=== PATIENT | female | born 1945 | race Two or more races ===

== ENCOUNTER 2021-06-29 11:29 | Emergency (ER) | payer MEDICARE, OTHER ==
[~2021-06-29] VITALS: Ht 154.9 cm; Wt 59.9 kg
[2021-06-29 12:28] VITALS: BP 125/83
[2021-06-29] MEDS ORDERED: ACET-1080 PO (13:49)
== END 2021-06-29 13:55 | disposition home or self-care (01) ==
LOC: ER 11:29
DX: M79.662 Pain in left lower leg (principal); R22.42 Localized swelling, mass and lump, left lower limb; I10 Essential (primary) hypertension
CPT/HCPCS: 93005; 93971

== ENCOUNTER 2021-08-26 19:26 | Emergency (ER) | payer MEDICARE, MEDICAID ==
[~2021-08-26] VITALS: Ht 154.9 cm; Wt 54.4 kg
[~2021-08-26 19:26] MED LIST: ACET-1080 PO
[2021-08-26] MEDS ORDERED: ACETAMINOPHEN 325 MG TAB PO ONE (20:45)
[2021-08-26 22:37] LABS: Basophils # (auto) 0 10 ^3/uL (0-0.2); Basophils % (auto) 0.4 % (0.0-2.0); Eosinophils # (auto) 0.1 10 ^3/uL (0-0.8); Eosinophils % (auto) 1.8 % (0.0-7.0); Hematocrit 36.8 % (36.0-46.0); Hemoglobin 12.7 g/dL (12.2-16.2); Lymphocytes # (auto) 0.9 10 ^3/uL (0.4-5.4); Lymphocytes % (auto) 12.8 % (10.0-50.0); Mean Corpuscular Hemoglobin 31.4 pg (28.0-32.0); Mean Corpuscular Hgb Conc. 34.6 g/dL (32.0-36.0); Mean Corpuscular Volume 90.9 fL (80.0-100.0); Monocytes # (auto) 0.9 10 ^3/uL (0-1.3); Monocytes % (auto) 12.3 % (0.0-12.0); Neutrophils # (auto) 5.4 10 ^3/uL (1.6-8.6); Neutrophils % (auto) 72.7 % (37.0-80.0); Red Blood Cells 4.05 10^6/uL (4.0-5.20); Red Cell Distribution Width 14.6 % (11.8-14.3); White Blood Cell 7.4 10^3/uL (4.4-10.8)
[2021-08-26 22:40] LABS: INR 1.1 (0.9-1.15)
[2021-08-26 23:07] LABS: Albumin 3.4 g/dL (3.4-5.0); Calcium 8.8 mg/dL (8.5-10.1); Potassium 4.3 mmol/L (3.5-5.1)
[2021-08-26 23:10] LABS: Bilirubin, Total 0.3 mg/dL (0.2-1.0); Total Protein 6.4 g/dL (6.4-8.2)
[2021-08-27 00:15] VITALS: BP 127/77
== END 2021-08-27 00:15 | disposition home or self-care (01) ==
LOC: ER 19:26
DX: I82.402 Acute embolism and thrombosis of unspecified deep veins of left lower extremity (principal); I10 Essential (primary) hypertension; Z79.899 Other long term (current) drug therapy
CPT/HCPCS: 36415; 80053; 85025; 85610; 85730; 93971

== ENCOUNTER 2022-05-09 14:26 | Inpatient (IN) | payer MEDICARE, MEDICAID ==
[~2022-05-09] VITALS: Ht 154.9 cm; Wt 56.4 kg
[2022-05-09 15:07] LABS: Basophils # (auto) 0 10 ^3/uL (0-0.2); Basophils % (auto) 0.4 % (0.0-2.0); Eosinophils # (auto) 0 10 ^3/uL (0-0.8); Eosinophils % (auto) 0.4 % (0.0-7.0); Hemoglobin 13.1 g/dL (12.2-16.2); Lymphocytes # (auto) 0.5 10 ^3/uL (0.4-5.4); Mean Corpuscular Hemoglobin 30.9 pg (28.0-32.0); Mean Corpuscular Hgb Conc. 33.5 g/dL (32.0-36.0); Mean Corpuscular Volume 92.3 fL (80.0-100.0); Monocytes # (auto) 0.8 10 ^3/uL (0-1.3); Monocytes % (auto) 16.5 % (0.0-12.0); Neutrophils # (auto) 3.4 10 ^3/uL (1.6-8.6); Neutrophils % (auto) 72.7 % (37.0-80.0); Nucleated Red Blood Cells % 0.1 %; Red Blood Cells 4.23 10^6/uL (4.0-5.20); Red Cell Distribution Width 14.7 % (11.8-14.3); White Blood Cell 4.7 10^3/uL (4.4-10.8)
[2022-05-09 15:26] LABS: Albumin 3.6 g/dL (3.4-5.0); Calcium 8.6 mg/dL (8.5-10.1); INR 1.21 (0.9-1.15); Magnesium 2.1 mg/dL (1.6-2.6); Partial Thromboplastin Time 28.8 sec (24.6-33.4); Potassium 4.3 mmol/L (3.5-5.1)
[2022-05-09 15:44] LABS: BUN/Creatinine Ratio 28.4; Bilirubin, Total 0.6 mg/dL (0.2-1.0)
[2022-05-09] MEDS ORDERED: IOHEXOL 350 MG/ML 100ML IJ ONE (16:17)
[2022-05-09] MEDS ORDERED: MECLIZINE HCL 25 MG TAB PO ONE (17:15)
[2022-05-09] MEDS ORDERED: NITROGLYCERIN 0.4 MG SL TAB SL PRN (18:00)
[2022-05-09] MEDS ORDERED: MORPHINE SULFATE INJ 2 MG/ml SYRG IV PRN (18:00)
[2022-05-09] MEDS ORDERED: ACETAMINOPHEN 325 MG TAB PO PRN (18:00)
[2022-05-09] MEDS ORDERED: PANTOPRAZOLE 40 MG/10 ML VIAL INJ IV ONE (18:00)
[2022-05-09] MEDS ORDERED: MECLIZINE HCL 25 MG TAB PO PRN (18:15)
[2022-05-09] MEDS: SODIUM CHLORIDE 0.9% 1,000 ML IV SCH (18:16)
[2022-05-09 18:55] LABS: Urine Bacteria NONE SEEN /hpf (None Seen); Urine Blood Negative /uL (Negative); Urine Hyaline Cast FEW /lpf (0 - 2); Urine Specific Gravity 1.039 (1.001-1.035); Urine WBC 3 /hpf (0 - 5)
[2022-05-09 19:16] LABS: Alcohol, Urine < 3.0 mg/dL (0-10); Amphetamine Screen, Urine NEGATIVE (NEGATIVE); Barbiturate Scree,Urine NEGATIVE (NEGATIVE); Benzodiazephine Screen, Urine NEGATIVE (NEGATIVE); Cannabinoid Screen, Urine NEGATIVE (NEGATIVE); Cocaine Screen, Urine NEGATIVE (NEGATIVE); Opiate Scree,Urine NEGATIVE (NEGATIVE); Phencyclidine Screen, Urine NEGATIVE (NEGATIVE)
[2022-05-09 19:21] LABS: Cholesterol 126 mg/dL (< 200)
[2022-05-09 19:24] LABS: HDL Cholesterol 61 mg/dL (40-59); LDL Cholesterol 59 mg/dL (< 100); Triglycerides 78 mg/dL (< 150)
[2022-05-09 22:00] VITALS: BP 109/62
[2022-05-10] MEDS ORDERED: DONE1TAB88 PO (01:04)
[2022-05-10] MEDS ORDERED: RISP0.5T45 PO (01:04)
[2022-05-10] MEDS ORDERED: MEMA1TAB5 PO (01:04)
[2022-05-10] MEDS ORDERED: APIX5TAB PO (01:04)
[2022-05-10] MEDS ORDERED: LATA0.0019 EACHEYE (01:04)
[2022-05-10 05:00] VITALS: BP_SYST 102; BP_SYST 106; BP_SYST 90; BP_DIAS 53; BP_DIAS 57; BP_DIAS 60
[2022-05-10 05:20] LABS: Basophils # (auto) 0 10 ^3/uL (0-0.2); Basophils % (auto) 0.3 % (0.0-2.0); Eosinophils # (auto) 0.1 10 ^3/uL (0-0.8); Eosinophils % (auto) 1.8 % (0.0-7.0); Hematocrit 35.9 % (36.0-46.0); Hemoglobin 12.1 g/dL (12.2-16.2); Lymphocytes # (auto) 0.9 10 ^3/uL (0.4-5.4); Lymphocytes % (auto) 13.9 % (10.0-50.0); Mean Corpuscular Hemoglobin 30.7 pg (28.0-32.0); Mean Corpuscular Hgb Conc. 33.6 g/dL (32.0-36.0); Mean Corpuscular Volume 91.3 fL (80.0-100.0); Monocytes # (auto) 1.1 10 ^3/uL (0-1.3); Nucleated Red Blood Cells % 0.2 %; Red Blood Cells 3.94 10^6/uL (4.0-5.20); Red Cell Distribution Width 14.9 % (11.8-14.3); White Blood Cell 6.1 10^3/uL (4.4-10.8)
[2022-05-10 05:40] LABS: Albumin 3.1 g/dL (3.4-5.0); BUN/Creatinine Ratio 35.2; Calcium 8.2 mg/dL (8.5-10.1); Potassium 4.3 mmol/L (3.5-5.1)
[2022-05-10 05:42] LABS: Bilirubin, Total 0.3 mg/dL (0.2-1.0); Total Protein 5.6 g/dL (6.4-8.2)
[2022-05-10 09:01] VITALS: BP 112/66
[2022-05-10] MEDS: PANTOPRAZOLE 40 MG/10 ML VIAL INJ IV SCH (10:06)
[2022-05-10] MEDS: ENOXAPARIN SOD 40 MG/0.4 ML SYRINGE SC SCH (10:06)
[2022-05-10 12:46] VITALS: BP 104/59
[2022-05-10 16:56] VITALS: BP 134/76
[2022-05-10 22:00] VITALS: BP_SYST 103; BP_SYST 92; BP_SYST 96; BP_DIAS 49; BP_DIAS 50; BP_DIAS 55
[2022-05-11 05:00] VITALS: BP_SYST 73; BP_SYST 93; BP_SYST 97; BP_DIAS 37; BP_DIAS 41; BP_DIAS 51
[2022-05-11 08:00] VITALS: BP_SYST 86; BP_SYST 98; BP_SYST 99; BP_DIAS 47; BP_DIAS 53; BP_DIAS 63
[2022-05-11 08:01] LABS: Hemoglobin 12.9 g/dL (12.2-16.2); Mean Corpuscular Hgb Conc. 33.9 g/dL (32.0-36.0); Mean Corpuscular Volume 91.2 fL (80.0-100.0); Red Blood Cells 4.17 10^6/uL (4.0-5.20); Red Cell Distribution Width 14.5 % (11.8-14.3); White Blood Cell 6.6 10^3/uL (4.4-10.8)
[2022-05-11 08:21] LABS: Band Neutrophils % (manual) 0; Basophils % (manual) 0 (0.0-2.0); Blast Cells 0; Metamyelocytes % 0; Myelocytes % 0; Promyelocytes % 0; Reactive Lymphocytes 0
[2022-05-11 08:26] LABS: BUN/Creatinine Ratio 35.1; Calcium 8.7 mg/dL (8.5-10.1); Potassium 4.6 mmol/L (3.5-5.1)
[2022-05-11 09:25] LABS: Eosinophils % (manual) 1 (0-7); Lymphocytes % (manual) 11 (10.0-50.0); Monocytes % (manual) 24 (0-12)
[2022-05-11] MEDS: PANTOPRAZOLE 40 MG/10 ML VIAL INJ IV SCH (10:11)
[2022-05-11] MEDS: ENOXAPARIN SOD 40 MG/0.4 ML SYRINGE SC SCH (10:12)
[2022-05-11 12:00] VITALS: BP_SYST 100; BP_SYST 103; BP_SYST 123; BP_DIAS 47; BP_DIAS 58; BP_DIAS 60
[2022-05-11 16:00] VITALS: BP_SYST 80; BP_SYST 83; BP_SYST 92; BP_DIAS 44; BP_DIAS 48; BP_DIAS 51
[2022-05-11 19:57] VITALS: BP 95/52
[2022-05-11 22:00] VITALS: BP_SYST 90; BP_SYST 92; BP_SYST 96; BP_DIAS 47; BP_DIAS 51; BP_DIAS 53
[2022-05-12 05:00] VITALS: BP 100/52
[2022-05-12 06:37] LABS: Basophils # (auto) 0 10 ^3/uL (0-0.2); Basophils % (auto) 0.4 % (0.0-2.0); Eosinophils # (auto) 0.2 10 ^3/uL (0-0.8); Eosinophils % (auto) 3.1 % (0.0-7.0); Hematocrit 36.9 % (36.0-46.0); Hemoglobin 12.5 g/dL (12.2-16.2); Lymphocytes # (auto) 1.4 10 ^3/uL (0.4-5.4); Lymphocytes % (auto) 27.3 % (10.0-50.0); Mean Corpuscular Hgb Conc. 33.9 g/dL (32.0-36.0); Mean Corpuscular Volume 91.3 fL (80.0-100.0); Monocytes % (auto) 20.9 % (0.0-12.0); Neutrophils # (auto) 2.4 10 ^3/uL (1.6-8.6); Neutrophils % (auto) 48.3 % (37.0-80.0); Red Blood Cells 4.04 10^6/uL (4.0-5.20); Red Cell Distribution Width 14.5 % (11.8-14.3)
[2022-05-12 06:54] LABS: Potassium 4.6 mmol/L (3.5-5.1)
[2022-05-12 06:55] LABS: BUN/Creatinine Ratio 33.8; Calcium 8.7 mg/dL (8.5-10.1)
[2022-05-12 08:00] VITALS: BP 104/52
[2022-05-12] MEDS: ENOXAPARIN SOD 40 MG/0.4 ML SYRINGE SC SCH (10:05)
[2022-05-12] MEDS: PANTOPRAZOLE 40 MG/10 ML VIAL INJ IV SCH (10:05)
[2022-05-12] MEDS: SODIUM CHLORIDE 0.9% 1,000 ML IV SCH (10:06)
[2022-05-12 12:00] VITALS: BP 98/48
[2022-05-12 16:00] VITALS: BP_SYST 118; BP_SYST 94; BP_SYST 98; BP_DIAS 46; BP_DIAS 50; BP_DIAS 55
[2022-05-12] MEDS ORDERED: LORazepam 2MG/ML-1ML VIAL IV PRN (20:30)
[2022-05-12 21:29] LABS: Folate (Folic Acid) 8.78 ng/mL (5.38-24)
[2022-05-12] MEDS: DONEPEZIL HYDROCHLORIDE 5 MG TAB PO SCH (21:30)
[2022-05-12] MEDS: MEMANTINE HCL 5 MG TAB PO SCH (21:30)
[2022-05-12 22:03] VITALS: BP 95/47
[2022-05-13 05:10] VITALS: BP_SYST 102; BP_SYST 107; BP_SYST 96; BP_DIAS 51; BP_DIAS 56; BP_DIAS 61
[2022-05-13 05:43] LABS: Basophils # (auto) 0 10 ^3/uL (0-0.2); Basophils % (auto) 0.3 % (0.0-2.0); Eosinophils # (auto) 0.2 10 ^3/uL (0-0.8); Eosinophils % (auto) 4.2 % (0.0-7.0); Hematocrit 37.5 % (36.0-46.0); Hemoglobin 12.7 g/dL (12.2-16.2); Lymphocytes # (auto) 1.6 10 ^3/uL (0.4-5.4); Lymphocytes % (auto) 27.5 % (10.0-50.0); Mean Corpuscular Hgb Conc. 33.8 g/dL (32.0-36.0); Mean Corpuscular Volume 91.5 fL (80.0-100.0); Monocytes % (auto) 17.9 % (0.0-12.0); Neutrophils # (auto) 2.8 10 ^3/uL (1.6-8.6); Neutrophils % (auto) 50.1 % (37.0-80.0); Red Cell Distribution Width 14.7 % (11.8-14.3); White Blood Cell 5.7 10^3/uL (4.4-10.8)
[2022-05-13 06:02] LABS: Calcium 8.9 mg/dL (8.5-10.1); Potassium 4.9 mmol/L (3.5-5.1)
[2022-05-13 06:06] LABS: BUN/Creatinine Ratio 22.5
[2022-05-13] MEDS: SODIUM CHLORIDE 0.9% 1,000 ML IV SCH ×2 (06:57→06:58)
[2022-05-13 08:05] VITALS: BP 114/63
[2022-05-13 09:00] VITALS: BP 105/56
[2022-05-13] MEDS: MEMANTINE HCL 5 MG TAB PO SCH ×2 (09:29→21:20)
[2022-05-13 13:00] VITALS: BP 101/55
[2022-05-13 16:49] VITALS: BP 123/60
[2022-05-13] MEDS ORDERED: CYANOCOBALAMIN (B-12) 1000 MCG/1 ML VIAL IM ONE (20:45)
[2022-05-13] MEDS: DONEPEZIL HYDROCHLORIDE 5 MG TAB PO SCH (21:20)
[2022-05-13] MEDS: ENOXAPARIN SOD 100 MG/1 ML SYRINGE SC SCH (21:21)
[2022-05-14 05:00] VITALS: BP 120/59
[2022-05-14 05:55] LABS: Basophils # (auto) 0 10 ^3/uL (0-0.2); Basophils % (auto) 0.3 % (0.0-2.0); Eosinophils # (auto) 0.3 10 ^3/uL (0-0.8); Hematocrit 37.6 % (36.0-46.0); Hemoglobin 12.7 g/dL (12.2-16.2); Lymphocytes # (auto) 1.8 10 ^3/uL (0.4-5.4); Lymphocytes % (auto) 26.2 % (10.0-50.0); Mean Corpuscular Hemoglobin 31.1 pg (28.0-32.0); Mean Corpuscular Hgb Conc. 33.8 g/dL (32.0-36.0); Mean Corpuscular Volume 92.1 fL (80.0-100.0); Monocytes # (auto) 1.1 10 ^3/uL (0-1.3); Monocytes % (auto) 15.5 % (0.0-12.0); Neutrophils # (auto) 3.8 10 ^3/uL (1.6-8.6); Red Blood Cells 4.09 10^6/uL (4.0-5.20); Red Cell Distribution Width 14.4 % (11.8-14.3)
[2022-05-14 06:03] LABS: Potassium 4.5 mmol/L (3.5-5.1)
[2022-05-14 06:07] LABS: BUN/Creatinine Ratio 32.6
[2022-05-14 08:58] VITALS: BP 103/57
[2022-05-14] MEDS: ENOXAPARIN SOD 100 MG/1 ML SYRINGE SC SCH (09:40)
[2022-05-14] MEDS: MEMANTINE HCL 5 MG TAB PO SCH (09:40)
[2022-05-14] MEDS ORDERED: CYANOCOBALAMIN 500 MCG TAB PO SCH (10:00)
== END 2022-05-14 13:20 | disposition home health service (06) | DRG 307 ==
LOC: ER 14:26 → EDBD 14:26 → TELE 17:54 → TELE-EAST 21:58
PROVIDERS: ADMIT Nurse Practitioner Family; ATTEND Internal Medicine Pulmonary Disease
DX: I35.0 Nonrheumatic aortic (valve) stenosis (principal); G45.9 Transient cerebral ischemic attack, unspecified; I24.9 Acute ischemic heart disease, unspecified; I95.1 Orthostatic hypotension; F02.80 Dementia in other diseases classified elsewhere, unspecified severity, without behavioral disturbance, psychotic disturbance, mood disturbance, and anxiety; Z20.822 Contact with and (suspected) exposure to COVID-19; W18.39XA Other fall on same level, initial encounter; G30.9 Alzheimer's disease, unspecified; I10 Essential (primary) hypertension; Z79.01 Long term (current) use of anticoagulants; Z79.899 Other long term (current) drug therapy; Z86.718 Personal history of other venous thrombosis and embolism; Y93.89 Activity, other specified; Y92.89 Other specified places as the place of occurrence of the external cause; Y99.8 Other external cause status
CPT/HCPCS: 36415; 70450; 70551; 71045; 71275; 80048; 80053; 80061; 80307; 81001; 82607; 82746; 83090; 83735; 84443; 84484; 85007; 85025; 85027; 85610; 85730; 87426; 93005; 93306; 93886; 95819; 96361; 96374; 97163; C9113; G0378

== ENCOUNTER 2022-07-06 09:36 | Emergency (ER) | payer MEDICARE, MEDICAID ==
[~2022-07-06] VITALS: Ht 180.3 cm; Wt 50.0 kg
[~2022-07-06 09:36] MED LIST changes: -ACET-1080 PO; +APIX5TAB PO; +DONE1TAB88 PO; +LATA0.0019 EACHEYE; +MEMA1TAB5 PO; +RISP0.5T45 PO
[2022-07-06 10:03] VITALS: BP 130/84
== END 2022-07-06 13:09 | disposition home or self-care (01) ==
LOC: ER 09:36
DX: S00.83XA Contusion of other part of head, initial encounter (principal); G30.9 Alzheimer's disease, unspecified; F02.80 Dementia in other diseases classified elsewhere, unspecified severity, without behavioral disturbance, psychotic disturbance, mood disturbance, and anxiety; I10 Essential (primary) hypertension; W18.39XA Other fall on same level, initial encounter; Y93.E1 Activity, personal bathing and showering; Y92.89 Other specified places as the place of occurrence of the external cause; Y99.8 Other external cause status
CPT/HCPCS: 70450; 70486

== ENCOUNTER 2023-06-01 08:11 | Inpatient (IN) | payer MEDICARE, MEDICAID ==
[~2023-06-01] VITALS: Ht 154.9 cm; Wt 44.3 kg
[2023-06-01] VITALS (37 sets, daily range): BP systolic 56–154; BP diastolic 32–93; PULSE 66–101; RESP 14–20; TEMP 90.9–98.8; O2SAT 97–100
[~2023-06-01 08:11] MED LIST changes: -LATA0.0019 EACHEYE; +LATA0.008 EACHEYE
[2023-06-01 09:00] LABS: Basophils # (auto) 0 10 ^3/uL (0-0.2); Basophils % (auto) 0.1 % (0.0-2.0); Eosinophils # (auto) 0 10 ^3/uL (0-0.8); Eosinophils % (auto) 0.7 % (0.0-7.0); Hematocrit 34.8 % (36.0-46.0); Hemoglobin 11.7 g/dL (12.2-16.2); Lymphocytes # (auto) 1.1 10 ^3/uL (0.4-5.4); Lymphocytes % (auto) 15.8 % (10.0-50.0); Mean Corpuscular Hemoglobin 32.4 pg (28.0-32.0); Mean Corpuscular Hgb Conc. 33.6 g/dL (32.0-36.0); Mean Corpuscular Volume 96.3 fL (80.0-100.0); Monocytes # (auto) 0.7 10 ^3/uL (0-1.3); Monocytes % (auto) 10.6 % (0.0-12.0); Neutrophils % (auto) 72.8 % (37.0-80.0); Red Blood Cells 3.62 10^6/uL (4.0-5.20); Red Cell Distribution Width 15.1 % (11.8-14.3); White Blood Cell 6.8 10^3/uL (4.4-10.8)
[2023-06-01 09:19] LABS: Alanine Aminotransferase 37 U/L (7-40); Albumin 3.8 g/dL (3.2-4.8); Alkaline Phosphatase 157 U/L (46-116); Anion Gap 5 (5-15); Aspartate Aminotransferase 34 U/L (13-40); BUN/Creatinine Ratio 35.6 (10.0-20.0); Blood Urea Nitrogen 21 mg/dL (9-23); Calcium 7.8 mg/dL (8.7-10.4); Carbon Dioxide 27 mmol/L (20-30); Chloride 94 mmol/L (98-107); Glucose 103 mg/dL (74-106); Magnesium 1.6 mg/dL (1.6-2.6); Potassium 4.1 mmol/L (3.5-5.1); Sodium 126 mmol/L (136-145)
[2023-06-01 09:20] LABS: Bilirubin, Total 0.3 mg/dL (0.2-1.0); Total Protein 5.7 g/dL (5.7-8.2)
[2023-06-01] MEDS ORDERED: VANCOMYCIN 1GM/200ML 250 ML IV ONE (09:45)
[2023-06-01] MEDS ORDERED: HYDROCORTISONE SOD SUCC 100 MG/2ML INJ VIAL IV ONE (09:45)
[2023-06-01] MEDS ORDERED: PIPERACILLIN-TAZOB 3.375GM 100 ML IV ONE (09:45)
[2023-06-01] MEDS ORDERED: CALCIUM GLUC 1,000mg/50ml-NS 150 ML IV ONE (10:06)
[2023-06-01] MEDS ORDERED: ETOMIDATE (2MG/ML) 20ML VIAL IV ONE ×2 (10:11→10:30)
[2023-06-01] MEDS ORDERED: SUCCINYLCHOLINE CHLORIDE 20 MG/ML 10ML VIAL IV ONE ×2 (10:14→10:30)
[2023-06-01] MEDS: NOREPINEPHRINE 8 MG/250ML KIT 250 ML IV SCH ×2 (10:15→20:01)
[2023-06-01] MEDS ORDERED: NOREPINEPHRINE 8 MG/250ML KIT 250 ML IV ONE (10:17)
[2023-06-01] MEDS ORDERED: fentaNYL CITRATE 100 MCG/2 ML VL ONE ×2 (10:20→15:02)
[2023-06-01] MEDS ORDERED: HALOPERIDOL LACTATE 5 MG/ML INJ VIAL ONE (10:22)
[2023-06-01] MEDS ORDERED: PROPOFOL 100 ML IV ONE (10:28)
[2023-06-01] MEDS ORDERED: HALOPERIDOL LACTATE 5 MG/ML INJ VIAL IM ONE (10:30)
[2023-06-01] MEDS ORDERED: ATROPINE SULF 1 MG/10ml SYR IV ONE (10:30)
[2023-06-01] MEDS ORDERED: SODIUM BICARBONATE 8.4 % INJ 50ML VIAL IV ONE (10:30)
[2023-06-01] MEDS ORDERED: DEXTROSE (50%) 50ML SYRG IV ONE (10:30)
[2023-06-01] MEDS ORDERED: fentaNYL CITRATE 100 MCG/2 ML VL IV ONE (10:30)
[2023-06-01] MEDS: PROPOFOL 100 ML IV SCH (10:31)
[2023-06-01] MEDS ORDERED: SODIUM CHLORIDE 0.9% 1,500 ML IV STA (10:44)
[2023-06-01] MEDS ORDERED: SODIUM CHLORIDE 0.9% 1,300 ML IV ONE (11:00)
[2023-06-01 11:45] LABS: Base Excess -2.3 mmol/L (-2.0-2.0)
[2023-06-01 11:51] LABS: INR 1.14 (0.9-1.15); Partial Thromboplastin Time 30.5 SEC (24.5-34.5); Prothrombin Time 11.9 sec (9.3-11.8)
[2023-06-01 11:53] LABS: Urine Bacteria NONE SEEN /hpf (None Seen); Urine Blood Negative /uL (Negative); Urine Clarity Clear (Clear); Urine Protein, UAD TRACE (Negative); Urine Urobilinogen Normal (Negative); Urine WBC 1 /hpf (0 - 5); Urine pH 6.5 (5.0-8.0)
[2023-06-01 11:56] LABS: Urine Color Straw (Yellow)
[2023-06-01] MEDS ORDERED: MIDAZOLAM DRIP 50 mg/50mL 50 ML IV ONE (12:09)
[2023-06-01] MEDS: MIDAZOLAM DRIP 50 mg/50mL 50 ML IV SCH ×3 (12:15→23:47)
[2023-06-01 12:41] LABS: Triglycerides 67 mg/dL (< 150)
[2023-06-01 12:42] LABS: LDL Cholesterol 37 mg/dL (< 100)
[2023-06-01 12:43] LABS: Cholesterol 112 mg/dL (< 200); HDL Cholesterol 58 mg/dL (40-59)
[2023-06-01] MEDS ORDERED: NITROGLYCERIN 0.4 MG SL TAB SL PRN (13:15)
[2023-06-01] MEDS ORDERED: HYDROcodone-ACET 5/325MG TAB PO PRN (13:15)
[2023-06-01] MEDS ORDERED: MORPHINE SULFATE INJ 2 MG/ml SYRG IV PRN ×2 (13:15)
[2023-06-01] MEDS ORDERED: ACETAMINOPHEN 325 MG TAB PO PRN (13:15)
[2023-06-01] MEDS ORDERED: ONDANSETRON HCL 4 MG/2 ML VIAL IV PRN (13:15)
[2023-06-01] MEDS ORDERED: CALCIUM GLUC 1,000mg/50ml-NS 50 ML IV ONE (13:30)
[2023-06-01] MEDS: DOPamine 1600MCG/ML D5W 250 ML IV SCH (13:45)
[2023-06-01] MEDS ORDERED: LIDOCAINE 2%HCL (LOCAL ANESTH.) INJ 20ML MDV ONE (14:02)
[2023-06-01] MEDS ORDERED: EPINEPHrine HCL 1 MG/10 ML SYRG ONE (14:38)
[2023-06-01] MEDS ORDERED: ATROPINE SULF 1 MG/10ml SYR ONE (14:38)
[2023-06-01] MEDS ORDERED: IODIXANOL 320MG/ML 100ML BTL IV ONE (15:12)
[2023-06-01] MEDS: PANTOPRAZOLE 40 MG/10 ML VIAL INJ IV SCH (18:29)
[2023-06-01] MEDS: MAGNESIUM SULFATE 1GM/100ML 100 ML IV SCH ×2 (18:36→20:47)
[2023-06-01] MEDS ORDERED: MAGNESIUM SULFATE 1GM/100ML 100 ML IV ONE (20:45)
[2023-06-01 21:06] LABS: % Iron Saturation 55.8 % (15-50)
[2023-06-02] VITALS (112 sets, daily range): BP systolic 63–161; BP diastolic 35–78; PULSE 60–100; RESP 14–20; TEMP 97.3–98.8; O2SAT 95–100
[2023-06-02] MEDS: MIDAZOLAM DRIP 50 mg/50mL 50 ML IV SCH ×4 (04:01→19:09)
[2023-06-02 04:16] LABS: Basophils # (auto) 0 10 ^3/uL (0-0.2); Basophils % (auto) 0.2 % (0.0-2.0); Eosinophils # (auto) 0 10 ^3/uL (0-0.8); Eosinophils % (auto) 0.2 % (0.0-7.0); Hematocrit 36.8 % (36.0-46.0); Hemoglobin 12.4 g/dL (12.2-16.2); Lymphocytes % (auto) 8.8 % (10.0-50.0); Mean Corpuscular Hemoglobin 32.1 pg (28.0-32.0); Mean Corpuscular Hgb Conc. 33.7 g/dL (32.0-36.0); Mean Corpuscular Volume 95.3 fL (80.0-100.0); Monocytes # (auto) 1.7 10 ^3/uL (0-1.3); Monocytes % (auto) 15.5 % (0.0-12.0); Neutrophils # (auto) 8.2 10 ^3/uL (1.6-8.6); Neutrophils % (auto) 75.3 % (37.0-80.0); Red Blood Cells 3.86 10^6/uL (4.0-5.20); Red Cell Distribution Width 15.1 % (11.8-14.3); White Blood Cell 10.9 10^3/uL (4.4-10.8)
[2023-06-02 04:28] LABS: Anion Gap 4 (5-15); Carbon Dioxide 25 mmol/L (20-30); Chloride 107 mmol/L (98-107); Potassium 3.8 mmol/L (3.5-5.1); Sodium 136 mmol/L (136-145)
[2023-06-02 04:29] LABS: Calcium 8.4 mg/dL (8.5-10.1)
[2023-06-02 04:33] LABS: Glucose 102 mg/dL (74-106)
[2023-06-02 04:34] LABS: BUN/Creatinine Ratio 19.7 (10.0-20.0); Blood Urea Nitrogen 12 mg/dL (9-23)
[2023-06-02] MEDS: PROPOFOL 100 ML IV SCH (06:21)
[2023-06-02] MEDS: NOREPINEPHRINE 8 MG/250ML KIT 250 ML IV SCH ×3 (06:24→17:26)
[2023-06-02 07:29] LABS: Base Excess -0.4 mmol/L (-2.0-2.0)
[2023-06-02] MEDS ORDERED: SODIUM CHLORIDE 0.9% 1,000 ML IV SCH (09:45)
[2023-06-02] MEDS: PANTOPRAZOLE 40 MG/10 ML VIAL INJ IV SCH (11:08)
[2023-06-02] MEDS: ENOXAPARIN SOD 40 MG/0.4 ML SYRINGE SC SCH (11:09)
[2023-06-02] MEDS: DOPamine 1600MCG/ML D5W 250 ML IV SCH (16:32)
[2023-06-02] MEDS: PIPERACILLIN-TAZOB 3.375GM 100 ML IV SCH (17:14)
[2023-06-02] MEDS: SODIUM CHLORIDE 0.9% 1,000 ML IV SCH (20:00)
[2023-06-03] VITALS (102 sets, daily range): BP systolic 84–148; BP diastolic 46–82; PULSE 49–87; RESP 8–17; TEMP 96.4–99.1; O2SAT 98–100
[2023-06-03] MEDS: NOREPINEPHRINE 8 MG/250ML KIT 250 ML IV SCH (00:28)
[2023-06-03] MEDS: MIDAZOLAM DRIP 50 mg/50mL 50 ML IV SCH (00:29)
[2023-06-03] MEDS: PIPERACILLIN-TAZOB 3.375GM 100 ML IV SCH ×3 (02:00→18:05)
[2023-06-03 04:56] LABS: Basophils # (auto) 0 10 ^3/uL (0-0.2); Basophils % (auto) 0.4 % (0.0-2.0); Eosinophils # (auto) 0 10 ^3/uL (0-0.8); Eosinophils % (auto) 0.3 % (0.0-7.0); Hematocrit 31.8 % (36.0-46.0); Hemoglobin 10.9 g/dL (12.2-16.2); Lymphocytes # (auto) 1.1 10 ^3/uL (0.4-5.4); Lymphocytes % (auto) 14.1 % (10.0-50.0); Mean Corpuscular Hemoglobin 32.5 pg (28.0-32.0); Mean Corpuscular Hgb Conc. 34.2 g/dL (32.0-36.0); Mean Corpuscular Volume 94.9 fL (80.0-100.0); Monocytes # (auto) 1.2 10 ^3/uL (0-1.3); Monocytes % (auto) 15.8 % (0.0-12.0); Neutrophils # (auto) 5.2 10 ^3/uL (1.6-8.6); Neutrophils % (auto) 69.4 % (37.0-80.0); Red Blood Cells 3.36 10^6/uL (4.0-5.20); Red Cell Distribution Width 15.1 % (11.8-14.3); White Blood Cell 7.5 10^3/uL (4.4-10.8)
[2023-06-03 05:02] LABS: Chloride 107 mmol/L (98-107); Potassium 3.8 mmol/L (3.5-5.1); Sodium 139 mmol/L (136-145)
[2023-06-03 05:03] LABS: Anion Gap 7 (5-15); Calcium 7.8 mg/dL (8.5-10.1); Carbon Dioxide 25 mmol/L (20-30)
[2023-06-03 05:08] LABS: BUN/Creatinine Ratio 24.1 (10.0-20.0); Blood Urea Nitrogen 14 mg/dL (9-23); Glucose 103 mg/dL (74-106)
[2023-06-03 07:29] LABS: Base Excess -0.3 mmol/L (-2.0-2.0)
[2023-06-03] MEDS ORDERED: CALCIUM GLUC 1,000mg/50ml-NS 50 ML IV ONE (08:00)
[2023-06-03 08:06] LABS: Thyroxine (T4) 6.3 ug/dL (4.5-12.0)
[2023-06-03] MEDS: ENOXAPARIN SOD 40 MG/0.4 ML SYRINGE SC SCH (09:44)
[2023-06-03] MEDS: PANTOPRAZOLE 40 MG/10 ML VIAL INJ IV SCH (09:45)
[2023-06-03] MEDS: PROPOFOL 100 ML IV SCH (09:46)
[2023-06-03] MEDS: DOPamine 1600MCG/ML D5W 250 ML IV SCH (13:45)
[2023-06-03] MEDS: SODIUM CHLORIDE 0.9% 1,000 ML IV SCH (15:51)
[2023-06-03] MEDS: fentaNYL Drip 2500mCg/250mlNS 250 ML IV SCH (18:36)
[2023-06-04] VITALS (100 sets, daily range): BP systolic 84–151; BP diastolic 40–100; PULSE 48–90; RESP 8–20; TEMP 95.9–99.1; O2SAT 98–100
[2023-06-04] MEDS: PIPERACILLIN-TAZOB 3.375GM 100 ML IV SCH ×3 (02:09→17:56)
[2023-06-04 04:18] LABS: Basophils # (auto) 0 10 ^3/uL (0-0.2); Basophils % (auto) 0.3 % (0.0-2.0); Eosinophils # (auto) 0.1 10 ^3/uL (0-0.8); Eosinophils % (auto) 0.9 % (0.0-7.0); Hematocrit 28.5 % (36.0-46.0); Hemoglobin 9.8 g/dL (12.2-16.2); Lymphocytes % (auto) 15.9 % (10.0-50.0); Mean Corpuscular Hemoglobin 32.7 pg (28.0-32.0); Mean Corpuscular Hgb Conc. 34.3 g/dL (32.0-36.0); Mean Corpuscular Volume 95.4 fL (80.0-100.0); Monocytes # (auto) 0.9 10 ^3/uL (0-1.3); Monocytes % (auto) 14.8 % (0.0-12.0); Neutrophils # (auto) 4.2 10 ^3/uL (1.6-8.6); Neutrophils % (auto) 68.1 % (37.0-80.0); Red Blood Cells 2.99 10^6/uL (4.0-5.20); Red Cell Distribution Width 15.3 % (11.8-14.3); White Blood Cell 6.2 10^3/uL (4.4-10.8)
[2023-06-04 04:27] LABS: Anion Gap 4 (5-15); Calcium 7.7 mg/dL (8.7-10.4); Carbon Dioxide 27 mmol/L (20-30); Chloride 109 mmol/L (98-107); Potassium 3.8 mmol/L (3.5-5.1); Sodium 140 mmol/L (136-145)
[2023-06-04 04:33] LABS: Blood Urea Nitrogen 13 mg/dL (9-23); Glucose 78 mg/dL (74-106)
[2023-06-04] MEDS: LEVOTHYROXINE SODIUM 25 MCG TAB PO SCH (06:04)
[2023-06-04] MEDS ORDERED: ERGOCALCIFEROL 50,000 UNIT(1.25MG) CAP PO SCH (08:30)
[2023-06-04] MEDS ORDERED: CALCIUM GLUC 1,000mg/50ml-NS 50 ML IV ONE (08:30)
[2023-06-04] MEDS: ENOXAPARIN SOD 40 MG/0.4 ML SYRINGE SC SCH (09:09)
[2023-06-04] MEDS: NOREPINEPHRINE 8 MG/250ML KIT 250 ML IV SCH (09:10)
[2023-06-04 09:52] LABS: INR 1.11 (0.9-1.15); Partial Thromboplastin Time 29.8 SEC (24.5-34.5); Prothrombin Time 11.6 sec (9.3-11.8)
[2023-06-04] MEDS ORDERED: PANTOPRAZOLE 40 MG TAB PO SCH (10:00)
[2023-06-04] MEDS: PROPOFOL 100 ML IV SCH (10:45)
[2023-06-04] MEDS: SODIUM CHLORIDE 0.9% 1,000 ML IV SCH (12:09)
[2023-06-04] MEDS: MIDAZOLAM DRIP 50 mg/50mL 50 ML IV SCH (12:15)
[2023-06-04] MEDS: DOPamine 1600MCG/ML D5W 250 ML IV SCH (13:45)
[2023-06-04] MEDS: fentaNYL Drip 2500mCg/250mlNS 250 ML IV SCH (16:59)
[2023-06-05] VITALS (89 sets, daily range): BP systolic 96–163; BP diastolic 41–85; PULSE 56–94; RESP 8–26; TEMP 96.6–100.2; O2SAT 89–100
[2023-06-05 03:57] LABS: Basophils # (auto) 0 10 ^3/uL (0-0.2); Basophils % (auto) 0.2 % (0.0-2.0); Eosinophils # (auto) 0 10 ^3/uL (0-0.8); Eosinophils % (auto) 0.6 % (0.0-7.0); Hematocrit 27.5 % (36.0-46.0); Hemoglobin 9.2 g/dL (12.2-16.2); Lymphocytes # (auto) 0.8 10 ^3/uL (0.4-5.4); Lymphocytes % (auto) 11.6 % (10.0-50.0); Mean Corpuscular Hgb Conc. 33.5 g/dL (32.0-36.0); Mean Corpuscular Volume 95.6 fL (80.0-100.0); Monocytes # (auto) 0.9 10 ^3/uL (0-1.3); Monocytes % (auto) 12.2 % (0.0-12.0); Neutrophils # (auto) 5.5 10 ^3/uL (1.6-8.6); Neutrophils % (auto) 75.4 % (37.0-80.0); Red Blood Cells 2.88 10^6/uL (4.0-5.20); Red Cell Distribution Width 14.7 % (11.8-14.3); White Blood Cell 7.3 10^3/uL (4.4-10.8)
[2023-06-05 04:21] LABS: Alanine Aminotransferase 37 U/L (7-40); Albumin 2.8 g/dL (3.2-4.8); Alkaline Phosphatase 76 U/L (46-116); Anion Gap 9 (5-15); Aspartate Aminotransferase 19 U/L (13-40); BUN/Creatinine Ratio 32.5 (10.0-20.0); Blood Urea Nitrogen 13 mg/dL (9-23); Calcium 7.9 mg/dL (8.7-10.4); Carbon Dioxide 24 mmol/L (20-30); Chloride 107 mmol/L (98-107); Glucose 63 mg/dL (74-106); Potassium 3.5 mmol/L (3.5-5.1); Sodium 140 mmol/L (136-145)
[2023-06-05 04:22] LABS: Bilirubin, Total 0.7 mg/dL (0.2-1.0); Total Protein 4.5 g/dL (5.7-8.2)
[2023-06-05] MEDS: LEVOTHYROXINE SODIUM 25 MCG TAB PO SCH (06:22)
[2023-06-05] MEDS: SODIUM CHLORIDE 0.9% 1,000 ML IV SCH (06:22)
[2023-06-05] MEDS ORDERED: CALCIUM GLUC 1,000mg/50ml-NS 50 ML IV ONE ×2 (08:30→09:50)
[2023-06-05 09:21] LABS: Base Excess -1.7 mmol/L (-2.0-2.0)
[2023-06-05] MEDS ORDERED: PANTOPRAZOLE 40 MG/10 ML VIAL INJ IV ONE (09:51)
[2023-06-05] MEDS: PANTOPRAZOLE 40 MG/10 ML VIAL INJ IV SCH (09:55)
[2023-06-05] MEDS: PIPERACILLIN-TAZOB 3.375GM 100 ML IV SCH ×2 (09:55→17:55)
[2023-06-05] MEDS: APIXABAN 2.5 MG TAB PO SCH ×2 (09:56→23:46)
[2023-06-05] MEDS ORDERED: EPINEPHrine HCL 0.5 ML NEB ONE ×2 (10:15→10:22)
[2023-06-05] MEDS: NOREPINEPHRINE 8 MG/250ML KIT 250 ML IV SCH (10:30)
[2023-06-05] MEDS ORDERED: IPRATROPIUM BROM 0.5 MG/2.5ML INH SOL ONE ×2 (10:35→18:10)
[2023-06-05] MEDS ORDERED: ALBUTEROL SULF 2.5 MG/0.5ML(0.5%) NEB SOLN ONE ×2 (10:35→18:11)
[2023-06-05] MEDS ORDERED: methylPREDNISolone SOD SUCC 125 MG/2 ML VL ONE ×2 (10:36→23:44)
[2023-06-05] MEDS: PROPOFOL 100 ML IV SCH (10:45)
[2023-06-05] MEDS ORDERED: IPRATROPIUM BROM 0.5 MG/2.5ML INH SOL NEB PRN (10:45)
[2023-06-05] MEDS ORDERED: ALBUTEROL SULF 2.5 MG/0.5ML(0.5%) NEB SOLN NEB PRN (10:45)
[2023-06-05] MEDS ORDERED: HYDROCORTISONE SOD SUCC 100 MG/2ML INJ VIAL IV ONE (10:45)
[2023-06-05] MEDS: Ensure HIGH Protein Vanilla 8oz Bottle PO SCH ×3 (11:11→22:00)
[2023-06-05] MEDS: MIDAZOLAM DRIP 50 mg/50mL 50 ML IV SCH (12:15)
[2023-06-05] MEDS: DOPamine 1600MCG/ML D5W 250 ML IV SCH (13:45)
[2023-06-05] MEDS ORDERED: methylPREDNISolone SOD SUCC 40 MG/ML VL ONE (14:09)
[2023-06-05] MEDS: methylPREDNISolone SOD SUCC 125 MG/2 ML VL IV SCH ×2 (14:11→23:45)
[2023-06-05] MEDS: fentaNYL Drip 2500mCg/250mlNS 250 ML IV SCH (18:00)
[2023-06-05] MEDS: IPRATROPIUM BROM 0.5 MG/2.5ML INH SOL NEB SCH ×2 (18:31→22:21)
[2023-06-05] MEDS: ALBUTEROL SULF 2.5 MG/0.5ML(0.5%) NEB SOLN NEB SCH (18:32)
[2023-06-05] MEDS ORDERED: APIXABAN 2.5 MG TAB ONE (23:45)
[2023-06-06] VITALS (36 sets, daily range): BP systolic 119–145; BP diastolic 55–74; PULSE 55–84; RESP 11–21; TEMP 97.9–98.4; O2SAT 90–100
[2023-06-06] MEDS: SODIUM CHLORIDE 0.9% 1,000 ML IV SCH (01:03)
[2023-06-06] MEDS ORDERED: IPRATROPIUM BROM 0.5 MG/2.5ML INH SOL ONE ×3 (01:58→22:02)
[2023-06-06] MEDS: ALBUTEROL SULF 2.5 MG/0.5ML(0.5%) NEB SOLN NEB SCH ×5 (02:14→18:32)
[2023-06-06] MEDS: IPRATROPIUM BROM 0.5 MG/2.5ML INH SOL NEB SCH ×6 (02:14→22:11)
[2023-06-06] MEDS: PIPERACILLIN-TAZOB 3.375GM 100 ML IV SCH ×3 (02:49→17:57)
[2023-06-06 03:49] LABS: Basophils # (auto) 0 10 ^3/uL (0-0.2); Eosinophils # (auto) 0 10 ^3/uL (0-0.8); Hematocrit 27.1 % (36.0-46.0); Hemoglobin 9.2 g/dL (12.2-16.2); Lymphocytes # (auto) 0.2 10 ^3/uL (0.4-5.4); Lymphocytes % (auto) 1.6 % (10.0-50.0); Mean Corpuscular Hgb Conc. 33.8 g/dL (32.0-36.0); Mean Corpuscular Volume 94.7 fL (80.0-100.0); Monocytes # (auto) 0.4 10 ^3/uL (0-1.3); Monocytes % (auto) 3.8 % (0.0-12.0); Neutrophils # (auto) 11.2 10 ^3/uL (1.6-8.6); Neutrophils % (auto) 94.6 % (37.0-80.0); Red Blood Cells 2.86 10^6/uL (4.0-5.20); Red Cell Distribution Width 14.5 % (11.8-14.3); White Blood Cell 11.9 10^3/uL (4.4-10.8)
[2023-06-06 03:58] LABS: Anion Gap 7 (5-15); Calcium 8.1 mg/dL (8.7-10.4); Carbon Dioxide 27 mmol/L (20-30); Chloride 106 mmol/L (98-107); Potassium 3.5 mmol/L (3.5-5.1); Sodium 140 mmol/L (136-145)
[2023-06-06 04:04] LABS: BUN/Creatinine Ratio 21.2 (10.0-20.0); Blood Urea Nitrogen 11 mg/dL (9-23); Glucose 156 mg/dL (74-106)
[2023-06-06] MEDS: Ensure HIGH Protein Vanilla 8oz Bottle PO SCH ×4 (06:00→22:30)
[2023-06-06] MEDS ORDERED: methylPREDNISolone SOD SUCC 125 MG/2 ML VL ONE ×3 (06:26→22:18)
[2023-06-06] MEDS: methylPREDNISolone SOD SUCC 125 MG/2 ML VL IV SCH ×3 (06:29→22:30)
[2023-06-06] MEDS: LEVOTHYROXINE SODIUM 25 MCG TAB PO SCH (06:30)
[2023-06-06] MEDS: PANTOPRAZOLE 40 MG/10 ML VIAL INJ IV SCH (09:55)
[2023-06-06] MEDS: APIXABAN 2.5 MG TAB PO SCH ×2 (09:55→22:30)
[2023-06-06] MEDS: FAMOTIDINE (10MG/ML) 2ML VL IV SCH (09:55)
[2023-06-06] MEDS: NOREPINEPHRINE 8 MG/250ML KIT 250 ML IV SCH (10:30)
[2023-06-06] MEDS: PROPOFOL 100 ML IV SCH (10:45)
[2023-06-06] MEDS: MIDAZOLAM DRIP 50 mg/50mL 50 ML IV SCH (12:15)
[2023-06-06] MEDS: DOPamine 1600MCG/ML D5W 250 ML IV SCH (13:45)
[2023-06-06] MEDS: fentaNYL Drip 2500mCg/250mlNS 250 ML IV SCH (18:00)
[2023-06-06] MEDS ORDERED: ALBUTEROL SULF 2.5 MG/0.5ML(0.5%) NEB SOLN ONE ×2 (18:31→22:02)
[2023-06-06] MEDS ORDERED: APIXABAN 2.5 MG TAB ONE (22:18)
[2023-06-07] VITALS (49 sets, daily range): BP systolic 99–201; BP diastolic 45–102; PULSE 53–90; RESP 10–23; TEMP 97.3–98.7; O2SAT 88–100
[2023-06-07] MEDS: PIPERACILLIN-TAZOB 3.375GM 100 ML IV SCH ×3 (01:33→17:19)
[2023-06-07] MEDS: IPRATROPIUM BROM 0.5 MG/2.5ML INH SOL NEB SCH ×6 (02:06→21:37)
[2023-06-07] MEDS: ALBUTEROL SULF 2.5 MG/0.5ML(0.5%) NEB SOLN NEB SCH ×6 (02:07→21:37)
[2023-06-07] MEDS: Ensure HIGH Protein Vanilla 8oz Bottle PO SCH ×4 (06:00→22:28)
[2023-06-07] MEDS: LEVOTHYROXINE SODIUM 25 MCG TAB PO SCH (06:34)
[2023-06-07] MEDS: methylPREDNISolone SOD SUCC 125 MG/2 ML VL IV SCH ×3 (06:34→22:28)
[2023-06-07] MEDS ORDERED: hydrALAZINE HCL 20 MG/ML VL IV PRN (08:45)
[2023-06-07] MEDS: APIXABAN 2.5 MG TAB PO SCH ×2 (10:27→22:28)
[2023-06-07] MEDS: PANTOPRAZOLE 40 MG/10 ML VIAL INJ IV SCH (10:28)
[2023-06-07] MEDS: FAMOTIDINE (10MG/ML) 2ML VL IV SCH (10:28)
[2023-06-07] MEDS: NOREPINEPHRINE 8 MG/250ML KIT 250 ML IV SCH (10:30)
[2023-06-07] MEDS: PROPOFOL 100 ML IV SCH (10:45)
[2023-06-07] MEDS: MIDAZOLAM DRIP 50 mg/50mL 50 ML IV SCH (12:15)
[2023-06-07] MEDS: DOPamine 1600MCG/ML D5W 250 ML IV SCH (13:45)
[2023-06-07] MEDS: fentaNYL Drip 2500mCg/250mlNS 250 ML IV SCH (15:52)
[2023-06-07] MEDS: SODIUM CHLORIDE 0.9% 1,000 ML IV SCH ×2 (15:53)
[2023-06-08] VITALS (22 sets, daily range): BP systolic 126–153; BP diastolic 59–133; PULSE 69–93; RESP 12–23; TEMP 36.7; O2SAT 93–100
[2023-06-08] MEDS: PIPERACILLIN-TAZOB 3.375GM 100 ML IV SCH ×2 (01:37→10:00)
[2023-06-08] MEDS: IPRATROPIUM BROM 0.5 MG/2.5ML INH SOL NEB SCH ×3 (01:51→09:17)
[2023-06-08] MEDS: ALBUTEROL SULF 2.5 MG/0.5ML(0.5%) NEB SOLN NEB SCH ×2 (01:51→06:20)
[2023-06-08] MEDS: methylPREDNISolone SOD SUCC 125 MG/2 ML VL IV SCH (05:41)
[2023-06-08] MEDS: Ensure HIGH Protein Vanilla 8oz Bottle PO SCH ×2 (06:00→12:00)
[2023-06-08] MEDS: LEVOTHYROXINE SODIUM 25 MCG TAB PO SCH (06:51)
[2023-06-08] MEDS: MIDAZOLAM DRIP 50 mg/50mL 50 ML IV SCH ×2 (08:00→08:12)
[2023-06-08] MEDS ORDERED: ACET-1882 PO (09:47)
[2023-06-08] MEDS ORDERED: FAMO-12 PO (09:47)
[2023-06-08] MEDS ORDERED: ERGO1CAP23 PO (09:47)
[2023-06-08] MEDS ORDERED: LEV25T PO (09:47)
[2023-06-08] MEDS: NOREPINEPHRINE 8 MG/250ML KIT 250 ML IV SCH (10:30)
[2023-06-08] MEDS: FAMOTIDINE (10MG/ML) 2ML VL IV SCH (11:02)
[2023-06-08] MEDS: APIXABAN 2.5 MG TAB PO SCH (11:02)
[2023-06-08] MEDS: DOPamine 1600MCG/ML D5W 250 ML IV SCH (13:45)
[2023-06-08] MEDS: SODIUM CHLORIDE 0.9% 1,000 ML IV SCH (16:00)
[2023-06-08] MEDS: fentaNYL Drip 2500mCg/250mlNS 250 ML IV SCH (17:00)
[2023-06-08] MEDS ORDERED: IPRATROPIUM BROM 0.5 MG/2.5ML INH SOL NEB PRN (18:00)
[2023-06-08] MEDS ORDERED: ALBUTEROL SULF 2.5 MG/0.5ML(0.5%) NEB SOLN NEB PRN (18:00)
[2023-06-08] MEDS ORDERED: methylPREDNISolone SOD SUCC 40 MG/ML VL IV SCH (22:00)
== END 2023-06-08 18:00 | disposition home health service (06) | DRG 871 ==
LOC: ER 08:11 → TELE 13:11 → ICU WEST 17:44 → DOU IN ICU 06-07 15:15
PROVIDERS: ADMIT Internal Medicine; ATTEND Internal Medicine
PROC: 5A1945Z Respiratory Ventilation, 24-96 Consecutive Hours (ICD-10-PCS; principal; 2023-06-01)
PROC: 0BH17EZ Insertion of Endotracheal Airway into Trachea, Via Natural or Artificial Opening (ICD-10-PCS; 2023-06-01)
PROC: 5A1223Z Performance of Cardiac Pacing, Continuous (ICD-10-PCS; 2023-06-01)
PROC: 02HV33Z Insertion of Infusion Device into Superior Vena Cava, Percutaneous Approach (ICD-10-PCS; 2023-06-01)
PROC: B548ZZA Ultrasonography of Superior Vena Cava, Guidance (ICD-10-PCS; 2023-06-01)
DX: A41.9 Sepsis, unspecified organism (principal); E43 Unspecified severe protein-calorie malnutrition; G92.8 Other toxic encephalopathy; J96.01 Acute respiratory failure with hypoxia; R65.21 Severe sepsis with septic shock; R57.0 Cardiogenic shock; J69.0 Pneumonitis due to inhalation of food and vomit; E87.1 Hypo-osmolality and hyponatremia; I44.2 Atrioventricular block, complete; G93.1 Anoxic brain damage, not elsewhere classified; Z68.1 Body mass index [BMI] 19.9 or less, adult; F02.80 Dementia in other diseases classified elsewhere, unspecified severity, without behavioral disturbance, psychotic disturbance, mood disturbance, and anxiety; G30.9 Alzheimer's disease, unspecified; I11.0 Hypertensive heart disease with heart failure; I50.9 Heart failure, unspecified; J32.4 Chronic pansinusitis; D63.8 Anemia in other chronic diseases classified elsewhere; R00.1 Bradycardia, unspecified; R47.9 Unspecified speech disturbances; E86.0 Dehydration; E55.9 Vitamin D deficiency, unspecified; E03.9 Hypothyroidism, unspecified; D69.6 Thrombocytopenia, unspecified; K52.9 Noninfective gastroenteritis and colitis, unspecified; Z79.01 Long term (current) use of anticoagulants; Z79.899 Other long term (current) drug therapy; Z86.718 Personal history of other venous thrombosis and embolism
CPT/HCPCS: 33210; 36415; 36600; 70450; 71045; 72125; 80048; 80053; 80061; 81001; 82306; 82607; 82805; 83036; 83540; 83550; 83605; 83735; 83880; 83930; 83970; 84436; 84439; 84443; 84484; 85025; 85379; 85610; 85730; 87040; 87070; 87081; 87205; 87493; 92610; 93005; 93306; 94002; 94003; 94640; 95819; 96365; 96375; 97116; 97163; 97530; 99152; C1751; C9113; G0378; J0330; J2250; J2543; J2704; J3490; J7060; Q9967

== ENCOUNTER 2023-07-23 21:26 | Emergency (ER) | payer MEDICARE, MEDICAID ==
[~2023-07-23] VITALS: Ht 154.9 cm; Wt 40.1 kg
[~2023-07-23 21:26] MED LIST changes: +ACET-1882 PO; +ERGO1CAP23 PO; +FAMO-12 PO; +LEV25T PO
[2023-07-23] MEDS ORDERED: ACETAMINOPHEN 325 MG TAB PO ONE (22:30)
[2023-07-23 23:17] VITALS: BP 123/64; PULSE 67; RESP 17; TEMP 97.6; O2SAT 100
== END 2023-07-24 00:12 | disposition home or self-care (01) ==
LOC: ER 21:26
DX: R22.32 Localized swelling, mass and lump, left upper limb (principal); I10 Essential (primary) hypertension
CPT/HCPCS: 73200

== ENCOUNTER 2023-07-24 16:18 | Emergency (ER) | payer MEDICARE, MEDICAID ==
[~2023-07-24] VITALS: Ht 154.9 cm; Wt 41.0 kg
[2023-07-24 16:38] VITALS: BP 127/78; PULSE 77; RESP 18; O2SAT 98
== END 2023-07-24 20:33 | disposition left against medical advice (07) ==
LOC: ER 16:18
DX: R22.32 Localized swelling, mass and lump, left upper limb (principal); Z53.21 Procedure and treatment not carried out due to patient leaving prior to being seen by health care provider

== ENCOUNTER 2023-09-03 21:13 | Inpatient (IN) | payer MEDICARE, MEDICAID ==
[~2023-09-03] VITALS: Ht 154.9 cm; Wt 44.4 kg
[2023-09-03 22:31] LABS: Basophils # (auto) 0 10 ^3/uL (0-0.2); Basophils % (auto) 0.1 % (0.0-2.0); Eosinophils # (auto) 0 10 ^3/uL (0-0.8); Eosinophils % (auto) 0.5 % (0.0-7.0); Hemoglobin 11.9 g/dL (12.2-16.2); Lymphocytes # (auto) 0.7 10 ^3/uL (0.4-5.4); Mean Corpuscular Hemoglobin 31.4 pg (28.0-32.0); Mean Corpuscular Volume 95.1 fL (80.0-100.0); Monocytes # (auto) 0.7 10 ^3/uL (0-1.3); Monocytes % (auto) 11.4 % (0.0-12.0); Neutrophils # (auto) 4.4 10 ^3/uL (1.6-8.6); Red Blood Cells 3.78 10^6/uL (4.0-5.20); Red Cell Distribution Width 14.7 % (11.8-14.3); White Blood Cell 5.8 10^3/uL (4.4-10.8)
[2023-09-03 22:48] LABS: Alanine Aminotransferase 20 U/L (7-40); Albumin 3.8 g/dL (3.2-4.8); Alkaline Phosphatase 104 U/L (46-116); Anion Gap 4 (5-15); Aspartate Aminotransferase 18 U/L (13-40); BUN/Creatinine Ratio 47.1 (10.0-20.0); Blood Urea Nitrogen 24 mg/dL (9-23); Calcium 8.9 mg/dL (8.5-10.1); Carbon Dioxide 30 mmol/L (20-30); Chloride 107 mmol/L (98-107); Glucose 124 mg/dL (74-106); Potassium 4.4 mmol/L (3.5-5.1); Sodium 141 mmol/L (136-145)
[2023-09-03 22:49] LABS: Bilirubin, Total 0.3 mg/dL (0.2-1.0); Total Protein 5.4 g/dL (5.7-8.2)
[2023-09-04 00:30] VITALS: PULSE 71; O2SAT 99
[2023-09-04] MEDS: ONDANSETRON HCL 4 MG/2 ML VIAL IV ONE (01:46)
[2023-09-04] MEDS: MORPHINE SULFATE INJ 2 MG/ml SYRG IV ONE (01:46)
[2023-09-04] MEDS: IOHEXOL 350 MG/ML 100ML IJ ONE (02:01)
[2023-09-04] MEDS ORDERED: MORPHINE SULFATE INJ 2 MG/ml SYRG IV PRN (04:45)
[2023-09-04] MEDS ORDERED: ONDANSETRON HCL 4 MG/2 ML VIAL IV PRN (04:45)
[2023-09-04] MEDS: LEVOTHYROXINE SODIUM 25 MCG TAB PO SCH (06:08)
[2023-09-04 06:11] VITALS: BP 112/54; PULSE 69; RESP 18; TEMP 98; O2SAT 99
[2023-09-04] MEDS ORDERED: RISP1TAB63 PO (06:39)
[2023-09-04] MEDS ORDERED: LEVO25TA6 PO (06:39)
[2023-09-04] MEDS ORDERED: ERGO1CAP12 PO (06:39)
[2023-09-04] MEDS ORDERED: DONE5TAB80 PO (06:39)
[2023-09-04] MEDS ORDERED: FAMO20TA10 PO (06:39)
[2023-09-04] MEDS ORDERED: CIPR500T4 PO (06:39)
[2023-09-04 09:00] VITALS: BP 89/44; PULSE 74; RESP 18; TEMP 98; O2SAT 99
[2023-09-04] MEDS: MEMANTINE HCL 5 MG TAB PO SCH (09:47)
[2023-09-04] MEDS: HYDROcodone-ACET 5/325MG TAB PO PRN (09:47)
[2023-09-04 13:00] VITALS: BP 89/49; PULSE 68; RESP 16; TEMP 98.2; O2SAT 97
[2023-09-04 17:00] VITALS: BP 98/53; PULSE 71; RESP 16; TEMP 98.5; O2SAT 97
[2023-09-04 21:00] VITALS: BP 96/48; PULSE 77; RESP 17; TEMP 98.2; O2SAT 97
[2023-09-04] MEDS: DONEPEZIL HYDROCHLORIDE 5 MG TAB PO SCH (21:44)
[2023-09-04] MEDS: LACTULOSE 20Gm/30ML SOLN PO ONE (21:44)
[2023-09-05] VITALS (7 sets, daily range): BP systolic 94–128; BP diastolic 43–71; PULSE 73–100; RESP 16–20; TEMP 97.5–99.8; O2SAT 95–99
[2023-09-05 03:15] LABS: Urine Bacteria MANY /hpf (None Seen); Urine Blood 2+ /uL (Negative); Urine Clarity Clear (Clear); Urine Color Yellow (Yellow); Urine Mucus FEW (None Seen); Urine Protein, UAD TRACE (Negative); Urine Specific Gravity 1.039 (1.001-1.035); Urine Urobilinogen Normal (Negative); Urine WBC 13 /hpf (0 - 5); Urine pH 5.5 (5.0-8.0)
[2023-09-05 05:46] LABS: Hematocrit 26.2 % (36.0-46.0); Hemoglobin 8.7 g/dL (12.2-16.2); Mean Corpuscular Hemoglobin 31.5 pg (28.0-32.0); Mean Corpuscular Hgb Conc. 33.3 g/dL (32.0-36.0); Mean Corpuscular Volume 94.6 fL (80.0-100.0); Red Blood Cells 2.77 10^6/uL (4.0-5.20); Red Cell Distribution Width 14.7 % (11.8-14.3); White Blood Cell 6.9 10^3/uL (4.4-10.8)
[2023-09-05 05:50] LABS: Chloride 107 mmol/L (98-107); Potassium 4.4 mmol/L (3.5-5.1); Sodium 141 mmol/L (136-145)
[2023-09-05 05:51] LABS: Anion Gap 6 (5-15); Calcium 8.6 mg/dL (8.7-10.4); Carbon Dioxide 28 mmol/L (20-30)
[2023-09-05 05:55] LABS: Basophils % (manual) 0 (0.0-2.0); Blast Cells 0; Eosinophils % (manual) 0 (0-7); Metamyelocytes % 0; Myelocytes % 0; Promyelocytes % 0; Reactive Lymphocytes 0
[2023-09-05 05:56] LABS: BUN/Creatinine Ratio 39.7 (10.0-20.0); Blood Urea Nitrogen 31 mg/dL (9-23); Glucose 105 mg/dL (74-106)
[2023-09-05 06:08] LABS: Band Neutrophils % (manual) 2; Lymphocytes % (manual) 18 (10.0-50.0); Monocytes % (manual) 20 (0-12); Platelet Estimate Decreased
[2023-09-05] MEDS ORDERED: PROPOFOL 10 MG/ML 20 ML IV ONE (07:10)
[2023-09-05] MEDS ORDERED: fentaNYL CITRATE 100 MCG/2 ML VL ONE (07:10)
[2023-09-05] MEDS: BUPIVACAINE 0.5% P/F INJ 10 ML VIAL ONE (07:15)
[2023-09-05] MEDS: BUPIVACAINE HCL 50 ML ONE (07:16)
[2023-09-05] MEDS: ceFAZolin 1GM/50ML 50 ML IV ONE (07:18)
[2023-09-05] MEDS ORDERED: ePHEDrine SULFATE 50 MG/ML AMP ONE (07:32)
[2023-09-05] MEDS ORDERED: PHENYLEPHRINE HCL 10 MG/ML VL ONE (07:37)
[2023-09-05] MEDS ORDERED: ONDANSETRON HCL 4 MG/2 ML VIAL ONE (07:42)
[2023-09-05] MEDS ORDERED: MEPERIDINE HCL (25 MG/ML) 1ML VIAL ONE (07:55)
[2023-09-05] MEDS: BUPIVACAINE 0.25% INJ 50ML VIAL ONE ×2 (08:09→08:56)
[2023-09-05] MEDS ORDERED: HYDROmorphone HCL 2 MG/ML VL/or syr IV PRN (09:00)
[2023-09-05] MEDS ORDERED: ONDANSETRON HCL 4 MG/2 ML VIAL IV PRN (09:00)
[2023-09-05] MEDS ORDERED: MEPERIDINE HCL (25 MG/ML) 1ML VIAL IV PRN (09:00)
[2023-09-06] VITALS (12 sets, daily range): BP systolic 93–110; BP diastolic 40–58; PULSE 74–100; RESP 16–17; TEMP 99–101.1; O2SAT 95–97
[2023-09-06] MEDS: ACETAMINOPHEN 325 MG TAB PO PRN (05:53)
[2023-09-06 06:08] LABS: White Blood Cell 9.2 10^3/uL (4.4-10.8)
[2023-09-06 06:09] LABS: Anion Gap 4 (5-15); Carbon Dioxide 29 mmol/L (20-30); Chloride 103 mmol/L (98-107); Sodium 136 mmol/L (136-145)
[2023-09-06 06:11] LABS: Calcium 8.2 mg/dL (8.7-10.4)
[2023-09-06 06:12] LABS: Hematocrit 19.7 % (36.0-46.0); Mean Corpuscular Hemoglobin 31.8 pg (28.0-32.0); Mean Corpuscular Hgb Conc. 33.8 g/dL (32.0-36.0); Red Cell Distribution Width 15.1 % (11.8-14.3)
[2023-09-06 06:15] LABS: BUN/Creatinine Ratio 41.7 (10.0-20.0); Blood Urea Nitrogen 30 mg/dL (9-23); Glucose 144 mg/dL (74-106)
[2023-09-06 07:57] LABS: Hemoglobin 6.7 g/dL (12.2-16.2)
[2023-09-06 08:04] LABS: Basophils % (manual) 0 (0.0-2.0); Blast Cells 0; Eosinophils % (manual) 0 (0-7); Metamyelocytes % 0; Myelocytes % 0; Promyelocytes % 0; Reactive Lymphocytes 0
[2023-09-06 09:58] LABS: Hematocrit 18.5 % (36.0-46.0)
[2023-09-06 10:35] LABS: Hemoglobin 6.2 g/dL (12.2-16.2)
[2023-09-06 14:59] LABS: Band Neutrophils % (manual) 3; Lymphocytes % (manual) 9 (10.0-50.0); Monocytes % (manual) 25 (0-12); Platelet Estimate Decreased
[2023-09-06 22:22] LABS: Hemoglobin 7.9 g/dL (12.2-16.2)
[2023-09-06 22:23] LABS: Hematocrit 23.3 % (36.0-46.0)
[2023-09-07 02:04] VITALS: BP 107/58; PULSE 88; RESP 16; TEMP 98.9
[2023-09-07] MEDS: FUROSEMIDE 20 MG/2 ML VIAL IV ONE (02:14)
[2023-09-07 05:00] VITALS: BP 109/51; PULSE 90; RESP 17; TEMP 98.6; O2SAT 96
[2023-09-07] MEDS: traMADol HCL 50 MG TAB PO PRN (11:30)
[2023-09-07 13:24] LABS: Hematocrit 29.8 % (36.0-46.0)
[2023-09-07 21:12] VITALS: BP 112/59; PULSE 95; RESP 16; TEMP 98.4; O2SAT 97
[2023-09-08] VITALS (8 sets, daily range): BP systolic 96–127; BP diastolic 47–66; PULSE 80–101; RESP 16–17; TEMP 98.9–102.3; O2SAT 93–96
[2023-09-08 05:34] LABS: Hematocrit 28.6 % (36.0-46.0); Hemoglobin 9.7 g/dL (12.2-16.2); Mean Corpuscular Hemoglobin 31.6 pg (28.0-32.0); Mean Corpuscular Hgb Conc. 33.8 g/dL (32.0-36.0); Mean Corpuscular Volume 93.5 fL (80.0-100.0); Red Blood Cells 3.06 10^6/uL (4.0-5.20); Red Cell Distribution Width 14.7 % (11.8-14.3)
[2023-09-08 05:38] LABS: Chloride 101 mmol/L (98-107); Potassium 4.1 mmol/L (3.5-5.1); Sodium 135 mmol/L (136-145)
[2023-09-08 05:39] LABS: Anion Gap 4 (5-15); Calcium 8.3 mg/dL (8.5-10.1); Carbon Dioxide 30 mmol/L (20-30)
[2023-09-08 05:44] LABS: BUN/Creatinine Ratio 47.9 (10.0-20.0); Blood Urea Nitrogen 23 mg/dL (9-23); Glucose 116 mg/dL (74-106)
[2023-09-08 05:50] LABS: Basophils % (manual) 0 (0.0-2.0); Blast Cells 0; Eosinophils % (manual) 0 (0-7); Metamyelocytes % 0; Myelocytes % 0; Promyelocytes % 0; Reactive Lymphocytes 0
[2023-09-08 07:54] LABS: Band Neutrophils % (manual) 8; Lymphocytes % (manual) 12 (10.0-50.0); Monocytes % (manual) 15 (0-12); Platelet Estimate Adequate
[2023-09-08] MEDS: CEFEPIME 1GM/ 50ML 50 ML IV ONE (18:29)
[2023-09-08 19:25] LABS: Urine Bacteria MANY /hpf (None Seen); Urine Blood 1+ /uL (Negative); Urine Clarity HAZY (Clear); Urine Color Yellow (Yellow); Urine Mucus FEW (None Seen); Urine Protein, UAD 1+ (Negative); Urine Specific Gravity 1.021 (1.001-1.035); Urine Urobilinogen Normal (Negative); Urine WBC 50 /hpf (0 - 5)
[2023-09-09 01:00] VITALS: BP 115/70; PULSE 92; RESP 18; TEMP 98.1; O2SAT 94
[2023-09-09 05:00] VITALS: BP 117/62; PULSE 76; RESP 15; TEMP 98.3; O2SAT 98
[2023-09-09] MEDS: CEFEPIME 1GM/ 50ML 50 ML IV SCH (05:35)
[2023-09-09 06:14] LABS: Basophils # (auto) 0 10 ^3/uL (0-0.2); Basophils % (auto) 0.2 % (0.0-2.0); Eosinophils # (auto) 0.1 10 ^3/uL (0-0.8); Eosinophils % (auto) 1.4 % (0.0-7.0); Hemoglobin 10.2 g/dL (12.2-16.2); Lymphocytes # (auto) 0.9 10 ^3/uL (0.4-5.4); Lymphocytes % (auto) 12.2 % (10.0-50.0); Mean Corpuscular Hemoglobin 32.2 pg (28.0-32.0); Mean Corpuscular Hgb Conc. 33.9 g/dL (32.0-36.0); Mean Corpuscular Volume 95.1 fL (80.0-100.0); Monocytes # (auto) 1.4 10 ^3/uL (0-1.3); Monocytes % (auto) 17.8 % (0.0-12.0); Neutrophils # (auto) 5.3 10 ^3/uL (1.6-8.6); Neutrophils % (auto) 68.4 % (37.0-80.0); Nucleated Red Blood Cells % 0.1 %; Red Blood Cells 3.16 10^6/uL (4.0-5.20); Red Cell Distribution Width 14.8 % (11.8-14.3); White Blood Cell 7.7 10^3/uL (4.4-10.8)
[2023-09-09 06:40] LABS: Chloride 104 mmol/L (98-107); Potassium 4.4 mmol/L (3.5-5.1); Sodium 138 mmol/L (136-145)
[2023-09-09 06:41] LABS: Anion Gap 3 (5-15); Carbon Dioxide 31 mmol/L (20-30)
[2023-09-09 06:42] LABS: Calcium 8.9 mg/dL (8.7-10.4)
[2023-09-09 06:46] LABS: Glucose 99 mg/dL (74-106)
[2023-09-09 06:47] LABS: BUN/Creatinine Ratio 44.2 (10.0-20.0); Blood Urea Nitrogen 23 mg/dL (9-23)
[2023-09-09 09:00] VITALS: BP 113/56; PULSE 83; RESP 17; TEMP 98; O2SAT 99
[2023-09-09 13:00] VITALS: BP 151/69; PULSE 84; RESP 15; TEMP 98.2; O2SAT 97
[2023-09-09 17:00] VITALS: BP 110/60; PULSE 85; RESP 15; TEMP 98; O2SAT 98
[2023-09-10 05:00] VITALS: BP 119/69; PULSE 83; RESP 14; TEMP 98.1; O2SAT 96
[2023-09-10 06:06] LABS: Anion Gap 4 (5-15); Basophils # (auto) 0 10 ^3/uL (0-0.2); Basophils % (auto) 0.1 % (0.0-2.0); Carbon Dioxide 29 mmol/L (20-30); Chloride 103 mmol/L (98-107); Eosinophils # (auto) 0.2 10 ^3/uL (0-0.8); Eosinophils % (auto) 1.9 % (0.0-7.0); Hematocrit 31.1 % (36.0-46.0); Hemoglobin 10.4 g/dL (12.2-16.2); Lymphocytes % (auto) 12.7 % (10.0-50.0); Mean Corpuscular Hemoglobin 31.6 pg (28.0-32.0); Mean Corpuscular Hgb Conc. 33.3 g/dL (32.0-36.0); Mean Corpuscular Volume 94.9 fL (80.0-100.0); Monocytes # (auto) 1.4 10 ^3/uL (0-1.3); Monocytes % (auto) 16.8 % (0.0-12.0); Neutrophils # (auto) 5.5 10 ^3/uL (1.6-8.6); Neutrophils % (auto) 68.5 % (37.0-80.0); Potassium 4.5 mmol/L (3.5-5.1); Red Blood Cells 3.28 10^6/uL (4.0-5.20); Red Cell Distribution Width 14.7 % (11.8-14.3); Sodium 136 mmol/L (136-145); White Blood Cell 8.1 10^3/uL (4.4-10.8)
[2023-09-10 06:12] LABS: BUN/Creatinine Ratio 43.9 (10.0-20.0); Blood Urea Nitrogen 18 mg/dL (9-23); Glucose 95 mg/dL (74-106)
[2023-09-10 08:00] VITALS: RESP 18
[2023-09-10 08:41] VITALS: BP 115/60; PULSE 78; RESP 16; TEMP 98.6; O2SAT 96
[2023-09-10] MEDS: ENOXAPARIN SOD 30 MG/0.3 ML SYRINGE SC SCH (09:36)
[2023-09-10 13:00] VITALS: BP 109/57; PULSE 93; RESP 16; TEMP 98.5; O2SAT 97
[2023-09-10] MEDS ORDERED: CEPH250C PO (15:32)
[2023-09-10 16:56] VITALS: BP 109/57; PULSE 93; RESP 16; TEMP 98.5; O2SAT 97
[2023-09-10 17:00] VITALS: BP 101/62; PULSE 91; RESP 16; TEMP 98.4; O2SAT 100
== END 2023-09-10 19:39 | disposition home health service (06) | DRG 481 ==
LOC: ER 21:13 → OVERFLOW 09-04 04:38 → WEST WING 09-04 05:40
PROVIDERS: ADMIT Nurse Practitioner; ATTEND Internal Medicine
PROC: 0QS704Z Reposition Left Upper Femur with Internal Fixation Device, Open Approach (ICD-10-PCS; principal; 2023-09-05 07:25)
PROC: 30233N1 Transfusion of Nonautologous Red Blood Cells into Peripheral Vein, Percutaneous Approach (ICD-10-PCS; 2023-09-06)
DX: S72.142A Displaced intertrochanteric fracture of left femur, initial encounter for closed fracture (principal); D62 Acute posthemorrhagic anemia; N30.00 Acute cystitis without hematuria; F03.90 Unspecified dementia, unspecified severity, without behavioral disturbance, psychotic disturbance, mood disturbance, and anxiety; I50.9 Heart failure, unspecified; I11.0 Hypertensive heart disease with heart failure; W01.0XXA Fall on same level from slipping, tripping and stumbling without subsequent striking against object, initial encounter; Y93.89 Activity, other specified; Y92.89 Other specified places as the place of occurrence of the external cause; Y99.8 Other external cause status
CPT/HCPCS: 36415; 70450; 71045; 71250; 71275; 72125; 73502; 74176; 76000; 80048; 80053; 81001; 82306; 83605; 83880; 84484; 85007; 85014; 85018; 85025; 85027; 85379; 86850; 86900; 86901; 86920; 87081; 87086; 87088; 87186; 93970; 96374; 96375; 97110; 97116; 97163; C1713; G0378; J2405; J2704; J3490

== ENCOUNTER 2025-01-23 17:21 | Inpatient (IN) | payer MEDICARE, MEDICAID ==
[2025-01-23] VITALS (7 sets, daily range): BP systolic 126–153; BP diastolic 77–96; PULSE 72–93; RESP 14–20; TEMP 90.8; O2SAT 94–100
[~2025-01-23] VITALS: Ht 160 cm; Wt 52.8 kg
[~2025-01-23 17:21] MED LIST changes: +CEPH250C PO; +MEMA1TAB3 PO; -RISP0.5T45 PO; +RISP1TAB63 PO
--- NOTE | 2025-01-23 18:03 | ED.PDOC ---
Altered Mental Status HPI Comments This is a 79 year old female BIBA presenting to the ED with chief complaint of ALOC. EMS reports that the patient was recently discharged from [address] yesterday with a diagnosis of Pneumonia, UTI, and MRSA. EMS relays that the patient was doing fine according to family until today where she became altered at A/O x1. EMS denies any further history at this time. Chief Complaint: ALOC Time Seen by MD: 18:00 Primary Care Provider: Unknown Reviewed Notes: Nurses Notes, Record Tester Notes, Medications, Allergies Allergies: Coded Allergies: NO KNOWN ALLERGIES (Unverified , 06/29/21) Home Meds Active Scripts Cephalexin (KEFLEX CAPSULE) 250 Mg Cp, 500 MG PO TID for 7 Days, #21 CAP Prov:ESTEE WATTERS MD 09/10/23 Famotidine (Famotidine) 20 Mg Tab, 20 MG PO BID for 30 Days, #60 TAB Prov:ZEESHAN SPENCE RESIDENT 06/08/23 Levothyroxine Sodium (Levothyroxine Sodium) 25 Mcg Tab, 25 MCG PO QAM for 30 Days, #30 TAB Prov:JESSICA SPENCEIANA RESIDENT 06/08/23 Ergocalciferol (VITAMIN D 33503 UNIT) 50,000 [place], [address] UNIT PO Q7D for 30 Days, #4 CAP Prov:ZEESHAN SPENCE RESIDENT 06/08/23 Acetaminophen (Acetaminophen) 325 Mg Tab, 650 MG PO Q6HP PRN for 30 Days, #240 TAB Prov:ZEESHAN SPENCE RESIDENT 06/08/23 Reported Medications Risperidone (Risperidone) 1 Mg Tab, 1 TAB PO BID 05/04/24 Donepezil Hydrochloride (DONEPEZIL HCL) 10 Mg Tab, 1 TAB PO DAILY 05/04/24 Memantine Hydrochloride (Memantine HCl) 5 Mg Tab, 10 TAB PO DAILY 05/04/24 Apixaban Base (ELIQUIS) 5 Mg Tab, 1 TAB PO BID 05/04/24 Risperidone (Risperidone) 1 Mg Tab, 1 TAB PO BID 09/04/23 Apixaban Base (ELIQUIS) 5 Mg Tab, 5 MG PO BID, TAB 05/10/22 Donepezil Hydrochloride (DONEPEZIL HCL) 10 Mg Tab, 10 MG PO HS for 30 Days, MG 11/19/22 Latanoprost (LATANOPROST) 0.005 % Joyce, 1 DROP EACHEYE QPM, #7.5 ML 3 Refills 05/10/22 Memantine Hydrochloride (Memantine HCl) 10 Mg Tab, 10 MG PO BID, TAB 05/10/22 Information Source: Emergency Med Personnel Mode of Arrival: EMS Severity: Severe, Unable to Care for Self Timing: Hours Duration: Since onset Prehospital treatment: None Quality: Decreased Alertness, Change in Behavior, Confusion Recent: None History of: Dementia Past Medical History PAST MEDICAL HISTORY: Arthritis, Dementia, HTN 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 Family History Family History: No family hx of Cancer, No family hx of DM, No family hx of Heart luis daniel Social History Smoker: Non-Smoker Alcohol: Denies ETOH Use Drugs: Denies Drug Use Lives In: Home Unable to Obtain due to: Altered Mental Status All Other Systems: Reviewed and Negative Physical Exam General Appearance: Moderate Distress, Normal HEENT: Normal ENT Inspection, Pharynx Normal, TMs Normal Neck: Full Range of Motion, Non-Tender, Normal, Normal Inspection Respiratory: Chest Non-Tender, Lungs Clear, No Accessory Muscle Use, No Respiratory Distress, Normal Breath Sounds Cardiovascular: No Edema, No JVD, No Murmur, No Gallop, Normal Peripheral Pulses, Regular Rate/Rhythm Breast Exam: Deferred Gastrointestinal: No Organomegaly, Non Tender, No Pulsatile Mass, Normal Bowel Sounds, Soft Genitalia: Deferred Pelvic: Deferred Rectal: Deferred Extremities: No calf tenderness, Normal capillary refill, No pedal edema Musculoskeletal : Apperance: Normal Neurologic: Disoriented Cerebellar Function: NOT DONE Reflexes: NOT DONE Skin: Dry, Pallor, Warm Peripheral Pulses: 3+ Radial (R), 3+ Radial (L) Lymphatic: No Adenopathy Was a procedure done? Was a procedure done?: Yes Sedation Sedation?: Yes Informed consent obtained: Yes Sedation start time: 18:00 Sedation end time: 18:10 Sedation total time: 10 minutes Sedation provider statement: Etomidate 20mg and Rocuronium 100mg Intubation Indication: Respiratory Insufficiency, Altered Mental Status, Airway Protection Prep: Preoxygenation Pretreated with: Sedation Intubation Approach: Orotracheal Intubation size: cm (8) Informed consent obtained: Yes Risks/benefits/alt described: Yes Differential Diagnosis (ALOC) Differential Diagnosis: Dehydration, Hypoglycemia, Encephalopathy X-Ray, Labs, Meds, VS Vital Signs Date Time Temp Pulse Resp B/P (MAP) Pulse Ox O2 Delivery O2 Flow Rate FiO2 01/23/25 18:04 79 01/23/25 17:25 98.8 85 12 78/52 85 98.8 Lab Test 01/23/25 18:07 Range/Units White Blood Count Pending Red Blood Count Pending Hemoglobin Pending Hematocrit Pending Mean Corpuscular Volume Pending Mean Corpuscular Hemoglobin Pending Mean Corpuscular Hemoglobin Concent Pending Red Cell Distribution Width Pending Platelet Count Pending Mean Platelet Volume Pending Neutrophils (%) (Auto) Pending Lymphocytes (%) (Auto) Pending Monocytes (%) (Auto) Pending Basophils (%) (Auto) Pending Neutrophils # (Auto) Pending Lymphocytes # (Auto) Pending Monocytes # (Auto) Pending Prothrombin Time Pending Prothrombin Time INR Pending Activated Partial Thromboplast Time Pending Sodium Level Pending Potassium Level Pending Chloride Level Pending Carbon Dioxide Level Pending Anion Gap Pending Blood Urea Nitrogen Pending Creatinine Pending Glomerular Filtration Rate Calc Pending BUN/Creatinine Ratio Pending Serum Glucose Pending Lactic Acid Level Pending Calcium Level Pending Total Bilirubin Pending Aspartate Amino Transferase (AST) Pending Alanine Aminotransferase (ALT) Pending Alkaline Phosphatase Pending Troponin I High Sensitivity Pending Total Protein Pending Albumin Pending Plasma/Serum Blood Alcohol Pending Patient altered. Unable to get history. Heart rate within normal limits. Possible sepsis. Sepsis protocol. To protect the airway had to intubate the patient. Continue to monitor. Time of 1ST Reevaluation: 19:00 Reevaluation 1ST: Unchanged Patient Education/Counseling: Diagnosis, Treatment Family Education/Counseling: No Family Present SEPSIS Sepsis Screen Physician Orders Flatwork Assembler (01/23/25 17:49) Blood Alcohol (01/23/25 17:49) Complete Blood Count (01/23/25 17:49) Comprehensive Metabolic Panel (01/23/25 17:49) PTPTT (01/23/25 17:49) Urinalysis (01/23/25 17:49) Chest Portable (01/23/25 17:49) Accucheck (01/23/25 17:49) Blood Culture (01/23/25 17:49) Vancomycin 1gm/200ml Pm (01/23/25 18:00) Lactic Acid W/ Reflex Order (01/23/25 18:00) Cefepime 1gm/ 50ml (Maxipime 1gm/50ml) (01/23/25 18:35) Notify Md If Map <65 Or Bp<90 (01/23/25 17:49) If Map<65 Start Vasopressor (01/23/25 17:49) Sepsis Reassesment After Fluid (01/23/25 18:49) Sodium Chloride 0.9% (01/23/25 18:00) Sodium Chloride 0.9% (01/23/25 18:00) Head Without Contrast (01/23/25 17:49) Troponin-I Hs (01/23/25 18:09) Troponin-I Hs (01/23/25 19:09) Troponin-I Hs (01/23/25 21:09) Vital Signs Date Time Temp Pulse Resp B/P (MAP) Pulse Ox O2 Delivery O2 Flow Rate FiO2 01/23/25 18:04 79 01/23/25 17:25 98.8 85 12 78/52 85 98.8 Laboratory Tests Test 01/23/25 18:07 Lactic Acid Level Pending White Blood Count Pending Departure 1 Departure Time of Disposition: 18:08 Impression: Primary Impression: Metabolic encephalopathy Disposition: ADMITTED INPATIENT Admit to: Med Surg Condition: Guarded Critical Care Note Critical Care Time?: Yes (90 min-critical care time only) Stability Stability form required: No Heart Score Heart Score: Heart Score Response (Comments) Value History Slightly Suspicious 0 EKG Normal 0 Age >65 2 Risk Factors >3 or Hx ASHD 2 Troponin N/A 0 Total 4 I personally scribed for JEREMY VALLECILLO MD ([email or web address]) on 01/23/25 at 18:03. Electronically submitted by Mu Phan ([email or web address]). JEREMY VALLECILLO MD Jan 23, 2025 18:03
[2025-01-23] MEDS: ROCURONIUM 10MG/ML 10ML VIAL IV ONE (18:26)
[2025-01-23] MEDS: ETOMIDATE (2MG/ML) 20ML VIAL IV ONE (18:26)
[2025-01-23] MEDS: MIDAZOLAM DRIP 50 mg/50mL 50 ML IV SCH (18:30)
--- NOTE | 2025-01-23 18:37 | DVH ---
CHEST RADIOGRAPH Indication: sob Technique: Single frontal view of the chest was obtained Comparison: XY CHEST PORTABLE on DOS: 09/05/23, CT CT ANGIO CHEST CONTRAST on DOS: 09/04/23, CT CHST AB PEL WO CON-NO IV/ORAL on DOS: 09/03/23 FINDINGS: Lines and Tubes: None Lungs: Left hemithorax opacification with mediastinal shift to the left hyperexpansion of the right l ernestine. Interstitial prominence of the right hemithorax. No pneumothorax. Cardiomediastinal contours: Unremarkable Bones: No acute osseous abnormality. IMPRESSION: Left hemithorax opacification with mediastinal shift to the left and hyperexpansion of the right lung which is most likely from atelectasis. Underlying effusion / pneumonia can not be excluded. Mild right-sided pulmonary vascular congestion.
[2025-01-23 18:39] LABS: Alanine Aminotransferase 18 U/L (7-40); Anion Gap 12 (5-15); BUN/Creatinine Ratio 60.0 (10.0-20.0); Bilirubin, Total 0.5 mg/dL (0.2-1.0); Carbon Dioxide 24 mmol/L (20-31); Potassium 3.6 mmol/L (3.5-5.1)
[2025-01-23 18:43] LABS: INR 1.35 (0.9-1.15); Partial Thromboplastin Time 35.5 SEC (24.5-34.5); Prothrombin Time 13.9 sec (9.3-11.8)
[2025-01-23] MEDS: MIDAZOLAM DRIP 50 mg/50mL 50 ML IV ONE (18:43)
[2025-01-23] MEDS: VANCOMYCIN 1GM/200ML PM 200 ML IV ONE (18:45)
[2025-01-23] MEDS: SODIUM CHLORIDE 0.9% 1,000 ML IV ONE ×2 (18:50→20:17)
[2025-01-23 18:54] LABS: Albumin 2.7 g/dL (3.2-4.8); Alkaline Phosphatase 131 U/L (46-116); Blood Urea Nitrogen 27 mg/dL (9-23); Calcium 8.1 mg/dL (8.7-10.4); Chloride 117 mmol/L (98-107); Glucose 109 mg/dL (74-106); Sodium 153 mmol/L (136-145); Total Protein 4.3 g/dL (5.7-8.2)
[2025-01-23 18:58] LABS: Hemoglobin 11.3 g/dL (12.2-16.2)
[2025-01-23 19:01] LABS: Hematocrit 33.0 % (36.0-46.0); Mean Corpuscular Hemoglobin 31.9 pg (28.0-32.0); Mean Corpuscular Volume 93.0 fL (80.0-100.0); Nucleated Red Blood Cells % 0.1 %
[2025-01-23 19:44] LABS: Base Excess -4.8 mmol/L (-2.0-3.0)
--- NOTE | 2025-01-23 20:07 | DVH ---
EXAM: CT HEAD WITHOUT CONTRAST INDICATION: altered TECHNIQUE: CT of the head without intravenous contrast. Radiation Dose Information: CT Dose: CTDI volume is 52.11 mGy. Dose-length product is 1148.12 mGy*cm The dose indicators for CT are the volume Computed Tomography (CT) Dose Index (CTDIvol) and the Dose Length Product (DLP), and are measured in units of mGy and mGy-cm, respectively. These indicators are not patient dose, but values generated from the CT scanner acquisition factors. The report includes radiation exposure data for exposures received during this examination. COMPARISON: CT HEAD WITHOUT CONTRAST on DOS: 09/03/23, CT STROKE CTH on DOS: 06/01/23, HEAD WITHOUT CO NTRAST on DOS: 07/06/22 FINDINGS: Endotracheal tube visualized. There is no evidence of acute intracranial hemorrhage, extra-axial collection, mass effect, midline s hift, herniation or hydrocephalus. Area of ischemia involving the right temporal lobe not present on the previous study September 03 2023. D ating of this area in infarct can not be accurately obtain by CT correlate with clinical history caps MRI. 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 The ventricles, sulci and cisterns are age appropriate. The arshad-white differentiation is intact. Patchy periventricular and subcortical white matter hypoattenuation is nonspecific but may be related to small vessel ischemic disease. The visualized paranasal sinuses and mastoid air cells are clear. The surrounding soft tissues and osseous structures are unremarkable. IMPRESSION: 1. 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 2. No acute hemorrhage 3. Stable idiopathic bilateral basal ganglion calcifications unchanged from September 03, 2023.
[2025-01-23] MEDS ORDERED: MORPHINE SULFATE INJ 2 MG/ml SYRG IV PRN (20:30)
[2025-01-23] MEDS ORDERED: NITROGLYCERIN 0.4 MG SL TAB SL PRN (20:30)
[2025-01-23] MEDS: CEFEPIME 1GM/ 50ML 50 ML IV ONE (21:18)
[2025-01-23 21:44] LABS: Urine Protein, UAD TRACE (Negative)
[2025-01-23] MEDS: NOREPINEPHRINE 8 MG/250ML KIT 250 ML IV ONE (21:56)
[2025-01-23] MEDS: NOREPINEPHRINE 8 MG/250ML KIT 250 ML IV SCH (22:00)
[2025-01-23] MEDS ORDERED: ONDANSETRON HCL 4 MG/2 ML VIAL IV PRN (22:30)
--- NOTE | 2025-01-23 22:33 | DVHHP2 ---
History of Present Illness Reason for Visit: Altered mental status History of Present Illness 79-year-old female presents for evaluation of altered mental status. Patient is currently sedated and intubated. Patient's family called for evaluation of altered mental status. Per ED records, patient has been recently discharged f rom outside facility and treated for pneumonia and possible UTI. No family at the bedside. No further history could be obtained at the moment. Past Medical History Dementia, hypertension, arthritis Past Surgical History Family History Noncontributory Smoke: No ALCOHOL: none Drugs: None Lives: with Family Review of Systems Review of Systems Review of systems are currently negative otherwise addressed in HPI. Allergies: Coded Allergies: NO KNOWN ALLERGIES (Unverified , 06/29/21) Medications Current Medications Medications Dose Ordered Sig/Agustín Route Start Time Stop Time Status Last Admin Dose Admin Cefepime HCl 50 ml @ 12.5 mls/hr DAILY IV 01/24/25 10:00 Midazolam HCl 50 ml @ 1 mls/hr Q24H IV 01/23/25 18:45 01/23/25 18:30 1 MLS/HR Nitroglycerin 0.4 mg Q5MINP PRN SL 01/23/25 20:30 Morphine Sulfate 2 mg Q30M PRN IV 01/23/25 20:30 Norepinephrine Bitartrate 250 ml @ 3.75 mls/hr Q24H IV 01/23/25 22:00 Ondansetron HCl 4 mg Q4HP PRN IV 01/23/25 22:30 UNV Exam Vital Signs Vital Signs Date Time Temp Pulse Resp B/P (MAP) Pulse Ox O2 Delivery O2 Flow Rate FiO2 01/23/25 20:00 72 01/23/25 19:45 14 153/84 (107) 100 40 01/23/25 19:30 Mechanical Ventilator+ 01/23/25 19:30 90.8 90.8 01/23/25 17:50 15 Exam Gen: 79-year-old female in mild distress Skin: Warm, dry, normal color and texture, no rash. HEENT: Normocephalic atraumatic, mucous membranes moist and pink. Neck: Cervical and supraclavicular nodes normal without enlargement, trachea is midline, thyroid gland is normal without masses. Pulmonary: Intubated, diminished breath sounds bilaterally Cardiac: Regular rate and rhythm. No murmur Abdomen: Soft, nontender, nondistended, bowel sounds present all 4 quadrants, no guarding, no rigidity, no organomegaly. Extremities: No cyanosis, clubbing, no edema Neuro: Sedated Labs/Xrays ORDERING PHYSICIAN: JEREMY VALLECILLO MD PROCEDURE(s): CXRP - CHEST PORTABLE REASON: sob ORDER NUMBER(s): [id number], ACCESSION NUMBER(s): [id number] CHEST RADIOGRAPH Indication: sob Technique: Single frontal view of the chest was obtained Comparison: XY CHEST PORTABLE on DOS: 09/05/23, CT CT ANGIO CHEST CONTRAST on DOS: 09/04/23, CT CHST AB PEL WO CON-NO IV/ORAL on DOS: 09/03/23 FINDINGS: Lines and Tubes: None Lungs: Left hemithorax opacification with mediastinal shift to the left hyperexpansion of the right lung. Interstitial prominence of the right hemithorax. No pneumothorax. Cardiomediastinal contours: Unremarkable Bones: No acute osseous abnormality. IMPRESSION: Left hemithorax opacification with mediastinal shift to the left and hyperexpansion of the right lung which is most likely from atelectasis. Underlying effusion / pneumonia can not be excluded. Mild right-sided pulmonary vascular congestion. RING PHYSICIAN: JEREMY VALLECILLO MD PROCEDURE(s): HWOCT - HEAD WITHOUT CONTRAST REASON: altered ORDER NUMBER(s): [id number], ACCESSION NUMBER(s): [id number] EXAM: CT HEAD WITHOUT CONTRAST INDICATION: altered TECHNIQUE: CT of the head without intravenous contrast. Radiation Dose Information: CT Dose: CTDI volume is 52.11 mGy. Dose-length product is 1148.12 mGy*cm The dose indicators for CT are the volume Computed Tomography (CT) Dose Index (CTDIvol) and the Dose Length Product (DLP), and are measured in units of mGy and mGy-cm, respectively. These indicators are not patient dose, but values generated from the CT scanner acquisition factors. The report includes radiation exposure data for exposures received during this examination. COMPARISON: CT HEAD WITHOUT CONTRAST on DOS: 09/03/23, CT STROKE CTH on DOS: 06/01/23, HEAD WITHOUT CONTRAST on DOS: 07/06/22 FINDINGS: Endotracheal tube visualized. There is no evidence of acute intracranial hemorrhage, extra-axial collection, mass effect, midline shift, herniation or hydrocephalus. Area of ischemia involving the right temporal lobe not present on the previous study September 03 2023. Dating of this area in infarct can not be accurately obtain by CT correlate with clinical history caps MRI. 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 The ventricles, sulci and cisterns are age appropriate. The arshad-white differentiation is intact. Patchy periventricular and subcortical white matter hypoattenuation is nonspecific but may be related to small vessel ischemic disease. The visualized paranasal sinuses and mastoid air cells are clear. The surrounding soft tissues and osseous structures are unremarkable. IMPRESSION: 1. 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 2. No acute hemorrhage 3. Stable idiopathic bilateral basal ganglion calcifications unchanged from September 03, 2023. Labs Test 01/23/25 21:36 01/23/25 21:15 01/23/25 19:29 01/23/25 18:07 Range/Units Troponin I High Sensitivity 20 </=34 ng/L Urine Color Light-yellow Yellow Urine Clarity Clear Clear Urine pH 5.0 5.0-9.0 Urine Specific [place] 1.017 1.001-1.035 Urine Protein Trace H Negative Urine Ketones 1+ H Negative Urine Blood 2+ H Negative /uL Urine Nitrite Negative Negative Urine Bilirubin Negative Negative Urine Urobilinogen Normal Negative mg/dL Urine Leukocyte Esterase Negative Negative /uL Urine RBC 56 0 - 4 /hpf Urine Microscopic WBC 2 0-5 /HPF Urine Squamous Epithelial Cells Few <5 /hpf Urine Bacteria None seen None Seen /hpf Urine Glucose Normal Normal mg/dL Blood Gas Specimen Type Arterial Blood Gas Sample Site Right radial Blood Gas Patient Temperature 37.0 Arterial Blood Date Drawn [id number] Arterial Blood pH 7.304 L 7.350-7.450 Arterial Blood Partial Pressure CO2 44.1 32.0-45.0 mmHg Arterial Blood Partial Pressure O2 141.0 H 83.0-108.0 mmHg Arterial Blood HCO3 21.4 21.0-28.0 mmol/L Arterial Blood Oxygen Saturation 98.2 H 94.0-98.0 % Arterial Blood Base Excess -4.8 L -2.0-3.0 mmol/L Arterial Blood Oxyhemoglobin 96.6 94.0-98.0 % Arterial Blood Carboxyhemoglobin 0.9 0.5-1.5 % Arterial Blood Methemoglobin 0.7 0.0-1.5 % Con Test Modified Blood Gas Total Hemoglobin 10.90 L 12.0-16.0 g/dL Blood Gas Set Respiration Rate 14.0 Blood Gas Modality Vent - ac Blood Gas Spontaneous Rate 14 FiO2 % 60.0 Blood Gas Tidal Volume 350.0 Blood Gas Spontaneous Tidal Volume 329 Blood Gas PEEP or CPAP 5.0 Bl Gas Inspiratory/Expiratory Ratio 1:2.3 Specimen Drawn By kelley herrera rt White Blood Count 8.7 4.4-10.8 10^3/uL Red Blood Count 3.55 L 4.0-5.20 10^6/uL Hemoglobin 11.3 L 12.2-16.2 g/dL Hematocrit 33.0 L 36.0-46.0 % Mean Corpuscular Volume 93.0 80.0-100.0 fL Mean Corpuscular Hemoglobin 31.9 28.0-32.0 pg Mean Corpuscular Hemoglobin Concent 34.3 32.0-36.0 g/dL Red Cell Distribution Width 16.4 H 11.8-14.3 % Platelet Count 45 L 140-450 10^3/uL Mean Platelet Volume 8.9 6.9-10.8 fL Neutrophils (%) (Auto) 65.1 37.0-80.0 % Lymphocytes (%) (Auto) 13.8 10.0-50.0 % Monocytes (%) (Auto) 5.8 0.0-12.0 % Eosinophils (%) (Auto) 15.1 H 0.0-7.0 % Basophils (%) (Auto) 0.2 0.0-2.0 % Neutrophils # (Auto) 5.7 1.6-8.6 10 ^3/uL Lymphocytes # (Auto) 1.2 0.4-5.4 10 ^3/uL Monocytes # (Auto) 0.5 0-1.3 10 ^3/uL Eosinophils # (Auto) 1.3 H 0-0.8 10 ^3/uL Basophils # (Auto) 0 0-0.2 10 ^3/uL Nucleated Red Blood Cells 0.1 % Platelet Estimate Decreased Prothrombin Time 13.9 H 9.3-11.8 sec Prothrombin Time INR 1.35 H 0.9-1.15 Activated Partial Thromboplast Time 35.5 H 24.5-34.5 SEC Sodium Level 153 H 136-145 mmol/L Potassium Level 3.6 3.5-5.1 mmol/L Chloride Level 117 H 98-107 mmol/L Carbon Dioxide Level 24 20-31 mmol/L Anion Gap 12 5-15 Blood Urea Nitrogen 27 H 9-23 mg/dL Creatinine 0.45 L 0.550-1.02 mg/dL Glomerular Filtration Rate Calc 97 >90 mL/min BUN/Creatinine Ratio 60.0 H 10.0-20.0 Serum Glucose 109 H 74-106 mg/dL Lactic Acid Level 1.9 0.4-2.0 mmol/L Calcium Level 8.1 L 8.7-10.4 mg/dL Total Bilirubin 0.5 0.2-1.0 mg/dL Aspartate Amino Transferase (AST) 26 13-40 U/L Alanine Aminotransferase (ALT) 18 7-40 U/L Alkaline Phosphatase 131 H 46-116 U/L Total Protein 4.3 L 5.7-8.2 g/dL Albumin 2.7 L 3.2-4.8 g/dL Plasma/Serum Blood Alcohol 4.2 <10 mg/dL SEPSIS Sepsis Screen Date sepsis recognized/suspect: Jan 23, 2025 Time Sepsis recognized/suspect: 1929 Recent Procedure: No On Antibiotic Therapy: Yes Respiratory Rate >20: No Heart Rate >90: No Temp<36 C (96.8 F) or >38.3 C: Yes (90.8) SBP <90 or MAP <65 mmHG: No New Acute Mental Status Change: Yes Is the patient on CPAP, BIPAP,: Yes Physician Orders Senior Microstrategy Developer (01/23/25 17:49) Chest Portable (01/23/25 17:49) Accucheck (01/23/25 17:49) Blood Culture (01/23/25 17:49) Cefepime 1gm/ 50ml (Maxipime 1gm/50ml) (01/23/25 18:35) Notify Md If Map <65 Or Bp<90 (01/23/25 17:49) If Map<65 Start Vasopressor (01/23/25 17:49) Sepsis Reassesment After Fluid (01/23/25 18:49) Sodium Chloride 0.9% (01/23/25 18:00) Head Without Contrast (01/23/25 17:49) Cefepime 1gm/ 50ml (Maxipime 1gm/50ml) (01/24/25 10:00) Midazolam Drip 50 Mg/50ml (Versed Drip 5 (01/23/25 18:45) Rass Sedation Scale Q1HR (01/23/25 18:36) Ventilator Orders (01/23/25 18:39) Respiratory Culture W/ Gs (01/23/25 18:39) Abg W/ Co-Ox (01/23/25 19:30) Admit (01/23/25 20:19) Nitroglycerin Sublingual (Ntrostat Subli (01/23/25 20:30) Morphine Sulfate Injection (01/23/25 20:30) Stat Ekg For Chest Pain (01/23/25 20:19) Notify Md Of Changes From Base (01/23/25 20:19) Acetylene Burner For 24 Hours (01/23/25 20:19) Emergency Dysrhythmia Protocol (01/23/25 20:19) Rhythm Strips Once Every Shift (01/23/25 20:19) Oxygen By Nasal Cannula (01/23/25 20:19) Norepinephrine 8 Mg/250ml Kit (Levophed) (01/23/25 22:00) Sodium Chloride 0.9% (01/23/25 22:00) D5w/Sod Chl 0.45% 1/2 Ns (01/23/25 22:30) Ondansetron Hcl (Zofran) (01/23/25 22:30) Complete Blood Count (01/24/25 04:00) Comprehensive Metabolic Panel (01/24/25 04:00) Echo 2d Mode Cardiac Dop (01/23/25 22:28) Condition: Unstable (01/23/25 22:28) Bedrest With Bathroom Privileg (01/23/25 22:28) Vital Signs Date Time Temp Pulse Resp B/P (MAP) Pulse Ox O2 Delivery O2 Flow Rate FiO2 01/23/25 20:00 72 01/23/25 19:45 76 14 153/84 (107) 100 40 01/23/25 19:30 81 100 Mechanical Ventilator+ 60 60 01/23/25 19:30 90.8 81 14 152/80 (104) 100 90.8 01/23/25 18:45 85 14 141/86 (104) 100 01/23/25 18:43 87 14 128/96 (107) 100 60 01/23/25 18:30 81 14 128/96 (107) 100 01/23/25 18:30 128/96 01/23/25 18:26 128/96 01/23/25 18:04 79 01/23/25 18:00 80 10 144/56 (85) 100 01/23/25 17:50 93 20 100 Non-Rebreather 15 N/A 01/23/25 17:25 98.8 85 12 78/52 85 98.8 Laboratory Tests Test 01/23/25 18:07 Lactic Acid Level 1.9 mmol/L (0.4-2.0) White Blood Count 8.7 10^3/uL (4.4-10.8) Medications Medications Dose Ordered Sig/Agustín Route Start Time Stop Time Status Last Admin Dose Admin Cefepime HCl 50 ml @ 12.5 mls/hr ONCE ONCE IV 01/23/25 18:35 01/23/25 22:34 01/23/25 21:18 12.5 MLS/HR Etomidate 20 mg ONCE ONCE IV 01/23/25 18:15 01/23/25 18:16 DC 01/23/25 18:26 20 MG Midazolam HCl 50 ml @ 1 mls/hr Q24H IV 01/23/25 18:45 01/23/25 18:30 1 MLS/HR Rocuronium [place] 50 mg ONCE ONCE IV 01/23/25 18:15 01/23/25 18:16 DC 01/23/25 18:26 50 MG Sodium Chloride 1,000 ml @ 150 mls/hr Q6H40M ONCE IV 01/23/25 18:00 01/24/25 00:39 01/23/25 20:17 150 MLS/HR Sodium Chloride 1,000 ml @ 1,000 mls/hr Q1H ONCE IV 01/23/25 18:00 01/23/25 18:59 DC 01/23/25 18:50 1,000 MLS/HR Vancomycin HCl 200 ml @ 200 mls/hr ONCE ONCE IV 01/23/25 18:00 01/23/25 18:59 DC 01/23/25 18:45 200 MLS/HR Assessment/Plan Assessment/Plan Assessment Metabolic encephalopathy Possible pneumonia Hypernatremia Plan Admit the patient to ICU to the hospitalist Cefepime Maintenance IV fluids Continue treatment per orders Total critical care time excluding procedures performed this 50 minutes. Plan discussed with: Patient My Orders Orders - CECELIA CLAIRE Procedure Category Date Status Time Admit ADMIT 01/23/25 Transmitted 20:19 Nitroglycerin PHA 01/23/25 In Process Sublingual (Ntrostat 20:30 Morphine Sulfate PHA 01/23/25 In Process Injection 20:30 Stat Ekg For Chest [facility] 01/23/25 In Process Pain 20:19 Notify Of Changes [facility] 01/23/25 In Process From Base 20:19 Acetylene Burner For [facility] 01/23/25 In Process 24 Hours 20:19 Emergency Dysrhythmia [facility] 01/23/25 In Process Protocol 20:19 Rhythm Strips Once [facility] 01/23/25 In Process Every Shift 20:19 Oxygen By Nasal RT 01/23/25 Transmitted Cannula 20:19 Norepinephrine 8 PHA 01/23/25 In Process Mg/250ml Kit 22:00 Sodium Chloride 0.9% PHA 01/23/25 In Process 22:00 D5w/Sod Chl 0.45% 1/2 PHA 01/23/25 Transmitted NS 22:30 Ondansetron Hcl PHA 01/23/25 Transmitted (Zofran) 22:30 Complete Blood Count LAB 01/24/25 Verified 04:00 Comprehensive LAB 01/24/25 Verified Metabolic Panel 04:00 Echo 2d Mode Cardiac US 01/23/25 Transmitted DOP 22:28 Condition: Unstable [facility] 01/23/25 Transmitted 22:28 Bedrest With Bathroom [facility] 01/23/25 Transmitted Privileg 22:28 Date of Service: Jan 23, 2025 Billing Provider: CECELIA CLAIRE Common Visit Codes: [id number] CARE 30-74 MIN CECELIA CLAIRE Jan 23, 2025 22:33
[2025-01-23] MEDS: SODIUM CHLORIDE 0.9% 500 ML IV ONE (23:05)
[2025-01-24] VITALS (32 sets, daily range): BP systolic 76–149; BP diastolic 49–76; PULSE 66–114; RESP 14–20; TEMP 97–99.1; O2SAT 99–100
--- NOTE | 2025-01-24 01:25 | ED.PDOC ---
Was a procedure done? 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 Physician Indication: Hypotension (On pressors) Room prepared for procedure: Yes Scalping Machine Operator performed hand hygien: Yes Maximal sterile barrier precau: Mask/Eye shield, Sterile gown, Cap, Sterlie gloves, Large sterlie drape Skin Preparation: Chlorhexidine gluconate, Providine iodine, Alcohol Skin preparation completely dr: Yes Insertion site: Left, Internal jugular Central line catheter type: Hnm-yhozxyie-uga dialysis Number of lumens: 3 Central line exchanged over a: No Antiseptic ointment applied to: No Post Assessment: Chest X-Ray, Proper placement Informed consent obtained: No Risks/benefits/alt described: No I personally scribed for WALE HEDRICK MD ([email or web address]) on 01/24/25 at 01:25. Electronically submitted by Gonzales Villarreal ([email or web address]). WALE HEDRICK MD Jan 24, 2025 01:25
[2025-01-24] MEDS: D5W/SOD CHL 0.45% 1,000 ML IV ONE (01:51)
--- NOTE | 2025-01-24 02:57 | DVH ---
CHEST RADIOGRAPH Indication: CENTRAL LINE PLACEMENT Technique: Single frontal view of the chest was obtained Comparison: XY CHEST PORTABLE on DOS: 01/23/25, XY CHEST PORTABLE on DOS: 09/05/23, CT CT ANGIO CHEST CO NTRAST on DOS: 09/04/23 IMPRESSION: Left central line tip is in the region of the superior vena cava. Endotracheal tube tip approximatel y 1-2 cm from the chelsie. Aeration of the left lung has improved. There is moderate interstitial edema. Possible small effusio n. No pneumothorax.
--- NOTE | 2025-01-24 05:27 | ECG ---
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
[2025-01-24 06:06] LABS: Alanine Aminotransferase 18 U/L (7-40); Anion Gap 12 (5-15); BUN/Creatinine Ratio 44.4 (10.0-20.0)
[2025-01-24 06:07] LABS: Bilirubin, Total 0.6 mg/dL (0.2-1.0)
[2025-01-24 06:08] LABS: Albumin 2.7 g/dL (3.2-4.8); Alkaline Phosphatase 138 U/L (46-116); Blood Urea Nitrogen 24 mg/dL (9-23); Calcium 8.0 mg/dL (8.7-10.4); Carbon Dioxide 20 mmol/L (20-31); Chloride 120 mmol/L (98-107); Glucose 111 mg/dL (74-106); Potassium 3.5 mmol/L (3.5-5.1); Sodium 152 mmol/L (136-145); Total Protein 4.6 g/dL (5.7-8.2)
[2025-01-24 07:33] LABS: Base Excess -5.8 mmol/L (-2.0-3.0)
[2025-01-24 08:01] LABS: Hematocrit 39.1 % (36.0-46.0); Nucleated Red Blood Cells % 0.0 %
[2025-01-24 08:03] LABS: Hemoglobin 12.8 g/dL (12.2-16.2); Mean Corpuscular Hemoglobin 31.6 pg (28.0-32.0); Mean Corpuscular Volume 96.8 fL (80.0-100.0)
[2025-01-24] MEDS ORDERED: CEFEPIME 1GM/ 50ML 50 ML IV SCH (10:00)
[2025-01-24] MEDS: CEFEPIME 1GM/ 50ML 50 ML IV SCH (10:12)
[2025-01-24] MEDS: ENOXAPARIN SOD 40 MG/0.4 ML SYRINGE SC SCH (11:00)
[2025-01-24] MEDS: PANTOPRAZOLE 40 MG/10 ML VIAL INJ IV SCH (11:18)
[2025-01-24] MEDS: SODIUM CHLORIDE 0.9% 500 ML IV ONE (11:45)
--- NOTE | 2025-01-24 11:57 | DVHPNRES ---
Progress Note Date Seen: Jan 24, 2025 Resident Creating Document: HARI FRITZ RESIDENT Medical Necessity Reason Pt with a Central, PICC or Fol: Yes The following are medically ne: Central Line, Chao Catheter Reason for chao catheter: Strict I&O Subjective Review of Systems Mary Handy is a 79 years old female with a PMH of Alzheimer's dementia for 9 years, left lower extremity DVT since 30 years, HTN presented to the ED accompanied by family with a chief complaints of shortness of breath and altered level of consciousness which is unusual from her baseline since moaning on the day of admission. Patient is on mechanical ventilation so history obtained from the family, Patient recently admitted in the [facility] for UTI and pneumonia, discharged home on the Thursday with Augmentin and azithromycin but Thursday morning, family tries to wake her up the patient was found mouth open with a lot of secretions pooling in the back of throat and hearing gurgling sound and saturation showed very low, called EMS, by the time EMS reaches her pulse oximetry was showed saturation in 50s and on 15 L non-rebreather mask. On arrival to ED patient was intubated and on mechanical ventilation with vent settings of RR 14, VTE 350, FiO2 30% with a PEEP of 5 and due to low blood pressure patient was started on Levophed and sedated with Versed. According to family June of this year patient diagnosed as hemorrhagic stroke at [facility], intubated and then patient has want tracheostomy for 3 months and sent her to long-term nursing facility for 5 months and then she diagnosed with the COVID and MRSA and admitted in [facility], patient was initially on [facility] hospice and then later family decided to take her off of hospice and took her to home as she has been improving as compared to before until she admitted at [facility]. PMH: As above PSH: Not significant Family history: Not significant Social history: Lives with the family. Denies smoking, alcohol and other drug abuse Allergies: No known allergies Home medications: Eliquis, risperidone, donepezil, memantine, p.r.n. Lasix Patient seen and examined at the bedside. Unable to obtain ROS due to patient's clinical status. Patient was started on vanc and cefepime initially later cefepime replaced by Zosyn and ordered pancultures. Initial CXR showed left hemithorax opacification and sequential CXR showed improvement left lung and mild congestion in both lungs. Ordered rapid COVID/flu test, pending. CT head showed no acute changes. Objective vital signs Vital Sign Date Time Temp Pulse Resp B/P (MAP) Pulse Ox O2 Delivery O2 Flow Rate FiO2 01/24/25 11:15 93 15 100 Mechanical Ventilator+ 60 60 01/24/25 10:55 118/69 (85) 01/24/25 10:30 98.2 98.2 01/23/25 17:50 15 Total Intake and Output 01/23/25 01/23/25 01/24/25 15:00 23:00 07:00 Intake Total 310.437 ml 598.75 ml Output Total 300 ml Balance 310.437 ml 298.75 ml medications Current Medications Medications Dose Ordered Sig/Agustín Route Start Time Stop Time Status Last Admin Dose Admin Midazolam HCl 50 ml @ 1 mls/hr Q24H IV 01/23/25 18:45 01/24/25 06:00 8 MLS/HR Norepinephrine Bitartrate 250 ml @ 3.75 mls/hr Q24H IV 01/23/25 22:00 01/23/25 22:00 3.75 MLS/HR Pantoprazole Sodium 40 mg DAILY IV 01/24/25 11:00 01/24/25 11:18 40 MG Enoxaparin Sodium 40 mg DAILY SC 01/24/25 11:00 Hold Piperacillin Sod/ Tazobactam Sod 100 ml @ 25 mls/hr Q8HR IV 01/24/25 14:00 Examination Pt is lying on bed, sedated General Appearance: Sedated, severely malnourished HEENT: Atraumatic, Mucous membranes moist/pink Respiratory: Clear to auscultation, Normal air movement Cardiovascular: Regular rate, Normal S1, Normal S2, No murmurs Abdominal: Scaphoid, Active bowel sounds, Soft, no distention, G-tube in place Extremities: No edema, Normal pulses, Skin: No Significant rash, except redness on her chest Neuro: Sedated, gag reflex intact, pupils are constricted but reactive Nurse was there as manager hydraulic during examination laboratory and microbiology Laboratory Tests 01/24/25 07:40 01/24/25 05:32 Test 01/24/25 05:32 Range/Units Serum Glucose 111 H 74-106 mg/dL Labs and/or images reviewed: Labs reviewed by me, Image(s) reviewed by me Problem List/Assessment/Plan Problem List/Assessment/Plan DOPSTER # Acute on chronic metabolic encephalopathy # Acute hypoxic encephalopathy # Alzheimer's dementia -head CT showed no acute changes -currently sedated -hold or stop home medications (donepezil, memantine) until she extubated CVS # ? Septic shock likely from pneumonia # Chronic diastolic CHF # HTN # Hx of complete heart block requiring temporary transcutaneous pacing in 2022 -hold BP meds -currently on Levophed -BNP -echocardiogram, pending -monitor continuously -fluid resuscitation 2-3 L in ED for shock -IV antibiotics Zosyn and vanc along with the pancultures - IVF d5w 1/2 75ml/hr RS # septic shock likely from aspiration pneumonia # Acute hypoxic respiratory failure likely from aspiration pneumonia status post intubation 01/23 # Aspiration pneumonia - ICU status - On mechanical ventilation with vent settings are 14, tidal volume 350, FiO2 30%, peep 5 - respiratory cultures, pending - Initial CXR showed left hemithorax opacification and sequential CXR showed improvement left lung and mild congestion in both lungs. - - Ordered rapid COVID/flu test,negative - currently on vancomycin and Zosyn -breathing treatments GI # severe protein calorie malnutrition -BMI 15 -nutritional consult -Start Jevity through G-tube /Endo/ Metabolic # acute complicated UTI-resolving -currently on Zosyn -UA findings normal -ordered urine culture # hypernatremia likely from dehydration -monitor lab -given boluses -currently D5W 1/2 NS 75 mL/hour -free water 200 mL q.6 G-tube # hypothyroidism -TSH elevated -levothyroxine 25 mcg # severe hypothermia on admission due to sepsis- warming measures Heme-Onc # thrombocytopenia -monitor lab for now -hold anticoagulants # Hx left lower extremity DVT -hold Eliquis and Lovenox Skin # sacral decubitus ulcer likely stage 4 -wound consult PUD PPX: Protonix VTE PPX: Nothing for now Diet: Jevity 30 mL/hour Drips Versed Levophed 14 Lines Left IJ CVC-01/24 Goals of care addressed with the patient's family member Susy Handy for more than 27 minutes: Full code status Care plan updated with the Susy Handy for more than 33 minutes, regarding prognosis, current status and addressed all concerns Case discussed with Dr. Maguire, and resident care associate time spent excluding procedures >93 minutes Plan discussed with: Other (Oydvnxpr-va-irk and nurse) My Orders My Orders Orders - HARI FRITZ Procedure Category Date Status Time Vitamin B12 LAB 01/24/25 In Process 10:34 Rapid Influenza A&B LAB 01/24/25 Logged 10:34 Covid19 Antigen Katiana LAB 01/24/25 Logged Thyroid Stimulating LAB 01/24/25 In Process Hormone 10:34 Magnesium LAB 01/24/25 In Process 10:34 Lactic Acid W/ Reflex LAB 01/24/25 In Process Order 10:34 B-Type Natriuretic LAB 01/24/25 In Process Peptide 10:34 Urine Bacterial DIANE 01/24/25 Logged Culture 10:34 Mrsa Screen DIANE 01/24/25 Uncollected 10:42 Pantoprazole PHA 01/24/25 In Process (Protonix) 11:00 Enoxaparin Sodium PHA 01/24/25 In Process (Lovenox) 11:00 Piperacillin-Tazob PHA 01/24/25 In Process 3.375gm (Zosyn 3.375g 14:00 Sodium Chloride 0.9% PHA 01/24/25 Logged 11:45 PTPTT LAB 01/24/25 Logged 11:36 Date of Service: Jan 24, 2025 Billing Provider: CECELIA MAGUIRE MD Common Visit Codes: 95508-[id number] CARE 30-74 MIN, 45101-IJLICMAT CARE-EACH +30MIN HARI FRITZ Jan 24, 2025 11:57 CECELIA MAGUIRE MD Jan 25, 2025 14:46
[2025-01-24 13:42] LABS: COVID19 ANTIGEN SOFIA FIA NEGATIVE (NEGATIVE)
[2025-01-24 13:57] LABS: INR 1.25 (0.9-1.15); Partial Thromboplastin Time 32.9 SEC (24.5-34.5); Prothrombin Time 13.0 sec (9.3-11.8)
[2025-01-24] MEDS: PIPERACILLIN-TAZOB 3.375GM 100 ML IV SCH (14:25)
[2025-01-24] MEDS ORDERED: VANCOMYCIN PER PHARMACY 0 MG IV SCH (15:45)
[2025-01-24] MEDS: D5W/SOD CHL 0.45% 1,000 ML IV SCH (17:52)
[2025-01-24] MEDS: IPRATROPIUM BROM 0.5 MG/2.5ML INH SOL NEB SCH (18:00)
[2025-01-24] MEDS: ALBUTEROL SULF 2.5 MG/0.5ML(0.5%) NEB SOLN NEB SCH (18:00)
[2025-01-24] MEDS: FREE WATER GT SCH (18:22)
[2025-01-24] MEDS: MAGNESIUM SULFATE 1GM/100ML 100 ML IV SCH (18:26)
--- NOTE | 2025-01-24 20:05 | DVHSR ---
APPROVED REPORT EXAM: Two-dimensional and M-mode echocardiogram with Doppler and color Doppler. Blood Pressure: 114/69 mmHg INDICATION ef RISK FACTORS Height: 5'3, Weight: 79 DIMENSIONS LVDd2.8 (3.8-5.7cm)LA (2D) (1.9-4.0cm)Aortic Root3.4 (2.0-3.7cm) LVDs1.6 (2.5-4.0cm)LA (MM) (1.9-4.0cm)Aortic Cusp Exc0.8 (1.5-2.0cm) EF (%) 70.0 (55-70%)Rt. Atrium (1.9-4.0cm)Asc. Aorta cm IVSd1.2 (0.7-1.1cm)RV (D) (1.8-2.4cm) PWd0.7 (0.7-1.1cm) Mitral Valve MitralMitral Stenosis E wave0.58m/sMV Mean GR.mmHg A wave1.07m/sMV Peak GR.mmHg E/A ratio0.52D MVAcm2 DECEL [id number] 1/2 Timems Aortic Valve Aortic ValveAortic Stenosis V11.32m/Seda Mean GR.9mmHg V22.18m/Seda Peak GR.19mmHg LVOT Diameter1.9 (1.8-2.4cm)Doppler AVA1.72cm2 AI P 1/2 Ioxk459.28ms Tricuspid Valve TR Velocity2.53m/s [id number] Other Information Quality : Technically LimitedRhythm : Technically limited study due to on vent.body habitus. Conclusion MODERATE DEGREE LVH AND MODERATE DEGREE LV DIASTOLIC DYSFUNCTION LV EF SI 65% A LARGE ANTERIOR APICAL PERICARDIAL EFFUSION IS SEEN MODERATE SIZE POSTERIOR PERICARDIAL EFFUSION IS SEEN NO EVIDENCE OF PERICARDIAL TAMPONADE NORMAL VALVES NORMAL RV FUNCTION
[2025-01-24] MEDS: Jevity 1.2 Cal/Fiber 1 Liter GT SCH (23:26)
[2025-01-25] VITALS (102 sets, daily range): BP systolic 76–144; BP diastolic 46–77; PULSE 65–96; RESP 12–23; TEMP 97–98.1; O2SAT 90–100
--- NOTE | 2025-01-25 03:10 | DVH ---
CHEST RADIOGRAPH Indication: f/u Technique: 1 view Comparison: XY CHEST XRAY 1 VIEW on DOS: 01/24/25, XY CHEST PORTABLE on DOS: 01/23/25, XY CHEST PORTABLE on DOS: 09/05/23, CT CT ANGIO CHEST CONTRAST on DOS: 09/04/23, CT CHST AB PEL WO CON-NO IV/ORAL on DOS: 09/03/23 FINDINGS: Lines and Tubes: Unchanged low positioned endotracheal tube, and left IJ catheter. Lungs: Similar emphysematous appearing lungs with jayn-mrrsgwy-bcrh-right infrahilar airspace disease and probably chronic bilateral coarse reticular opacities. No evidence of new consolidation. Pleura: Small left effusion suspected. Cardiomediastinal contours: Unchanged. Other: Unchanged. IMPRESSION: 1. No significant change from the previous study. Endotracheal tube remains in low position less manuel n 2 cm above the chelsie. 2. Bilateral infrahilar airspace disease and small left pleural effusion. Background of emphysematou s change and fibrosis suspected.
[2025-01-25 03:35] LABS: Hemoglobin 10.4 g/dL (12.2-16.2)
[2025-01-25 03:37] LABS: Hematocrit 30.9 % (36.0-46.0); Mean Corpuscular Hemoglobin 31.7 pg (28.0-32.0); Mean Corpuscular Volume 94.4 fL (80.0-100.0)
[2025-01-25 04:14] LABS: Alanine Aminotransferase 11 U/L (7-40); Albumin 2.3 g/dL (3.2-4.8); Alkaline Phosphatase 116 U/L (46-116); Anion Gap 10 (5-15); BUN/Creatinine Ratio 40.6 (10.0-20.0); Bilirubin, Total 0.4 mg/dL (0.2-1.0); Blood Urea Nitrogen 28 mg/dL (9-23); Calcium 7.7 mg/dL (8.7-10.4); Carbon Dioxide 21 mmol/L (20-31); Chloride 119 mmol/L (98-107); Glucose 189 mg/dL (74-106); Magnesium 2.3 mg/dL (1.6-2.6); Potassium 3.0 mmol/L (3.5-5.1); Sodium 150 mmol/L (136-145); Total Protein 4.0 g/dL (5.7-8.2)
[2025-01-25 04:30] LABS: Total Cells Counted 100.0 (100)
[2025-01-25] MEDS: LEVOTHYROXINE SODIUM 25 MCG TAB PO SCH (05:27)
[2025-01-25] MEDS: POTASSIUM CHL 20MEQ/100ML 100 ML IV SCH (05:28)
[2025-01-25 07:43] LABS: Base Excess -5.1 mmol/L (-2.0-3.0)
[2025-01-25] MEDS: fentaNYL Drip 2500mCg/250mlNS 250 ML IV SCH (08:45)
--- NOTE | 2025-01-25 09:30 | DVH ---
CHEST RADIOGRAPH Indication: recheck ett placement after repositioned Technique: Single frontal view of the chest was obtained COMPARISON: XY CHEST PORTABLE on DOS: 01/25/25, XY CHEST XRAY 1 VIEW on DOS: 01/24/25, XY CHEST PORTABLE on DOS: 01/23/25, XY CHEST PORTABLE on DOS: 09/05/23, CT CT ANGIO CHEST CONTRAST on DOS: 09/04/23 FINDINGS: Lines and Tubes: Endotracheal tube and left central venous catheter in satisfactory position. Lungs: Clear Pleura: No effusion. No pneumothorax. Cardiomediastinal contours: Unremarkable Bones: Unremarkable IMPRESSION: Lines and tubes in satisfactory position. No significant interval change.
[2025-01-25 10:42] LABS: Free T4 (Free Thyroxine) 0.6 ng/dL (0.89-1.76)
[2025-01-25] MEDS ORDERED: VANCOMYCIN 500MG/100ML D5W 100 ML IV SCH (15:00)
[2025-01-25] MEDS ORDERED: VANCOMYCIN 500mg/100mL 100 ML IV SCH (15:00)
[2025-01-25] MEDS: VANCOMYCIN 500MG/100ML D5W 100 ML IV SCH (18:01)
--- NOTE | 2025-01-25 18:36 | DVHPNRES ---
Progress Note Date Seen: Jan 25, 2025 Resident Creating Document: HARI FRITZ RESIDENT Medical Necessity Reason Pt with a Central, PICC or Fol: Yes The following are medically ne: Central Line, Chao Catheter Reason for chao catheter: Strict I&O Subjective Review of Systems Patient seen and examined at the bedside. Unable to obtain ROS due to patient's clinical status. Continue vanc and Zosyn, 1 set of blood cultures showed budding yeast, started on micafungin, ordered repeat cultures. Chest x-ray showing improvement but still some effusion. Code status flu test negative. Wound consult for decubitus ulcer, send cultures. Objective vital signs Vital Sign Date Time Temp Pulse Resp B/P (MAP) Pulse Ox O2 Delivery O2 Flow Rate FiO2 01/25/25 16:21 70 15 90/52 (65) 99 30 01/25/25 16:00 Mechanical Ventilator+ 01/25/25 06:00 98.1 98.1 01/23/25 17:50 15 Total Intake and Output 01/24/25 01/24/25 01/25/25 15:00 23:00 07:00 Intake Total 833 ml 742.50 ml 1320.50 ml Output Total 60 ml 275 ml Balance 773 ml 742.50 ml 1045.50 ml medications Current Medications Medications Dose Ordered Sig/Agustín Route Start Time Stop Time Status Last Admin Dose Admin Midazolam HCl 50 ml @ 1 mls/hr Q24H IV 01/23/25 18:45 01/24/25 22:11 8 MLS/HR Norepinephrine Bitartrate 250 ml @ 3.75 mls/hr Q24H IV 01/23/25 22:00 01/25/25 14:10 11.25 MLS/HR Pantoprazole Sodium 40 mg DAILY IV 01/24/25 11:00 01/25/25 10:02 40 MG Enoxaparin Sodium 40 mg DAILY SC 01/24/25 11:00 Hold Piperacillin Sod/ Tazobactam Sod 100 ml @ 25 mls/hr Q8HR IV 01/24/25 14:00 01/25/25 14:05 25 MLS/HR Vancomycin HCl 0 ml @ 0 mls/hr UD IV 01/24/25 15:45 Dextrose/Sodium Chloride 1,000 ml @ 75 mls/hr [id number] IV 01/24/25 15:45 01/25/25 06:35 75 MLS/HR Purified Water 200 ml Q6HR GT 01/24/25 18:00 01/25/25 12:00 200 ML Levothyroxine Sodium 25 mcg QAM@0600 PO 01/25/25 06:00 01/25/25 05:27 25 MCG Albuterol 2.5 mg Q6HWA NEB 01/24/25 18:00 01/25/25 16:21 2.5 MG Ipratropium [place] 0.5 mg Q6HPRN NEB 01/24/25 18:00 01/25/25 16:21 0.5 MG Enteral Nutritional Formula 1,000 ml 30ML/HR GT 01/24/25 17:15 01/24/25 23:26 1,000 ML Fentanyl Citrate 250 ml @ 2.5 mls/hr Q24H IV 01/25/25 08:45 01/25/25 14:56 2.5 MLS/HR Micafungin Sodium 100 mg/Sodium Chloride 100 ml @ 100 mls/hr DAILY IV 01/26/25 10:00 Vancomycin HCl 100 ml @ 200 mls/hr Q8H IV 01/25/25 18:00 01/25/25 18:01 200 MLS/HR Examination Pt is lying on bed, sedated General Appearance: Sedated, severely malnourished HEENT: Atraumatic, Mucous membranes moist/pink Respiratory: Clear to auscultation, Normal air movement Cardiovascular: Regular rate, Normal S1, Normal S2, No murmurs Abdominal: Scaphoid, Active bowel sounds, Soft, no distention, G-tube in place Extremities: No edema, Normal pulses, Skin: Decubitus ulcer on sacrum & redness on her chest Neuro: Sedated, gag reflex intact, pupils are constricted but reactive Nurse was there as employment office clerk during examination laboratory and microbiology Laboratory Tests 01/25/25 11:14 01/25/25 02:35 Test 01/25/25 02:35 Range/Units Serum Glucose 189 H 74-106 mg/dL Microbiology Date/Time Source Procedure Growth Status 01/24/25 22:32 Nose MRSA Screen - Final Methicillin Resistant S.aureus Complete 01/24/25 11:35 Voided Urine Urine Culture - Preliminary Resulted 01/23/25 18:39 Sputum Gram Stain - Final Resulted 01/23/25 18:39 Sputum Respiratory Culture - Preliminary Resulted 01/23/25 18:07 Blood Blood Culture - Preliminary Resulted Labs and/or images reviewed: Labs reviewed by me, Image(s) reviewed by me Problem List/Assessment/Plan 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 Septic shock likely from pneumonia # Chronic diastolic CHF # HTN # Hx of complete heart block requiring temporary transcutaneous pacing in 2022 -hold BP meds -currently on Levophed -BNP -echocardiogram, pending -monitor continuously -fluid resuscitation 2-3 L in ED for shock -IV antibiotics Zosyn and vanc along with the pancultures - IVF d5w 1/2 75ml/hr -echo showed EF 65% with moderate diastolic dysfunction and mild pericardial effusion RS # septic shock likely from aspiration pneumonia # Acute hypoxic respiratory failure likely from aspiration pneumonia status post intubation 01/23 # Aspiration pneumonia - ICU status - On mechanical ventilation with vent settings are 14, tidal volume 350, FiO2 30%, peep 5 - respiratory cultures, Gram-positive and Gram-negative organisms - Initial CXR showed left hemithorax opacification and sequential CXR showed improvement left lung and mild congestion in both lungs. - - Ordered rapid COVID/flu test,negative - currently on vancomycin and Zosyn - breathing treatments -initial blood cultures 1 set showing budding yeast, repeat cultures GI # severe protein calorie malnutrition -BMI 15 -nutritional consult -Start Jevity through G-tube /Endo/ Metabolic # acute complicated UTI-resolving -currently on Zosyn -UA findings normal -ordered urine culture # hypernatremia likely from dehydration -monitor lab -given boluses -currently D5W 1/2 NS 75 mL/hour -free water 200 mL q.6 G-tube # hypothyroidism -TSH elevated -levothyroxine 25 mcg # severe hypothermia on admission due to sepsis- warming measures ID # candidemia/fungemia -repeat cultures -micafungin 100 mg b.i.d. Heme-Onc # thrombocytopenia -monitor lab for now -hold anticoagulants # Hx left lower extremity DVT -hold Eliquis and Lovenox Skin # sacral decubitus ulcer likely stage 4 -wound consult PUD PPX: Protonix VTE PPX: Nothing for now Diet: Jevity 30 mL/hour Drips Versed Levophed 14 Lines Left IJ CVC-01/24 Goals of care addressed with the patient's family member Susy Handy for more than 27 minutes: Full code status Care plan updated with the Susy Handy and son for more than 81 minutes bedside, regarding prognosis, current status and addressed all concerns Case discussed with Dr. Maguire, and congregational care pastor time spent excluding procedures >93 minutes Plan discussed with: Son, Other (Synulqap-ym-ycr and nurse) My Orders My Orders Orders - HARI FRITZ RESIDENT Procedure Category Date Status Time Initiate Vte NAHUM 01/24/25 In Process Prophylaxis 23:19 * Dietary Consult CONS 01/24/25 Transmitted 23:19 * Wound Consult CONS 01/25/25 Transmitted Chest Portable XY 01/25/25 Resulted 08:05 Fentanyl Drip PHA 01/25/25 In Process 2500mcg/250mlns 08:45 Blood Culture DIANE 01/25/25 Uncollected 09:00 Respiratory Misc. RT 01/25/25 Transmitted Order 09:55 Notify Provider NOTICE 01/25/25 Transmitted Malnutrition 13:29 Apply Barrier Cream NAHUM 01/25/25 In Process 13:25 Dietary Evaluation Review Comments: Pt meets criteria of Severe 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 Nutrition Recommendation 1) TF Jevity 1.2 Luis @ 30ml/hr along with Pro-stat 1 pk BID. Water flush 200ml Q6H if allowed, adjust PRN. Start @ 20ml/hr, increase 10ml/hr Q4H until goal is reached. TF @ goal volume along woth IVD5w 1/ nS & Pro-stat provides 100% energy (1370 kcal) & 100% protein needs (70gm). Free water 581ml. 2) Consider TPN per pharmacy if pt cannot tolerate TF 3) Manuel 1 pk BID, Vit C 500mg BID, Zinc sulfate 220mg BID x 10 days, MVI w/ minerals 1 tab daily. 4) Monitor NPO status, TF tolerance, lab values, wt trend, I/O Expected Outcomes/Goals: Goal: 1) To maintain/gain weight 2) Intake to meet at least 75% estimated needs within 7 days follow up 2-3 days Interpretation of weight loss: up to 20% in 1 year Fluid Accumulation (Severe): Moderate Fluid Retention Protein Calorie Malnutrition: Severe Is there a minimum of two crit: Yes Date of Service: Jan 25, 2025 Billing Provider: CECELIA MAGUIRE MD Common Visit Codes: 66508-[id number] CARE 30-74 MIN, 13550-DKHAKZZD CARE-EACH +30MIN HARI FRITZ RESIDENT Jan 25, 2025 18:36 CECELIA MAGUIRE MD Jan 26, 2025 12:10
[2025-01-25] MEDS: MICAFUNGIN SODIUM 100 MG in SODIUM CHL 0.9% 100 ML IV ONE (23:06)
[2025-01-26] VITALS (111 sets, daily range): BP systolic 72–148; BP diastolic 43–77; PULSE 65–98; RESP 10–29; TEMP 96.6–99.9; O2SAT 95–100
[2025-01-26 03:12] LABS: Hematocrit 28.6 % (36.0-46.0); Hemoglobin 9.7 g/dL (12.2-16.2); Mean Corpuscular Hemoglobin 31.6 pg (28.0-32.0); Mean Corpuscular Volume 93.5 fL (80.0-100.0)
[2025-01-26 03:16] LABS: Anion Gap 6 (5-15); BUN/Creatinine Ratio 47.5 (10.0-20.0); Carbon Dioxide 22 mmol/L (20-31); Magnesium 2.0 mg/dL (1.6-2.6); Potassium 3.5 mmol/L (3.5-5.1)
[2025-01-26 03:17] LABS: Bilirubin, Total 0.3 mg/dL (0.2-1.0)
[2025-01-26 03:20] LABS: Alanine Aminotransferase 9 U/L (7-40); Albumin 2.3 g/dL (3.2-4.8); Alkaline Phosphatase 117 U/L (46-116); Blood Urea Nitrogen 28 mg/dL (9-23); Calcium 7.3 mg/dL (8.7-10.4); Chloride 117 mmol/L (98-107); Glucose 161 mg/dL (74-106); Sodium 145 mmol/L (136-145); Total Protein 3.9 g/dL (5.7-8.2)
[2025-01-26 04:25] LABS: Total Cells Counted 100.0 (100)
--- NOTE | 2025-01-26 05:51 | DVH ---
CHEST RADIOGRAPH Indication: fu Technique: 1 view Comparison: XY CHEST PORTABLE on DOS: 01/25/25, XY CHEST PORTABLE on DOS: 01/25/25, XY CHEST XRAY 1 VIEW on DOS: 01/24/25, XY CHEST PORTABLE on DOS: 01/23/25, XY CHEST PORTABLE on DOS: 09/05/23 FINDINGS: Lines and Tubes: Unchanged endotracheal tube and left IJ catheter. Lungs: Left inferior lung collapse. Similar interstitial opacities throughout the right lung. Pleura: Large left pneumothorax. No significant pleural effusion. Cardiomediastinal contours: Mild rightward mediastinal shift. Normal heart size. Aortic atherosclero sis. Other: Unchanged. IMPRESSION: 1. Large left pneumothorax with partial left lung collapse and mild rightward mediastinal shift sugge sting tension physiology. 2. No other significant interval change. Stable support devices. I communicated the above findings with SHADE Montano at 7:46 a.m. on 01/26/2025, who communica gurjit bingham with positive read back.
[2025-01-26 07:06] LABS: Base Excess -7.8 mmol/L (-2.0-3.0)
--- NOTE | 2025-01-26 08:02 | DVH ---
CHEST RADIOGRAPH Indication: CHEST TUBE INSERTION Technique: Single frontal view of the chest was obtained Comparison: XY CHEST PORTABLE on DOS: 01/26/25 FINDINGS: Lines and Tubes: Interval placement of a left basilar chest tube. Left central venous catheter termin ates in the superior vena cava. The endotracheal tube terminates 4.4 cm above the chelsie. Lungs: Mild left lower lobe atelectasis. Re-expansion of the left lung. Pleura: Decreased left pneumothorax with small residual. No pneumothorax. Cardiomediastinal contours: Unremarkable Bones: No acute osseous abnormality. IMPRESSION: 1. Significant decrease in left pneumothorax status post left chest tube placement. Small persistent left basilar pneumothorax. 2. Significant re-expansion of the left lung.
[2025-01-26] MEDS: MICAFUNGIN SODIUM 100 MG in SODIUM CHL 0.9% 100 ML IV SCH (11:47)
--- NOTE | 2025-01-26 12:37 | DVHNC2 ---
Chest Tube Indication: Pneumothorax Procedure: Sterile preparation Anesthetic: Lidocaine Site: L 5th intercostal space Drainage: Air, Fluid Notes Procedure details Guidewire pigtail catheter placement for pneumothorax With chlorhexidine, skin was clean and allowed to dry at and around 5th intercostal space on the left side mid axillary level. Lidocaine was used to make skin wheal anesthetized underlying subcutaneous tissue and pleura. Negative pressure was applied and needle was inserted in while aspirating simultaneously till air was in the syringe. Introducing needle was advanced into the pleural space. Syringe was removed while keeping the needle in place and guidewire was advanced through the introducer needle into pleural space. N eedle was removed and scalpel was used to make a magaly in the skin at the wire insertion point. Dilator was advanced over the guidewire to dilate the subcutaneous tissue. Dilator was removed and pigtail catheter was advanced over the guidewire till the most proximal black line at the insertion site. Guidewire was removed and one end of the adapter tubing to the pigtails was attached. The other and of Adaptic tubing was connected to the Heimlich Valve. Sutured catheter was put in place to secure the pigtail catheter. Tubing was connected to the Pleur-evac and the three-way stopcock was turned to the side away from the Pleur-evac and Pleur-evac was connected to the negative suction. A sterile occlusive dressing was placed over the insertion site. No immediate complications were noted. A post-procedure chest x-ray was ordered. Estimated blood loss is 2 mL. Emily Walker PGY3 Jeremy Vallecillo MD, Attending Physician Date of Service: Jan 26, 2025 Billing Provider: JEREYM VALLECILLO MD Common Visit Codes: PROCEDURE ONLY Procedure Codes: 87969-GDXSEGNUI OF CHEST TUBE EMILY WALKER RESIDENT Jan 26, 2025 12:37
--- NOTE | 2025-01-26 15:50 | DVH ---
Bilateral lower extremity venous duplex Clinical History: r/oDVt Comparison: US BILAT LOWER DVT on DOS: 09/04/23 Technique: Duplex Doppler evaluation of the deep venous systems of both lower extremities from the common femora l veins to the popliteal veins including color Doppler and spectral/pulsed waveform analysis was perf ormed. Findings: RIGHT SIDE: The common femoral vein demonstrates appropriate compressibility and waveform variability. There is compressibility/patency of the great saphenous vein at the proximal thigh. The femoral vein demonstrates appropriate compressibility and waveform variability. The deep femoral vein demonstrates appropriate compressibility and waveform variability. The popliteal vein demonstrates appropriate compressibility and waveform variability. There is normal compressibility at the tibioperoneal trunk. LEFT SIDE: The common femoral vein demonstrates low present non compressibility no augmentation. There is compressibility/patency of the great saphenous vein at the proximal thigh. The femoral vein demonstrates poor to no flow, noncompressibility, no augmentation in the proximal mi d and distal thigh The deep femoral vein demonstrates appropriate compressibility and waveform variability. The popliteal vein not visible There is non visible trifurcation. Impression: 1. No right femoropopliteal venous thrombosis. Possible new clot forming in the right common femoral vein .Rouleaux blood flow is noted throughout the right lower extremity. 2. Avascular collections noted in the popliteal fossa largest. 3. On the left common femoral vein contains nonocclusive deep venous thrombosis. There is nonocclusi ve deep venous thrombosis throughout the left superficial femoral vein. The left popliteal vein and t rifurcation are not visible because of bandaging.
--- NOTE | 2025-01-26 17:21 | DVHPNRES ---
Progress Note Date Seen: Jan 26, 2025 Resident Creating Document: HARI FRITZ RESIDENT Medical Necessity Reason Pt with a Central, PICC or Fol: Yes The following are medically ne: Central Line, Chao Catheter Reason for chao catheter: Strict I&O Subjective Review of Systems Patient seen and examined at the bedside. Unable to obtain ROS due to patient's clinical status. Continue vanc, micafungin and Zosyn, 1 set of blood cultures showed budding yeast, started on micafungin, ordered repeat cultures. Chest x- ray showing improvement but still some effusion. Code status flu test negative. Wound consult for decubitus ulcer, send cultures. 01/26 -Patient seen and examined at the bedside. Unable to obtain ROS due to patient's clinical status. Today CXR showed Lft Pneumothorax, placed pigtail catheter, repeat cxr showed improvement in pneumothorax. Resp cult showed MRSA. Continue vanc, micafungin and Zosyn. Monitor. Objective vital signs Vital Sign Date Time Temp Pulse Resp B/P (MAP) Pulse Ox O2 Delivery O2 Flow Rate FiO2 01/26/25 16:15 84 15 116/60 (78) 100 01/26/25 16:08 30 01/26/25 16:00 99.3 99.3 01/26/25 14:00 Mechanical Ventilator+ Total Intake and Output 01/25/25 01/25/25 01/26/25 15:00 23:00 07:00 Intake Total 743.00 ml 1370.0 ml 1065.75 ml Output Total 175 ml 250 ml Balance 743.00 ml 1195.0 ml 815.75 ml medications Current Medications Medications Dose Ordered Sig/Agustín Route Start Time Stop Time Status Last Admin Dose Admin Midazolam HCl 50 ml @ 1 mls/hr Q24H IV 01/23/25 18:45 01/26/25 06:30 2 MLS/HR Norepinephrine Bitartrate 250 ml @ 3.75 mls/hr Q24H IV 01/23/25 22:00 01/26/25 03:48 18.75 MLS/HR Pantoprazole Sodium 40 mg DAILY IV 01/24/25 11:00 01/26/25 09:42 40 MG Enoxaparin Sodium 40 mg DAILY SC 01/24/25 11:00 Hold Piperacillin Sod/ Tazobactam Sod 100 ml @ 25 mls/hr Q8HR IV 01/24/25 14:00 01/26/25 15:56 25 MLS/HR Vancomycin HCl 0 ml @ 0 mls/hr UD IV 01/24/25 15:45 Dextrose/Sodium Chloride 1,000 ml @ 75 mls/hr [id number] IV 01/24/25 15:45 01/26/25 03:48 75 MLS/HR Purified Water 200 ml Q6HR GT 01/24/25 18:00 01/26/25 11:55 200 ML Levothyroxine Sodium 25 mcg QAM@0600 PO 01/25/25 06:00 01/26/25 04:11 25 MCG Albuterol 2.5 mg Q6HWA NEB 01/24/25 18:00 01/26/25 13:21 2.5 MG Ipratropium [place] 0.5 mg Q6HPRN NEB 01/24/25 18:00 01/26/25 13:21 0.5 MG Enteral Nutritional Formula 1,000 ml 30ML/HR GT 01/24/25 17:15 01/26/25 03:12 1,000 ML Fentanyl Citrate 250 ml @ 2.5 mls/hr Q24H IV 01/25/25 08:45 01/25/25 14:56 2.5 MLS/HR Micafungin Sodium 100 mg/Sodium Chloride 100 ml @ 100 mls/hr DAILY IV 01/26/25 10:00 01/26/25 11:47 100 MLS/HR Vancomycin HCl 100 ml @ 200 mls/hr Q8H IV 01/25/25 18:00 01/26/25 10:22 200 MLS/HR Examination Pt is lying on bed, sedated General Appearance: Sedated, severely malnourished HEENT: Atraumatic, Mucous membranes moist/pink Respiratory: decraesed breath sounds mostly left side Cardiovascular: Regular rate, Normal S1, Normal S2, No murmurs Abdominal: Scaphoid, Active bowel sounds, Soft, no distention, G-tube in place Extremities: No edema, Normal pulses, Skin: Decubitus ulcer on sacrum & redness on her chest Neuro: Sedated, gag reflex intact, pupils are constricted but reactive Nurse was there as performance manager during examination laboratory and microbiology Laboratory Tests 01/26/25 02:29 Test 01/26/25 02:29 Range/Units Serum Glucose 161 H 74-106 mg/dL Microbiology Date/Time Source Procedure Growth Status 01/24/25 22:32 Nose MRSA Screen - Final Methicillin Resistant S.aureus Complete 01/24/25 11:35 Voided Urine Urine Culture - Final Complete 01/23/25 18:39 Sputum Gram Stain - Final Resulted 01/23/25 18:39 Respiratory Culture - Preliminary Methicillin Resistant S.aureus Resulted 01/23/25 18:07 Blood Blood Culture - Preliminary Resulted Labs and/or images reviewed: Labs reviewed by me, Image(s) reviewed by me Problem List/Assessment/Plan Problem List/Assessment/Plan 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 Septic shock likely from pneumonia # Chronic diastolic CHF # HTN # Hx of complete heart block requiring temporary transcutaneous pacing in 2022 -hold BP meds -currently on Levophed -BNP -echocardiogram, pending -monitor continuously -fluid resuscitation 2-3 L in ED for shock -IV antibiotics Zosyn and vanc along with the pancultures - IVF d5w 1/2 75ml/hr -echo showed EF 65% with moderate diastolic dysfunction and mild pericardial effusion RS # septic shock likely from aspiration pneumonia # Acute hypoxic respiratory failure likely from aspiration pneumonia status post intubation 01/23 # Aspiration pneumonia # MRSA PNA # Spont. Pneumothorax s/p chest tube - Today CXR showed Lft Pneumothorax, placed pigtail catheter, repeat cxr showed improvement in pneumothorax. - ICU status - On mechanical ventilation with vent settings are 14, tidal volume 350, FiO2 30%, peep 5 - respiratory cultures, Gram-positive and Gram-negative organisms - Initial CXR showed left hemithorax opacification and sequential CXR showed improvement left lung and mild congestion in both lungs. - - Ordered rapid COVID/flu test,negative - currently on vancomycin and Zosyn - breathing treatments - initial blood cultures 1 set showing budding yeast, repeat cultures - Resp cult showed MRSA. Continue vanc, micafungin and Zosyn. Monitor. GI # severe protein calorie malnutrition -BMI 15 -nutritional consult -Start Jevity through G-tube /Endo/ Metabolic # acute complicated UTI-resolving -currently on Zosyn -UA findings normal -ordered urine culture # hypernatremia likely from dehydration -monitor lab -given boluses -currently D5W 1/2 NS 75 mL/hour -free water 200 mL q.6 G-tube # hypothyroidism -TSH elevated -levothyroxine 25 mcg # severe hypothermia on admission due to sepsis- warming measures ID # candidemia/fungemia -repeat cultures -micafungin 100 mg b.i.d. Heme-Onc # thrombocytopenia -monitor lab for now -hold anticoagulants # left common & superficial femoral vein nonocclusive DVT - Duplesx showe following changes - No right femoropopliteal venous thrombosis. Possible new clot forming in the right common femoral vein .Rouleaux blood flow is noted throughout the right lower extremity. - Avascular collections noted in the popliteal fossa largest. - On the left common femoral vein contains nonocclusive deep venous thrombosis. There is nonocclusive deep venous thrombosis throughout the left superficial femoral vein. The left popliteal vein and trifurcation are not visible because of bandaging. - No anticoagulanunts because thrombocytopenia # Hx left lower extremity DVT -hold Eliquis and Lovenox Skin # sacral decubitus ulcer likely stage 4 -wound consult PUD PPX: Protonix VTE PPX: Nothing for now Diet: Jevity 30 mL/hour Drips Versed Levophed 14 Lines Left IJ CVC-01/24 Goals of care addressed with the patient's family member Susy Handy for more than 27 minutes: Full code status Care plan updated with the Susy Handy and son for more than 37 minutes bedside, regarding prognosis, current status and addressed all concerns yesterday. Care plan updated to son via telephone. Case discussed with Dr. Maguire, and child care centre director time spent excluding procedures > 93 minutes Plan discussed with: Son, Other (RN) My Orders My Orders Orders - HARI FRITZ RESIDENT Procedure Category Date Status Time Abg W/ Co-Ox RT 01/26/25 Logged 04:00 Chest Portable XY 01/26/25 Resulted 04:00 Communication Order ORDERS 01/26/25 Transmitted 10:22 Bilat Lower Dvt US 01/26/25 Resulted 14:14 Complete Blood Count LAB 01/27/25 Verified 04:00 Comprehensive LAB 01/27/25 Verified Metabolic Panel 04:00 Magnesium LAB 01/27/25 Verified 04:00 Chest Portable XY 01/27/25 Logged 04:00 Abg W/ Co-Ox RT 01/27/25 Logged 04:00 Dietary Evaluation Review Comments: Pt meets criteria of Severe 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 Nutrition Recommendation 1) TF Jevity 1.2 Luis @ 30ml/hr along with Pro-stat 1 pk BID. Water flush 200ml Q6H if allowed, adjust PRN. Start @ 20ml/hr, increase 10ml/hr Q4H until goal is reached. TF @ goal volume along woth IVD5w 1/2 nS & Pro-stat provides 100% energy (1370 kcal) & 100% protein needs (70gm). Free water 581ml. 2) Consider TPN per pharmacy if pt cannot tolerate TF 3) Manuel 1 pk BID, Vit C 500mg BID, Zinc sulfate 220mg BID x 10 days, MVI w/ minerals 1 tab daily. 4) Monitor NPO status, TF tolerance, lab values, wt trend, I/O Expected Outcomes/Goals: Goal: 1) To maintain/gain weight 2) Intake to meet at least 75% estimated needs within 7 days follow up 2-3 days Interpretation of weight loss: up to 20% in 1 year Fluid Accumulation (Severe): Moderate Fluid Retention Protein Calorie Malnutrition: Severe Is there a minimum of two crit: Yes Date of Service: Jan 26, 2025 Billing Provider: CECELIA MAGUIRE MD Common Visit Codes: 03304-PBTXPBXV CARE 30-74 MIN, 61351-FLXNAOXS CARE-EACH +30MIN HARI FRITZ RESIDENT Jan 26, 2025 17:21 CECELIA MAGUIRE MD Jan 29, 2025 15:27
[2025-01-27] VITALS (106 sets, daily range): BP systolic 85–134; BP diastolic 47–69; PULSE 67–91; RESP 12–33; TEMP 97–99; O2SAT 100
[2025-01-27 03:49] LABS: Mean Corpuscular Volume 93.2 fL (80.0-100.0)
[2025-01-27 03:54] LABS: Hematocrit 27.1 % (36.0-46.0); Hemoglobin 9.3 g/dL (12.2-16.2); Mean Corpuscular Hemoglobin 31.7 pg (28.0-32.0)
[2025-01-27 04:12] LABS: Anion Gap 6 (5-15); BUN/Creatinine Ratio 48.9 (10.0-20.0); Blood Urea Nitrogen 23 mg/dL (9-23); Carbon Dioxide 23 mmol/L (20-31); Magnesium 1.8 mg/dL (1.6-2.6); Potassium 3.7 mmol/L (3.5-5.1); Sodium 143 mmol/L (136-145)
[2025-01-27 04:13] LABS: Bilirubin, Total 0.3 mg/dL (0.2-1.0)
[2025-01-27 04:14] LABS: Alanine Aminotransferase < 9 U/L (7-40); Albumin 2.0 g/dL (3.2-4.8); Alkaline Phosphatase 123 U/L (46-116); Calcium 7.2 mg/dL (8.7-10.4); Chloride 114 mmol/L (98-107); Glucose 139 mg/dL (74-106); Total Protein 3.6 g/dL (5.7-8.2)
[2025-01-27 04:37] LABS: Total Cells Counted 100.0 (100)
--- NOTE | 2025-01-27 05:31 | DVH ---
CHEST RADIOGRAPH Indication: fu Technique: Single frontal view of the chest was obtained COMPARISON: XY CHEST PORTABLE on DOS: 01/26/25, XY CHEST PORTABLE on DOS: 01/26/25, XY CHEST PORTABLE on DOS: 01/25/25, XY CHEST PORTABLE on DOS: 01/25/25, XY CHEST XRAY 1 VIEW on DOS: 01/24/25 FINDINGS: Lines and Tubes: Endotracheal tube, left central venous catheter and left chest tube in satisfactory position. Lungs: Clear Pleura: No effusion. No pneumothorax. Cardiomediastinal contours: Unremarkable Bones: Unremarkable IMPRESSION: No appreciable pneumothorax with left chest tube in-situ.
[2025-01-27 07:57] LABS: Base Excess -5.1 mmol/L (-2.0-3.0)
--- NOTE | 2025-01-27 16:13 | DVHPNRES ---
Progress Note Date Seen: Jan 27, 2025 Resident Creating Document: HARI FRITZ RESIDENT Medical Necessity Reason Pt with a Central, PICC or Fol: Yes The following are medically ne: Central Line, Chao Catheter Reason for chao catheter: Strict I&O Subjective Review of Systems 01/25- Continue vanc, micafungin and Zosyn, 1 set of blood cultures showed budding yeast, started on micafungin, ordered repeat cultures. Chest x-ray showing improvement but still some effusion. Code status flu test negative. Wound consult for decubitus ulcer, send cultures. 01/26 -Patient seen and examined at the bedside. Unable to obtain ROS due to patient's clinical status. Today CXR showed Lft Pneumothorax, placed pigtail catheter, repeat cxr showed improvement in pneumothorax. Resp cult showed MRSA. Continue vanc, micafungin and Zosyn. Monitor. Today patient seen and examined at the bedside. Unable to obtain ROS due to patient's clinical status., CXR showed improvement in the pneumothorax. Consulted Cardiology for pericardial effusion. Yesterday spoken with the family regarding the code status and changed to chemical code. Changes from previous H/P or p: No Changes Objective vital signs Vital Sign Date Time Temp Pulse Resp B/P (MAP) Pulse Ox O2 Delivery O2 Flow Rate FiO2 01/27/25 14:51 80 20 96/47 (63) 100 30 01/27/25 14:00 97.9 97.9 01/27/25 14:00 Mechanical Ventilator+ Total Intake and Output 01/26/25 01/26/25 01/27/25 15:00 23:00 07:00 Intake Total 777.50 ml 1532.50 ml 1339.75 ml Output Total 770 ml 450 ml Balance 777.50 ml 762.50 ml 889.75 ml medications Current Medications Medications Dose Ordered Sig/Agustín Route Start Time Stop Time Status Last Admin Dose Admin Midazolam HCl 50 ml @ 1 mls/hr Q24H IV 01/23/25 18:45 01/27/25 08:08 2 MLS/HR Norepinephrine Bitartrate 250 ml @ 3.75 mls/hr Q24H IV 01/23/25 22:00 01/27/25 07:54 22.5 MLS/HR Pantoprazole Sodium 40 mg DAILY IV 01/24/25 11:00 01/27/25 10:45 40 MG Enoxaparin Sodium 40 mg DAILY SC 01/24/25 11:00 Hold Piperacillin Sod/ Tazobactam Sod 100 ml @ 25 mls/hr Q8HR IV 01/24/25 14:00 01/27/25 13:21 25 MLS/HR Vancomycin HCl 0 ml @ 0 mls/hr UD IV 01/24/25 15:45 Purified Water 200 ml Q6HR GT 01/24/25 18:00 01/27/25 12:00 200 ML Levothyroxine Sodium 25 mcg QAM@0600 PO 01/25/25 06:00 01/27/25 05:50 25 MCG Albuterol 2.5 mg Q6HWA NEB 01/24/25 18:00 01/27/25 12:41 2.5 MG Ipratropium [place] 0.5 mg Q6HPRN NEB 01/24/25 18:00 01/27/25 12:41 0.5 MG Enteral Nutritional Formula 1,000 ml 30ML/HR GT 01/24/25 17:15 01/26/25 03:12 1,000 ML Fentanyl Citrate 250 ml @ 2.5 mls/hr Q24H IV 01/25/25 08:45 01/25/25 14:56 2.5 MLS/HR Micafungin Sodium 100 mg/Sodium Chloride 100 ml @ 100 mls/hr DAILY IV 01/26/25 10:00 01/27/25 10:45 100 MLS/HR Vancomycin HCl 100 ml @ 200 mls/hr Q8H IV 01/25/25 18:00 01/27/25 10:00 200 MLS/HR Examination Pt is lying on bed, sedated General Appearance: Sedated, severely malnourished HEENT: Atraumatic, Mucous membranes moist/pink Respiratory: decraesed breath sounds mostly left side Cardiovascular: Regular rate, Normal S1, Normal S2, No murmurs Abdominal: Scaphoid, Active bowel sounds, Soft, no distention, G-tube in place Extremities: No edema, Normal pulses, Skin: Decubitus ulcer on sacrum & redness on her chest Neuro: Sedated, gag reflex intact, pupils are constricted but reactive Nurse was there as decision science analyst during examination laboratory and microbiology Laboratory Tests 01/27/25 03:21 Test 01/27/25 03:21 Range/Units Serum Glucose 139 H 74-106 mg/dL Microbiology Date/Time Source Procedure Growth Status 01/24/25 22:32 Nose MRSA Screen - Final Methicillin Resistant S.aureus Complete 01/24/25 11:35 Voided Urine Urine Culture - Final Complete 01/23/25 18:39 Sputum Gram Stain - Final Resulted 01/23/25 18:39 Respiratory Culture - Preliminary Methicillin Resistant S.aureus Resulted 01/23/25 18:07 Blood Blood Culture - Preliminary Resulted Labs and/or images reviewed: Labs reviewed by me, Image(s) reviewed by me Problem List/Assessment/Plan Problem List/Assessment/Plan 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 Septic shock likely from pneumonia # Chronic diastolic CHF # HTN # Hx of complete heart block requiring temporary transcutaneous pacing in 2022 # Anterior apical and posterior large pericardial effusion but No tamponade noted- -hold BP meds -currently on Levophed -BNP -echocardiogram, pending -monitor continuously -fluid resuscitation 2-3 L in ED for shock -IV antibiotics Zosyn and vanc along with the pancultures - IVF d5w 1/2 75ml/hr Dc' d 01/27 -echo showed EF 65% with moderate diastolic dysfunction and mild pericardial effusion, consulted cardiology RS # septic shock likely from aspiration pneumonia # Acute hypoxic respiratory failure likely from aspiration pneumonia status post intubation 01/23 # Aspiration pneumonia # MRSA PNA # Spont. Pneumothorax s/p chest tube - Today CXR showed Lft Pneumothorax, placed pigtail catheter, repeat cxr showed improvement in pneumothorax. - ICU status - On mechanical ventilation with vent settings are 14, tidal volume 350, FiO2 30%, peep 5 - respiratory cultures, Gram-positive and Gram-negative organisms - Initial CXR showed left hemithorax opacification and sequential CXR showed improvement left lung and mild congestion in both lungs. - - Ordered rapid COVID/flu test,negative - currently on vancomycin and Zosyn - breathing treatments - initial blood cultures 1 set showing budding yeast, repeat cultures - Resp cult showed MRSA. Continue vanc, micafungin and Zosyn. Monitor. GI # severe protein calorie malnutrition -BMI 15 -nutritional consult -Start Jevity through G-tube /Endo/ Metabolic # acute complicated UTI-resolving -currently on Zosyn -UA findings normal -ordered urine culture # hypernatremia likely from dehydration -monitor lab -given boluses -Dc'd D5W 1/2 NS 75 mL/hour -free water 200 mL q.6 G-tube # hypothyroidism -TSH elevated -levothyroxine 25 mcg # severe hypothermia on admission due to sepsis- warming measures ID # candidemia/fungemia -repeat cultures -micafungin 100 mg b.i.d. Heme-Onc # thrombocytopenia -monitor lab for now -hold anticoagulants # left common & superficial femoral vein nonocclusive DVT - Duplesx showe following changes - No right femoropopliteal venous thrombosis. Possible new clot forming in the right common femoral vein .Rouleaux blood flow is noted throughout the right lower extremity. - Avascular collections noted in the popliteal fossa largest. - On the left common femoral vein contains nonocclusive deep venous thrombosis. There is nonocclusive deep venous thrombosis throughout the left superficial femoral vein. The left popliteal vein and trifurcation are not visible because of bandaging. - No anticoagulanunts because thrombocytopenia # Hx left lower extremity DVT -hold Eliquis and Lovenox Skin # sacral decubitus ulcer likely stage 4 -wound consult PUD PPX: Protonix VTE PPX: Nothing for now Diet: Jevity 30 mL/hour Drips Versed Levophed 14 Lines Left IJ CVC-01/24 Goals of care addressed with the patient's family member Susy Ameso for more than 27 minutes: Chemical code and defib status Care plan updated with the Susy Handy and michaelle spence for more than 77 minutes bedside, regarding prognosis, current status and addressed all concerns Yesterday 01/26 discussion with patient michaelle Spence regarding code status, change her code to chemical code Case discussed with Dr. Mckeon regarding cardio consult for pericardial effusion and discussed about pneumothorax Critical care time spent excluding procedures >73 minutes Plan discussed with: Son, Other (rn) My Orders My Orders Orders - HARI FRITZ RESIDENT Procedure Category Date Status Time Code Status CODE 01/26/25 Transmitted 19:15 * Cardiology Consult CONS 01/27/25 Transmitted 16:01 Dietary Evaluation Review Comments: Pt meets criteria of Severe 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 Nutrition Recommendation 1) TF Jevity 1.2 Luis @ 30ml/hr along with Pro-stat 1 pk BID. Water flush 200ml Q6H if allowed, adjust PRN. Start @ 20ml/hr, increase 10ml/hr Q4H until goal is reached. TF @ goal volume along woth IVD5w 1/2 nS & Pro-stat provides 100% energy (1370 kcal) & 100% protein needs (70gm). Free water 581ml. 2) Consider TPN per pharmacy if pt cannot tolerate TF 3) Manuel 1 pk BID, Vit C 500mg BID, Zinc sulfate 220mg BID x 10 days, MVI w/ minerals 1 tab daily. 4) Monitor NPO status, TF tolerance, lab values, wt trend, I/O Expected Outcomes/Goals: Goal: 1) To maintain/gain weight 2) Intake to meet at least 75% estimated needs within 7 days follow up 2-3 days Interpretation of weight loss: up to 20% in 1 year Fluid Accumulation (Severe): Moderate Fluid Retention Protein Calorie Malnutrition: Severe Is there a minimum of two crit: Yes HARI FRITZ RESIDENT Jan 27, 2025 16:13
--- NOTE | 2025-01-27 16:52 | DVHINCON2 ---
Date Seen: Jan 27, 2025 Referring Physician MD Som Reason for Consultation Large pericardial effusion History of Present Illness This is an 79-year-old female who presented to the emergency room via EMS with a chief complaint of ALOC. At time of assessment, the patient was found chemicall y sedated, on single vasopressor, and endotracheally intubated with 30% FiO2. There was no family at bedside. Information obtained from records which indicate the patient presented with complaints of ALOC as well as been discharged from [facility] the day prior to admission to our facility with a diagnosis of pneumonia, UTI, and MRSA. She underwent a 12 lead electrocardiogram revealing a sinus tachycardia rhythm in the 120s bpm. Serial troponin levels are negative. 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 Past Medical History Past medical history reviewed. No other significant than mentioned above. Past Surgical History Family History: Patient reports no known family medical history. Family History Unable to obtain family history at this time. Social History Unable to obtain social history at this time Allergies: Coded Allergies: NO KNOWN ALLERGIES (Unverified , 06/29/21) Home Meds Active Scripts Cephalexin (KEFLEX CAPSULE) 250 Mg Cp, 500 MG PO TID for 7 Days, #21 CAP Prov:ESTEE WATTERS MD 09/10/23 Famotidine (Famotidine) 20 Mg Tab, 20 MG PO BID for 30 Days, #60 TAB Prov:ZEESHAN SPENCE RESIDENT 06/08/23 Levothyroxine Sodium (Levothyroxine Sodium) 25 Mcg Tab, 25 MCG PO QAM for 30 Days, #30 TAB Prov:ZEESHAN SPENCE 06/08/23 Ergocalciferol (VITAMIN D 38434 UNIT) 50,000 [place], [address] UNIT PO Q7D for 30 Days, #4 CAP Prov:ZEESHAN SPENCE 06/08/23 Acetaminophen (Acetaminophen) 325 Mg Tab, 650 MG PO Q6HP PRN for 30 Days, #240 TAB Prov:ZEESHAN SPENCE RESIDENT 06/08/23 Reported Medications Risperidone (Risperidone) 1 Mg Tab, 1 TAB PO BID 05/04/24 Donepezil Hydrochloride (DONEPEZIL HCL) 10 Mg Tab, 1 TAB PO DAILY 05/04/24 Memantine Hydrochloride (Memantine HCl) 5 Mg Tab, 10 TAB PO DAILY 05/04/24 Apixaban Base (ELIQUIS) 5 Mg Tab, 1 TAB PO BID 05/04/24 Risperidone (Risperidone) 1 Mg Tab, 1 TAB PO BID 09/04/23 Apixaban Base (ELIQUIS) 5 Mg Tab, 5 MG PO BID, TAB 05/10/22 Donepezil Hydrochloride (DONEPEZIL HCL) 10 Mg Tab, 10 MG PO HS for 30 Days, MG 05/10/22 Latanoprost (LATANOPROST) 0.005 % Joyce, 1 DROP EACHEYE QPM, #7.5 ML 3 Refills 05/10/22 Memantine Hydrochloride (Memantine HCl) 10 Mg Tab, 10 MG PO BID, TAB 05/10/22 Home Meds Home medications reviewed. Review of Systems Constitutional: No symptom reported Ears, Nose, & Throat: No symptom reported Eyes: No symptom reported Neurological: ALOC Pulmonary/Respiratory: No symptom reported Cardiovascular: No symptom reported Gastrointestinal: No symptom reported Genitourinary: No symptom reported Musculoskeletal: No symptom reported Skin: No symptom reported Psychiatric: No symptom reported Endocrine: No symptom reported Hemotologic/Lymphatic: No symptom reported Vital Signs Vital Signs Date Time Temp Pulse Resp B/P (MAP) Pulse Ox O2 Delivery O2 Flow Rate FiO2 01/27/25 16:15 87 18 108/58 (75) 100 01/27/25 16:09 30 01/27/25 16:00 Mechanical Ventilator+ 01/27/25 14:00 97.9 97.9 Physical Exam General Appearance: Withdrawn. Chemically sedated. On single vasopressor Head Exam: Normal inspection Neck Exam: Normal inspection. Pulmonary/Respiratory: Diminished bilateral breath sounds. Endotracheally intubated with 30% FiO2. Left-sided chest tube Cardiovascular/Chest: Regular rate and rhythm. S1, S2. Sinus rhythm Peripheral Pulses: 2+ Radial (R). 2+ Radial (L). 1+ Pedal (R). 1+ Pedal (L) Abdominal Exam: Normal bowel sounds. Left sided PEG tube Ankle Exam: Negative ankle edema Lower extremities: Negative right lower extremity edema. Left lower extremity edema, pitting 1+ Neuro/Mental Status: Withdrawn. Chemically sedated Thoughts/Psych: Unable to assess Appearance: Withdrawn Skin Exam: See wound care pictures. Pale color Labs/Diagnostic Data Labs Test 01/27/25 07:17 01/27/25 03:21 01/26/25 17:46 01/25/25 02:35 Range/Units Blood Gas Specimen Type Arterial Blood Gas Sample Site Right radial Blood Gas Patient Temperature 37.0 Arterial Blood Date Drawn [id number] Arterial Blood pH 7.297 L 7.350-7.450 Arterial Blood Partial Pressure CO2 44.3 32.0-45.0 mmHg Arterial Blood Partial Pressure O2 57.6 L 83.0-108.0 mmHg Arterial Blood HCO3 21.2 21.0-28.0 mmol/L Arterial Blood Oxygen Saturation 88.2 L 94.0-98.0 % Arterial Blood Base Excess -5.1 L -2.0-3.0 mmol/L Arterial Blood Oxyhemoglobin 87.6 L 94.0-98.0 % Arterial Blood Carboxyhemoglobin 0.3 L 0.5-1.5 % Arterial Blood Methemoglobin 0.4 0.0-1.5 % Con Test Modified Blood Gas Total Hemoglobin 10.10 L 12.0-16.0 g/dL Blood Gas Set Respiration Rate 16.0 Blood Gas Modality Vent - ac FiO2 % 30.0 Blood Gas Tidal Volume 350.0 Blood Gas PEEP or CPAP 5.0 White Blood Count 12.1 H 4.4-10.8 10^3/uL Red Blood Count 2.91 L 4.0-5.20 10^6/uL Hemoglobin 9.3 L 12.2-16.2 g/dL Hematocrit 27.1 L 36.0-46.0 % Mean Corpuscular Volume 93.2 80.0-100.0 fL Mean Corpuscular Hemoglobin 31.7 28.0-32.0 pg Mean Corpuscular Hemoglobin Concent 34.1 32.0-36.0 g/dL Red Cell Distribution Width 15.9 H 11.8-14.3 % Platelet Count 60 L 140-450 10^3/uL Mean Platelet Volume 9.2 6.9-10.8 fL Neutrophils (%) (Auto) 37.0-80.0 % Lymphocytes (%) (Auto) 10.0-50.0 % Monocytes (%) (Auto) 0.0-12.0 % Basophils (%) (Auto) 0.0-2.0 % Neutrophils # (Auto) 1.6-8.6 10 ^3/uL Lymphocytes # (Auto) 0.4-5.4 10 ^3/uL Monocytes # (Auto) 0-1.3 10 ^3/uL Differential Total Cells Counted 100.0 100 Neutrophils % (Manual) 49 37.0-80.0 Band Neutrophils % (Manual) 0 Lymphocytes % (Manual) 14 10.0-50.0 Monocytes % (Manual) 7 0-12 Eosinophils % (Manual) 30 H 0-7 Basophils % (Manual) 0 0.0-2.0 Metamyelocytes % (manual) 0 Myelocytes % (Manual) 0 Promyelocytes % (Manual) 0 Blast Cells % (Manual) 0 Reactive Lymphocytes 0 Platelet Estimate Decreased Sodium Level 143 136-145 mmol/L Potassium Level 3.7 3.5-5.1 mmol/L Chloride Level 114 H 98-107 mmol/L Carbon Dioxide Level 23 20-31 mmol/L Anion Gap 6 5-15 Blood Urea Nitrogen 23 9-23 mg/dL Creatinine 0.47 L 0.550-1.02 mg/dL Glomerular Filtration Rate Calc 96 >90 mL/min BUN/Creatinine Ratio 48.9 H 10.0-20.0 Serum Glucose 139 H 74-106 mg/dL Calcium Level 7.2 L 8.7-10.4 mg/dL Magnesium Level 1.8 1.6-2.6 mg/dL Total Bilirubin 0.3 0.2-1.0 mg/dL Aspartate Amino Transferase (AST) 8 L 13-40 U/L Alanine Aminotransferase (ALT) < 9 7-40 U/L Alkaline Phosphatase 123 H 46-116 U/L Total Protein 3.6 L 5.7-8.2 g/dL Albumin 2.0 L 3.2-4.8 g/dL Vancomycin Level Trough 15.5 H 5-10 ug/mL Free Thyroxine (T4) Calculated 0.60 L 0.89-1.76 ng/dL Total Triiodothyronine (TT3) 0.60 0.60-1.81 ng/mL Random Vancomycin Level 7.0 5-10 ug/mL Test 01/24/25 13:05 01/24/25 11:42 01/24/25 08:15 01/24/25 07:50 Range/Units Prothrombin Time 13.0 H 9.3-11.8 sec Prothrombin Time INR 1.25 H 0.9-1.15 Activated Partial Thromboplast Time 32.9 24.5-34.5 SEC Lactic Acid Level 1.6 0.4-2.0 mmol/L Influenza Type A Antigen Negative Negative Influenza Type B Antigen Negative Negative SARS-CoV-2 Antigen (Rapid) Negative NEGATIVE HIV (1&2) Antibody Negative Negative Test 01/24/25 07:40 01/24/25 05:32 01/23/25 21:36 01/23/25 21:15 Range/Units Eosinophils (%) (Auto) 11.2 H 0.0-7.0 % Eosinophils # (Auto) 2.0 H 0-0.8 10 ^3/uL Basophils # (Auto) 0 0-0.2 10 ^3/uL Nucleated Red Blood Cells 0.0 % B-Type Natriuretic Peptide 113.84 0-100 pg/mL Vitamin B12 Level 1315 H 211-911 pg/mL Thyroid Stimulating Hormone (TSH) 19.90 H 0.55-4.78 uIU/mL Hepatitis B Surface Antigen Negative Negative Hepatitis C Antibody Negative Negative Troponin I High Sensitivity 20 </=34 ng/L Urine Color Light-yellow Yellow Urine Clarity Clear Clear Urine pH 5.0 5.0-9.0 Urine Specific [place] 1.017 1.001-1.035 Urine Protein Trace H Negative Urine Ketones 1+ H Negative Urine Blood 2+ H Negative /uL Urine Nitrite Negative Negative Urine Bilirubin Negative Negative Urine Urobilinogen Normal Negative mg/dL Urine Leukocyte Esterase Negative Negative /uL Urine RBC 56 0 - 4 /hpf Urine Microscopic WBC 2 0-5 /HPF Urine Squamous Epithelial Cells Few <5 /hpf Urine Bacteria None seen None Seen /hpf Urine Glucose Normal Normal mg/dL Test 01/23/25 19:29 01/23/25 18:07 Range/Units Blood Gas Spontaneous Rate 14 Blood Gas Spontaneous Tidal Volume 329 Bl Gas Inspiratory/Expiratory Ratio 1:2.3 Specimen Drawn By kelley herrera rt Plasma/Serum Blood Alcohol 4.2 <10 mg/dL Microbiology Date/Time Source Procedure Growth Status 01/24/25 22:32 Nose MRSA Screen - Final Methicillin Resistant S.aureus Complete 01/24/25 11:35 Voided Urine Urine Culture - Final Complete 01/23/25 18:39 Sputum Gram Stain - Final Resulted 01/23/25 18:39 Respiratory Culture - Preliminary Methicillin Resistant S.aureus Resulted 01/23/25 18:07 Blood Blood Culture - Preliminary Resulted Assessment Large pericardial effusion Nonocclusive left lower extremity thrombus (on Eliquis therapy) Spontaneous pneumothorax status post left-sided chest tube Acute anemia Thrombocytopenia HX of CVA Plan/Recommendation (Dr. Williamson) A transthoracic echocardiogram revealed a large anterior/apical/posterior pericardial effusion without evidence of cardiac tamponade or restrictive disease. Given location of pericardial effusion, the patient is not a candidate for a pericardiocentesis at this time. Continue medical management. Continue vasopressor for hemodynamic support. Vent settings and chest tube management per pulmonology team. Not a candidate for anticoagulation therapy given severe thrombocytopenia. Consider goals of care. Kindly call if in need further recommendations. We will sign off at this time. Thank you for allowing us to participate in this patient's care. Critical care time: 35 min. This medical document was created using an electronic medical record system with voice recognition software and computerized dictation system. Although this document has been carefully reviewed, there might still be some phonetic and typographical errors. Occasional wrong-word or ``sound-alike substitutions may have occurred due to the inherent limitations of voice recognition software. These areas are purely typographical due to imperfections of the software programs and do not reflect any compromise in the patient's medical care. Please read the chart carefully and recognize, using context, where these substitutions have occurred. Plan discussed with: Other NYHA Physical activity limitations: NA Date of Service: Jan 27, 2025 Billing Provider: CORBY GALLARDO Cardiology Common Codes: [id number] CARE 30-74 MIN CORBY GALLARDO Jan 27, 2025 16:52
--- NOTE | 2025-01-27 16:58 | DVHINCON2 ---
Date of service: Jan 27, 2025 History of Present Illness This is an 79-year-old female who presented to the emergency room via EMS with a chief complaint of ALOC. At time of assessment, the patient was found ch emically sedated, on single vasopressor, and endotracheally intubated with 30% FiO2. There was no family at bedside. Information obtained from records which indicate the patient presented with complaints of ALOC as well as been discharged from [facility] the day prior to admission to our facility with a diagnosis of pneumonia, UTI, and MRSA. She underwent a 12 lead marisela ctrocardiogram revealing a sinus tachycardia rhythm in the 120s bpm. Serial troponin levels are negative. 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 Past Medical History Past Medical History Past medical history reviewed. No other significant than mentioned above. Past Surgical History Past Surgical History Family & Social History Family History: Patient reports no known family medical history. Family History Unable to obtain family history at this time. Social History Unable to obtain social history at this time Past Medical History reviewed Family History: Patient reports no known family medical history. Allergies: Coded Allergies: NO KNOWN ALLERGIES (Unverified , 06/29/21) Home Meds Active Scripts Cephalexin (KEFLEX CAPSULE) 250 Mg Cp, 500 MG PO TID for 7 Days, #21 CAP Prov:ESTEE WATTERS MD 09/10/23 Famotidine (Famotidine) 20 Mg Tab, 20 MG PO BID for 30 Days, #60 TAB Prov:ZEESHAN SPENCE RESIDENT 06/08/23 Levothyroxine Sodium (Levothyroxine Sodium) 25 Mcg Tab, 25 MCG PO QAM for 30 Days, #30 TAB Prov:ZEESHAN SPENCE 06/08/23 Ergocalciferol (VITAMIN D 34828 UNIT) 50,000 [place], [address] UNIT PO Q7D for 30 Days, #4 CAP Prov:ZEESHAN SPENCE 06/08/23 Acetaminophen (Acetaminophen) 325 Mg Tab, 650 MG PO Q6HP PRN for 30 Days, #240 TAB Prov:ZEESHAN SPENCE 06/08/23 Reported Medications Risperidone (Risperidone) 1 Mg Tab, 1 TAB PO BID 05/04/24 Donepezil Hydrochloride (DONEPEZIL HCL) 10 Mg Tab, 1 TAB PO DAILY 05/04/24 Memantine Hydrochloride (Memantine HCl) 5 Mg Tab, 10 TAB PO DAILY 05/04/24 Apixaban Base (ELIQUIS) 5 Mg Tab, 1 TAB PO BID 05/04/24 Risperidone (Risperidone) 1 Mg Tab, 1 TAB PO BID 09/04/23 Apixaban Base (ELIQUIS) 5 Mg Tab, 5 MG PO BID, TAB 05/10/22 Donepezil Hydrochloride (DONEPEZIL HCL) 10 Mg Tab, 10 MG PO HS for 30 Days, MG 05/10/22 Latanoprost (LATANOPROST) 0.005 % Joyce, 1 DROP EACHEYE QPM, #7.5 ML 3 Refills 05/10/22 Memantine Hydrochloride (Memantine HCl) 10 Mg Tab, 10 MG PO BID, TAB 05/10/22 Review of Systems not obtained Vital Signs Vital Signs Date Time Temp Pulse Resp B/P (MAP) Pulse Ox O2 Delivery O2 Flow Rate FiO2 01/27/25 16:15 87 18 108/58 (75) 100 01/27/25 16:09 30 01/27/25 16:00 Mechanical Ventilator+ 01/27/25 14:00 97.9 97.9 Physical Exam intubate s1 s2 tachy diffuse rhonchi abd sof nt/nd frail appearing pt very thin edematous upper extremity Labs/Diagnostic Data Labs Test 01/27/25 07:17 01/27/25 03:21 01/26/25 17:46 01/25/25 02:35 Range/Units Blood Gas Specimen Type Arterial Blood Gas Sample Site Right radial Blood Gas Patient Temperature 37.0 Arterial Blood Date Drawn [id number] Arterial Blood pH 7.297 L 7.350-7.450 Arterial Blood Partial Pressure CO2 44.3 32.0-45.0 mmHg Arterial Blood Partial Pressure O2 57.6 L 83.0-108.0 mmHg Arterial Blood HCO3 21.2 21.0-28.0 mmol/L Arterial Blood Oxygen Saturation 88.2 L 94.0-98.0 % Arterial Blood Base Excess -5.1 L -2.0-3.0 mmol/L Arterial Blood Oxyhemoglobin 87.6 L 94.0-98.0 % Arterial Blood Carboxyhemoglobin 0.3 L 0.5-1.5 % Arterial Blood Methemoglobin 0.4 0.0-1.5 % Con Test Modified Blood Gas Total Hemoglobin 10.10 L 12.0-16.0 g/dL Blood Gas Set Respiration Rate 16.0 Blood Gas Modality Vent - ac FiO2 % 30.0 Blood Gas Tidal Volume 350.0 Blood Gas PEEP or CPAP 5.0 White Blood Count 12.1 H 4.4-10.8 10^3/uL Red Blood Count 2.91 L 4.0-5.20 10^6/uL Hemoglobin 9.3 L 12.2-16.2 g/dL Hematocrit 27.1 L 36.0-46.0 % Mean Corpuscular Volume 93.2 80.0-100.0 fL Mean Corpuscular Hemoglobin 31.7 28.0-32.0 pg Mean Corpuscular Hemoglobin Concent 34.1 32.0-36.0 g/dL Red Cell Distribution Width 15.9 H 11.8-14.3 % Platelet Count 60 L 140-450 10^3/uL Mean Platelet Volume 9.2 6.9-10.8 fL Neutrophils (%) (Auto) 37.0-80.0 % Lymphocytes (%) (Auto) 10.0-50.0 % Monocytes (%) (Auto) 0.0-12.0 % Basophils (%) (Auto) 0.0-2.0 % Neutrophils # (Auto) 1.6-8.6 10 ^3/uL Lymphocytes # (Auto) 0.4-5.4 10 ^3/uL Monocytes # (Auto) 0-1.3 10 ^3/uL Differential Total Cells Counted 100.0 100 Neutrophils % (Manual) 49 37.0-80.0 Band Neutrophils % (Manual) 0 Lymphocytes % (Manual) 14 10.0-50.0 Monocytes % (Manual) 7 0-12 Eosinophils % (Manual) 30 H 0-7 Basophils % (Manual) 0 0.0-2.0 Metamyelocytes % (manual) 0 Myelocytes % (Manual) 0 Promyelocytes % (Manual) 0 Blast Cells % (Manual) 0 Reactive Lymphocytes 0 Platelet Estimate Decreased Sodium Level 143 136-145 mmol/L Potassium Level 3.7 3.5-5.1 mmol/L Chloride Level 114 H 98-107 mmol/L Carbon Dioxide Level 23 20-31 mmol/L Anion Gap 6 5-15 Blood Urea Nitrogen 23 9-23 mg/dL Creatinine 0.47 L 0.550-1.02 mg/dL Glomerular Filtration Rate Calc 96 >90 mL/min BUN/Creatinine Ratio 48.9 H 10.0-20.0 Serum Glucose 139 H 74-106 mg/dL Calcium Level 7.2 L 8.7-10.4 mg/dL Magnesium Level 1.8 1.6-2.6 mg/dL Total Bilirubin 0.3 0.2-1.0 mg/dL Aspartate Amino Transferase (AST) 8 L 13-40 U/L Alanine Aminotransferase (ALT) < 9 7-40 U/L Alkaline Phosphatase 123 H 46-116 U/L Total Protein 3.6 L 5.7-8.2 g/dL Albumin 2.0 L 3.2-4.8 g/dL Vancomycin Level Trough 15.5 H 5-10 ug/mL Free Thyroxine (T4) Calculated 0.60 L 0.89-1.76 ng/dL Total Triiodothyronine (TT3) 0.60 0.60-1.81 ng/mL Random Vancomycin Level 7.0 5-10 ug/mL Test 01/24/25 13:05 01/24/25 11:42 01/24/25 08:15 01/24/25 07:50 Range/Units Prothrombin Time 13.0 H 9.3-11.8 sec Prothrombin Time INR 1.25 H 0.9-1.15 Activated Partial Thromboplast Time 32.9 24.5-34.5 SEC Lactic Acid Level 1.6 0.4-2.0 mmol/L Influenza Type A Antigen Negative Negative Influenza Type B Antigen Negative Negative SARS-CoV-2 Antigen (Rapid) Negative NEGATIVE HIV (1&2) Antibody Negative Negative Test 01/24/25 07:40 01/24/25 05:32 01/23/25 21:36 01/23/25 21:15 Range/Units Eosinophils (%) (Auto) 11.2 H 0.0-7.0 % Eosinophils # (Auto) 2.0 H 0-0.8 10 ^3/uL Basophils # (Auto) 0 0-0.2 10 ^3/uL Nucleated Red Blood Cells 0.0 % B-Type Natriuretic Peptide 113.84 0-100 pg/mL Vitamin B12 Level 1315 H 211-911 pg/mL Thyroid Stimulating Hormone (TSH) 19.90 H 0.55-4.78 uIU/mL Hepatitis B Surface Antigen Negative Negative Hepatitis C Antibody Negative Negative Troponin I High Sensitivity 20 </=34 ng/L Urine Color Light-yellow Yellow Urine Clarity Clear Clear Urine pH 5.0 5.0-9.0 Urine Specific [place] 1.017 1.001-1.035 Urine Protein Trace H Negative Urine Ketones 1+ H Negative Urine Blood 2+ H Negative /uL Urine Nitrite Negative Negative Urine Bilirubin Negative Negative Urine Urobilinogen Normal Negative mg/dL Urine Leukocyte Esterase Negative Negative /uL Urine RBC 56 0 - 4 /hpf Urine Microscopic WBC 2 0-5 /HPF Urine Squamous Epithelial Cells Few <5 /hpf Urine Bacteria None seen None Seen /hpf Urine Glucose Normal Normal mg/dL Test 01/23/25 19:29 01/23/25 18:07 Range/Units Blood Gas Spontaneous Rate 14 Blood Gas Spontaneous Tidal Volume 329 Bl Gas Inspiratory/Expiratory Ratio 1:2.3 Specimen Drawn By kelley herrera rt Plasma/Serum Blood Alcohol 4.2 <10 mg/dL Microbiology Date/Time Source Procedure Growth Status 01/24/25 22:32 Nose MRSA Screen - Final Methicillin Resistant S.aureus Complete 01/24/25 11:35 Voided Urine Urine Culture - Final Complete 01/23/25 18:39 Sputum Gram Stain - Final Resulted 01/23/25 18:39 Respiratory Culture - Preliminary Methicillin Resistant S.aureus Resulted 01/23/25 18:07 Blood Blood Culture - Preliminary Resulted Assessment pericardial effusion resp failure frailty sepsis sponatenaous PTX Plan/Recommendation agree with [employer] INSPECTOR assessment and plan localized effusion and very little fluid in subcostal images, not amenable to intervention via percutaneous approach likely still, pt is very grave and poor candidate for any procedure recommend goals of care discussion/ comfort care prn diuretics pressors as needed prognosis is very poor Plan discussed with: Patient ZEYAD MAYS MD Jan 27, 2025 16:58
[2025-01-28] VITALS (106 sets, daily range): BP systolic 91–135; BP diastolic 47–78; PULSE 69–94; RESP 13–31; TEMP 97.3–99; O2SAT 100
[2025-01-28 03:57] LABS: Hematocrit 28.0 % (36.0-46.0); Hemoglobin 9.5 g/dL (12.2-16.2); Mean Corpuscular Hemoglobin 31.9 pg (28.0-32.0); Mean Corpuscular Volume 93.9 fL (80.0-100.0)
[2025-01-28 04:26] LABS: Anion Gap 8 (5-15); BUN/Creatinine Ratio 50.0 (10.0-20.0); Blood Urea Nitrogen 21 mg/dL (9-23); Carbon Dioxide 22 mmol/L (20-31); Magnesium 1.7 mg/dL (1.6-2.6); Potassium 4.8 mmol/L (3.5-5.1); Sodium 142 mmol/L (136-145)
[2025-01-28 04:27] LABS: Alanine Aminotransferase < 9 U/L (7-40); Albumin 2.1 g/dL (3.2-4.8); Alkaline Phosphatase 126 U/L (46-116); Calcium 7.3 mg/dL (8.7-10.4); Chloride 112 mmol/L (98-107); Glucose 123 mg/dL (74-106); Total Protein 3.6 g/dL (5.7-8.2)
[2025-01-28 04:29] LABS: Bilirubin, Total 0.3 mg/dL (0.2-1.0)
[2025-01-28 05:53] LABS: Total Cells Counted 100.0 (100)
--- NOTE | 2025-01-28 06:01 | DVH ---
EXAM: XY CHEST XRAY 1 VIEW HISTORY: central line position COMPARISON: XY CHEST PORTABLE on DOS: 01/27/25, XY CHEST PORTABLE on DOS: 01/26/25, XY CHEST PORTABLE on DOS: 01/26/25, XY CHEST PORTABLE on DOS: 01/25/25, XY CHEST PORTABLE on DOS: 01/25/25 TECHNIQUE: Portable AP view of the chest was performed. FINDINGS: Endotracheal tube is re-identified with its tip 2.9 cm above the chelsie. Left IJ central line is iden tified with its tip in the mid SVC. Left lower chest small bore pigtail thoracostomy tube is re-ident ified. There is a tiny left apical pneumothorax. There is mild left lung base atelectasis. The heart is not enlarged. The aortic arch is calcific. There is thoracic spondylosis and scoliosis. IMPRESSION: 1. Mechanical ventilation with endotracheal tube in good position. 2. Tiny left apical pneumothorax with left lower chest small bore pigtail thoracostomy tube in place. 3. Mild left lung base atelectasis.
--- NOTE | 2025-01-28 06:29 | DVH ---
EXAM: XY CHEST PORTABLE HISTORY: fu COMPARISON: XY CHEST PORTABLE on DOS: 01/27/25, XY CHEST PORTABLE on DOS: 01/26/25, XY CHEST PORTABLE on DOS: 01/26/25, XY CHEST PORTABLE on DOS: 01/25/25, XY CHEST PORTABLE on DOS: 01/25/25 TECHNIQUE: Portable AP view of the chest was performed. FINDINGS: Endotracheal tube is re-identified with its tip 2.6 cm above the chelsie. Left IJ central line and lef t lower chest thoracostomy tube are re-identified. There is a tiny left apical pneumothorax. There i s mild atelectasis in the left lung base. The right lung is clear. The heart is nonenlarged. The a ortic arch is calcific. IMPRESSION: 1. Mechanical ventilation with tubes and lines as above. 2. Tiny left apical pneumothorax and left lower chest thoracostomy tube are stable.
[2025-01-28 07:04] LABS: Base Excess -3.4 mmol/L (-2.0-3.0)
--- NOTE | 2025-01-28 10:42 | DVHPN2 ---
Progress Note Date Seen: Jan 28, 2025 Medical Necessity Reason Pt with a Central, PICC or Fol: Yes The following are medically ne: Central Line, Chao Catheter Reason for chao catheter: Strict I&O Subjective Patient reports: Feels worse Objective vital signs Vital Sign Date Time Temp Pulse Resp B/P (MAP) Pulse Ox O2 Delivery O2 Flow Rate FiO2 01/28/25 09:38 73 19 123/60 (81) 100 30 01/28/25 06:00 Mechanical Ventilator+ 01/28/25 04:00 98.4 98.4 Total Intake and Output 01/27/25 01/27/25 01/28/25 15:00 23:00 07:00 Intake Total 406.00 ml 1138.00 ml 1035.75 ml Output Total 475 ml 320 ml Balance 406.00 ml 663.00 ml 715.75 ml medications Current Medications Medications Dose Ordered Sig/Agustín Route Start Time Stop Time Status Last Admin Dose Admin Midazolam HCl 50 ml @ 1 mls/hr Q24H IV 01/23/25 18:45 01/28/25 04:39 2 MLS/HR Norepinephrine Bitartrate 250 ml @ 3.75 mls/hr Q24H IV 01/23/25 22:00 01/27/25 20:46 18.75 MLS/HR Pantoprazole Sodium 40 mg DAILY IV 01/24/25 11:00 01/28/25 09:51 40 MG Enoxaparin Sodium 40 mg DAILY SC 01/24/25 11:00 Hold Piperacillin Sod/ Tazobactam Sod 100 ml @ 25 mls/hr Q8HR IV 01/24/25 14:00 01/28/25 05:08 25 MLS/HR Vancomycin HCl 0 ml @ 0 mls/hr UD IV 01/24/25 15:45 Purified Water 200 ml Q6HR GT 01/24/25 18:00 01/28/25 05:08 200 ML Levothyroxine Sodium 25 mcg QAM@0600 PO 01/25/25 06:00 01/28/25 05:08 25 MCG Albuterol 2.5 mg Q6HWA NEB 01/24/25 18:00 01/28/25 06:03 2.5 MG Ipratropium [place] 0.5 mg Q6HPRN NEB 01/24/25 18:00 01/28/25 06:03 0.5 MG Enteral Nutritional Formula 1,000 ml 30ML/HR GT 01/24/25 17:15 01/26/25 03:12 1,000 ML Fentanyl Citrate 250 ml @ 2.5 mls/hr Q24H IV 01/25/25 08:45 01/28/25 00:10 5 MLS/HR Micafungin Sodium 100 mg/Sodium Chloride 100 ml @ 100 mls/hr DAILY IV 01/26/25 10:00 01/28/25 09:51 100 MLS/HR Examination: GENERAL:Normal, HEENT:Abnormal, LUNGS:Abnormal, CVS:Abnormal, ABDOMEN:Abnormal laboratory and microbiology Laboratory Tests 01/28/25 03:32 Test 01/28/25 03:32 Range/Units Serum Glucose 123 H 74-106 mg/dL Microbiology Date/Time Source Procedure Growth Status 01/24/25 22:32 Nose MRSA Screen - Final Methicillin Resistant S.aureus Complete 01/24/25 11:35 Voided Urine Urine Culture - Final Complete 01/23/25 18:39 Sputum Gram Stain - Final Resulted 01/23/25 18:39 Respiratory Culture - Preliminary Methicillin Resistant S.aureus Resulted 01/23/25 18:07 Blood Blood Culture - Preliminary Resulted Problem List/Assessment/Plan Problem List/Assessment/Plan Large pericardial effusion Nonocclusive left lower extremity thrombus (on Eliquis therapy) Spontaneous pneumothorax status post left-sided chest tube Acute anemia Thrombocytopenia HX of CVA pressors as needed IVF as needed, goals of care discussion recommended, very poor prognosis Plan discussed with: Patient Dietary Evaluation Review Comments: Pt meets criteria of Severe 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 Nutrition Recommendation 1) TF Jevity 1.2 Luis @ 30ml/hr along with Pro-stat 1 pk BID. Water flush 200ml Q6H if allowed, adjust PRN. Start @ 20ml/hr, increase 10ml/hr Q4H until goal is reached. TF @ goal volume along woth IVD5w 1/2 nS & Pro-stat provides 100% energy (1370 kcal) & 100% protein needs (70gm). Free water 581ml. 2) Consider TPN per pharmacy if pt cannot tolerate TF 3) Manuel 1 pk BID, Vit C 500mg BID, Zinc sulfate 220mg BID x 10 days, MVI w/ minerals 1 tab daily. 4) Monitor NPO status, TF tolerance, lab values, wt trend, I/O Expected Outcomes/Goals: Goal: 1) To maintain/gain weight 2) Intake to meet at least 75% estimated needs within 7 days follow up 2-3 days Interpretation of weight loss: up to 20% in 1 year Fluid Accumulation (Severe): Moderate Fluid Retention Protein Calorie Malnutrition: Severe Is there a minimum of two crit: Yes Date of Service: Jan 28, 2025 Billing Provider: ZEYAD MAYS MD Common Visit Codes: NOT BILLABLE ZEYAD MAYS MD Jan 28, 2025 10:42
--- NOTE | 2025-01-28 15:40 | DVHPN2 ---
Progress Note - Dictate Date Seen: Jan 28, 2025 Medical Necessity Reason Pt with a Central, PICC or Fol: Yes The following are medically ne: Central Line, Chao Catheter Reason for chao catheter: Strict I&O vital signs Vital Sign Date Time Temp Pulse Resp B/P (MAP) Pulse Ox O2 Delivery O2 Flow Rate FiO2 01/28/25 15:00 84 20 104/53 (70) 100 01/28/25 14:00 Mechanical Ventilator+ 30 30 01/28/25 12:00 97.3 97.3 Total Intake and Output 01/27/25 01/27/25 01/28/25 15:00 23:00 07:00 Intake Total 406.00 ml 1138.00 ml 1035.75 ml Output Total 475 ml 320 ml Balance 406.00 ml 663.00 ml 715.75 ml medications Current Medications Medications Dose Ordered Sig/Agustín Route Start Time Stop Time Status Last Admin Dose Admin Midazolam HCl 50 ml @ 1 mls/hr Q24H IV 01/23/25 18:45 01/28/25 04:39 2 MLS/HR Norepinephrine Bitartrate 250 ml @ 3.75 mls/hr Q24H IV 01/23/25 22:00 01/28/25 10:56 11.25 MLS/HR Pantoprazole Sodium 40 mg DAILY IV 01/24/25 11:00 01/28/25 09:51 40 MG Enoxaparin Sodium 40 mg DAILY SC 01/24/25 11:00 Hold Piperacillin Sod/ Tazobactam Sod 100 ml @ 25 mls/hr Q8HR IV 01/24/25 14:00 01/28/25 13:33 25 MLS/HR Vancomycin HCl 0 ml @ 0 mls/hr UD IV 01/24/25 15:45 Purified Water 200 ml Q6HR GT 01/24/25 18:00 01/28/25 12:00 200 ML Levothyroxine Sodium 25 mcg QAM@0600 PO 01/25/25 06:00 01/28/25 05:08 25 MCG Albuterol 2.5 mg Q6HWA NEB 01/24/25 18:00 01/28/25 06:03 2.5 MG Ipratropium [place] 0.5 mg Q6HPRN NEB 01/24/25 18:00 01/28/25 06:03 0.5 MG Enteral Nutritional Formula 1,000 ml 30ML/HR GT 01/24/25 17:15 01/26/25 03:12 1,000 ML Fentanyl Citrate 250 ml @ 2.5 mls/hr Q24H IV 01/25/25 08:45 01/28/25 00:10 5 MLS/HR Micafungin Sodium 100 mg/Sodium Chloride 100 ml @ 100 mls/hr DAILY IV 01/26/25 10:00 01/28/25 09:51 100 MLS/HR Vancomycin HCl 100 ml @ 200 mls/hr Q12H IV 01/28/25 18:00 laboratory and microbiology Laboratory Tests 01/28/25 03:32 Test 01/28/25 03:32 Range/Units Serum Glucose 123 H 74-106 mg/dL Assessment/Plan Covering for Dr. Flynn Impression Acute hypoxemic respiratory failure Spontaneous left pneumothorax Altered mental status MRSA pneumonia UTI CVA Patient seen and examined in ICU Events On mechanical ventilation S/p intubation PEEP 5, FiO2 30% Sputum growing MRSA Labs and imaging reviewed ABG reviewed Management Vent support Titrate to maintain sats 90% or above Sedation holiday for neurological evaluation Will consider weaning trial Continue antibiotics F/u cultures and ID Bronchodilators Monitor renal function Monitor electrolytes Supplement as needed Pressors as needed for hemodynamic support To maintain a mean arterial pressure of 65 mmHg DVT prophylaxis Critical care time 35 minutes Dietary Evaluation Review Comments: Pt meets criteria of Severe 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 Nutrition Recommendation 1) TF Jevity 1.2 Luis @ 30ml/hr along with Pro-stat 1 pk BID. Water flush 200ml Q6H if allowed, adjust PRN. Start @ 20ml/hr, increase 10ml/hr Q4H until goal is reached. TF @ goal volume along woth IVD5w 1/2 nS & Pro-stat provides 100% energy (1370 kcal) & 100% protein needs (70gm). Free water 581ml. 2) Consider TPN per pharmacy if pt cannot tolerate TF 3) Manuel 1 pk BID, Vit C 500mg BID, Zinc sulfate 220mg BID x 10 days, MVI w/ minerals 1 tab daily. 4) Monitor NPO status, TF tolerance, lab values, wt trend, I/O Expected Outcomes/Goals: Goal: 1) To maintain/gain weight 2) Intake to meet at least 75% estimated needs within 7 days follow up 2-3 days Interpretation of weight loss: up to 20% in 1 year Fluid Accumulation (Severe): Moderate Fluid Retention Protein Calorie Malnutrition: Severe Is there a minimum of two crit: Yes Plan discussed with: Other (Rn) JAZIEL OLIVEIRA MD Jan 28, 2025 15:40
[2025-01-28] MEDS: VANCOMYCIN 500mg/100mL 100 ML IV SCH (17:32)
--- NOTE | 2025-01-28 18:12 | DVHPN2 ---
Subjective Patient intubated and sedated Reviewed: Care Plan, H&P, Labs, Medications Changes from previous H/P or p: No Changes General: Per HPI Objective Vitals Vital Signs Date Time Temp Pulse Resp B/P (MAP) Pulse Ox O2 Delivery O2 Flow Rate FiO2 01/28/25 16:30 87 18 105/54 (71) 100 01/28/25 16:00 99.0 99.0 01/28/25 16:00 Mechanical Ventilator+ 30 30 Intake/Output Intake and Output 01/28/25 07:00 Intake Total 2579.75 ml Output Total 795 ml Balance 1784.75 ml Intake Oral 800 ml IV Total 1118.75 ml Tube Feeding 661 ml Output Urine Total 650 ml Chest Tube Drainage Total 145 ml General Appearance: Other (Intubated and sedated) HEENT: Atraumatic, PERRLA Lungs: Other (Mechanical ventilation) Chest/Breasts: Other (Chest tube) Cardiovascular: Normal S1, Normal S2 Abdomen: Normal bowel sounds, Soft, No tenderness, Other (PEG tube) Genitourinary: No Apparent Abnormalities (Billy catheter) Skin: Intact Psych/Mental Status: Mental status NL, Mood NL Medications Current Medications Medications Dose Ordered Sig/Agustín Route Start Time Stop Time Status Last Admin Dose Admin Midazolam HCl 50 ml @ 1 mls/hr Q24H IV 01/23/25 18:45 01/28/25 04:39 2 MLS/HR Norepinephrine Bitartrate 250 ml @ 3.75 mls/hr Q24H IV 01/23/25 22:00 01/28/25 10:56 11.25 MLS/HR Pantoprazole Sodium 40 mg DAILY IV 01/24/25 11:00 01/28/25 09:51 40 MG Enoxaparin Sodium 40 mg DAILY SC 01/24/25 11:00 Hold Piperacillin Sod/ Tazobactam Sod 100 ml @ 25 mls/hr Q8HR IV 01/24/25 14:00 01/28/25 13:33 25 MLS/HR Vancomycin HCl 0 ml @ 0 mls/hr UD IV 01/24/25 15:45 Purified Water 200 ml Q6HR GT 01/24/25 18:00 01/28/25 17:32 200 ML Levothyroxine Sodium 25 mcg QAM@0600 PO 01/25/25 06:00 01/28/25 05:08 25 MCG Albuterol 2.5 mg Q6HWA [facility] 01/24/25 18:00 01/28/25 06:03 2.5 MG Ipratropium [place] 0.5 mg Q6HPRN [facility] 01/24/25 18:00 01/28/25 06:03 0.5 MG Enteral Nutritional Formula 1,000 ml 30ML/HR GT 01/24/25 17:15 01/26/25 03:12 1,000 ML Fentanyl Citrate 250 ml @ 2.5 mls/hr Q24H IV 01/25/25 08:45 01/28/25 00:10 5 MLS/HR Micafungin Sodium 100 mg/Sodium Chloride 100 ml @ 100 mls/hr DAILY IV 01/26/25 10:00 01/28/25 09:51 100 MLS/HR Vancomycin HCl 100 ml @ 200 mls/hr Q12H IV 01/28/25 18:00 01/28/25 17:32 200 MLS/HR Laboratory Results Laboratory Tests 01/28/25 03:32 Chemistry Test 01/28/25 03:32 Albumin 2.1 g/dL (3.2-4.8) L Calcium Level 7.3 mg/dL (8.7-10.4) L Magnesium Level 1.7 mg/dL (1.6-2.6) Total Protein 3.6 g/dL (5.7-8.2) L LFT Test 01/28/25 03:32 Alanine Aminotransferase (ALT) < 9 U/L (7-40) Alkaline Phosphatase 126 U/L (46-116) H Aspartate Amino Transferase (AST) 10 U/L (13-40) L Total Bilirubin 0.3 mg/dL (0.2-1.0) Urinalysis Test 01/23/25 21:15 Urine Color Light-yellow (Yellow) Urine Clarity Clear (Clear) Urine pH 5.0 (5.0-9.0) Urine Specific [place] 1.017 (1.001-1.035) Urine Protein Trace (Negative) H Urine Ketones 1+ (Negative) H Urine Blood 2+ /uL (Negative) H Urine Nitrite Negative (Negative) Urine Bilirubin Negative (Negative) Urine Urobilinogen Normal mg/dL (Negative) Urine Leukocyte Esterase Negative /uL (Negative) Urine RBC 56 /hpf (0 - 4) Urine Microscopic WBC 2 /HPF (0-5) Urine Squamous Epithelial Cells Few /hpf (<5) Urine Bacteria None seen /hpf (None Seen) Urine Glucose Normal mg/dL (Normal) Blood Gas Results Test 01/28/25 06:42 Arterial Blood pH 7.349 (7.350-7.450) FiO2 % 30.0 Microbiology Microbiology Date/Time Source Procedure Growth Status 01/27/25 20:00 Nose MRSA Screen - Final Methicillin Resistant S.aureus Complete 01/24/25 11:35 Voided Urine Urine Culture - Final Complete 01/23/25 18:39 Sputum Gram Stain - Final Resulted 01/23/25 18:39 Respiratory Culture - Preliminary Methicillin Resistant S.aureus Pseudomonas aeruginosa Resulted 01/23/25 18:07 Blood Blood Culture - Preliminary Resulted Labs and/or images reviewed: Labs reviewed by me, Image(s) reviewed by me Assessment/Plan Assessment/Plan Impression: -acute hypoxic respiratory failure -pneumonia secondary to Pseudomonas aeruginosa, MRSA -history of CVA with dysphagia and existing PEG tube -cachexia -pericardial effusion -spontaneous pneumothorax -severe protein malnutrition -septic shock Plan: -weaned sedation, CPAP trial in the a.m. -Levophed drip to keep map greater than 65 mm of mercury -continue tube feeding -continue current antimicrobial therapy with vancomycin and Merrem panel -bronchodilators -chest tube to 20 cm suction -PUD, DVT prophylaxis -repeat labs, ABG and chest x-ray in a.m. Critical care time spent with patient discussing and formulating plan of care: 40 minutes. This does not include time spent performing procedures. This medical document was created using an electronic medical record system with [employer] dictation system. Although this document has been carefully reviewed, there may still be some phonetic and typographical errors. These areas are purely typographical due to imperfections of the software programs, and do not reflect any compromise in the patient's medical care. Plan discussed with: Patient, Other (RN) My Orders Orders - JUICE SHANE LICENSED DIRECT ENTRY MIDWIFE Procedure Category Date Status Time Basic Metabolic Panel LAB 01/29/25 Verified 05:00 Basic Metabolic Panel LAB 01/30/25 Verified 05:00 Complete Blood Count LAB 01/29/25 Verified 05:00 Complete Blood Count LAB 01/30/25 Verified 05:00 Complete Blood Count LAB 01/31/25 Verified 05:00 Chest Portable XY 01/29/25 Logged 05:00 Chest Portable XY 01/30/25 Logged 05:00 Chest Portable XY 01/31/25 Logged 05:00 Date of Service: Jan 28, 2025 Billing Provider: JUICE SHANE NP Common Visit Codes: [id number] INP/OBS CARE(HIGH) JUICE SHANE NP Jan 28, 2025 18:12
[2025-01-29] VITALS (107 sets, daily range): BP systolic 82–148; BP diastolic 44–83; PULSE 79–110; RESP 10–31; TEMP 97.9–99.3; O2SAT 77–100
--- NOTE | 2025-01-29 01:16 | DVH ---
CHEST RADIOGRAPH Indication: CONFIRM CENTRAL LINE PLACEMENT Technique: Single frontal view of the chest was obtained COMPARISON: XY CHEST XRAY 1 VIEW on DOS: 01/28/25, XY CHEST PORTABLE on DOS: 01/28/25, XY CHEST PORTABLE on DOS: 01/27/25, XY CHEST PORTABLE on DOS: 01/26/25, XY CHEST PORTABLE on DOS: 01/26/25 FINDINGS: Lines and Tubes: Endotracheal tube tip projects approximately 3.7 cm above the level of the chelsie. L eft internal jugular central venous line tip projects over the junction of the brachiocephalic vein a nd superior vena cava. Left lung base small bore percutaneous catheter noted. Lungs: Clear Pleura: No effusion. No pneumothorax. Cardiomediastinal contours: Unremarkable Bones: Unremarkable IMPRESSION: 1. No acute disease. Lines and tubes as above.
--- NOTE | 2025-01-29 01:39 | DVH ---
CHEST RADIOGRAPH Indication: pna Technique: Single frontal view of the chest was obtained COMPARISON: XY CHEST XRAY 1 VIEW on DOS: 01/28/25, XY CHEST PORTABLE on DOS: 01/28/25, XY CHEST PORTABLE on DOS: 01/27/25, XY CHEST PORTABLE on DOS: 01/26/25, XY CHEST PORTABLE on DOS: 01/26/25 FINDINGS: Lines and Tubes: Unchanged. Lungs: Trace residual left apical pneumothorax. No evidence of focal consolidation. No evidence of p leural effusion. Cardiomediastinal contours: Unremarkable Bones: Unremarkable IMPRESSION: 1. Trace left apical pneumothorax. Otherwise no evidence of acute cardiopulmonary process. 2. Lines and tubes as above.
[2025-01-29 04:07] LABS: Hematocrit 27.1 % (36.0-46.0); Hemoglobin 9.3 g/dL (12.2-16.2); Mean Corpuscular Hemoglobin 31.7 pg (28.0-32.0); Mean Corpuscular Volume 92.8 fL (80.0-100.0)
[2025-01-29 04:20] LABS: Anion Gap 4 (5-15); Carbon Dioxide 25 mmol/L (20-31); Potassium 4.6 mmol/L (3.5-5.1); Sodium 143 mmol/L (136-145)
[2025-01-29 04:24] LABS: Calcium 7.4 mg/dL (8.7-10.4); Chloride 114 mmol/L (98-107)
[2025-01-29 04:26] LABS: BUN/Creatinine Ratio 52.5 (10.0-20.0); Blood Urea Nitrogen 21 mg/dL (9-23); Glucose 105 mg/dL (74-106)
[2025-01-29 05:30] LABS: Total Cells Counted 100.0 (100)
[2025-01-29 07:14] LABS: Base Excess -3.9 mmol/L (-2.0-3.0)
--- NOTE | 2025-01-29 08:29 | DVHPN2 ---
Subjective Patient intubated and sedated Reviewed: Care Plan, H&P, Labs, Medications Changes from previous H/P or p: No Changes General: Per HPI Objective Vitals Vital Signs Date Time Temp Pulse Resp B/P (MAP) Pulse Ox O2 Delivery O2 Flow Rate FiO2 01/29/25 07:46 101 18 119/65 (83) 100 30 01/29/25 06:00 Mechanical Ventilator+ 01/29/25 04:00 98.2 98.2 Intake/Output Intake and Output 01/29/25 07:00 Intake Total 2296.00 ml Output Total 840 ml Balance 1456.00 ml Intake Oral 850 ml IV Total 822.00 ml Tube Feeding 624 ml Output Urine Total 700 ml Chest Tube Drainage Total 140 ml General Appearance: Other (Intubated and sedated) HEENT: Atraumatic, PERRLA Lungs: Clear to auscultation, Normal air movement, Other (Mechanical ventilation) Chest/Breasts: Other (Chest tube. Continues to have small air leak) Cardiovascular: Normal S1, Normal S2 Abdomen: Normal bowel sounds, Soft, No tenderness, Other (PEG tube) Genitourinary: No Apparent Abnormalities (Billy catheter) Skin: Intact Psych/Mental Status: Mental status NL, Mood NL Medications Current Medications Medications Dose Ordered Sig/Agustín Route Start Time Stop Time Status Last Admin Dose Admin Midazolam HCl 50 ml @ 1 mls/hr Q24H IV 01/23/25 18:45 01/28/25 20:03 1 MLS/HR Norepinephrine Bitartrate 250 ml @ 3.75 mls/hr Q24H IV 01/23/25 22:00 01/28/25 10:56 11.25 MLS/HR Pantoprazole Sodium 40 mg DAILY IV 01/24/25 11:00 01/28/25 09:51 40 MG Enoxaparin Sodium 40 mg DAILY SC 01/24/25 11:00 Hold Piperacillin Sod/ Tazobactam Sod 100 ml @ 25 mls/hr Q8HR IV 01/24/25 14:00 01/29/25 05:24 25 MLS/HR Vancomycin HCl 0 ml @ 0 mls/hr UD IV 01/24/25 15:45 Purified Water 200 ml Q6HR GT 01/24/25 18:00 01/29/25 05:24 200 ML Levothyroxine Sodium 25 mcg QAM@0600 PO 01/25/25 06:00 01/29/25 05:24 25 MCG Albuterol 2.5 mg Q6HWA NEB 01/24/25 18:00 01/29/25 06:32 2.5 MG Ipratropium [place] 0.5 mg Q6HPRN NEB 01/24/25 18:00 01/29/25 06:32 0.5 MG Enteral Nutritional Formula 1,000 ml 30ML/HR GT 01/24/25 17:15 01/26/25 03:12 1,000 ML Fentanyl Citrate 250 ml @ 2.5 mls/hr Q24H IV 01/25/25 08:45 01/28/25 00:10 5 MLS/HR Micafungin Sodium 100 mg/Sodium Chloride 100 ml @ 100 mls/hr DAILY IV 01/26/25 10:00 01/28/25 09:51 100 MLS/HR Vancomycin HCl 100 ml @ 200 mls/hr Q12H IV 01/28/25 18:00 01/29/25 05:24 200 MLS/HR Laboratory Results Laboratory Tests 01/29/25 03:33 Chemistry Test 01/29/25 03:33 Calcium Level 7.4 mg/dL (8.7-10.4) L Urinalysis Test 01/23/25 21:15 Urine Color Light-yellow (Yellow) Urine Clarity Clear (Clear) Urine pH 5.0 (5.0-9.0) Urine Specific [place] 1.017 (1.001-1.035) Urine Protein Trace (Negative) H Urine Ketones 1+ (Negative) H Urine Blood 2+ /uL (Negative) H Urine Nitrite Negative (Negative) Urine Bilirubin Negative (Negative) Urine Urobilinogen Normal mg/dL (Negative) Urine Leukocyte Esterase Negative /uL (Negative) Urine RBC 56 /hpf (0 - 4) Urine Microscopic WBC 2 /HPF (0-5) Urine Squamous Epithelial Cells Few /hpf (<5) Urine Bacteria None seen /hpf (None Seen) Urine Glucose Normal mg/dL (Normal) Blood Gas Results Test 01/29/25 07:05 Arterial Blood pH 7.393 (7.350-7.450) FiO2 % 30.0 Microbiology Microbiology Date/Time Source Procedure Growth Status 01/27/25 23:40 Blood Blood Culture - Preliminary Resulted 01/27/25 20:00 Nose MRSA Screen - Final Methicillin Resistant S.aureus Complete 01/24/25 11:35 Voided Urine Urine Culture - Final Complete 01/23/25 18:39 Sputum Gram Stain - Final Resulted 01/23/25 18:39 Respiratory Culture - Preliminary Methicillin Resistant S.aureus Pseudomonas aeruginosa Resulted Labs and/or images reviewed: Labs reviewed by me, Image(s) reviewed by me Assessment/Plan Assessment/Plan Impression: -acute hypoxic respiratory failure -pneumonia secondary to Pseudomonas aeruginosa, MRSA -history of CVA with dysphagia and existing PEG tube -cachexia -pericardial effusion -spontaneous pneumothorax -severe protein malnutrition -septic shock Plan: Events: Patient off of sedation. Patient also off vasopressor therapy. CPAP trial once neurologically appropriate. Patient with persistent bacteremia. Defer to Cardiology for appropriateness of KELLY to rule out endocarditis. -Levophed drip to keep map greater than 65 mm of mercury -continue tube feeding -continue current antimicrobial therapy with vancomycin and Meropenem -bronchodilators -chest tube to 20 cm suction -PUD, DVT prophylaxis -repeat labs, ABG and chest x-ray in a.m. Critical care time spent with patient discussing and formulating plan of care: 40 minutes. This does not include time spent performing procedures. This medical document was created using an electronic medical record system with [employer] dictation system. Although this document has been carefully reviewed, there may still be some phonetic and typographical errors. These areas are purely typographical due to imperfections of the software programs, and do not reflect any compromise in the patient's medical care. Plan discussed with: Patient, Other (RN) My Orders Orders - JUICE SHANE BUSINESS INFORMATION CONSULTANT Procedure Category Date Status Time Basic Metabolic Panel LAB 01/30/25 Verified 05:00 Complete Blood Count LAB 01/30/25 Verified 05:00 Complete Blood Count LAB 01/31/25 Verified 05:00 Chest Portable XY 01/29/25 Resulted 05:00 Chest Portable XY 01/30/25 Logged 05:00 Chest Portable XY 01/31/25 Logged 05:00 Cpap Trial For Am ORDERS 01/28/25 Transmitted 18:47 Abg W/ Co-Ox RT 01/29/25 Logged 04:00 Cpap Trial For Am ORDERS 01/29/25 Transmitted 07:37 Cpap/Sed Vacation Med ORDERS 01/29/25 Transmitted Weaning 07:37 Date of Service: Jan 29, 2025 Billing Provider: JUICE SHANE NP Common Visit Codes: [id number] CARE 30-74 MIN JUICE SHANE NP Jan 29, 2025 08:29
--- NOTE | 2025-01-29 09:50 | MEDREC ---
[facility] Intervention Section I [facility] Intervention: Review courses of therapy (MRSA SCREEN POSITIVE CONSIDER ADDING MUPIROCIN 2% OINTMENT 1 APPLICATION IN EACH NOSTRIL BID FOR 5 DAYS ) [employer] PHARMACIST Jan 29, 2025 09:50
--- NOTE | 2025-01-29 17:20 | DVHPN2 ---
Progress Note - Dictate Date Seen: Jan 29, 2025 Medical Necessity Reason Pt with a Central, PICC or Fol: Yes The following are medically ne: Central Line, Chao Catheter Reason for chao catheter: Strict I&O vital signs Vital Sign Date Time Temp Pulse Resp B/P (MAP) Pulse Ox O2 Delivery O2 Flow Rate FiO2 01/29/25 16:17 96 19 127/54 (78) 100 30 01/29/25 14:00 Mechanical Ventilator+ 01/29/25 12:45 97.9 97.9 Total Intake and Output 01/28/25 01/28/25 01/29/25 15:00 23:00 07:00 Intake Total 353.75 ml 971.75 ml 970.50 ml Output Total 520 ml 320 ml Balance 353.75 ml 451.75 ml 650.50 ml medications Current Medications Medications Dose Ordered Sig/Agustín Route Start Time Stop Time Status Last Admin Dose Admin Midazolam HCl 50 ml @ 1 mls/hr Q24H IV 01/23/25 18:45 01/28/25 20:03 1 MLS/HR Norepinephrine Bitartrate 250 ml @ 3.75 mls/hr Q24H IV 01/23/25 22:00 01/28/25 10:56 11.25 MLS/HR Pantoprazole Sodium 40 mg DAILY IV 01/24/25 11:00 01/29/25 09:36 40 MG Enoxaparin Sodium 40 mg DAILY SC 01/24/25 11:00 Hold Piperacillin Sod/ Tazobactam Sod 100 ml @ 25 mls/hr Q8HR IV 01/24/25 14:00 01/29/25 14:25 25 MLS/HR Vancomycin HCl 0 ml @ 0 mls/hr UD IV 01/24/25 15:45 Purified Water 200 ml Q6HR GT 01/24/25 18:00 01/29/25 12:00 200 ML Levothyroxine Sodium 25 mcg QAM@0600 PO 01/25/25 06:00 01/29/25 05:24 25 MCG Albuterol 2.5 mg Q6HWA NEB 01/24/25 18:00 01/29/25 12:01 2.5 MG Ipratropium [place] 0.5 mg Q6HPRN NEB 01/24/25 18:00 01/29/25 12:00 0.5 MG Enteral Nutritional Formula 1,000 ml 30ML/HR GT 01/24/25 17:15 01/26/25 03:12 1,000 ML Fentanyl Citrate 250 ml @ 2.5 mls/hr Q24H IV 01/25/25 08:45 01/28/25 00:10 5 MLS/HR Micafungin Sodium 100 mg/Sodium Chloride 100 ml @ 100 mls/hr DAILY IV 01/26/25 10:00 01/29/25 09:36 100 MLS/HR Vancomycin HCl 100 ml @ 200 mls/hr Q12H IV 01/28/25 18:00 01/29/25 05:24 200 MLS/HR laboratory and microbiology Laboratory Tests 01/29/25 03:33 Test 01/29/25 03:33 Range/Units Serum Glucose 105 74-106 mg/dL Assessment/Plan Covering for Dr. Flynn Impression Acute hypoxemic respiratory failure Spontaneous left pneumothorax Altered mental status MRSA pneumonia UTI CVA Patient seen and examined in ICU Events On mechanical ventilation S/p intubation PEEP 5, FiO2 30% Off sedation, not waking up Labs and imaging reviewed ABG reviewed Management Vent support Titrate to maintain sats 90% or above When patient is more awake, proceed to weaning trial Pressure support 12/24, extubate when ready Continue antibiotics F/u cultures and ID Bronchodilators Monitor renal function Monitor electrolytes Supplement as needed Pressors as needed for hemodynamic support To maintain a mean arterial pressure of 65 mmHg DVT prophylaxis Critical care time 35 minutes Dietary Evaluation Review Comments: Pt meets criteria of Severe 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 Nutrition Recommendation 1) TF Jevity 1.2 Luis @ 30ml/hr along with Pro-stat 1 pk BID. Water flush 200ml Q6H if allowed, adjust PRN. Start @ 20ml/hr, increase 10ml/hr Q4H until goal is reached. TF @ goal volume along woth IVD5w 1/2 nS & Pro-stat provides 100% energy (1370 kcal) & 100% protein needs (70gm). Free water 581ml. 2) Consider TPN per pharmacy if pt cannot tolerate TF 3) Manuel 1 pk BID, Vit C 500mg BID, Zinc sulfate 220mg BID x 10 days, MVI w/ minerals 1 tab daily. 4) Monitor NPO status, TF tolerance, lab values, wt trend, I/O Expected Outcomes/Goals: Goal: 1) To maintain/gain weight 2) Intake to meet at least 75% estimated needs within 7 days follow up 2-3 days Interpretation of weight loss: up to 20% in 1 year Fluid Accumulation (Severe): Moderate Fluid Retention Protein Calorie Malnutrition: Severe Is there a minimum of two crit: Yes Plan discussed with: Other (Rn) JAZIEL OLIVEIRA MD Jan 29, 2025 17:20
[2025-01-30] VITALS (107 sets, daily range): BP systolic 100–153; BP diastolic 37–83; PULSE 67–106; RESP 10–88; TEMP 97.2–98.2; O2SAT 94–100
--- NOTE | 2025-01-30 05:20 | DVH ---
CHEST RADIOGRAPH Indication: pna Technique: Single frontal view of the chest was obtained Comparison: XY CHEST PORTABLE on DOS: 01/28/25 FINDINGS: Lines and Tubes: The endotracheal tube terminates 4.2 cm above the chelsie. Left central venous cathet er terminates in the superior vena cava. Left pigtail catheter is unchanged. Lungs: Hazy right basilar opacities. Pleura: No effusion. No pneumothorax. Cardiomediastinal contours: Unremarkable Bones: No acute osseous abnormality. Subcutaneous emphysema in the left chest wall. IMPRESSION: 1. Appropriate position of the support lines and tubes. 2. Hazy right basilar opacities.
[2025-01-30 05:35] LABS: Hemoglobin 7.9 g/dL (12.2-16.2); Mean Corpuscular Hemoglobin 31.7 pg (28.0-32.0)
[2025-01-30 05:36] LABS: Hematocrit 23.3 % (36.0-46.0); Mean Corpuscular Volume 93.3 fL (80.0-100.0)
[2025-01-30 06:14] LABS: Potassium 4.2 mmol/L (3.5-5.1); Total Cells Counted 100.0 (100)
[2025-01-30 06:15] LABS: Anion Gap 7 (5-15); Carbon Dioxide 25 mmol/L (20-31)
[2025-01-30 06:18] LABS: Calcium 7.7 mg/dL (8.7-10.4); Chloride 113 mmol/L (98-107); Sodium 145 mmol/L (136-145)
[2025-01-30 06:20] LABS: BUN/Creatinine Ratio 71.4 (10.0-20.0); Blood Urea Nitrogen 20 mg/dL (9-23); Glucose 89 mg/dL (74-106)
[2025-01-30 08:13] LABS: Base Excess -1.0 mmol/L (-2.0-3.0)
--- NOTE | 2025-01-30 16:31 | DVHPN2 ---
Progress Note Date Seen: Jan 30, 2025 Medical Necessity Reason Pt with a Central, PICC or Fol: Yes The following are medically ne: Central Line, Chao Catheter Reason for chao catheter: Strict I&O Objective vital signs Vital Sign Date Time Temp Pulse Resp B/P (MAP) Pulse Ox O2 Delivery O2 Flow Rate FiO2 01/30/25 16:00 72 100 Mechanical Ventilator+ 30 30 01/30/25 16:00 131/51 01/30/25 16:00 72 01/30/25 15:45 97.9 97.9 Total Intake and Output 01/29/25 01/29/25 01/30/25 15:00 23:00 07:00 Intake Total 277.0 ml 807.0 ml Output Total 420 ml 460 ml Balance -143.0 ml 347.0 ml medications Current Medications Medications Dose Ordered Sig/Agustín Route Start Time Stop Time Status Last Admin Dose Admin Midazolam HCl 50 ml @ 1 mls/hr Q24H IV 01/23/25 18:45 01/28/25 20:03 1 MLS/HR Norepinephrine Bitartrate 250 ml @ 3.75 mls/hr Q24H IV 01/23/25 22:00 01/28/25 10:56 11.25 MLS/HR Pantoprazole Sodium 40 mg DAILY IV 01/24/25 11:00 01/30/25 10:48 40 MG Enoxaparin Sodium 40 mg DAILY SC 01/24/25 11:00 Hold Piperacillin Sod/ Tazobactam Sod 100 ml @ 25 mls/hr Q8HR IV 01/24/25 14:00 01/30/25 13:55 25 MLS/HR Vancomycin HCl 0 ml @ 0 mls/hr UD IV 01/24/25 15:45 Purified Water 200 ml Q6HR GT 01/24/25 18:00 01/30/25 10:48 200 ML Levothyroxine Sodium 25 mcg QAM@0600 PO 01/25/25 06:00 01/30/25 05:31 25 MCG Albuterol 2.5 mg Q6HWA NEB 01/24/25 18:00 01/30/25 12:23 2.5 MG Ipratropium [place] 0.5 mg Q6HPRN NEB 01/24/25 18:00 01/30/25 12:23 0.5 MG Enteral Nutritional Formula 1,000 ml 30ML/HR GT 01/24/25 17:15 01/26/25 03:12 1,000 ML Fentanyl Citrate 250 ml @ 2.5 mls/hr Q24H IV 01/25/25 08:45 01/30/25 08:39 5 MLS/HR Vancomycin HCl 100 ml @ 200 mls/hr Q12H IV 01/28/25 18:00 01/30/25 06:26 200 MLS/HR Examination: GENERAL:Abnormal, HEENT:Abnormal, LUNGS:Abnormal, CVS:Abnormal, ABDOMEN:Abnormal laboratory and microbiology Laboratory Tests 01/30/25 05:16 Test 01/30/25 05:16 Range/Units Serum Glucose 89 74-106 mg/dL Microbiology Date/Time Source Procedure Growth Status 01/27/25 23:40 Blood Blood Culture - Final Staphylococcus epidermidis Complete 01/27/25 20:00 Nose MRSA Screen - Final Methicillin Resistant S.aureus Complete 01/24/25 11:35 Voided Urine Urine Culture - Final Complete 01/23/25 18:39 Sputum Gram Stain - Final Resulted 01/23/25 18:39 Respiratory Culture - Preliminary Methicillin Resistant S.aureus Pseudomonas aeruginosa Resulted Problem List/Assessment/Plan Problem List/Assessment/Plan Large pericardial effusion Nonocclusive left lower extremity thrombus (on Eliquis therapy) Spontaneous pneumothorax status post left-sided chest tube Acute anemia Thrombocytopenia HX of CVA pressors as needed IVF as needed, goals of care discussion recommended, very poor prognosis Plan discussed with: Other (rn) Dietary Evaluation Review Comments: Pt meets criteria of Severe 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 Nutrition Recommendation 1) TF Jevity 1.2 Luis @ 30ml/hr along with Pro-stat 1 pk BID. Water flush 200ml Q6H if allowed, adjust PRN. Start @ 20ml/hr, increase 10ml/hr Q4H until goal is reached. TF @ goal volume along woth IVD5w 1/2 nS & Pro-stat provides 100% energy (1370 kcal) & 100% protein needs (70gm). Free water 581ml. 2) Consider TPN per pharmacy if pt cannot tolerate TF 3) Manuel 1 pk BID, Vit C 500mg BID, Zinc sulfate 220mg BID x 10 days, MVI w/ minerals 1 tab daily. 4) Monitor NPO status, TF tolerance, lab values, wt trend, I/O Expected Outcomes/Goals: Goal: 1) To maintain/gain weight 2) Intake to meet at least 75% estimated needs within 7 days follow up 2-3 days Interpretation of weight loss: up to 20% in 1 year Fluid Accumulation (Severe): Moderate Fluid Retention Protein Calorie Malnutrition: Severe Is there a minimum of two crit: Yes Date of Service: Jan 30, 2025 Billing Provider: ZEYAD MAYS MD Common Visit Codes: NOT BILLABLE ZEYAD MAYS MD Jan 30, 2025 16:31
--- NOTE | 2025-01-30 17:34 | DVHPNRES ---
Progress Note Date Seen: Jan 30, 2025 Resident Creating Document: HARI FRITZ RESIDENT Medical Necessity Reason Pt with a Central, PICC or Fol: Yes The following are medically ne: Central Line, Chao Catheter Reason for chao catheter: Strict I&O Subjective Review of Systems 01/25- Continue vanc, micafungin and Zosyn, 1 set of blood cultures showed budding yeast, started on micafungin, ordered repeat cultures. Chest x-ray showing improvement but still some effusion. Code status flu test negative. Wound consult for decubitus ulcer, send cultures. 01/26 -Patient seen and examined at the bedside. Unable to obtain ROS due to patient's clinical status. Today CXR showed Lft Pneumothorax, placed pigtail catheter, repeat cxr showed improvement in pneumothorax. Resp cult showed MRSA. Continue vanc, micafungin and Zosyn. Monitor. spoken with the family regarding the code status and changed to chemical code. 01/27-01/29: CXR showed improvement in the pneumothorax. Consulted Cardiology for pericardial effusion, no intervention for now. Tried CPAP, failed Today patient seen and examined at the bedside. Unable to obtain ROS due to patient's clinical status. Final blood cultures 2 sets showing staph epidermidis and respiratory cultures showing MRSA and Pseudomonas so continuing vanc and Zosyn and Discontinued micafungin and repeated cultures Objective vital signs Vital Sign Date Time Temp Pulse Resp B/P (MAP) Pulse Ox O2 Delivery O2 Flow Rate FiO2 01/30/25 16:25 82 23 145/64 (91) 100 30 01/30/25 16:00 Mechanical Ventilator+ 01/30/25 15:45 97.9 97.9 Total Intake and Output 01/29/25 01/29/25 01/30/25 15:00 23:00 07:00 Intake Total 277.0 ml 807.0 ml Output Total 420 ml 460 ml Balance -143.0 ml 347.0 ml medications Current Medications Medications Dose Ordered Sig/Agustín Route Start Time Stop Time Status Last Admin Dose Admin Midazolam HCl 50 ml @ 1 mls/hr Q24H IV 01/23/25 18:45 01/28/25 20:03 1 MLS/HR Norepinephrine Bitartrate 250 ml @ 3.75 mls/hr Q24H IV 01/23/25 22:00 01/28/25 10:56 11.25 MLS/HR Pantoprazole Sodium 40 mg DAILY IV 01/24/25 11:00 01/30/25 10:48 40 MG Enoxaparin Sodium 40 mg DAILY SC 01/24/25 11:00 Hold Piperacillin Sod/ Tazobactam Sod 100 ml @ 25 mls/hr Q8HR IV 01/24/25 14:00 01/30/25 13:55 25 MLS/HR Vancomycin HCl 0 ml @ 0 mls/hr UD IV 01/24/25 15:45 Purified Water 200 ml Q6HR GT 01/24/25 18:00 01/30/25 10:48 200 ML Levothyroxine Sodium 25 mcg QAM@0600 PO 01/25/25 06:00 01/30/25 05:31 25 MCG Albuterol 2.5 mg Q6HWA NEB 01/24/25 18:00 01/30/25 12:23 2.5 MG Ipratropium [place] 0.5 mg Q6HPRN NEB 01/24/25 18:00 01/30/25 12:23 0.5 MG Enteral Nutritional Formula 1,000 ml 30ML/HR GT 01/24/25 17:15 01/26/25 03:12 1,000 ML Fentanyl Citrate 250 ml @ 2.5 mls/hr Q24H IV 01/25/25 08:45 01/30/25 08:39 5 MLS/HR Vancomycin HCl 100 ml @ 200 mls/hr Q12H IV 01/28/25 18:00 01/30/25 06:26 200 MLS/HR Examination Pt is lying on bed, sedated General Appearance: Sedated, severely malnourished HEENT: Atraumatic, Mucous membranes moist/pink Respiratory: decraesed breath sounds mostly left side Cardiovascular: Regular rate, Normal S1, Normal S2, No murmurs Abdominal: Scaphoid, Active bowel sounds, Soft, no distention, G-tube in place Extremities: Red and edematous both upper limb 2 to 3+ and 1 to 2+ edema in lower extremities, Skin: Decubitus ulcer on sacrum & redness on her chest Neuro: Sedated, gag reflex intact, pupils are constricted but reactive Nurse was there as cpr instructor during examination laboratory and microbiology Laboratory Tests 01/30/25 05:16 Test 01/30/25 05:16 Range/Units Serum Glucose 89 74-106 mg/dL Microbiology Date/Time Source Procedure Growth Status 01/27/25 23:40 Blood Blood Culture - Final Staphylococcus epidermidis Complete 01/27/25 20:00 Nose MRSA Screen - Final Methicillin Resistant S.aureus Complete 01/24/25 11:35 Voided Urine Urine Culture - Final Complete 01/23/25 18:39 Sputum Gram Stain - Final Resulted 01/23/25 18:39 Respiratory Culture - Preliminary Methicillin Resistant S.aureus Pseudomonas aeruginosa Resulted Labs and/or images reviewed: Labs reviewed by me, Image(s) reviewed by me Problem List/Assessment/Plan Problem List/Assessment/Plan [employer] # Acute on chronic metabolic encephalopathy # Acute hypoxic encephalopathy # Alzheimer's dementia -head CT showed no acute changes -currently sedated -hold or stop home medications (donepezil, memantine) until she extubated CVS # ? Septic shock likely from pneumonia # Chronic diastolic CHF # HTN # Hx of complete heart block requiring temporary transcutaneous pacing in 2022 # Anterior apical and posterior large pericardial effusion but No tamponade noted- -hold BP meds -currently on Levophed -BNP -monitor continuously -fluid resuscitation 2-3 L in ED for shock -IV antibiotics Zosyn and vanc along with the pancultures - IVF d5w 1/2 75ml/hr Dc' d 01/27 -echo showed EF 65% with moderate diastolic dysfunction and mild pericardial effusion, consulted cardiology-no intervention for now RS # septic shock likely from aspiration pneumonia # Acute hypoxic respiratory failure likely from aspiration pneumonia status post intubation 01/23 # Aspiration pneumonia # MRSA PNA # Spont. Pneumothorax s/p chest tube - Today CXR showed Lft Pneumothorax, placed pigtail catheter, repeat cxr showed improvement in pneumothorax. - ICU status - On mechanical ventilation with vent settings are 14, tidal volume 350, FiO2 30%, peep 5 - respiratory cultures, Gram-positive and Gram-negative organisms - Initial CXR showed left hemithorax opacification and sequential CXR showed improvement left lung and mild congestion in both lungs. - - Ordered rapid COVID/flu test,negative - currently on vancomycin and Zosyn - breathing treatments - initial blood cultures 1 set showing budding yeast, repeat cultures - Resp cult showed MRSA. Continue vanc, micafungin and Zosyn. Monitor. - Final blood cultures 2 sets showing staph epidermidis and respiratory cultures showing MRSA and Pseudomonas so continuing vanc and Zosyn and Discontinued micafungin and repeated cultures -01/30 GI # severe protein calorie malnutrition -BMI 15 -nutritional consult -Start Jevity through G-tube /Endo/ Metabolic # acute complicated UTI-resolving -currently on Zosyn -UA findings normal -ordered urine culture # hypernatremia likely from dehydration -monitor lab -given boluses -Dc'd D5W 1/2 NS 75 mL/hour -free water 200 mL q.6 G-tube # hypothyroidism -TSH elevated -levothyroxine 25 mcg # severe hypothermia on admission due to sepsis- warming measures ID # candidemia/fungemia -repeat cultures -micafungin 100 mg b.i.d. DC'd 01/30 Heme-Onc # thrombocytopenia -monitor lab for now -hold anticoagulants # left common & superficial femoral vein nonocclusive DVT - Duplesx showe following changes - No right femoropopliteal venous thrombosis. Possible new clot forming in the right common femoral vein .Rouleaux blood flow is noted throughout the right lower extremity. - Avascular collections noted in the popliteal fossa largest. - On the left common femoral vein contains nonocclusive deep venous thrombosis. There is nonocclusive deep venous thrombosis throughout the left superficial femoral vein. The left popliteal vein and trifurcation are not visible because of bandaging. - No anticoagulanunts because thrombocytopenia # Hx left lower extremity DVT -hold Eliquis and Lovenox Skin # sacral decubitus ulcer likely stage 4 -wound consult PUD PPX: Protonix VTE PPX: Nothing for now Diet: Jevity 30 mL/hour Drips Versed Levophed 14 ogff since 01/29 Lines Left IJ CVC-01/24 Goals of care addressed with the patient's family member Susy Handy for more than 27 minutes: Chemical code and defib status Care plan updated with the Susy Handy and son jordy for more than 77 minutes bedside, regarding prognosis, current status and addressed all concerns On 01/26 discussion with patient son Jordy regarding code status, change her code to chemical code Unable to complete family meeting(family showed up late) today, we will do tomorrow Case discussed with Dr. 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 Nutrition Recommendation 1) TF Jevity 1.2 Luis @ 30ml/hr along with Pro-stat 1 pk BID. Water flush 200ml Q6H if allowed, adjust PRN. Start @ 20ml/hr, increase 10ml/hr Q4H until goal is reached. TF @ goal volume along woth IVD5w 1/2 nS & Pro-stat provides 100% energy (1370 kcal) & 100% protein needs (70gm). Free water 581ml. 2) Consider TPN per pharmacy if pt cannot tolerate TF 3) Manuel 1 pk BID, Vit C 500mg BID, Zinc sulfate 220mg BID x 10 days, MVI w/ minerals 1 tab daily. 4) Monitor NPO status, TF tolerance, lab values, wt trend, I/O Expected Outcomes/Goals: Goal: 1) To maintain/gain weight 2) Intake to meet at least 75% estimated needs within 7 days follow up 2-3 days Interpretation of weight loss: up to 20% in 1 year Fluid Accumulation (Severe): Moderate Fluid Retention Protein Calorie Malnutrition: Severe Is there a minimum of two crit: Yes Date of Service: Jan 30, 2025 Billing Provider: CECELIA MAGUIRE MD Common Visit Codes: [id number] CARE 30-74 MIN HARI FRITZ RESIDENT Jan 30, 2025 17:34 CECELIA MAGUIRE MD Jan 31, 2025 15:03
[2025-01-31] VITALS (115 sets, daily range): BP systolic 93–163; BP diastolic 41–83; PULSE 72–108; RESP 11–27; TEMP 97.4–98.4; O2SAT 94–100
--- NOTE | 2025-01-31 05:24 | DVH ---
CHEST RADIOGRAPH Indication: fu Technique: Single frontal view of the chest was obtained COMPARISON: XY CHEST PORTABLE on DOS: 01/30/25, XY CHEST PORTABLE on DOS: 01/28/25, XY CHEST XRAY 1 VIEW on DOS: 01/28/25, XY CHEST XRAY 1 VIEW on DOS: 01/28/25, XY CHEST PORTABLE on DOS: 01/28/25 FINDINGS: Lines and Tubes: Endotracheal tube and left central venous catheter in satisfactory position. Lungs: Bilateral lower lobe airspace disease Pleura: No effusion. No pneumothorax. Cardiomediastinal contours: Unremarkable Bones: Unremarkable IMPRESSION: Lines and tubes in satisfactory position. No significant interval change.
[2025-01-31 05:55] LABS: Hematocrit 25.6 % (36.0-46.0); Hemoglobin 8.9 g/dL (12.2-16.2); Mean Corpuscular Hemoglobin 32.1 pg (28.0-32.0); Mean Corpuscular Volume 92.5 fL (80.0-100.0)
[2025-01-31 06:10] LABS: Alkaline Phosphatase 106 U/L (46-116); Anion Gap 6 (5-15); BUN/Creatinine Ratio 56.7 (10.0-20.0); Blood Urea Nitrogen 17 mg/dL (9-23); Carbon Dioxide 27 mmol/L (20-31); Glucose 91 mg/dL (74-106); Potassium 4.3 mmol/L (3.5-5.1); Sodium 145 mmol/L (136-145)
[2025-01-31 06:17] LABS: Alanine Aminotransferase < 9 U/L (7-40); Albumin 2.2 g/dL (3.2-4.8); Bilirubin, Total 0.2 mg/dL (0.2-1.0); Calcium 7.7 mg/dL (8.7-10.4); Chloride 112 mmol/L (98-107); Magnesium 1.6 mg/dL (1.6-2.6); Total Protein 3.9 g/dL (5.7-8.2)
[2025-01-31 06:41] LABS: Total Cells Counted 100.0 (100)
[2025-01-31 06:59] LABS: Base Excess 1.7 mmol/L (-2.0-3.0)
[2025-01-31] MEDS: MAGNESIUM SULFATE 1GM/100ML 100 ML IV SCH (10:19)
[2025-01-31] MEDS: LIDOCAINE 1% (LOCAL ANESTH.) PF 5ml SDV ID ONE (17:12)
--- NOTE | 2025-01-31 17:23 | DVHPNRES ---
Progress Note Date Seen: Jan 31, 2025 Resident Creating Document: HARI FRITZ RESIDENT Medical Necessity Reason Pt with a Central, PICC or Fol: Yes The following are medically ne: Central Line, Chao Catheter Reason for chao catheter: Strict I&O Subjective Review of Systems 01/25- Continue vanc, micafungin and Zosyn, 1 set of blood cultures showed budding yeast, started on micafungin, ordered repeat cultures. Chest x-ray showing improvement but still some effusion. Code status flu test negative. Wound consult for decubitus ulcer, send cultures. 01/26 -Patient seen and examined at the bedside. Unable to obtain ROS due to patient's clinical status. Today CXR showed Lft Pneumothorax, placed pigtail catheter, repeat cxr showed improvement in pneumothorax. Resp cult showed MRSA. Continue vanc, micafungin and Zosyn. Monitor. spoken with the family regarding the code status and changed to chemical code. 01/27-01/29: CXR showed improvement in the pneumothorax. Consulted Cardiology for pericardial effusion, no intervention for now. Tried CPAP, failed 01/30: Today patient seen and examined at the bedside. Unable to obtain ROS due to patient's clinical status. Final blood cultures 2 sets showing staph epidermidis and respiratory cultures showing MRSA and Pseudomonas so continuing vanc and Zosyn and Discontinued micafungin and repeated cultures 01/31: patient seen and examined at the bedside. Unable to obtain ROS due to patient's clinical status. Repeat blood cultures still pending. Discontinued central line and ordered PICC line. Continuing current management Objective vital signs Vital Sign Date Time Temp Pulse Resp B/P (MAP) Pulse Ox O2 Delivery O2 Flow Rate FiO2 01/31/25 16:17 30 01/31/25 16:08 18 99 Mechanical Ventilator+ 01/31/25 15:58 73 01/31/25 15:39 138/78 (98) 01/31/25 15:30 97.5 97.5 Total Intake and Output 01/30/25 01/30/25 01/31/25 15:00 23:00 07:00 Intake Total 265.0 ml 800 ml 1372.0 ml Output Total 430 ml 480 ml Balance 265.0 ml 370 ml 892.0 ml medications Current Medications Medications Dose Ordered Sig/Agustín Route Start Time Stop Time Status Last Admin Dose Admin Midazolam HCl 50 ml @ 1 mls/hr Q24H IV 01/23/25 18:45 01/28/25 20:03 1 MLS/HR Norepinephrine Bitartrate 250 ml @ 3.75 mls/hr Q24H IV 01/23/25 22:00 01/28/25 10:56 11.25 MLS/HR Pantoprazole Sodium 40 mg DAILY IV 01/24/25 11:00 01/31/25 10:11 40 MG Enoxaparin Sodium 40 mg DAILY SC 01/24/25 11:00 Hold Piperacillin Sod/ Tazobactam Sod 100 ml @ 25 mls/hr Q8HR IV 01/24/25 14:00 01/31/25 14:48 25 MLS/HR Vancomycin HCl 0 ml @ 0 mls/hr UD IV 01/24/25 15:45 Purified Water 200 ml Q6HR GT 01/24/25 18:00 01/31/25 12:06 200 ML Levothyroxine Sodium 25 mcg QAM@0600 PO 01/25/25 06:00 01/31/25 06:01 25 MCG Albuterol 2.5 mg Q6HWA [facility] 01/24/25 18:00 01/31/25 12:06 2.5 MG Ipratropium [place] 0.5 mg Q6HPRN [facility] 01/24/25 18:00 01/31/25 12:06 0.5 MG Enteral Nutritional Formula 1,000 ml 30ML/HR GT 01/24/25 17:15 01/31/25 04:50 1,000 ML Fentanyl Citrate 250 ml @ 2.5 mls/hr Q24H IV 01/25/25 08:45 01/31/25 10:11 5 MLS/HR Vancomycin HCl 100 ml @ 200 mls/hr Q12H IV 01/28/25 18:00 01/31/25 06:00 200 MLS/HR Examination Pt is lying on bed, sedated General Appearance: Sedated, severely malnourished HEENT: Atraumatic, Mucous membranes moist/pink Respiratory: decraesed breath sounds mostly left side Cardiovascular: Regular rate, Normal S1, Normal S2, No murmurs Abdominal: Scaphoid, Active bowel sounds, Soft, no distention, G-tube in place Extremities: Red and edematous both upper limb 2 to 3+ and 1 to 2+ edema in lower extremities, Skin: Decubitus ulcer on sacrum & redness on her chest Neuro: Sedated, gag reflex intact, pupils are constricted but reactive Nurse was there as field services analyst during examination laboratory and microbiology Laboratory Tests 01/31/25 05:00 Test 01/31/25 05:00 Range/Units Serum Glucose 91 74-106 mg/dL Microbiology Date/Time Source Procedure Growth Status 01/30/25 17:50 Blood Blood Culture - Preliminary Resulted 01/27/25 20:00 Nose MRSA Screen - Final Methicillin Resistant S.aureus Complete 01/24/25 11:35 Voided Urine Urine Culture - Final Complete 01/23/25 18:39 Sputum Gram Stain - Final Resulted 01/23/25 18:39 Respiratory Culture - Preliminary Methicillin Resistant S.aureus Pseudomonas aeruginosa Resulted Labs and/or images reviewed: Labs reviewed by me, Image(s) reviewed by me Problem List/Assessment/Plan Problem List/Assessment/Plan [employer] # Acute on chronic metabolic encephalopathy # Acute hypoxic encephalopathy # Alzheimer's dementia -head CT showed no acute changes -currently sedated -hold or stop home medications (donepezil, memantine) until she extubated [facility] # ? Septic shock likely from pneumonia # Chronic diastolic CHF # HTN # Hx of complete heart block requiring temporary transcutaneous pacing in 2022 # Anterior apical and posterior large pericardial effusion but No tamponade noted- -hold BP meds -currently on Levophed -BNP -monitor continuously -fluid resuscitation 2-3 L in ED for shock -IV antibiotics Zosyn and vanc along with the pancultures - IVF d5w 1/2 75ml/hr Dc' d 01/27 -echo showed EF 65% with moderate diastolic dysfunction and mild pericardial effusion, consulted cardiology-no intervention for now RS # septic shock likely from aspiration pneumonia # Acute hypoxic respiratory failure likely from aspiration pneumonia status post intubation 01/23 # Aspiration pneumonia # MRSA PNA # Spont. Pneumothorax s/p chest tube - Today CXR showed Lft Pneumothorax, placed pigtail catheter, repeat cxr showed improvement in pneumothorax. - ICU status - On mechanical ventilation with vent settings are 14, tidal volume 350, FiO2 30%, peep 5 - respiratory cultures, Gram-positive and Gram-negative organisms - Initial CXR showed left hemithorax opacification and sequential CXR showed improvement left lung and mild congestion in both lungs. - - Ordered rapid COVID/flu test,negative - currently on vancomycin and Zosyn - breathing treatments - initial blood cultures 1 set showing budding yeast, repeat cultures - Resp cult showed MRSA. Continue vanc, micafungin and Zosyn. Monitor. - Final blood cultures 2 sets showing staph epidermidis and respiratory cultures showing MRSA and Pseudomonas so continuing vanc and Zosyn and Discontinued micafungin and repeated cultures -01/30 -discontinued central line, ordered PICC line GI # severe protein calorie malnutrition -BMI 15 -nutritional consult -Start Jevity through G-tube /Endo/ Metabolic # acute complicated UTI-resolving -currently on Zosyn -UA findings normal -ordered urine culture # hypernatremia likely from dehydration -monitor lab -given boluses -Dc'd D5W 1/ NS 75 mL/hour -free water 200 mL q.6 G-tube # hypothyroidism -TSH elevated -levothyroxine 25 mcg # severe hypothermia on admission due to sepsis- warming measures ID # candidemia/fungemia-resolved -repeat cultures -micafungin 100 mg b.i.d. DC'd 01/30 # Bacteremia with staph -vanc and zosyn -repeat cultures Heme-Onc # thrombocytopenia-improving -monitor lab for now -hold anticoagulants # left common & superficial femoral vein nonocclusive DVT - Duplesx showe following changes - No right femoropopliteal venous thrombosis. Possible new clot forming in the right common femoral vein .Rouleaux blood flow is noted throughout the right lower extremity. - Avascular collections noted in the popliteal fossa largest. - On the left common femoral vein contains nonocclusive deep venous thrombosis. There is nonocclusive deep venous thrombosis throughout the left superficial femoral vein. The left popliteal vein and trifurcation are not visible because of bandaging. - No anticoagulanunts because thrombocytopenia # Hx left lower extremity DVT -hold Eliquis and Lovenox Skin # sacral decubitus ulcer likely stage 4 -wound consult PUD PPX: Protonix VTE PPX: Nothing for now Diet: Jevity 30 mL/hour Drips Versed Levophed 14 ogff since 01/29 Lines Left IJ CVC-01/24-DC 01/31 Goals of care addressed with the patient's family member Susy Handy for more than 27 minutes: Chemical code and defib status Care plan updated with the Susy Handy and son jordy for more than 77 minutes bedside, regarding prognosis, current status and addressed all concerns On 01/26 discussion with patient michaelle Spence regarding code status, change her code to chemical code Family meeting done today with the son Jordy, addressed all concerns and explained the patient's situation and made them situation aware. Case discussed with Dr. Maguire Critical care time spent excluding procedures >103 minutes. Plan discussed with: Patient My Orders My Orders Orders - HARI FRITZ RESIDENT Procedure Category Date Status Time Blood Culture DIANE 01/30/25 In Process 17:27 Chest Portable XY 01/31/25 Resulted 04:00 Abg W/ Co-Ox RT 01/31/25 Logged 04:00 Complete Blood Count LAB 02/01/25 Verified 04:00 Comprehensive LAB 02/01/25 Verified Metabolic Panel 04:00 Magnesium LAB 02/01/25 Verified 04:00 Abg W/ Co-Ox RT 02/01/25 Logged 04:00 Chest Portable XY 02/01/25 Logged 04:00 Dietary Evaluation Review Comments: Pt meets criteria of Severe 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 Nutrition Recommendation 1) TF Jevity 1.2 Luis @ 30ml/hr along with Pro-stat 1 pk BID. Water flush 200ml Q6H if allowed, adjust PRN. Start @ 20ml/hr, increase 10ml/hr Q4H until goal is reached. TF @ goal volume along woth IVD5w 1/2 nS & Pro-stat provides 100% energy (1370 kcal) & 100% protein needs (70gm). Free water 581ml. 2) Consider TPN per pharmacy if pt cannot tolerate TF 3) Manuel 1 pk BID, Vit C 500mg BID, Zinc sulfate 220mg BID x 10 days, MVI w/ minerals 1 tab daily. 4) Monitor NPO status, TF tolerance, lab values, wt trend, I/O Expected Outcomes/Goals: Goal: 1) To maintain/gain weight 2) Intake to meet at least 75% estimated needs within 7 days follow up 2-3 days Interpretation of weight loss: up to 20% in 1 year Fluid Accumulation (Severe): Moderate Fluid Retention Protein Calorie Malnutrition: Severe Is there a minimum of two crit: Yes Date of Service: Jan 31, 2025 Billing Provider: CECELIA MAGUIRE MD Common Visit Codes: [id number] CARE 30-74 MIN, [id number] CARE-EACH +30MIN HARI FRITZ RESIDENT Jan 31, 2025 17:23 CECELIA MAGUIRE MD Feb 01, 2025 15:11
[2025-01-31] MEDS: SODIUM CHLOR 0.9% PF (SALINE LOCK) 10ML VIAL/SYR IV SCH (21:42)
[2025-02-01] VITALS (110 sets, daily range): BP systolic 79–146; BP diastolic 11–74; PULSE 68–105; RESP 9–30; TEMP 97.7–98.8; O2SAT 88–100
[2025-02-01 03:35] LABS: Hematocrit 23.8 % (36.0-46.0); Hemoglobin 8.2 g/dL (12.2-16.2); Mean Corpuscular Hemoglobin 31.5 pg (28.0-32.0); Mean Corpuscular Volume 92.1 fL (80.0-100.0); Nucleated Red Blood Cells % 0.1 %
[2025-02-01 03:44] LABS: Alkaline Phosphatase 93 U/L (46-116); Anion Gap 7 (5-15); BUN/Creatinine Ratio 60.9 (10.0-20.0); Blood Urea Nitrogen 14 mg/dL (9-23); Carbon Dioxide 28 mmol/L (20-31); Glucose 88 mg/dL (74-106); Magnesium 1.9 mg/dL (1.6-2.6); Potassium 3.9 mmol/L (3.5-5.1); Sodium 145 mmol/L (136-145)
[2025-02-01 03:57] LABS: Alanine Aminotransferase < 9 U/L (7-40); Bilirubin, Total 0.2 mg/dL (0.2-1.0); Calcium 7.6 mg/dL (8.7-10.4); Chloride 110 mmol/L (98-107)
[2025-02-01 03:58] LABS: Albumin 2.1 g/dL (3.2-4.8); Total Protein 3.6 g/dL (5.7-8.2)
--- NOTE | 2025-02-01 05:01 | DVH ---
CHEST RADIOGRAPH Indication: FU Technique: Single frontal view of the chest was obtained COMPARISON: XY CHEST PORTABLE on DOS: 01/31/25, XY CHEST PORTABLE on DOS: 01/30/25, XY CHEST XRAY 1 VIE W on DOS: 01/28/25, XY CHEST PORTABLE on DOS: 01/28/25, XY CHEST XRAY 1 VIEW on DOS: 01/28/25 FINDINGS: Lines and Tubes: Unchanged. Lungs: Moderate patchy bibasilar pulmonary airspace disease. Pleura: No effusion. No pneumothorax. Cardiomediastinal contours: Unremarkable. Atherosclerotic vascular calcifications. Bones: Unremarkable IMPRESSION: 1. Moderate patchy bibasilar pulmonary airspace disease.
--- NOTE | 2025-02-01 05:13 | DVH ---
Exam: US US GUIDED VASCULAR ACCESS, US US Guided Vascular Access Clinical History: PICC Line Insertion Comparison: US BILAT LOWER DVT on DOS: 11/22/24, CT CT ANGIO CHEST CONTRAST on DOS: 04/02/24, US BILAT LOWER DVT on DOS: 04/02/24, CAROTID DUPLX W COLOR DOP on DOS: 01/05/21 Findings: Targeted sonographic evaluation of the arm vein was obtained utilizing grayscale and color Doppler im aging. IMPRESSION: Sonographic assistance for peripherally inserted central line placement. Please refer to procedural r eport for detailed findings.
[2025-02-01 06:27] LABS: Base Excess 3.8 mmol/L (-2.0-3.0)
--- NOTE | 2025-02-01 14:39 | DVHPNRES ---
Progress Note Date Seen: Feb 01, 2025 Resident Creating Document: HARI FRITZ RESIDENT Medical Necessity Reason Pt with a Central, PICC or Fol: Yes The following are medically ne: Central Line, Chao Catheter Reason for chao catheter: Strict I&O Subjective Review of Systems 01/25- Continue vanc, micafungin and Zosyn, 1 set of blood cultures showed budding yeast, started on micafungin, ordered repeat cultures. Chest x-ray showing improvement but still some effusion. Code status flu test negative. Wound consult for decubitus ulcer, send cultures. 01/26 -Patient seen and examined at the bedside. Unable to obtain ROS due to patient's clinical status. Today CXR showed Lft Pneumothorax, placed pigtail catheter, repeat cxr showed improvement in pneumothorax. Resp cult showed MRSA. Continue vanc, micafungin and Zosyn. Monitor. spoken with the family regarding the code status and changed to chemical code. 01/27-01/29: CXR showed improvement in the pneumothorax. Consulted Cardiology for pericardial effusion, no intervention for now. Tried CPAP, failed 01/30: Final blood cultures 2 sets showing staph epidermidis and respiratory cultures showing MRSA and Pseudomonas so continuing vanc and Zosyn and Discontinued micafungin and repeated cultures 01/31: Repeat blood cultures still pending. Discontinued central line and ordered PICC line. Continuing current management Today patient seen and examined at the bedside. Unable to obtain ROS due to patient's clinical status. Repeat blood cultures showing G+ cocci clustures. Plcaed PICC yesterday. Changes from previous H/P or p: No Changes Objective vital signs Vital Sign Date Time Temp Pulse Resp B/P (MAP) Pulse Ox O2 Delivery O2 Flow Rate FiO2 02/01/25 14:14 99 21 108/48 (68) 100 30 02/01/25 11:30 98.4 98.4 02/01/25 10:00 Mechanical Ventilator+ Total Intake and Output 01/31/25 01/31/25 02/01/25 15:00 23:00 07:00 Intake Total 160 ml 478.0 ml 543.0 ml Output Total 440 ml 360 ml Balance 160 ml 38.0 ml 183.0 ml medications Current Medications Medications Dose Ordered Sig/Agustín Route Start Time Stop Time Status Last Admin Dose Admin Midazolam HCl 50 ml @ 1 mls/hr Q24H IV 01/23/25 18:45 01/28/25 20:03 1 MLS/HR Norepinephrine Bitartrate 250 ml @ 3.75 mls/hr Q24H IV 01/23/25 22:00 01/28/25 10:56 11.25 MLS/HR Pantoprazole Sodium 40 mg DAILY IV 01/24/25 11:00 02/01/25 09:47 40 MG Enoxaparin Sodium 40 mg DAILY SC 01/24/25 11:00 Hold Piperacillin Sod/ Tazobactam Sod 100 ml @ 25 mls/hr Q8HR IV 01/24/25 14:00 02/01/25 13:10 25 MLS/HR Vancomycin HCl 0 ml @ 0 mls/hr UD IV 01/24/25 15:45 Purified Water 200 ml Q6HR GT 01/24/25 18:00 02/01/25 12:00 200 ML Levothyroxine Sodium 25 mcg QAM@0600 PO 01/25/25 06:00 02/01/25 06:08 25 MCG Albuterol 2.5 mg Q6HWA NEB 01/24/25 18:00 02/01/25 11:57 2.5 MG Ipratropium [place] 0.5 mg Q6HPRN NEB 01/24/25 18:00 02/01/25 11:57 0.5 MG Enteral Nutritional Formula 1,000 ml 30ML/HR GT 01/24/25 17:15 01/31/25 04:50 1,000 ML Fentanyl Citrate 250 ml @ 2.5 mls/hr Q24H IV 01/25/25 08:45 01/31/25 10:11 5 MLS/HR Vancomycin HCl 100 ml @ 200 mls/hr Q12H IV 01/28/25 18:00 02/01/25 06:09 200 MLS/HR Sodium Chloride 10 ml QSHIFT@10,22 IV 01/31/25 22:00 02/01/25 09:47 10 ML Examination Pt is lying on bed, sedated General Appearance: Sedated, severely malnourished HEENT: Atraumatic, Mucous membranes moist/pink Respiratory: decraesed breath sounds mostly left side Cardiovascular: Regular rate, Normal S1, Normal S2, No murmurs Abdominal: Scaphoid, Active bowel sounds, Soft, no distention, G-tube in place Extremities: Red and edematous both upper limb improving swelling and 1 to 2+ edema in lower extremities, Skin: Decubitus ulcer on sacrum & redness on her chest, white macerated skin changes in both palms Neuro: Sedated, gag reflex intact, pupils are constricted but reactive Nurse was there as plastics sheet finishing press operator during examination laboratory and microbiology Laboratory Tests 02/01/25 02:39 Test 02/01/25 02:39 Range/Units Serum Glucose 88 74-106 mg/dL Microbiology Date/Time Source Procedure Growth Status 01/30/25 18:00 Blood Blood Culture - Preliminary Resulted 01/27/25 20:00 Nose MRSA Screen - Final Methicillin Resistant S.aureus Complete 01/24/25 11:35 Voided Urine Urine Culture - Final Complete 01/23/25 18:39 Sputum Gram Stain - Final Complete 01/23/25 18:39 Respiratory Culture - Final Methicillin Resistant S.aureus Pseudomonas aeruginosa Complete Labs and/or images reviewed: Labs reviewed by me, Image(s) reviewed by me Problem List/Assessment/Plan Problem List/Assessment/Plan [employer]ECT # Acute on chronic metabolic encephalopathy # Acute hypoxic encephalopathy # Alzheimer's dementia -head CT showed no acute changes -currently sedated -hold or stop home medications (donepezil, memantine) until she extubated [facility] # ? Septic shock likely from pneumonia # Chronic diastolic CHF # HTN # Hx of complete heart block requiring temporary transcutaneous pacing in 2022 # Anterior apical and posterior large pericardial effusion but No tamponade noted- -hold BP meds -currently on Levophed -BNP -monitor continuously -fluid resuscitation 2-3 L in ED for shock -IV antibiotics Zosyn and vanc along with the pancultures - IVF d5w 1/2 75ml/hr Dc' d 01/27 -echo showed EF 65% with moderate diastolic dysfunction and mild pericardial effusion, consulted cardiology-no intervention for now RS # septic shock likely from aspiration pneumonia # Acute hypoxic respiratory failure likely from aspiration pneumonia status post intubation 01/23 # Aspiration pneumonia # MRSA PNA # Spont. Pneumothorax s/p chest tube - Today CXR showed Lft Pneumothorax, placed pigtail catheter, repeat cxr showed improvement in pneumothorax. - ICU status - On mechanical ventilation with vent settings are 14, tidal volume 350, FiO2 30%, peep 5 - respiratory cultures, Gram-positive and Gram-negative organisms - Initial CXR showed left hemithorax opacification and sequential CXR showed improvement left lung and mild congestion in both lungs. - - Ordered rapid COVID/flu test,negative - currently on vancomycin and Zosyn - breathing treatments - initial blood cultures 1 set showing budding yeast, repeat cultures - Resp cult showed MRSA. Continue vanc, micafungin and Zosyn. Monitor. - Final blood cultures 2 sets showing staph epidermidis and respiratory cultures showing MRSA and Pseudomonas so continuing vanc and Zosyn and Discontinued micafungin and repeated cultures -01/30 -discontinued central line, ordered PICC line GI # severe protein calorie malnutrition -BMI 15 -nutritional consult -Start Jevity through G-tube /Endo/ Metabolic # acute complicated UTI-resolving -currently on Zosyn -UA findings normal -ordered urine culture # hypernatremia likely from dehydration -monitor lab -given boluses -Dc'd D5W 1/2 NS 75 mL/hour -free water 200 mL q.6 G-tube # hypothyroidism -TSH elevated -levothyroxine 25 mcg # severe hypothermia on admission due to sepsis- warming measures ID # candidemia/fungemia -repeat cultures -micafungin 100 mg b.i.d. DC'd 01/30 # Bacteremia with staph -vanc and zosyn -repeat cultures Heme-Onc # thrombocytopenia -monitor lab for now -hold anticoagulants # left common & superficial femoral vein nonocclusive DVT - Duplesx showe following changes - No right femoropopliteal venous thrombosis. Possible new clot forming in the right common femoral vein .Rouleaux blood flow is noted throughout the right lower extremity. - Avascular collections noted in the popliteal fossa largest. - On the left common femoral vein contains nonocclusive deep venous thrombosis. There is nonocclusive deep venous thrombosis throughout the left superficial femoral vein. The left popliteal vein and trifurcation are not visible because of bandaging. - No anticoagulanunts because thrombocytopenia # Hx left lower extremity DVT -hold Eliquis and Lovenox Skin # sacral decubitus ulcer likely stage 4 -wound consult PUD PPX: Protonix VTE PPX: Nothing for now Diet: Jevity 30 mL/hour Drips Versed off Levophed 14 off since 01/29 Lines Left IJ CVC-01/24-DC 01/31 PICC line 01/31 Goals of care addressed with the patient's family member Susy Handy for more than 27 minutes: Chemical code and defib status On 01/26 discussion with patient son Jordy regarding code status, change her code to chemical code Family meeting done 01/31 with the son Jordy, addressed all concerns and explained the patient's situation and made them situation aware. Case discussed with Dr. Maguire Critical care time spent excluding procedures >73 minutes. Plan discussed with: Son, Other (rn) My Orders My Orders Orders - HARI FRITZ Procedure Category Date Status Time Abg W/ Co-Ox RT 02/01/25 Logged 04:00 Chest Portable XY 02/01/25 Resulted 04:00 Dietary Evaluation Review Comments: Pt meets criteria of Severe 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 Nutrition Recommendation 1) TF Jevity 1.2 Luis @ 30ml/hr along with Pro-stat 1 pk BID. Water flush 200ml Q6H if allowed, adjust PRN. Start @ 20ml/hr, increase 10ml/hr Q4H until goal is reached. TF @ goal volume along woth IVD5w 1/2 nS & Pro-stat provides 100% energy (1370 kcal) & 100% protein needs (70gm). Free water 581ml. 2) Consider TPN per pharmacy if pt cannot tolerate TF 3) Manuel 1 pk BID, Vit C 500mg BID, Zinc sulfate 220mg BID x 10 days, MVI w/ minerals 1 tab daily. 4) Monitor NPO status, TF tolerance, lab values, wt trend, I/O Expected Outcomes/Goals: Goal: 1) To maintain/gain weight 2) Intake to meet at least 75% estimated needs within 7 days follow up 2-3 days Interpretation of weight loss: up to 20% in 1 year Fluid Accumulation (Severe): Moderate Fluid Retention Protein Calorie Malnutrition: Severe Is there a minimum of two crit: Yes Date of Service: Feb 01, 2025 Billing Provider: CECELIA MAGUIRE MD Common Visit Codes: [id number] CARE 30-74 MIN HARI FRITZ Feb 01, 2025 14:39 CECELIA MAGUIRE MD Feb 02, 2025 10:18
[2025-02-01] MEDS: ALBUMIN 25% 50 ML IV ONE (22:52)
[2025-02-02] VITALS (104 sets, daily range): BP systolic 89–131; BP diastolic 37–64; PULSE 67–98; RESP 10–37; TEMP 98.3–99; O2SAT 94–100
[2025-02-02 04:39] LABS: Hemoglobin 7.5 g/dL (12.2-16.2); Mean Corpuscular Volume 92.2 fL (80.0-100.0)
[2025-02-02 04:42] LABS: Hematocrit 21.5 % (36.0-46.0); Mean Corpuscular Hemoglobin 32.0 pg (28.0-32.0); Nucleated Red Blood Cells % 0.1 %
[2025-02-02 04:59] LABS: Alkaline Phosphatase 82 U/L (46-116); Anion Gap 7 (5-15); BUN/Creatinine Ratio 37.1 (10.0-20.0); Blood Urea Nitrogen 13 mg/dL (9-23); Carbon Dioxide 29 mmol/L (20-31); Magnesium 1.8 mg/dL (1.6-2.6); Potassium 4.0 mmol/L (3.5-5.1)
[2025-02-02 05:06] LABS: Alanine Aminotransferase < 9 U/L (7-40); Albumin 2.1 g/dL (3.2-4.8); Bilirubin, Total 0.2 mg/dL (0.2-1.0); Calcium 7.7 mg/dL (8.7-10.4); Chloride 110 mmol/L (98-107); Glucose 116 mg/dL (74-106); Sodium 146 mmol/L (136-145); Total Protein 3.5 g/dL (5.7-8.2)
--- NOTE | 2025-02-02 05:35 | DVH ---
CHEST RADIOGRAPH Indication: fu Technique: Single frontal view of the chest was obtained COMPARISON: XY CHEST PORTABLE on DOS: 02/01/25, XY CHEST PORTABLE on DOS: 01/31/25, XY CHEST PORTABLE o n DOS: 01/30/25, XY CHEST XRAY 1 VIEW on DOS: 01/28/25, XY CHEST PORTABLE on DOS: 01/28/25 FINDINGS: Lines and Tubes: None Lungs: Stable. Interval clearing of multifocal bilateral pulmonary infiltrate. Pleura: No effusion. No pneumothorax. Cardiomediastinal contours: Unremarkable Bones: Unremarkable IMPRESSION: 1. Interval clearing of multifocal bilateral pulmonary infiltrate. 2. Lines and tubes unchanged.
[2025-02-02 07:13] LABS: Base Excess 3.2 mmol/L (-2.0-3.0)
[2025-02-02] MEDS: MAGNESIUM SULFATE 1GM/100ML 100 ML IV SCH (09:56)
--- NOTE | 2025-02-02 14:46 | DVHPN2 ---
Progress Note Date Seen: Feb 02, 2025 Medical Necessity Reason Pt with a Central, PICC or Fol: Yes The following are medically ne: Central Line, Chao Catheter Reason for chao catheter: Strict I&O Subjective Other Systems: HR and BP stable Objective vital signs Vital Sign Date Time Temp Pulse Resp B/P (MAP) Pulse Ox O2 Delivery O2 Flow Rate FiO2 02/02/25 14:10 84 22 117/45 (69) 96 30 02/02/25 06:00 Mechanical Ventilator+ 02/02/25 04:00 98.8 98.8 Total Intake and Output 02/01/25 02/01/25 02/02/25 15:00 23:00 07:00 Intake Total 135.0 ml 895.75 ml 471.5 ml Output Total 300 ml 500 ml Balance 135.0 ml 595.75 ml -28.5 ml medications Current Medications Medications Dose Ordered Sig/Agustín Route Start Time Stop Time Status Last Admin Dose Admin Midazolam HCl 50 ml @ 1 mls/hr Q24H IV 01/23/25 18:45 01/28/25 20:03 1 MLS/HR Norepinephrine Bitartrate 250 ml @ 3.75 mls/hr Q24H IV 01/23/25 22:00 02/01/25 16:37 3.75 MLS/HR Pantoprazole Sodium 40 mg DAILY IV 01/24/25 11:00 02/02/25 09:55 40 MG Enoxaparin Sodium 40 mg DAILY SC 01/24/25 11:00 Hold Piperacillin Sod/ Tazobactam Sod 100 ml @ 25 mls/hr Q8HR IV 01/24/25 14:00 02/02/25 14:08 25 MLS/HR Vancomycin HCl 0 ml @ 0 mls/hr UD IV 01/24/25 15:45 Purified Water 200 ml Q6HR GT 01/24/25 18:00 02/02/25 06:00 200 ML Levothyroxine Sodium 25 mcg QAM@0600 PO 01/25/25 06:00 02/02/25 06:01 25 MCG Albuterol 2.5 mg Q6HWA NEB 01/24/25 18:00 02/02/25 13:01 2.5 MG Ipratropium [place] 0.5 mg Q6HPRN NEB 01/24/25 18:00 02/02/25 13:01 0.5 MG Enteral Nutritional Formula 1,000 ml 30ML/HR GT 01/24/25 17:15 01/31/25 04:50 1,000 ML Fentanyl Citrate 250 ml @ 2.5 mls/hr Q24H IV 01/25/25 08:45 02/02/25 03:06 7.5 MLS/HR Vancomycin HCl 100 ml @ 200 mls/hr Q12H IV 01/28/25 18:00 02/02/25 05:54 200 MLS/HR Sodium Chloride 10 ml QSHIFT@10,22 IV 01/31/25 22:00 02/02/25 09:56 10 ML Enoxaparin Sodium 50 mg Q12HR SC 02/02/25 22:00 UNV Examination: GENERAL:Abnormal, HEENT:Abnormal, LUNGS:Abnormal, CVS:Abnormal, ABDOMEN:Abnormal laboratory and microbiology Laboratory Tests 02/02/25 03:15 Test 02/02/25 03:15 Range/Units Serum Glucose 116 H 74-106 mg/dL Microbiology Date/Time Source Procedure Growth Status 01/30/25 18:00 Blood Blood Culture - Preliminary Resulted 01/27/25 20:00 Nose MRSA Screen - Final Methicillin Resistant S.aureus Complete 01/24/25 11:35 Voided Urine Urine Culture - Final Complete 01/23/25 18:39 Sputum Gram Stain - Final Complete 01/23/25 18:39 Respiratory Culture - Final Methicillin Resistant S.aureus Pseudomonas aeruginosa Complete Problem List/Assessment/Plan Problem List/Assessment/Plan Large pericardial effusion Nonocclusive left lower extremity thrombus (on Eliquis therapy) Spontaneous pneumothorax status post left-sided chest tube Acute anemia Thrombocytopenia HX of CVA pressors as needed IVF as needed, goals of care discussion recommended, very poor prognosis Plan discussed with: Other (rn) Dietary Evaluation Review Comments: Pt meets criteria of Severe 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 Nutrition Recommendation 1) TF Jevity 1.2 Luis @ 30ml/hr along with Pro-stat 1 pk BID. Water flush 200ml Q6H if allowed, adjust PRN. Start @ 20ml/hr, increase 10ml/hr Q4H until goal is reached. TF @ goal volume along woth IVD5w 06/23 nS & Pro-stat provides 100% energy (1370 kcal) & 100% protein needs (70gm). Free water 581ml. 2) Consider TPN per pharmacy if pt cannot tolerate TF 3) Manuel 1 pk BID, Vit C 500mg BID, Zinc sulfate 220mg BID x 10 days, MVI w/ minerals 1 tab daily. 4) Monitor NPO status, TF tolerance, lab values, wt trend, I/O Expected Outcomes/Goals: Goal: 1) To maintain/gain weight 2) Intake to meet at least 75% estimated needs within 7 days follow up 2-3 days Interpretation of weight loss: up to 20% in 1 year Fluid Accumulation (Severe): Moderate Fluid Retention Protein Calorie Malnutrition: Severe Is there a minimum of two crit: Yes Date of Service: Feb 02, 2025 Billing Provider: ZEYAD MAYS MD Common Visit Codes: NOT BILLABLE ZEYAD MAYS MD Feb 02, 2025 14:46
--- NOTE | 2025-02-02 17:43 | DVHPNRES ---
Progress Note Date Seen: Feb 02, 2025 Resident Creating Document: HARI FRITZ RESIDENT Medical Necessity Reason Pt with a Central, PICC or Fol: Yes The following are medically ne: Central Line, Chao Catheter Reason for chao catheter: Strict I&O Subjective Review of Systems 01/25- Continue vanc, micafungin and Zosyn, 1 set of blood cultures showed budding yeast, started on micafungin, ordered repeat cultures. Chest x-ray showing improvement but still some effusion. Code status flu test negative. Wound consult for decubitus ulcer, send cultures. 01/26 -Patient seen and examined at the bedside. Unable to obtain ROS due to patient's clinical status. Today CXR showed Lft Pneumothorax, placed pigtail catheter, repeat cxr showed improvement in pneumothorax. Resp cult showed MRSA. Continue vanc, micafungin and Zosyn. Monitor. spoken with the family regarding the code status and changed to chemical code. 01/27-01/29: CXR showed improvement in the pneumothorax. Consulted Cardiology for pericardial effusion, no intervention for now. Tried CPAP, failed 01/30: Final blood cultures 2 sets showing staph epidermidis and respiratory cultures showing MRSA and Pseudomonas so continuing vanc and Zosyn and Discontinued micafungin and repeated cultures 01/31: Repeat blood cultures still pending. Discontinued central line and ordered PICC line. Continuing current management 02/01:Repeat blood cultures showing G+ cocci clustures. Plcaed PICC yesterday. Today patient seen and examined at the bedside. Unable to obtain ROS due to patient's clinical status. Overnight events reviewed, she was running low DBP, added Levophed and discontinued eventually. Her platelet count is getting better so started therapeutic Lovenox for DVT and repeated blood cultures again. Correcting electrolytic imbalance. Continuously monitor. Changes from previous H/P or p: No Changes Objective vital signs Vital Sign Date Time Temp Pulse Resp B/P (MAP) Pulse Ox O2 Delivery O2 Flow Rate FiO2 02/02/25 16:15 16 99 Mechanical Ventilator+ 30 30 02/02/25 16:15 93 02/02/25 16:00 99.0 109/45 (66) 99.0 Total Intake and Output 02/01/25 02/01/25 02/02/25 15:00 23:00 07:00 Intake Total 135.0 ml 895.75 ml 471.5 ml Output Total 300 ml 500 ml Balance 135.0 ml 595.75 ml -28.5 ml medications Current Medications Medications Dose Ordered Sig/Agustín Route Start Time Stop Time Status Last Admin Dose Admin Midazolam HCl 50 ml @ 1 mls/hr Q24H IV 01/23/25 18:45 01/28/25 20:03 1 MLS/HR Norepinephrine Bitartrate 250 ml @ 3.75 mls/hr Q24H IV 01/23/25 22:00 02/01/25 16:37 3.75 MLS/HR Pantoprazole Sodium 40 mg DAILY IV 01/24/25 11:00 02/02/25 09:55 40 MG Piperacillin Sod/ Tazobactam Sod 100 ml @ 25 mls/hr Q8HR IV 01/24/25 14:00 02/02/25 14:08 25 MLS/HR Vancomycin HCl 0 ml @ 0 mls/hr UD IV 01/24/25 15:45 Purified Water 200 ml Q6HR GT 01/24/25 18:00 02/02/25 06:00 200 ML Levothyroxine Sodium 25 mcg QAM@0600 PO 01/25/25 06:00 02/02/25 06:01 25 MCG Albuterol 2.5 mg Q6HWA [facility] 01/24/25 18:00 02/02/25 13:01 2.5 MG Ipratropium [place] 0.5 mg Q6HPRN [facility] 01/24/25 18:00 02/02/25 13:01 0.5 MG Enteral Nutritional Formula 1,000 ml 30ML/HR GT 01/24/25 17:15 01/31/25 04:50 1,000 ML Fentanyl Citrate 250 ml @ 2.5 mls/hr Q24H IV 01/25/25 08:45 02/02/25 03:06 7.5 MLS/HR Vancomycin HCl 100 ml @ 200 mls/hr Q12H IV 01/28/25 18:00 02/02/25 05:54 200 MLS/HR Sodium Chloride 10 ml QSHIFT@10,22 IV 01/31/25 22:00 02/02/25 09:56 10 ML Enoxaparin Sodium 50 mg Q12HR SC 02/02/25 22:00 Examination Pt is lying on bed, sedated General Appearance: Sedated, severely malnourished HEENT: Atraumatic, Mucous membranes moist/pink Respiratory: decraesed breath sounds mostly left side Cardiovascular: Regular rate, Normal S1, Normal S2, No murmurs Abdominal: Scaphoid, Active bowel sounds, Soft, no distention, G-tube in place Extremities: Red and edematous both upper limb improving swelling and 1 to 2+ edema in lower extremities, Skin: Decubitus ulcer on sacrum & redness on her chest, white macerated skin changes in both palms Neuro: Sedated, gag reflex intact, pupils are constricted but reactive Nurse was there as corporate relations manager during examination laboratory and microbiology Laboratory Tests 02/02/25 03:15 Test 02/02/25 03:15 Range/Units Serum Glucose 116 H 74-106 mg/dL Microbiology Date/Time Source Procedure Growth Status 01/30/25 18:00 Blood Blood Culture - Preliminary Resulted 01/27/25 20:00 Nose MRSA Screen - Final Methicillin Resistant S.aureus Complete 01/24/25 11:35 Voided Urine Urine Culture - Final Complete 01/23/25 18:39 Sputum Gram Stain - Final Complete 01/23/25 18:39 Respiratory Culture - Final Methicillin Resistant S.aureus Pseudomonas aeruginosa Complete Labs and/or images reviewed: Labs reviewed by me, Image(s) reviewed by me Problem List/Assessment/Plan Problem List/Assessment/Plan 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 Septic shock likely from pneumonia # Chronic diastolic CHF # HTN # Hx of complete heart block requiring temporary transcutaneous pacing in 2022 # Anterior apical and posterior large pericardial effusion but No tamponade noted- -hold BP meds -currently on Levophed -BNP -monitor continuously -fluid resuscitation 2-3 L in ED for shock -IV antibiotics Zosyn and vanc along with the pancultures - IVF d5w 1/2 75ml/hr Dc' d 01/27 -echo showed EF 65% with moderate diastolic dysfunction and mild pericardial effusion, consulted cardiology-no intervention for now RS # septic shock likely from aspiration pneumonia # Acute hypoxic respiratory failure likely from aspiration pneumonia status post intubation 01/23 # Aspiration pneumonia # MRSA PNA # Spont. Pneumothorax s/p chest tube - Today CXR showed Lft Pneumothorax, placed pigtail catheter, repeat cxr showed improvement in pneumothorax. - ICU status - On mechanical ventilation with vent settings are 14, tidal volume 350, FiO2 30%, peep 5 - respiratory cultures, Gram-positive and Gram-negative organisms - Initial CXR showed left hemithorax opacification and sequential CXR showed improvement left lung and mild congestion in both lungs. - - Ordered rapid COVID/flu test,negative - currently on vancomycin and Zosyn - breathing treatments - initial blood cultures 1 set showing budding yeast, repeat cultures - Resp cult showed MRSA. Continue vanc, micafungin and Zosyn. Monitor. - Final blood cultures 2 sets showing staph epidermidis and respiratory cultures showing MRSA and Pseudomonas so continuing vanc and Zosyn and Discontinued micafungin and repeated cultures -01/30 -discontinued central line, ordered PICC line, placed -ordered repeat blood cultures GI # severe protein calorie malnutrition -BMI 15 -nutritional consult -Start Jevity through G-tube /Endo/ Metabolic # acute complicated UTI-resolving -currently on Zosyn -UA findings normal -ordered urine culture # hypernatremia likely from dehydration -monitor lab -given boluses -Dc'd D5W 1/2 NS 75 mL/hour -free water 200 mL q.6 G-tube # hypothyroidism -TSH elevated -levothyroxine 25 mcg # severe hypothermia on admission due to sepsis- warming measures ID # candidemia/fungemia-resolved -repeat cultures -micafungin 100 mg b.i.d. DC'd 01/30 # Bacteremia with staph -vanc and zosyn -repeat cultures Heme-Onc # thrombocytopenia-improving -monitor lab for now -hold anticoagulants # left common & superficial femoral vein nonocclusive DVT - Duplesx showe following changes - No right femoropopliteal venous thrombosis. Possible new clot forming in the right common femoral vein .Rouleaux blood flow is noted throughout the right lower extremity. - Avascular collections noted in the popliteal fossa largest. - On the left common femoral vein contains nonocclusive deep venous thrombosis. There is nonocclusive deep venous thrombosis throughout the left superficial femoral vein. The left popliteal vein and trifurcation are not visible because of bandaging. - No anticoagulanunts because thrombocytopenia -started therapeutic Lovenox -continuously monitor lab # Hx left lower extremity DVT -started therapeutic Lovenox Skin # sacral decubitus ulcer likely stage 4 -wound consult PUD PPX: Protonix VTE PPX: Therapeutic Lovenox Diet: Jevity 30 mL/hour Drips Versed Levophed 14 ogff since 01/29 Lines Left IJ CVC-01/24-DC 01/31 PICC line placed on 01/31 Goals of care addressed with the patient's family member Susy Ameso for more than 27 minutes: Chemical code and defib status Care plan updated with the Susy Handy and michaelle spence for more than 77 minutes bedside, regarding prognosis, current status and addressed all concerns On 01/26 discussion with patient michaelle Spence regarding code status, change her code to chemical code Family meeting done today with the michaelle Spence, addressed all concerns and explained the patient's situation and made them situation aware. Case discussed with Dr. Maguire Critical care time spent excluding procedures >99 minutes. Plan discussed with: Son My Orders My Orders Orders - HARI FRITZ RESIDENT Procedure Category Date Status Time Pharmacy NAHUM 02/02/25 In Process Clarification: 09:03 Blood Culture DIANE 02/02/25 In Process 13:55 Enoxaparin Sodium PHA 02/02/25 In Process (Lovenox) 22:00 Complete Blood Count LAB 02/03/25 Verified 04:00 Comprehensive LAB 02/03/25 Verified Metabolic Panel 04:00 Magnesium LAB 02/03/25 Verified 04:00 Abg W/ Co-Ox RT 02/03/25 Logged 04:00 Chest Portable XY 02/03/25 Logged 04:00 Dietary Evaluation Review Comments: Pt meets criteria of Severe 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 Nutrition Recommendation 1) TF Jevity 1.2 Luis @ 30ml/hr along with Pro-stat 1 pk BID. Water flush 200ml Q6H if allowed, adjust PRN. Start @ 20ml/hr, increase 10ml/hr Q4H until goal is reached. TF @ goal volume along woth IVD5w 1/2 nS & Pro-stat provides 100% energy (1370 kcal) & 100% protein needs (70gm). Free water 581ml. 2) Consider TPN per pharmacy if pt cannot tolerate TF 3) Manuel 1 pk BID, Vit C 500mg BID, Zinc sulfate 220mg BID x 10 days, MVI w/ minerals 1 tab daily. 4) Monitor NPO status, TF tolerance, lab values, wt trend, I/O Expected Outcomes/Goals: Goal: 1) To maintain/gain weight 2) Intake to meet at least 75% estimated needs within 7 days follow up 2-3 days Interpretation of weight loss: up to 20% in 1 year Fluid Accumulation (Severe): Moderate Fluid Retention Protein Calorie Malnutrition: Severe Is there a minimum of two crit: Yes Date of Service: Feb 02, 2025 Billing Provider: CECELIA MAGUIRE MD Common Visit Codes: [id number] CARE 30-74 MIN, [id number] CARE-EACH +30MIN HARI FRITZ RESIDENT Feb 02, 2025 17:43 CECELIA MAGUIRE MD Feb 04, 2025 12:18
[2025-02-02] MEDS: ENOXAPARIN SOD 100 MG/1 ML SYRINGE SC SCH (22:22)
[2025-02-03] VITALS (107 sets, daily range): BP systolic 76–138; BP diastolic 33–68; PULSE 62–150; RESP 10–24; TEMP 97–98.7; O2SAT 94–100
[2025-02-03 04:04] LABS: Hemoglobin 7.8 g/dL (12.2-16.2)
[2025-02-03 04:07] LABS: Hematocrit 22.5 % (36.0-46.0); Mean Corpuscular Hemoglobin 32.0 pg (28.0-32.0); Mean Corpuscular Volume 92.1 fL (80.0-100.0)
[2025-02-03 04:31] LABS: Alkaline Phosphatase 87 U/L (46-116); Anion Gap 7 (5-15); BUN/Creatinine Ratio 33.3 (10.0-20.0); Blood Urea Nitrogen 10 mg/dL (9-23); Carbon Dioxide 30 mmol/L (20-31); Glucose 90 mg/dL (74-106); Magnesium 1.9 mg/dL (1.6-2.6)
[2025-02-03 04:35] LABS: Alanine Aminotransferase < 9 U/L (7-40); Albumin 2.2 g/dL (3.2-4.8); Bilirubin, Total 0.2 mg/dL (0.2-1.0); Calcium 7.3 mg/dL (8.7-10.4); Chloride 109 mmol/L (98-107); Potassium 3.5 mmol/L (3.5-5.1); Sodium 146 mmol/L (136-145); Total Protein 3.6 g/dL (5.7-8.2)
[2025-02-03 04:58] LABS: Total Cells Counted 100.0 (100)
--- NOTE | 2025-02-03 05:35 | DVH ---
CHEST RADIOGRAPH Indication: fu Technique: Single frontal view of the chest was obtained COMPARISON: XY CHEST PORTABLE on DOS: 02/02/25, XY CHEST PORTABLE on DOS: 02/01/25, XY CHEST PORTABLE o n DOS: 01/31/25, XY CHEST PORTABLE on DOS: 01/30/25, XY CHEST PORTABLE on DOS: 01/28/25 FINDINGS: Lines and Tubes: Slight interval retraction of the endotracheal tube such that the tip now projects a pproximately 3.9 cm above the level of the chelsie. Remaining lines and tubes unchanged. Lungs: Clear Pleura: No effusion. No pneumothorax. Cardiomediastinal contours: Unremarkable Bones: Unremarkable IMPRESSION: 1. No acute disease. 2. Slight interval retraction of endotracheal tube as above. Remaining lines and tubes unchanged.
[2025-02-03 06:47] LABS: Base Excess 2.4 mmol/L (-2.0-3.0)
[2025-02-03] MEDS: MAGNESIUM SULFATE 1GM/100ML 100 ML IV ONE (07:47)
--- NOTE | 2025-02-03 16:46 | DVHPNRES ---
Progress Note Date Seen: Feb 03, 2025 Resident Creating Document: HARI FRITZ RESIDENT Medical Necessity Reason Pt with a Central, PICC or Fol: Yes The following are medically ne: Central Line, Chao Catheter Reason for chao catheter: Strict I&O Subjective Review of Systems Mary Handy is a 79 years old female with a PMH of Alzheimer's dementia for 9 years, left lower extremity DVT since 30 years, HTN presented to the ED accompanied by family with a chief complaints of shortness of breath and altered level of consciousness which is unusual from her baseline since moaning on the day of admission. Patient is on mechanical ventilation so history obtained from the family, Patient recently admitted in the [facility] for UTI and pneumonia, discharged home on the Thursday with Augmentin and azithromycin but Thursday morning, family tries to wake her up the patient was found mouth open with a lot of secretions pooling in the back of throat and hearing gurgling sound and saturation showed very low, called EMS, by the time EMS reaches her pulse oximetry was showed saturation in 50s and on 15 L non-rebreather mask. On arrival to ED patient was intubated and on mechanical ventilation with vent settings of RR 14, VTE 350, FiO2 30% with a PEEP of 5 and due to low blood pressure patient was started on Levophed and sedated with Versed. According to family June of this year patient diagnosed as hemorrhagic stroke at [facility], intubated and then patient has want tracheostomy for 3 months and sent her to long-term nursing facility for 5 months and then she diagnosed with the COVID and MRSA and admitted in [facility], patient was initially on [facility] hospice and then later family decided to take her off of hospice and took her to home as she has been improving as compared to before until she admitted at [facility]. 01/25- Continue vanc, micafungin and Zosyn, 1 set of blood cultures showed budding yeast, started on micafungin, ordered repeat cultures. Chest x-ray showing improvement but still some effusion. Code status flu test negative. Wound consult for decubitus ulcer, send cultures. 01/26 -Patient seen and examined at the bedside. Unable to obtain ROS due to patient's clinical status. Today CXR showed Lft Pneumothorax, placed pigtail catheter, repeat cxr showed improvement in pneumothorax. Resp cult showed MRSA. Continue vanc, micafungin and Zosyn. Monitor. spoken with the family regarding the code status and changed to chemical code. 01/27-01/29: CXR showed improvement in the pneumothorax. Consulted Cardiology for pericardial effusion, no intervention for now. Tried CPAP, failed 01/30: Final blood cultures 2 sets showing staph epidermidis and respiratory cultures showing MRSA and Pseudomonas so continuing vanc and Zosyn and Discontinued micafungin and repeated cultures 01/31: Repeat blood cultures still pending. Discontinued central line and ordered PICC line. Continuing current management 02/01:Repeat blood cultures showing G+ cocci clustures. Plcaed PICC yesterday. 02/02: she was running low DBP, added Levophed and discontinued eventually. Her platelet count is getting better so started therapeutic Lovenox for DVT and repeated blood cultures again. Correcting electrolytic imbalance. Continuously monitor. Today patient seen and examined at the bedside. Unable to obtain ROS due to patient's clinical status. Overnight events reviewed, currently on MV RR 16, VTE 350, FiO2 30%, peep 5. Preliminary blood culture showed no growth. We will put back on sedation. Family decided to proceed with a tracheostomy and placement in LTAC., surgical consult placement for tracheostomy. Objective vital signs Vital Sign Date Time Temp Pulse Resp B/P (MAP) Pulse Ox O2 Delivery O2 Flow Rate FiO2 02/03/25 15:56 77 20 114/49 (70) 100 30 02/03/25 06:00 Mechanical Ventilator+ 02/03/25 04:00 97.5 97.5 Total Intake and Output 02/02/25 02/02/25 02/03/25 15:00 23:00 07:00 Intake Total 300 ml 255.5 ml 384.5 ml Output Total 475 ml 320 ml Balance 300 ml -219.5 ml 64.5 ml medications Current Medications Medications Dose Ordered Sig/Agustín Route Start Time Stop Time Status Last Admin Dose Admin Midazolam HCl 50 ml @ 1 mls/hr Q24H IV 01/23/25 18:45 01/28/25 20:03 1 MLS/HR Norepinephrine Bitartrate 250 ml @ 3.75 mls/hr Q24H IV 01/23/25 22:00 02/01/25 16:37 3.75 MLS/HR Pantoprazole Sodium 40 mg DAILY IV 01/24/25 11:00 02/03/25 10:43 40 MG Piperacillin Sod/ Tazobactam Sod 100 ml @ 25 mls/hr Q8HR IV 01/24/25 14:00 02/03/25 14:19 25 MLS/HR Vancomycin HCl 0 ml @ 0 mls/hr UD IV 01/24/25 15:45 Purified Water 200 ml Q6HR GT 01/24/25 18:00 02/03/25 12:00 200 ML Levothyroxine Sodium 25 mcg QAM@0600 PO 01/25/25 06:00 02/03/25 06:19 25 MCG Albuterol 2.5 mg Q6HWA NEB 01/24/25 18:00 02/03/25 11:35 2.5 MG Ipratropium Brooten 0.5 mg Q6HPRN NEB 01/24/25 18:00 02/03/25 11:35 0.5 MG Enteral Nutritional Formula 1,000 ml 30ML/HR GT 01/24/25 17:15 01/31/25 04:50 1,000 ML Fentanyl Citrate 250 ml @ 2.5 mls/hr Q24H IV 01/25/25 08:45 02/03/25 10:56 5 MLS/HR Vancomycin HCl 100 ml @ 200 mls/hr Q12H IV 01/28/25 18:00 02/03/25 06:19 200 MLS/HR Sodium Chloride 10 ml QSHIFT@10,22 IV 01/31/25 22:00 02/03/25 10:44 10 ML Enoxaparin Sodium 50 mg Q12HR SC 02/02/25 22:00 02/03/25 10:43 50 MG Examination Pt is lying on bed, sedated General Appearance: Sedated, severely malnourished HEENT: Atraumatic, Mucous membranes moist/pink Respiratory: decraesed breath sounds mostly left side Cardiovascular: Regular rate, Normal S1, Normal S2, No murmurs Abdominal: Scaphoid, Active bowel sounds, Soft, no distention, G-tube in place Extremities: Red and edematous both upper limb improving swelling and 1 to 2+ edema in lower extremities, Skin: Decubitus ulcer on sacrum & redness on her chest, white macerated skin changes in both palms Neuro: Sedated, gag reflex intact, pupils are constricted but reactive 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 Resulted 01/27/25 20:00 Nose MRSA Screen - Final Methicillin Resistant S.aureus Complete 01/24/25 11:35 Voided Urine Urine Culture - Final Complete 01/23/25 18:39 Sputum Gram Stain - Final Complete 01/23/25 18:39 Respiratory Culture - Final Methicillin Resistant S.aureus Pseudomonas aeruginosa Complete Labs and/or images reviewed: Labs reviewed by me, Image(s) reviewed by me Problem List/Assessment/Plan Problem List/Assessment/Plan RN UROLOGY # Acute on chronic metabolic encephalopathy # Acute hypoxic encephalopathy # Alzheimer's dementia -head CT showed no acute changes -currently sedated -hold or stop home medications (donepezil, memantine) until she extubated CVS # ? Septic shock likely from pneumonia # Chronic diastolic CHF # HTN # Hx of complete heart block requiring temporary transcutaneous pacing in 2022 # Anterior apical and posterior large pericardial effusion but No tamponade noted- -hold BP meds -currently on Levophed -BNP -monitor continuously -fluid resuscitation 2-3 L in ED for shock -IV antibiotics Zosyn and vanc along with the pancultures - IVF d5w 1/2 75ml/hr Dc' d 01/27 -echo showed EF 65% with moderate diastolic dysfunction and mild pericardial effusion, consulted cardiology-no intervention for now RS # septic shock likely from aspiration pneumonia # Acute hypoxic respiratory failure likely from aspiration pneumonia status post intubation 01/23 # Aspiration pneumonia # MRSA PNA # Spont. Pneumothorax s/p chest tube - Today CXR showed Lft Pneumothorax, placed pigtail catheter, repeat cxr showed improvement in pneumothorax. - ICU status - On mechanical ventilation with vent settings are 14, tidal volume 350, FiO2 30%, peep 5 - respiratory cultures, Gram-positive and Gram-negative organisms - Initial CXR showed left hemithorax opacification and sequential CXR showed improvement left lung and mild congestion in both lungs. - - Ordered rapid COVID/flu test,negative - currently on vancomycin and Zosyn - breathing treatments - initial blood cultures 1 set showing budding yeast, repeat cultures - Resp cult showed MRSA. Continue vanc, micafungin and Zosyn. Monitor. - Final blood cultures 2 sets showing staph epidermidis and respiratory cultures showing MRSA and Pseudomonas so continuing vanc and Zosyn and Discontinued micafungin and repeated cultures -01/30 -discontinued central line, ordered PICC line, placed -ordered repeat blood cultures, preliminary no growth GI # severe protein calorie malnutrition -BMI 15 -nutritional consult -Start Jevity through G-tube /Endo/ Metabolic # acute complicated UTI-resolving -currently on Zosyn -UA findings normal -ordered urine culture # hypernatremia likely from dehydration -monitor lab -given boluses -Dc'd D5W 1/2 NS 75 mL/hour -free water 200 mL q.6 G-tube # hypothyroidism -TSH elevated -levothyroxine 25 mcg # severe hypothermia on admission due to sepsis- warming measures ID # candidemia/fungemia-resolved -repeat cultures -micafungin 100 mg b.i.d. DC'd 01/30 # Bacteremia with staph homnis -vanc and zosyn -repeat cultures, preliminary no growth Heme-Onc # thrombocytopenia-improving -monitor lab for now -hold anticoagulants # left common & superficial femoral vein nonocclusive DVT - Duplesx showe following changes - No right femoropopliteal venous thrombosis. Possible new clot forming in the right common femoral vein .Rouleaux blood flow is noted throughout the right lower extremity. - Avascular collections noted in the popliteal fossa largest. - On the left common femoral vein contains nonocclusive deep venous thrombosis. There is nonocclusive deep venous thrombosis throughout the left superficial femoral vein. The left popliteal vein and trifurcation are not visible because of bandaging. - No anticoagulanunts because thrombocytopenia -started therapeutic Lovenox -continuously monitor lab # Hx left lower extremity DVT -started therapeutic Lovenox Skin # sacral decubitus ulcer likely stage 4 -wound consult PUD PPX: Protonix VTE PPX: Therapeutic Lovenox Diet: Jevity 30 mL/hour Drips Versed Levophed 14 off since 01/29 Lines Left IJ CVC-01/24-DC 01/31 PICC line placed on 01/31 Goals of care addressed with the patient son Jordy and daughter in law Susy Handy for more than 27 minutes: Chemical code and defib status Care plan updated with the Susy Handy and son jordy for more than 77 minutes bedside, regarding prognosis, current status and addressed all concerns On 01/26 discussion with patient max Spence regarding code status, change her code to chemical code Family meeting with the max Spence, addressed all concerns and explained the patient's situation and made them situation aware. Care plan updated to the max Spence and family decided to tracheostomy and LTAC Case discussed with Dr. Mckeon regarding chest tube, Respironics, family wishes and tracheostomy. Critical care time spent excluding procedures >103 minutes. Plan discussed with: Max Thomas Orders My Orders Orders - HARI FRITZ Procedure Category Date Status Time Communication Order ORDERS 02/02/25 Transmitted 17:45 * Wound Consult CONS 02/03/25 Transmitted * Surgical Consult CONS 02/03/25 Transmitted Dietary Evaluation Review Comments: Pt meets criteria of Severe 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 Nutrition Recommendation 1) TF Jevity 1.2 Luis @ 30ml/hr along with Pro-stat 1 pk BID. Water flush 200ml Q6H if allowed, adjust PRN. Start @ 20ml/hr, increase 10ml/hr Q4H until goal is reached. TF @ goal volume along woth IVD5w 1/2 nS & Pro-stat provides 100% energy (1370 kcal) & 100% protein needs (70gm). Free water 581ml. 2) Consider TPN per pharmacy if pt cannot tolerate TF 3) Manuel 1 pk BID, Vit C 500mg BID, Zinc sulfate 220mg BID x 10 days, MVI w/ minerals 1 tab daily. 4) Monitor NPO status, TF tolerance, lab values, wt trend, I/O Expected Outcomes/Goals: Goal: 1) To maintain/gain weight 2) Intake to meet at least 75% estimated needs within 7 days follow up 2-3 days Interpretation of weight loss: up to 20% in 1 year Fluid Accumulation (Severe): Moderate Fluid Retention Protein Calorie Malnutrition: Severe Is there a minimum of two crit: Yes HARI FRITZ RESIDENT Feb 03, 2025 16:46
[2025-02-04] VITALS (113 sets, daily range): BP systolic 81–177; BP diastolic 35–85; PULSE 61–131; RESP 12–24; TEMP 97.2–98.8; O2SAT 95–100
[2025-02-04 02:56] LABS: Hematocrit 24.1 % (36.0-46.0); Hemoglobin 8.4 g/dL (12.2-16.2); Mean Corpuscular Hemoglobin 31.6 pg (28.0-32.0); Mean Corpuscular Volume 91.0 fL (80.0-100.0)
[2025-02-04 03:14] LABS: Alkaline Phosphatase 93 U/L (46-116); Anion Gap 6 (5-15); BUN/Creatinine Ratio 32.4 (10.0-20.0); Blood Urea Nitrogen 11 mg/dL (9-23); Carbon Dioxide 30 mmol/L (20-31); Glucose 95 mg/dL (74-106); Magnesium 1.8 mg/dL (1.6-2.6); Potassium 3.8 mmol/L (3.5-5.1); Sodium 144 mmol/L (136-145)
[2025-02-04 03:17] LABS: Chloride 108 mmol/L (98-107)
[2025-02-04 03:18] LABS: Alanine Aminotransferase < 9 U/L (7-40); Albumin 2.1 g/dL (3.2-4.8); Bilirubin, Total 0.3 mg/dL (0.2-1.0); Calcium 7.4 mg/dL (8.7-10.4); Total Protein 3.5 g/dL (5.7-8.2)
[2025-02-04 03:37] LABS: Total Cells Counted 100.0 (100)
--- NOTE | 2025-02-04 07:13 | DVH ---
XY CHEST PORTABLE, HISTORY: fu COMPARISON: XY CHEST PORTABLE on DOS: 02/03/25, XY CHEST PORTABLE on DOS: 02/02/25, XY CHEST PORTABLE o n DOS: 02/01/25 XY CHEST PORTABLE on DOS: 02/03/25, XY CHEST PORTABLE on DOS: 02/02/25, XY CHEST PORTABLE on DOS: TECHNICAL DATA: 1 view of the chest was obtained. FINDINGS: Lines and tubes: Stable lines and tubes. Cardiomediastinal silhouette: normal Pulmonary vasculature: prominent Lung expansion: normal Lung airspace: Patchy left basilar opacity. Lung interstitium: normal Pleura: normal Pneumothorax: no Bones: Unremarkable Other: no IMPRESSION: Stable lines and tubes. Similar lung aeration.
[2025-02-04 07:59] LABS: Base Excess 4.4 mmol/L (-2.0-3.0)
--- NOTE | 2025-02-04 10:12 | DVHPN2 ---
Mary Drew Nilsa is a 79 years old female with a PMH of Alzheimer's dementia for 9 years, left lower extremity DVT since 30 years, HTN presented to the ED accompanied by family with a chief complaints of shortness of breath and altered level of consciousness which is unusual from her baseline since moaning on the day of admission. Patient is on mechanical ventilation so history obtained from the family, Patient recently admitted in the [facility] for UTI and pneumonia, discharged home on the Thursday with Augmentin and azithromycin but Thursday morning, family tries to wake her up the patient was found mouth open with a lot of secretions pooling in the back of throat and hearing gurgling sound and saturation showed very low, called EMS, by the time EMS reaches her pulse oximetry was showed saturation in 50s and on 15 L non-rebreather mask. On arrival to ED patient was intubated and on mechanical ventilation with vent settings of RR 14, VTE 350, FiO2 30% with a PEEP of 5 and due to low blood pressure patient was started on Levophed and sedated with Versed. According to family June of this year patient diagnosed as hemorrhagic stroke at [facility], intubated and then patient has want tracheostomy for 3 months and sent her to long-term nursing facility for 5 months and then she diagnosed with the COVID and MRSA and admitted in [facility], patient was initially on [facility] hospice and then later family decided to take her off of hospice and took her to home as she has been improving as compared to before until she admitted at [facility]. 01/25- Continue vanc, micafungin and Zosyn, 1 set of blood cultures showed budding yeast, started on micafungin, ordered repeat cultures. Chest x-ray showing improvement but still some effusion. Code status flu test negative. Wound consult for decubitus ulcer, send cultures. 01/26 -Patient seen and examined at the bedside. Unable to obtain ROS due to patient's clinical status. Today CXR showed Lft Pneumothorax, placed pigtail catheter, repeat cxr showed improvement in pneumothorax. Resp cult showed MRSA. Continue vanc, micafungin and Zosyn. Monitor. spoken with the family regarding the code status and changed to chemical code. 01/27-01/29: CXR showed improvement in the pneumothorax. Consulted Cardiology for pericardial effusion, no intervention for now. Tried CPAP, failed 01/30: Final blood cultures 2 sets showing staph epidermidis and respiratory cultures showing MRSA and Pseudomonas so continuing vanc and Zosyn and Discontinued micafungin and repeated cultures 01/31: Repeat blood cultures still pending. Discontinued central line and ordered PICC line. Continuing current management 02/01:Repeat blood cultures showing G+ cocci clustures. Plcaed PICC yesterday. 02/02: she was running low DBP, added Levophed and discontinued eventually. Her platelet count is getting better so started therapeutic Lovenox for DVT and repeated blood cultures again. Correcting electrolytic imbalance. Continuously monitor. 02/03: Today patient seen and examined at the bedside. Unable to obtain ROS due to patient's clinical status. Overnight events reviewed, currently on MV RR 16, VTE 350, FiO2 30%, peep 5. Preliminary blood culture showed no growth. We will put back on sedation. Family decided to proceed with a tracheostomy and placement in LTAC., surgical consult placement for tracheostomy. 02/04: 79-year-old female history of dementia presented with worsening encephalopathy shortness of breath, here for aspiration pneumonia also has left pneumothorax chest tube currently placed no fluid drainage, no time billing either, pulmonology managing. Patient is also on vancomycin and Zosyn primary team is planned for tracheostomy as discussed with family and likely LTAC thereafter. Blood cultures multiple positives most recent negatives. Pericardial effusion also present. Patient looks 3rd spacing pitting edema upper extremities and legs. Urine output does not look adequate only 100 cc present in bag bedside. Mechanically ventilated a.c. 04/09 50/30%/5.0. Getting OG tube feeds enteral feeds. Drips include fentanyl, Zosyn, Levophed. Levophed at 4. Patient does open eyes to touch. Reviewed: Care Plan, H&P, Labs, Medications Changes from previous H/P or p: No Changes General: Per HPI Objective Vitals Vital Signs Date Time Temp Pulse Resp B/P (MAP) Pulse Ox O2 Delivery O2 Flow Rate FiO2 02/04/25 09:13 88/43 02/04/25 08:20 71 17 100 30 02/04/25 08:14 Mechanical Ventilator+ 02/04/25 04:00 98.8 98.8 Intake/Output Intake and Output 02/04/25 07:00 Intake Total 2082.75 ml Output Total 765 ml Balance 1317.75 ml Intake Oral 784 ml IV Total 698.75 ml Tube Feeding 600 ml Output Urine Total 700 ml Chest Tube Drainage Total 65 ml Exam General Appearance: Sedated, severely malnourished HEENT: Atraumatic, Mucous membranes moist/pink Respiratory: decraesed breath sounds mostly left side Cardiovascular: Regular rate, Normal S1, Normal S2, No murmurs Abdominal: Scaphoid, Active bowel sounds, Soft, no distention, G-tube in place Extremities: Red and edematous both upper limb improving swelling and 1 to 2+ edema in lower extremities, Skin: Decubitus ulcer on sacrum & redness on her chest, white macerated skin changes in both palms Neuro: Sedated, gag reflex intact, pupils are constricted but reactive General Appearance: Other (Intubated and sedated) HEENT: Atraumatic, PERRLA Lungs: Clear to auscultation, Normal air movement, Other (Mechanical ventilation) Chest/Breasts: Other (Chest tube. Continues to have small air leak) Cardiovascular: Normal S1, Normal S2 Abdomen: Normal bowel sounds, Soft, No tenderness, Other (PEG tube) Genitourinary: No Apparent Abnormalities (Billy catheter) Skin: Intact Psych/Mental Status: Mental status NL, Mood NL Medications Current Medications Medications Dose Ordered Sig/Agustín Route Start Time Stop Time Status Last Admin Dose Admin Midazolam HCl 50 ml @ 1 mls/hr Q24H IV 01/23/25 18:45 01/28/25 20:03 1 MLS/HR Norepinephrine Bitartrate 250 ml @ 3.75 mls/hr Q24H IV 01/23/25 22:00 02/03/25 21:18 3.75 MLS/HR Pantoprazole Sodium 40 mg DAILY IV 01/24/25 11:00 02/03/25 10:43 40 MG Piperacillin Sod/ Tazobactam Sod 100 ml @ 25 mls/hr Q8HR IV 01/24/25 14:00 02/04/25 06:15 25 MLS/HR Vancomycin HCl 0 ml @ 0 mls/hr UD IV 01/24/25 15:45 Purified Water 200 ml Q6HR GT 01/24/25 18:00 02/04/25 05:46 200 ML Levothyroxine Sodium 25 mcg QAM@0600 PO 01/25/25 06:00 02/04/25 05:37 25 MCG Albuterol 2.5 mg Q6HWA [facility] 01/24/25 18:00 02/04/25 06:26 2.5 MG Ipratropium [place] 0.5 mg Q6HPRN [facility] 01/24/25 18:00 02/04/25 06:28 0.5 MG Enteral Nutritional Formula 1,000 ml 30ML/HR GT 01/24/25 17:15 01/31/25 04:50 1,000 ML Fentanyl Citrate 250 ml @ 2.5 mls/hr Q24H IV 01/25/25 08:45 02/04/25 09:11 2.5 MLS/HR Vancomycin HCl 100 ml @ 200 mls/hr Q12H IV 01/28/25 18:00 02/04/25 05:37 200 MLS/HR Sodium Chloride 10 ml QSHIFT@10,22 IV 01/31/25 22:00 02/03/25 21:27 10 ML Enoxaparin Sodium 50 mg Q12HR SC 02/02/25 22:00 02/03/25 21:27 50 MG Laboratory Results Laboratory Tests 02/04/25 02:28 Chemistry Test 02/04/25 02:28 Albumin 2.1 g/dL (3.2-4.8) L Calcium Level 7.4 mg/dL (8.7-10.4) L Magnesium Level 1.8 mg/dL (1.6-2.6) Total Protein 3.5 g/dL (5.7-8.2) L LFT Test 02/04/25 02:28 Alanine Aminotransferase (ALT) < 9 U/L (7-40) Alkaline Phosphatase 93 U/L (46-116) Aspartate Amino Transferase (AST) 13 U/L (13-40) Total Bilirubin 0.3 mg/dL (0.2-1.0) Urinalysis Test 01/23/25 21:15 Urine Color Light-yellow (Yellow) Urine Clarity Clear (Clear) Urine pH 5.0 (5.0-9.0) Urine Specific [place] 1.017 (1.001-1.035) Urine Protein Trace (Negative) H Urine Ketones 1+ (Negative) H Urine Blood 2+ /uL (Negative) H Urine Nitrite Negative (Negative) Urine Bilirubin Negative (Negative) Urine Urobilinogen Normal mg/dL (Negative) Urine Leukocyte Esterase Negative /uL (Negative) Urine RBC 56 /hpf (0 - 4) Urine Microscopic WBC 2 /HPF (0-5) Urine Squamous Epithelial Cells Few /hpf (<5) Urine Bacteria None seen /hpf (None Seen) Urine Glucose Normal mg/dL (Normal) Blood Gas Results Test 02/04/25 07:45 Arterial Blood pH 7.431 (7.350-7.450) FiO2 % 30.0 Microbiology Microbiology Date/Time Source Procedure Growth Status 02/02/25 15:10 Blood Blood Culture - Preliminary NO GROWTH AFTER 24 HOURS OF INCUBATION. Resulted 01/27/25 20:00 Nose MRSA Screen - Final Methicillin Resistant S.aureus Complete 01/24/25 11:35 Voided Urine Urine Culture - Final Complete 01/23/25 18:39 Sputum Gram Stain - Final Complete 01/23/25 18:39 Respiratory Culture - Final Methicillin Resistant S.aureus Pseudomonas aeruginosa Complete Labs and/or images reviewed: Labs reviewed by me, Image(s) reviewed by me Assessment/Plan Assessment/Plan [employer] # Acute on chronic metabolic encephalopathy # Acute hypoxic encephalopathy # Alzheimer's dementia -head CT showed no acute changes -currently sedated -hold or stop home medications (donepezil, memantine) until she extubated CVS # ? Septic shock likely from pneumonia # Chronic diastolic CHF # HTN # Hx of complete heart block requiring temporary transcutaneous pacing in 2022 # Anterior apical and posterior large pericardial effusion but No tamponade noted- -hold BP meds -currently on Levophed -BNP -monitor continuously -fluid resuscitation 2-3 L in ED for shock -IV antibiotics Zosyn and vanc along with the pancultures - IVF d5w 1/2 75ml/hr Dc' d 01/27 -echo showed EF 65% with moderate diastolic dysfunction and mild pericardial effusion, consulted cardiology-no intervention for now RS # septic shock likely from aspiration pneumonia # Acute hypoxic respiratory failure likely from aspiration pneumonia status post intubation 01/23 # Aspiration pneumonia # MRSA PNA # Spont. Pneumothorax s/p chest tube - Today CXR showed Lft Pneumothorax, placed pigtail catheter, repeat cxr showed improvement in pneumothorax. - ICU status - On mechanical ventilation with vent settings are 14, tidal volume 350, FiO2 30%, peep 5 - respiratory cultures, Gram-positive and Gram-negative organisms - Initial CXR showed left hemithorax opacification and sequential CXR showed improvement left lung and mild congestion in both lungs. - - Ordered rapid COVID/flu test,negative - currently on vancomycin and Zosyn - breathing treatments - initial blood cultures 1 set showing budding yeast, repeat cultures - Resp cult showed MRSA. Continue vanc, micafungin and Zosyn. Monitor. - Final blood cultures 2 sets showing staph epidermidis and respiratory cultures showing MRSA and Pseudomonas so continuing vanc and Zosyn and Discontinued micafungin and repeated cultures -01/30 -discontinued central line, ordered PICC line, placed -ordered repeat blood cultures, preliminary no growth GI # severe protein calorie malnutrition -BMI 15 -nutritional consult -Start Jevity through G-tube /Endo/ Metabolic # acute complicated UTI-resolving -currently on Zosyn -UA findings normal -ordered urine culture # hypernatremia likely from dehydration -monitor lab -given boluses -Dc'd D5W 1/ NS 75 mL/hour -free water 200 mL q.6 G-tube # hypothyroidism -TSH elevated -levothyroxine 25 mcg # severe hypothermia on admission due to sepsis- warming measures ID # candidemia/fungemia-resolved -repeat cultures -micafungin 100 mg b.i.d. DC'd 01/30 # Bacteremia with staph homnis -vanc and zosyn -repeat cultures, preliminary no growth Heme-Onc # thrombocytopenia-improving -monitor lab for now -hold anticoagulants # left common & superficial femoral vein nonocclusive DVT - Duplesx showe following changes - No right femoropopliteal venous thrombosis. Possible new clot forming in the right common femoral vein .Rouleaux blood flow is noted throughout the right lower extremity. - Avascular collections noted in the popliteal fossa largest. - On the left common femoral vein contains nonocclusive deep venous thrombosis. There is nonocclusive deep venous thrombosis throughout the left superficial femoral vein. The left popliteal vein and trifurcation are not visible because of bandaging. - No anticoagulanunts because thrombocytopenia -started therapeutic Lovenox -continuously monitor lab # Hx left lower extremity DVT -started therapeutic Lovenox Skin # sacral decubitus ulcer likely stage 4 -wound consult PUD PPX: Protonix VTE PPX: Therapeutic Lovenox Diet: Jevity 30 mL/hour Drips Versed Levophed 14 off since 01/29 Lines Left IJ CVC-01/24-DC 01/31 PICC line placed on 01/31 Goals of care addressed with the patient michaelle Spence and daughter in law Susy Handy for more than 27 minutes: Chemical code and defib status Care plan updated with the Susy Handy and michaelle spence for more than 77 minutes bedside, regarding prognosis, current status and addressed all concerns On 01/26 discussion with patient michaelle Spence regarding code status, change her code to chemical code Family meeting with the michaelle Spence, addressed all concerns and explained the patient's situation and made them situation aware. Care plan updated to the michaelle Spence and family decided to tracheostomy and LTAC Plan discussed with: Other Date of Service: Feb 04, 2025 Billing Provider: ALBERTO BOOGIE MD Common Visit Codes: [id number] CARE 30-74 MIN ALBERTO BOOGIE MD Feb 04, 2025 10:12
--- NOTE | 2025-02-04 10:58 | DVHINCON2 ---
Date of service: Feb 04, 2025 Family History: Patient reports no known family medical history. Allergies: Coded Allergies: NO KNOWN ALLERGIES (Unverified , 06/29/21) Home Meds Active Scripts Cephalexin (KEFLEX CAPSULE) 250 Mg Cp, 500 MG PO TID for 7 Days, #21 CAP Prov:ESTEE WATTERS MD 09/10/23 Famotidine (Famotidine) 20 Mg Tab, 20 MG PO BID for 30 Days, #60 TAB Prov[facility]/08/23 Levothyroxine Sodium (Levothyroxine Sodium) 25 Mcg Tab, 25 MCG PO QAM for 30 Days, #30 TAB [facility]/08/23 Ergocalciferol (VITAMIN D 26547 UNIT) 50,000 [place], [address] UNIT PO Q7D for 30 Days, #4 CAP Prov[facility] 06/08/23 Acetaminophen (Acetaminophen) 325 Mg Tab, 650 MG PO Q6HP PRN for 30 Days, #240 TAB [facility] 06/08/23 Reported Medications Risperidone (Risperidone) 1 Mg Tab, 1 TAB PO BID 05/04/24 Donepezil Hydrochloride (DONEPEZIL HCL) 10 Mg Tab, 1 TAB PO DAILY 05/04/24 Memantine Hydrochloride (Memantine HCl) 5 Mg Tab, 10 TAB PO DAILY 05/04/24 Apixaban Base (ELIQUIS) 5 Mg Tab, 1 TAB PO BID 05/04/24 Risperidone (Risperidone) 1 Mg Tab, 1 TAB PO BID 09/04/23 Apixaban Base (ELIQUIS) 5 Mg Tab, 5 MG PO BID, TAB 05/10/22 Donepezil Hydrochloride (DONEPEZIL HCL) 10 Mg Tab, 10 MG PO HS for 30 Days, MG 05/10/22 Latanoprost (LATANOPROST) 0.005 % Joyce, 1 DROP EACHEYE QPM, #7.5 ML 3 Refills 05/10/22 Memantine Hydrochloride (Memantine HCl) 10 Mg Tab, 10 MG PO BID, TAB 05/10/22 Vital Signs Vital Signs Date Time Temp Pulse Resp B/P (MAP) Pulse Ox O2 Delivery O2 Flow Rate FiO2 02/04/25 10:35 78 19 103/50 (67) 100 30 02/04/25 08:14 Mechanical Ventilator+ 02/04/25 04:00 98.8 98.8 Labs/Diagnostic Data Labs Test 02/04/25 07:45 02/04/25 02:28 02/02/25 03:15 01/25/25 02:35 Range/Units Blood Gas Specimen Type Arterial Blood Gas Sample Site Left radial Blood Gas Patient Temperature 37.0 Arterial Blood Date Drawn [id number] Arterial Blood pH 7.431 7.350-7.450 Arterial Blood Partial Pressure CO2 44.8 32.0-45.0 mmHg Arterial Blood Partial Pressure O2 107.0 83.0-108.0 mmHg Arterial Blood HCO3 29.1 H 21.0-28.0 mmol/L Arterial Blood Oxygen Saturation 97.7 94.0-98.0 % Arterial Blood Base Excess 4.4 H -2.0-3.0 mmol/L Arterial Blood Oxyhemoglobin 97.0 94.0-98.0 % Arterial Blood Carboxyhemoglobin 0.4 L 0.5-1.5 % Arterial Blood Methemoglobin 0.3 0.0-1.5 % Con Test Modified Blood Gas Total Hemoglobin 8.70 L 12.0-16.0 g/dL Blood Gas Set Respiration Rate 16.0 Blood Gas Modality Vent - ac FiO2 % 30.0 Blood Gas Tidal Volume 350.0 Blood Gas PEEP or CPAP 5.0 White Blood Count 8.2 # 4.4-10.8 10^3/uL Red Blood Count 2.65 L 4.0-5.20 10^6/uL Hemoglobin 8.4 L 12.2-16.2 g/dL Hematocrit 24.1 L 36.0-46.0 % Mean Corpuscular Volume 91.0 80.0-100.0 fL Mean Corpuscular Hemoglobin 31.6 28.0-32.0 pg Mean Corpuscular Hemoglobin Concent 34.8 32.0-36.0 g/dL Red Cell Distribution Width 16.0 H 11.8-14.3 % Platelet Count 339 140-450 10^3/uL Mean Platelet Volume 7.2 6.9-10.8 fL Neutrophils (%) (Auto) 37.0-80.0 % Lymphocytes (%) (Auto) 10.0-50.0 % Monocytes (%) (Auto) 0.0-12.0 % Eosinophils (%) (Auto) 0.0-7.0 % Basophils (%) (Auto) 0.0-2.0 % Neutrophils # (Auto) 1.6-8.6 10 ^3/uL Lymphocytes # (Auto) 0.4-5.4 10 ^3/uL Monocytes # (Auto) 0-1.3 10 ^3/uL Differential Total Cells Counted 100.0 100 Neutrophils % (Manual) 47 37.0-80.0 Band Neutrophils % (Manual) 0 Lymphocytes % (Manual) 11 10.0-50.0 Monocytes % (Manual) 3 0-12 Eosinophils % (Manual) 39 H 0-7 Basophils % (Manual) 0 0.0-2.0 Metamyelocytes % (manual) 0 Myelocytes % (Manual) 0 Promyelocytes % (Manual) 0 Blast Cells % (Manual) 0 Reactive Lymphocytes 0 Platelet Estimate Adequate Sodium Level 144 136-145 mmol/L Potassium Level 3.8 3.5-5.1 mmol/L Chloride Level 108 H 98-107 mmol/L Carbon Dioxide Level 30 20-31 mmol/L Anion Gap 6 5-15 Blood Urea Nitrogen 11 9-23 mg/dL Creatinine 0.34 L 0.550-1.02 mg/dL Glomerular Filtration Rate Calc 103 >90 mL/min BUN/Creatinine Ratio 32.4 H 10.0-20.0 Serum Glucose 95 74-106 mg/dL Calcium Level 7.4 L 8.7-10.4 mg/dL Magnesium Level 1.8 1.6-2.6 mg/dL Total Bilirubin 0.3 0.2-1.0 mg/dL Aspartate Amino Transferase (AST) 13 13-40 U/L Alanine Aminotransferase (ALT) < 9 7-40 U/L Alkaline Phosphatase 93 46-116 U/L Total Protein 3.5 L 5.7-8.2 g/dL Albumin 2.1 L 3.2-4.8 g/dL Eosinophils # (Auto) 2.1 H 0-0.8 10 ^3/uL Basophils # (Auto) 0 0-0.2 10 ^3/uL Nucleated Red Blood Cells 0.1 % Vancomycin Level Trough 19.6 H 5-10 ug/mL Free Thyroxine (T4) Calculated 0.60 L 0.89-1.76 ng/dL Total Triiodothyronine (TT3) 0.60 0.60-1.81 ng/mL Random Vancomycin Level 7.0 5-10 ug/mL Test 01/24/25 13:05 01/24/25 11:42 01/24/25 08:15 01/24/25 07:50 Range/Units Prothrombin Time 13.0 H 9.3-11.8 sec Prothrombin Time INR 1.25 H 0.9-1.15 Activated Partial Thromboplast Time 32.9 24.5-34.5 SEC Lactic Acid Level 1.6 0.4-2.0 mmol/L Influenza Type A Antigen Negative Negative Influenza Type B Antigen Negative Negative SARS-CoV-2 Antigen (Rapid) Negative NEGATIVE HIV (1&2) Antibody Negative Negative Test 01/24/25 05:32 01/23/25 21:36 01/23/25 21:15 01/23/25 19:29 Range/Units B-Type Natriuretic Peptide 113.84 0-100 pg/mL Vitamin B12 Level 1315 H 211-911 pg/mL Thyroid Stimulating Hormone (TSH) 19.90 H 0.55-4.78 uIU/mL Hepatitis B Surface Antigen Negative Negative Hepatitis C Antibody Negative Negative Troponin I High Sensitivity 20 </=34 ng/L Urine Color Light-yellow Yellow Urine Clarity Clear Clear Urine pH 5.0 5.0-9.0 Urine Specific [place] 1.017 1.001-1.035 Urine Protein Trace H Negative Urine Ketones 1+ H Negative Urine Blood 2+ H Negative /uL Urine Nitrite Negative Negative Urine Bilirubin Negative Negative Urine Urobilinogen Normal Negative mg/dL Urine Leukocyte Esterase Negative Negative /uL Urine RBC 56 0 - 4 /hpf Urine Microscopic WBC 2 0-5 /HPF Urine Squamous Epithelial Cells Few <5 /hpf Urine Bacteria None seen None Seen /hpf Urine Glucose Normal Normal mg/dL Blood Gas Spontaneous Rate 14 Blood Gas Spontaneous Tidal Volume 329 Bl Gas Inspiratory/Expiratory Ratio 1:2.3 Specimen Drawn By kelley herrera rt Test 01/23/25 18:07 Range/Units Plasma/Serum Blood Alcohol 4.2 <10 mg/dL Microbiology Date/Time Source Procedure Growth Status 02/02/25 15:10 Blood Blood Culture - Preliminary NO GROWTH AFTER 24 HOURS OF INCUBATION. Resulted 01/27/25 20:00 Nose MRSA Screen - Final Methicillin Resistant S.aureus Complete 01/24/25 11:35 Voided Urine Urine Culture - Final Complete 01/23/25 18:39 Sputum Gram Stain - Final Complete 01/23/25 18:39 Respiratory Culture - Final Methicillin Resistant S.aureus Pseudomonas aeruginosa Complete Assessment PATENT IS INTUBATED, ACCORDING TO NURSE PT. HAS DEMENTIA AND IS NON VERBAL, ACCO RDING TO PATIENT'S NURSE WHEN GIVEN THE OPTIONS OF GIVING PATIENT ANOTHER TRACHEOSTOMY VS, TERMINAL WEAN, BY THE PRIMARY DOCTOR, FAMILY DECIDED TO HAVE PATIENT UNDERGO TRACHEOSTOMY. VENTILATOR SETTINGS ARE COMPATIBLE WITH SAFE CONDUCT OF TRACHEOSTOMY, WILL PROCEED ON Plan discussed with: Other TRINI STEPHEN MD Feb 04, 2025 10:58
--- NOTE | 2025-02-04 12:42 | DVHPN2 ---
Progress Note - Dictate Date Seen: Feb 04, 2025 Medical Necessity Reason Pt with a Central, PICC or Fol: Yes The following are medically ne: Central Line, Chao Catheter Reason for chao catheter: Strict I&O vital signs Vital Sign Date Time Temp Pulse Resp B/P (MAP) Pulse Ox O2 Delivery O2 Flow Rate FiO2 02/04/25 12:22 77 19 101/56 (71) 100 30 02/04/25 10:00 Mechanical Ventilator+ 02/04/25 08:00 97.6 97.6 Total Intake and Output 02/03/25 02/03/25 02/04/25 15:00 23:00 07:00 Intake Total 82.5 ml 926.25 ml 1074.0 ml Output Total 295 ml 470 ml Balance 82.5 ml 631.25 ml 604.0 ml medications Current Medications Medications Dose Ordered Sig/Agustín Route Start Time Stop Time Status Last Admin Dose Admin Midazolam HCl 50 ml @ 1 mls/hr Q24H IV 01/23/25 18:45 01/28/25 20:03 1 MLS/HR Norepinephrine Bitartrate 250 ml @ 3.75 mls/hr Q24H IV 01/23/25 22:00 02/03/25 21:18 3.75 MLS/HR Pantoprazole Sodium 40 mg DAILY IV 01/24/25 11:00 02/04/25 10:27 40 MG Piperacillin Sod/ Tazobactam Sod 100 ml @ 25 mls/hr Q8HR IV 01/24/25 14:00 02/04/25 06:15 25 MLS/HR Vancomycin HCl 0 ml @ 0 mls/hr UD IV 01/24/25 15:45 Purified Water 200 ml Q6HR GT 01/24/25 18:00 02/04/25 12:29 200 ML Levothyroxine Sodium 25 mcg QAM@0600 PO 01/25/25 06:00 02/04/25 05:37 25 MCG Albuterol 2.5 mg Q6HWA NEB 01/24/25 18:00 02/04/25 12:21 2.5 MG Ipratropium [place] 0.5 mg Q6HPRN NEB 01/24/25 18:00 02/04/25 12:22 0.5 MG Enteral Nutritional Formula 1,000 ml 30ML/HR GT 01/24/25 17:15 8/12/25 04:50 1,000 ML Fentanyl Citrate 250 ml @ 2.5 mls/hr Q24H IV 01/25/25 08:45 02/04/25 09:11 2.5 MLS/HR Vancomycin HCl 100 ml @ 200 mls/hr Q12H IV 01/28/25 18:00 02/04/25 05:37 200 MLS/HR Sodium Chloride 10 ml QSHIFT@10,22 IV 01/31/25 22:00 02/04/25 10:28 10 ML Enoxaparin Sodium 50 mg Q12HR SC 02/04/25 22:00 laboratory and microbiology Laboratory Tests 02/04/25 02:28 Test 02/04/25 02:28 Range/Units Serum Glucose 95 74-106 mg/dL Assessment/Plan Covering for Dr. Flynn Impression Acute hypoxemic respiratory failure Spontaneous left pneumothorax Altered mental status MRSA pneumonia UTI CVA Patient seen and examined in ICU Events On mechanical ventilation S/p intubation PEEP 5, FiO2 30% Off sedation, not waking up Labs and imaging reviewed ABG reviewed Management Vent support Titrate to maintain sats 90% or above When patient is more awake, proceed to weaning trial Pressure support 12/24, extubate when ready Continue antibiotics F/u cultures and ID Bronchodilators Monitor renal function Monitor electrolytes Supplement as needed Pressors as needed for hemodynamic support To maintain a mean arterial pressure of 65 mmHg DVT prophylaxis Critical care time 35 minutes Dietary Evaluation Review Comments: Pt meets criteria of Severe 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 Nutrition Recommendation 1) TF Jevity 1.2 Luis @ 30ml/hr along with Pro-stat 1 pk BID. Water flush 200ml Q6H if allowed, adjust PRN. Start @ 20ml/hr, increase 10ml/hr Q4H until goal is reached. TF @ goal volume along woth IVD5w 1/2 nS & Pro-stat provides 100% energy (1370 kcal) & 100% protein needs (70gm). Free water 581ml. 2) Consider TPN per pharmacy if pt cannot tolerate TF 3) Manuel 1 pk BID, Vit C 500mg BID, Zinc sulfate 220mg BID x 10 days, MVI w/ minerals 1 tab daily. 4) Monitor NPO status, TF tolerance, lab values, wt trend, I/O Expected Outcomes/Goals: Goal: 1) To maintain/gain weight 2) Intake to meet at least 75% estimated needs within 7 days follow up 2-3 days Interpretation of weight loss: up to 20% in 1 year Fluid Accumulation (Severe): Moderate Fluid Retention Protein Calorie Malnutrition: Severe Is there a minimum of two crit: Yes Plan discussed with: Patient JAZIEL OLIVEIRA MD Feb 04, 2025 12:42
[2025-02-04] MEDS: ENOXAPARIN SOD 60 MG/0.6 ML SYRINGE SC SCH (21:56)
[2025-02-05] VITALS (112 sets, daily range): BP systolic 78–137; BP diastolic 6–89; PULSE 68–122; RESP 9–26; TEMP 97.2–98.9; O2SAT 96–100
[2025-02-05 03:42] LABS: Hematocrit 26.1 % (36.0-46.0); Hemoglobin 8.9 g/dL (12.2-16.2); Mean Corpuscular Hemoglobin 31.6 pg (28.0-32.0); Mean Corpuscular Volume 92.9 fL (80.0-100.0)
[2025-02-05 03:58] LABS: INR 1.19 (0.9-1.15); Partial Thromboplastin Time 38.6 SEC (24.5-34.5); Prothrombin Time 12.4 sec (9.3-11.8)
[2025-02-05 06:31] LABS: Base Excess 4.0 mmol/L (-2.0-3.0)
[2025-02-05 06:41] LABS: Anisocytosis Slight; Total Cells Counted 100.0 (100)
--- NOTE | 2025-02-05 10:51 | DVHPN2 ---
Mary Drew Nilsa is a 79 years old female with a PMH of Alzheimer's dementia for 9 years, left lower extremity DVT since 30 years, HTN presented to the ED accompanied by family with a chief complaints of shortness of breath and altered level of consciousness which is unusual from her baseline since moaning on the day of admission. Patient is on mechanical ventilation so history obtained from the family, Patient recently admitted in the [facility] for UTI and pneumonia, discharged home on the Thursday with Augmentin and azithromycin but Thursday morning, family tries to wake her up the patient was found mouth open with a lot of secretions pooling in the back of throat and hearing gurgling sound and saturation showed very low, called EMS, by the time EMS reaches her pulse oximetry was showed saturation in 50s and on 15 L non-rebreather mask. On arrival to ED patient was intubated and on mechanical ventilation with vent settings of RR 14, VTE 350, FiO2 30% with a PEEP of 5 and due to low blood pressure patient was started on Levophed and sedated with Versed. According to family June of this year patient diagnosed as hemorrhagic stroke at [facility], intubated and then patient has want tracheostomy for 3 months and sent her to long-term nursing facility for 5 months and then she diagnosed with the COVID and MRSA and admitted in [facility], patient was initially on [facility] hospice and then later family decided to take her off of hospice and took her to home as she has been improving as compared to before until she admitted at [place]. 01/25- Continue vanc, micafungin and Zosyn, 1 set of blood cultures showed budding yeast, started on micafungin, ordered repeat cultures. Chest x-ray showing improvement but still some effusion. Code status flu test negative. Wound consult for decubitus ulcer, send cultures. 01/26 -Patient seen and examined at the bedside. Unable to obtain ROS due to patient's clinical status. Today CXR showed Lft Pneumothorax, placed pigtail catheter, repeat cxr showed improvement in pneumothorax. Resp cult showed MRSA. Continue vanc, micafungin and Zosyn. Monitor. spoken with the family regarding the code status and changed to chemical code. 01/27-01/29: CXR showed improvement in the pneumothorax. Consulted Cardiology for pericardial effusion, no intervention for now. Tried CPAP, failed 01/30: Final blood cultures 2 sets showing staph epidermidis and respiratory cultures showing MRSA and Pseudomonas so continuing vanc and Zosyn and Discontinued micafungin and repeated cultures 01/31: Repeat blood cultures still pending. Discontinued central line and ordered PICC line. Continuing current management 02/01:Repeat blood cultures showing G+ cocci clustures. Plcaed PICC yesterday. 02/02: she was running low DBP, added Levophed and discontinued eventually. Her platelet count is getting better so started therapeutic Lovenox for DVT and repeated blood cultures again. Correcting electrolytic imbalance. Continuously monitor. 02/03: Today patient seen and examined at the bedside. Unable to obtain ROS due to patient's clinical status. Overnight events reviewed, currently on MV RR 16, VTE 350, FiO2 30%, peep 5. Preliminary blood culture showed no growth. We will put back on sedation. Family decided to proceed with a tracheostomy and placement in LTAC., surgical consult placement for tracheostomy. 02/04: 79-year-old female history of dementia presented with worsening encephalopathy shortness of breath, here for aspiration pneumonia also has left pneumothorax chest tube currently placed no fluid drainage, no time billing either, pulmonology managing. Patient is also on vancomycin and Zosyn primary team is planned for tracheostomy as discussed with family and likely LTAC thereafter. Blood cultures multiple positives most recent negatives. Pericardial effusion also present. Patient looks 3rd spacing pitting edema upper extremities and legs. Urine output does not look adequate only 100 cc present in bag bedside. Mechanically ventilated a.c. 16/3 50/30%/5.0. Getting OG tube feeds enteral feeds. Drips include fentanyl, Zosyn, Levophed. Levophed at 4. Patient does open eyes to touch. 02/05: Patient did not pass CPAP trial yesterday. Remains intubated sedated. Ventilation settings a.c./16/3 50/30%/5.0. Patient has no vasopressor. Sedated with fentanyl. Vitals stable. On enteral feeds. Pupils are reactive. Surgery has plan for tracheostomy 02/06. Continue primary team's management. Continue IV antibiotics. Left chest tube has output today serous 550 cc. Reviewed: Care Plan, H&P, Labs, Medications Changes from previous H/P or p: No Changes General: Per HPI Objective Vitals Vital Signs Date Time Temp Pulse Resp B/P (MAP) Pulse Ox O2 Delivery O2 Flow Rate FiO2 02/05/25 09:40 80 16 110/81 (91) 100 30 02/05/25 08:20 Mechanical Ventilator+ 02/05/25 08:00 97.9 97.9 Intake/Output Intake and Output 02/05/25 07:00 Intake Total 2114.50 ml Output Total 768 ml Balance 1346.50 ml Intake Oral 400 ml IV Total 662.50 ml Tube Feeding 652 ml Other 400 ml Output Urine Total 525 ml Chest Tube Drainage Total 243 ml Exam General Appearance: Sedated, severely malnourished HEENT: Atraumatic, Mucous membranes moist/pink Respiratory: decraesed breath sounds mostly left side Cardiovascular: Regular rate, Normal S1, Normal S2, No murmurs Abdominal: Scaphoid, Active bowel sounds, Soft, no distention, G-tube in place Extremities: Red and edematous both upper limb improving swelling and 1 to 2+ edema in lower extremities, Skin: Decubitus ulcer on sacrum & redness on her chest, white macerated skin changes in both palms Neuro: Sedated, gag reflex intact, pupils are constricted but reactive General Appearance: Other (Intubated and sedated) HEENT: Atraumatic, PERRLA Lungs: Clear to auscultation, Normal air movement, Other (Mechanical ventilation) Chest/Breasts: Other (Chest tube. Continues to have small air leak) Cardiovascular: Normal S1, Normal S2 Abdomen: Normal bowel sounds, Soft, No tenderness, Other (PEG tube) Genitourinary: No Apparent Abnormalities (Billy catheter) Skin: Intact Psych/Mental Status: Mental status NL, Mood NL Medications Current Medications Medications Dose Ordered Sig/Agustín Route Start Time Stop Time Status Last Admin Dose Admin Midazolam HCl 50 ml @ 1 mls/hr Q24H IV 01/23/25 18:45 01/28/25 20:03 1 MLS/HR Norepinephrine Bitartrate 250 ml @ 3.75 mls/hr Q24H IV 01/23/25 22:00 02/03/25 21:18 3.75 MLS/HR Pantoprazole Sodium 40 mg DAILY IV 01/24/25 11:00 02/04/25 10:27 40 MG Piperacillin Sod/ Tazobactam Sod 100 ml @ 25 mls/hr Q8HR IV 01/24/25 14:00 02/05/25 05:28 25 MLS/HR Vancomycin HCl 0 ml @ 0 mls/hr UD IV 01/24/25 15:45 Purified Water 200 ml Q6HR GT 01/24/25 18:00 02/05/25 05:27 200 ML Levothyroxine Sodium 25 mcg QAM@0600 PO 01/25/25 06:00 02/05/25 05:43 25 MCG Albuterol 2.5 mg Q6HWA NEB 01/24/25 18:00 02/05/25 06:10 2.5 MG Ipratropium [place] 0.5 mg Q6HPRN NEB 01/24/25 18:00 02/05/25 06:10 0.5 MG Enteral Nutritional Formula 1,000 ml 30ML/HR GT 01/24/25 17:15 01/31/25 04:50 1,000 ML Fentanyl Citrate 250 ml @ 2.5 mls/hr Q24H IV 01/25/25 08:45 02/05/25 05:37 12.5 MLS/HR Vancomycin HCl 100 ml @ 200 mls/hr Q12H IV 01/28/25 18:00 02/05/25 07:14 200 MLS/HR Sodium Chloride 10 ml QSHIFT@10,22 IV 01/31/25 22:00 02/04/25 21:56 10 ML Enoxaparin Sodium 50 mg Q12HR SC 02/04/25 22:00 02/04/25 21:56 50 MG Laboratory Results Laboratory Tests 02/04/25 02:28 02/05/25 03:10 Coagulation Test 02/05/25 03:10 Prothrombin Time 12.4 sec (9.3-11.8) H Prothrombin Time INR 1.19 (0.9-1.15) H Activated Partial Thromboplast Time 38.6 SEC (24.5-34.5) H Urinalysis Test 01/23/25 21:15 Urine Color Light-yellow (Yellow) Urine Clarity Clear (Clear) Urine pH 5.0 (5.0-9.0) Urine Specific [place] 1.017 (1.001-1.035) Urine Protein Trace (Negative) H Urine Ketones 1+ (Negative) H Urine Blood 2+ /uL (Negative) H Urine Nitrite Negative (Negative) Urine Bilirubin Negative (Negative) Urine Urobilinogen Normal mg/dL (Negative) Urine Leukocyte Esterase Negative /uL (Negative) Urine RBC 56 /hpf (0 - 4) Urine Microscopic WBC 2 /HPF (0-5) Urine Squamous Epithelial Cells Few /hpf (<5) Urine Bacteria None seen /hpf (None Seen) Urine Glucose Normal mg/dL (Normal) Blood Gas Results Test 02/05/25 06:27 Arterial Blood pH 7.388 (7.350-7.450) FiO2 % 30.0 Microbiology Microbiology Date/Time Source Procedure Growth Status 02/02/25 15:10 Blood Blood Culture - Preliminary NO GROWTH AFTER 48 HOURS OF INCUBATION. Resulted 01/27/25 20:00 Nose MRSA Screen - Final Methicillin Resistant S.aureus Complete 01/24/25 11:35 Voided Urine Urine Culture - Final Complete 01/23/25 18:39 Sputum Gram Stain - Final Complete 01/23/25 18:39 Respiratory Culture - Final Methicillin Resistant S.aureus Pseudomonas aeruginosa Complete Labs and/or images reviewed: Labs reviewed by me, Image(s) reviewed by me Assessment/Plan Assessment/Plan HOSPITAL UNIT COORDINATOR # Acute on chronic metabolic encephalopathy # Acute hypoxic encephalopathy # Alzheimer's dementia -head CT showed no acute changes -currently sedated -hold or stop home medications (donepezil, memantine) until she extubated CVS # ? Septic shock likely from pneumonia # Chronic diastolic CHF # HTN # Hx of complete heart block requiring temporary transcutaneous pacing in 2022 # Anterior apical and posterior large pericardial effusion but No tamponade noted- -hold BP meds -currently on Levophed -BNP -monitor continuously -fluid resuscitation 2-3 L in ED for shock -IV antibiotics Zosyn and vanc along with the pancultures - IVF d5w 1/2 75ml/hr Dc' d 01/27 -echo showed EF 65% with moderate diastolic dysfunction and mild pericardial effusion, consulted cardiology-no intervention for now RS # septic shock likely from aspiration pneumonia # Acute hypoxic respiratory failure likely from aspiration pneumonia status post intubation 01/23 # Aspiration pneumonia # MRSA PNA # Spont. Pneumothorax s/p chest tube - Today CXR showed Lft Pneumothorax, placed pigtail catheter, repeat cxr showed improvement in pneumothorax. - ICU status - On mechanical ventilation with vent settings are 14, tidal volume 350, FiO2 30%, peep 5 - respiratory cultures, Gram-positive and Gram-negative organisms - Initial CXR showed left hemithorax opacification and sequential CXR showed improvement left lung and mild congestion in both lungs. - - Ordered rapid COVID/flu test,negative - currently on vancomycin and Zosyn - breathing treatments - initial blood cultures 1 set showing budding yeast, repeat cultures - Resp cult showed MRSA. Continue vanc, micafungin and Zosyn. Monitor. - Final blood cultures 2 sets showing staph epidermidis and respiratory cultures showing MRSA and Pseudomonas so continuing vanc and Zosyn and Discontinued micafungin and repeated cultures -01/30 -discontinued central line, ordered PICC line, placed -ordered repeat blood cultures, preliminary no growth GI # severe protein calorie malnutrition -BMI 15 -nutritional consult -Start Jevity through G-tube /Endo/ Metabolic # acute complicated UTI-resolving -currently on Zosyn -UA findings normal -ordered urine culture # hypernatremia likely from dehydration -monitor lab -given boluses -Dc'd D5W 1/2 NS 75 mL/hour -free water 200 mL q.6 G-tube # hypothyroidism -TSH elevated -levothyroxine 25 mcg # severe hypothermia on admission due to sepsis- warming measures ID # candidemia/fungemia-resolved -repeat cultures -micafungin 100 mg b.i.d. DC'd 01/30 # Bacteremia with staph homnis -vanc and zosyn -repeat cultures, preliminary no growth Heme-Onc # thrombocytopenia-improving -monitor lab for now -hold anticoagulants # left common & superficial femoral vein nonocclusive DVT - Duplesx showe following changes - No right femoropopliteal venous thrombosis. Possible new clot forming in the right common femoral vein .Rouleaux blood flow is noted throughout the right lower extremity. - Avascular collections noted in the popliteal fossa largest. - On the left common femoral vein contains nonocclusive deep venous thrombosis. There is nonocclusive deep venous thrombosis throughout the left superficial femoral vein. The left popliteal vein and trifurcation are not visible because of bandaging. - No anticoagulanunts because thrombocytopenia -started therapeutic Lovenox -continuously monitor lab # Hx left lower extremity DVT -started therapeutic Lovenox Skin # sacral decubitus ulcer likely stage 4 -wound consult PUD PPX: Protonix VTE PPX: Therapeutic Lovenox Diet: Jevity 30 mL/hour Drips Versed Levophed 14 off since 01/29 Lines Left IJ CVC-01/24-DC 01/31 PICC line placed on 01/31 Goals of care addressed with the patient michaelle Spence and daughter in law Susy Handy for more than 27 minutes: Chemical code and defib status Care plan updated with the Susy Handy and michaelle spence for more than 77 minutes bedside, regarding prognosis, current status and addressed all concerns On 01/26 discussion with patient michaelle Spence regarding code status, change her code to chemical code Family meeting with the michaelle Spence, addressed all concerns and explained the patient's situation and made them situation aware. Care plan updated to the michaelle Spence and family decided to tracheostomy and LTAC Plan discussed with: Other Date of Service: Feb 05, 2025 Billing Provider: ALBERTO BOOGIE MD Common Visit Codes: [id number] CARE 30-74 MIN ALBERTO BOOGIE MD Feb 05, 2025 10:51
--- NOTE | 2025-02-05 14:36 | DVHPN2 ---
Progress Note - Dictate Date Seen: Feb 05, 2025 Medical Necessity Reason Pt with a Central, PICC or Fol: Yes The following are medically ne: Central Line, Chao Catheter Reason for chao catheter: Strict I&O vital signs Vital Sign Date Time Temp Pulse Resp B/P (MAP) Pulse Ox O2 Delivery O2 Flow Rate FiO2 02/05/25 14:07 109 26 98/55 (69) 100 30 02/05/25 14:00 Mechanical Ventilator+ 02/05/25 08:00 97.9 97.9 Total Intake and Output 02/04/25 02/04/25 02/05/25 15:00 23:00 07:00 Intake Total 267.50 ml 899.50 ml 960.0 ml Output Total 443 ml 325 ml Balance 267.50 ml 456.50 ml 635.0 ml medications Current Medications Medications Dose Ordered Sig/Agustín Route Start Time Stop Time Status Last Admin Dose Admin Midazolam HCl 50 ml @ 1 mls/hr Q24H IV 01/23/25 18:45 01/28/25 20:03 1 MLS/HR Norepinephrine Bitartrate 250 ml @ 3.75 mls/hr Q24H IV 01/23/25 22:00 02/05/25 13:02 3.75 MLS/HR Pantoprazole Sodium 40 mg DAILY IV 01/24/25 11:00 02/05/25 11:02 40 MG Piperacillin Sod/ Tazobactam Sod 100 ml @ 25 mls/hr Q8HR IV 01/24/25 14:00 02/05/25 14:19 25 MLS/HR Vancomycin HCl 0 ml @ 0 mls/hr UD IV 01/24/25 15:45 Purified Water 200 ml Q6HR GT 01/24/25 18:00 02/05/25 12:01 200 ML Levothyroxine Sodium 25 mcg QAM@0600 PO 01/25/25 06:00 02/05/25 05:43 25 MCG Albuterol 2.5 mg Q6HWA NEB 01/24/25 18:00 02/05/25 11:56 2.5 MG Ipratropium [place] 0.5 mg Q6HPRN NEB 01/24/25 18:00 02/05/25 11:56 0.5 MG Enteral Nutritional Formula 1,000 ml 30ML/HR GT 01/24/25 17:15 01/31/25 04:50 1,000 ML Fentanyl Citrate 250 ml @ 2.5 mls/hr Q24H IV 01/25/25 08:45 02/05/25 05:37 12.5 MLS/HR Vancomycin HCl 100 ml @ 200 mls/hr Q12H IV 01/28/25 18:00 02/05/25 07:14 200 MLS/HR Sodium Chloride 10 ml QSHIFT@10,22 IV 01/31/25 22:00 02/05/25 11:03 10 ML Enoxaparin Sodium 50 mg Q12HR SC 02/04/25 22:00 02/05/25 11:03 50 MG laboratory and microbiology Laboratory Tests 02/05/25 03:10 02/04/25 02:28 Test 02/04/25 02:28 Range/Units Serum Glucose 95 74-106 mg/dL Assessment/Plan Covering for Dr. Flynn Impression Acute hypoxemic respiratory failure Spontaneous left pneumothorax Altered mental status MRSA pneumonia UTI CVA Patient seen and examined in ICU Events On mechanical ventilation S/p intubation PEEP 5, FiO2 30% Off sedation more than 24 hours Mental status prohibitive Labs and imaging reviewed ABG reviewed Management Vent support Titrate to maintain sats 90% or above When patient is more awake, proceed to weaning trial Pressure support 12/24, extubate when ready Continue antibiotics F/u cultures and ID Bronchodilators Monitor renal function Monitor electrolytes Supplement as needed Pressors as needed for hemodynamic support To maintain a mean arterial pressure of 65 mmHg DVT prophylaxis Critical care time 35 minutes Dietary Evaluation Review Comments: Pt meets criteria of Severe 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 Nutrition Recommendation 1) TF Jevity 1.2 Luis @ 30ml/hr along with Pro-stat 1 pk BID. Water flush 200ml Q6H if allowed, adjust PRN. Start @ 20ml/hr, increase 10ml/hr Q4H until goal is reached. TF @ goal volume along woth IVD5w 1/2 nS & Pro-stat provides 100% energy (1370 kcal) & 100% protein needs (70gm). Free water 581ml. 2) Consider TPN per pharmacy if pt cannot tolerate TF 3) Manuel 1 pk BID, Vit C 500mg BID, Zinc sulfate 220mg BID x 10 days, MVI w/ minerals 1 tab daily. 4) Monitor NPO status, TF tolerance, lab values, wt trend, I/O Expected Outcomes/Goals: Goal: 1) To maintain/gain weight 2) Intake to meet at least 75% estimated needs within 7 days follow up 2-3 days Interpretation of weight loss: up to 20% in 1 year Fluid Accumulation (Severe): Moderate Fluid Retention Protein Calorie Malnutrition: Severe Is there a minimum of two crit: Yes Plan discussed with: Other (Rn) JAZIEL OLIVEIRA MD Feb 05, 2025 14:36
[2025-02-06] VITALS (103 sets, daily range): BP systolic 71–156; BP diastolic 34–108; PULSE 62–112; RESP 3–23; TEMP 93.9–98.7; O2SAT 86–100
[2025-02-06 04:10] LABS: Hematocrit 22.7 % (36.0-46.0); Hemoglobin 7.8 g/dL (12.2-16.2); Mean Corpuscular Hemoglobin 31.4 pg (28.0-32.0); Mean Corpuscular Volume 91.8 fL (80.0-100.0)
[2025-02-06 04:17] LABS: INR 1.14 (0.9-1.15); Partial Thromboplastin Time 33.6 SEC (24.5-34.5); Prothrombin Time 11.9 sec (9.3-11.8)
[2025-02-06 04:26] LABS: Alkaline Phosphatase 91 U/L (46-116)
[2025-02-06 04:27] LABS: Anion Gap 5 (5-15); BUN/Creatinine Ratio 39.4 (10.0-20.0); Blood Urea Nitrogen 13 mg/dL (9-23); Carbon Dioxide 30 mmol/L (20-31); Glucose 75 mg/dL (74-106); Potassium 3.8 mmol/L (3.5-5.1); Sodium 143 mmol/L (136-145)
[2025-02-06 04:30] LABS: Alanine Aminotransferase < 9 U/L (7-40); Albumin 1.9 g/dL (3.2-4.8); Bilirubin, Total 0.2 mg/dL (0.2-1.0); Calcium 7.1 mg/dL (8.7-10.4); Chloride 108 mmol/L (98-107); Total Protein 3.3 g/dL (5.7-8.2)
[2025-02-06 04:54] LABS: Total Cells Counted 100.0 (100)
--- NOTE | 2025-02-06 05:04 | DVH ---
CHEST RADIOGRAPH Indication: SURGERY SCHEDULED IN THE AM Technique: Single frontal view of the chest was obtained COMPARISON: XY CHEST PORTABLE on DOS: 02/04/25, XY CHEST PORTABLE on DOS: 02/03/25, XY CHEST PORTABLE o n DOS: 02/02/25, XY CHEST PORTABLE on DOS: 02/01/25, XY CHEST PORTABLE on DOS: 01/31/25 FINDINGS: Lines and Tubes: Unchanged. Lungs: Progressive interval decrease in small bilateral pleural effusions with left basilar small bor e chest tube in-situ. No pneumothorax. Cardiomediastinal contours: Unremarkable Bones: Unremarkable IMPRESSION: 1. Progressive interval decrease in small bilateral pleural effusions. 2. Lines and tubes unchanged.
[2025-02-06] MEDS: POTASSIUM CHL 20MEQ/100ML 100 ML IV ONE (06:13)
[2025-02-06] MEDS ORDERED: HYDROmorphone HCL 2 MG/ML VL/or syr ONE (09:21)
[2025-02-06] MEDS ORDERED: fentaNYL CITRATE 100 MCG/2 ML VL ONE (09:21)
[2025-02-06] MEDS ORDERED: MIDAZOLAM HCL 2MG/2ML 2ml VIAL (1mg/ml) ONE (09:21)
--- NOTE | 2025-02-06 10:35 | DVHOP ---
DATE OF SURGERY: 02/06/2025 PREOPERATIVE DIAGNOSIS: Ventilator-dependent respiratory failure. POSTOPERATIVE DIAGNOSIS: Ventilator-dependent respiratory failure. SURGEON: Micky Slater MD DOCUMENT PROCESSING SPECIALIST: Fernandez Calvillo NP ANESTHESIA: General endotracheal. ANESTHESIOLOGIST: Dr. Paris. PROCEDURE: Tracheostomy. DESCRIPTION OF PROCEDURE: Under adequate anesthesia with the patient's skin prepped and draped, an anterior cervical incision was made above the preexisting scar from a previous tracheostomy. Strap muscles were divided in the midline. The tissue swept sideways. The thyroid was displaced inferiorly. The tracheal rings were incised between the 4th and 5th ring and the tracheotomy was dilated. Subsequently, the endotracheal tube was being withdrawn with the patient being ventilated by room air to minimize the likelihood of an airway fire. The size 7.5 tracheostomy tube was advanced through the tracheotomy into its final position. Upon reaching its final position, after removing the endotracheal tube, there was an immediate recapture of CO2 and returned to adequate ventilation. The tube was secured with insufflation of the cuff with 7 mL of air, 2 interrupted 2-0 Prolene sutures, and a circumferential umbilical tape. The patient remained in same, unchanged condition. At the termination of the procedure, left the operating room following an accurate needle and sponge counts. There was no family member in the waiting room and no one answered the home phone number. Chest x-ray was ordered and is pending at the time of this dictation. Micky Slater MD PF/CARLENE TID: [id number] RECEIPT: [id number]
--- NOTE | 2025-02-06 10:50 | DVH ---
EXAM: XY CHEST PORTABLE HISTORY: POST TRACHEOSTOMY COMPARISON: XY CHEST PORTABLE on DOS: 02/06/25, XY CHEST PORTABLE on DOS: 02/04/25, XY CHEST PORTABLE o n DOS: 02/03/25, XY CHEST PORTABLE on DOS: 02/02/25, XY CHEST PORTABLE on DOS: 02/01/25 TECHNIQUE: Portable AP view of the chest was performed. FINDINGS: There has been interval removal of the endotracheal tube and interval placement of a tracheostomy tub e. Left upper extremity PICC line and left lower chest small bore pigtail thoracostomy tube are re-i dentified. There are mild infiltrates in the lung bases, stable. No pneumothorax, new infiltrates, or pulmonary edema. The heart is not enlarged. The aortic arch is calcific. There is thoracic degenera tive disc disease. There is Thoracolumbar dextroscoliosis. IMPRESSION: 1. Interval placement of tracheostomy tube and removal of endotracheal tube. 2. Mild bilateral lung base infiltrates. 3. No residual left pneumothorax is visualized, with left basilar thoracostomy tube remaining in plac e.
--- NOTE | 2025-02-06 17:34 | DVHPNRES ---
Progress Note Date Seen: Feb 06, 2025 Resident Creating Document: HARI FRITZ RESIDENT Medical Necessity Reason Pt with a Central, PICC or Fol: Yes The following are medically ne: Central Line, Chao Catheter Reason for chao catheter: Strict I&O Subjective Review of Systems Mary Handy is a 79 years old female with a PMH of Alzheimer's dementia for 9 years, left lower extremity DVT since 30 years, HTN presented to the ED accompanied by family with a chief complaints of shortness of breath and altered level of consciousness which is unusual from her baseline since moaning on the day of admission. Patient is on mechanical ventilation so history obtained from the family, Patient recently admitted in the [facility] for UTI and pneumonia, discharged home on the Thursday with Augmentin and azithromycin but Thursday morning, family tries to wake her up the patient was found mouth open with a lot of secretions pooling in the back of throat and hearing gurgling sound and saturation showed very low, called EMS, by the time EMS reaches her pulse oximetry was showed saturation in 50s and on 15 L non-rebreather mask. On arrival to ED patient was intubated and on mechanical ventilation with vent settings of RR 14, VTE 350, FiO2 30% with a PEEP of 5 and due to low blood pressure patient was started on Levophed and sedated with Versed. According to family June of this year patient diagnosed as hemorrhagic stroke at [facility], intubated and then patient has want tracheostomy for 3 months and sent her to long-term nursing facility for 5 months and then she diagnosed with the COVID and MRSA and admitted in [facility], patient was initially on [facility] hospice and then later family decided to take her off of hospice and took her to home as she has been improving as compared to before until she admitted at [place]. 01/25- Continue vanc, micafungin and Zosyn, 1 set of blood cultures showed budding yeast, started on micafungin, ordered repeat cultures. Chest x-ray showing improvement but still some effusion. Code status flu test negative. Wound consult for decubitus ulcer, send cultures. 01/26 -Patient seen and examined at the bedside. Unable to obtain ROS due to patient's clinical status. Today CXR showed Lft Pneumothorax, placed pigtail catheter, repeat cxr showed improvement in pneumothorax. Resp cult showed MRSA. Continue vanc, micafungin and Zosyn. Monitor. spoken with the family regarding the code status and changed to chemical code. 01/27-01/29: CXR showed improvement in the pneumothorax. Consulted Cardiology for pericardial effusion, no intervention for now. Tried CPAP, failed 01/30: Final blood cultures 2 sets showing staph epidermidis and respiratory cultures showing MRSA and Pseudomonas so continuing vanc and Zosyn and Discontinued micafungin and repeated cultures 01/31: Repeat blood cultures still pending. Discontinued central line and ordered PICC line. Continuing current management 02/01:Repeat blood cultures showing G+ cocci clustures. Plcaed PICC yesterday. 02/02: she was running low DBP, added Levophed and discontinued eventually. Her platelet count is getting better so started therapeutic Lovenox for DVT and repeated blood cultures again. Correcting electrolytic imbalance. Continuously monitor. 02/03: Overnight events reviewed, currently on MV RR 16, VTE 350, FiO2 30%, peep 5. Preliminary blood culture showed no growth. We will put back on sedation. Family decided to proceed with a tracheostomy and placement in LTAC., surgical consult placement for tracheostomy. Today patient seen and examined at the bedside. Unable to obtain ROS due to patient's clinical status. Overnight events reviewed, currently on MV RR 16, VTE 350, FiO2 30%, peep 5. Status post tracheostomy day 0, patient tolerated the procedure well. Today patient has been developing AFib but rate controlled. We will resume Lovenox tomorrow. SS consult for LTAC placement. Continue current management. Objective vital signs Vital Sign Date Time Temp Pulse Resp B/P (MAP) Pulse Ox O2 Delivery O2 Flow Rate FiO2 02/06/25 16:31 80 12 106/66 (79) 100 02/06/25 16:01 97.7 97.7 02/06/25 16:00 30 02/06/25 16:00 Mechanical Ventilator+ Total Intake and Output 02/05/25 02/05/25 02/06/25 15:00 23:00 07:00 Intake Total 318.75 ml 845.0 ml 651.25 ml Output Total 480 ml 380 ml Balance 318.75 ml 365.0 ml 271.25 ml medications Current Medications Medications Dose Ordered Sig/Agustín Route Start Time Stop Time Status Last Admin Dose Admin Midazolam HCl 50 ml @ 1 mls/hr Q24H IV 01/23/25 18:45 01/28/25 20:03 1 MLS/HR Norepinephrine Bitartrate 250 ml @ 3.75 mls/hr Q24H IV 01/23/25 22:00 02/05/25 13:02 3.75 MLS/HR Pantoprazole Sodium 40 mg DAILY IV 01/24/25 11:00 02/06/25 10:00 40 MG Piperacillin Sod/ Tazobactam Sod 100 ml @ 25 mls/hr Q8HR IV 01/24/25 14:00 02/06/25 06:13 25 MLS/HR Vancomycin HCl 0 ml @ 0 mls/hr UD IV 01/24/25 15:45 Purified Water 200 ml Q6HR GT 01/24/25 18:00 02/06/25 12:12 200 ML Levothyroxine Sodium 25 mcg QAM@0600 PO 01/25/25 06:00 02/06/25 06:13 25 MCG Albuterol 2.5 mg Q6HWA NEB 01/24/25 18:00 02/06/25 11:54 2.5 MG Ipratropium [place] 0.5 mg Q6HPRN NEB 01/24/25 18:00 02/06/25 11:54 0.5 MG Enteral Nutritional Formula 1,000 ml 30ML/HR GT 01/24/25 17:15 01/31/25 04:50 1,000 ML Fentanyl Citrate 250 ml @ 2.5 mls/hr Q24H IV 01/25/25 08:45 02/05/25 22:55 12.5 MLS/HR Vancomycin HCl 100 ml @ 200 mls/hr Q12H IV 01/28/25 18:00 02/06/25 06:00 200 MLS/HR Sodium Chloride 10 ml QSHIFT@10,22 IV 01/31/25 22:00 02/06/25 10:00 10 ML Enoxaparin Sodium 50 mg Q12HR SC 02/04/25 22:00 02/05/25 21:56 50 MG Examination Pt is lying on bed, sedated General Appearance: Sedated, severely malnourished HEENT: Atraumatic, Mucous membranes moist/pink, tracheostomy tube placement. Respiratory: decraesed breath sounds mostly left side Cardiovascular: Regular rate, Normal S1, Normal S2, No murmurs Abdominal: Scaphoid, Active bowel sounds, Soft, no distention, G-tube in place Extremities: Red and edematous both upper limb improving swelling and 1 to 2+ edema in lower extremities, Skin: Decubitus ulcer on sacrum & redness on her chest, white macerated skin changes in both palms Neuro: Sedated, gag reflex intact, pupils are constricted but reactive Nurse was there as hole puncher strap during examination laboratory and microbiology Laboratory Tests 02/06/25 03:18 Test 02/06/25 03:18 Range/Units Serum Glucose 75 74-106 mg/dL Microbiology Date/Time Source Procedure Growth Status 02/02/25 15:10 Blood Blood Culture - Preliminary NO GROWTH AFTER 72 HOURS OF INCUBATION. 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 Septic shock likely from pneumonia # Chronic diastolic CHF # HTN # Hx of complete heart block requiring temporary transcutaneous pacing in 2022 # Anterior apical and posterior large pericardial effusion but No tamponade noted- -hold BP meds -currently on Levophed -BNP -monitor continuously -fluid resuscitation 2-3 L in ED for shock -IV antibiotics Zosyn and vanc along with the pancultures - IVF d5w 1/2 75ml/hr Dc' d 01/27 -echo showed EF 65% with moderate diastolic dysfunction and mild pericardial effusion, consulted cardiology-no intervention for now RS # septic shock likely from aspiration pneumonia # Acute hypoxic respiratory failure likely from aspiration pneumonia status post intubation 01/23 # Aspiration pneumonia # MRSA PNA # Spont. Pneumothorax s/p chest tube - Today CXR showed Lft Pneumothorax, placed pigtail catheter, repeat cxr showed improvement in pneumothorax. - ICU status - On mechanical ventilation with vent settings are 14, tidal volume 350, FiO2 30%, peep 5 - respiratory cultures, Gram-positive and Gram-negative organisms - Initial CXR showed left hemithorax opacification and sequential CXR showed improvement left lung and mild congestion in both lungs. - - Ordered rapid COVID/flu test,negative - currently on vancomycin and Zosyn - breathing treatments - initial blood cultures 1 set showing budding yeast, repeat cultures - Resp cult showed MRSA. Continue vanc, micafungin and Zosyn. Monitor. - Final blood cultures 2 sets showing staph epidermidis and respiratory cultures showing MRSA and Pseudomonas so continuing vanc and Zosyn and Discontinued micafungin and repeated cultures -01/30 -discontinued central line, ordered PICC line, placed -ordered repeat blood cultures, preliminary no growth -day 0 status post tracheostomy tube placement. GI # severe protein calorie malnutrition -BMI 15 -nutritional consult -Start Jevity through G-tube /Endo/ Metabolic # acute complicated UTI-resolving -currently on Zosyn -UA findings normal -ordered urine culture # hypernatremia likely from dehydration -monitor lab -given boluses -Dc'd D5W 1/2 NS 75 mL/hour -free water 200 mL q.6 G-tube # hypothyroidism -TSH elevated -levothyroxine 25 mcg # severe hypothermia on admission due to sepsis- warming measures ID # candidemia/fungemia-resolved -repeat cultures -micafungin 100 mg b.i.d. DC'd 01/30 # Bacteremia with staph homnis -vanc and zosyn -repeat cultures, preliminary no growth Heme-Onc # thrombocytopenia-improving -monitor lab for now -hold anticoagulants # left common & superficial femoral vein nonocclusive DVT - Duplesx showe following changes - No right femoropopliteal venous thrombosis. Possible new clot forming in the right common femoral vein .Rouleaux blood flow is noted throughout the right lower extremity. - Avascular collections noted in the popliteal fossa largest. - On the left common femoral vein contains nonocclusive deep venous thrombosis. There is nonocclusive deep venous thrombosis throughout the left superficial femoral vein. The left popliteal vein and trifurcation are not visible because of bandaging. - No anticoagulanunts because thrombocytopenia -started therapeutic Lovenox -continuously monitor lab # Hx left lower extremity DVT -started therapeutic Lovenox Skin # sacral decubitus ulcer likely stage 4 -wound consult PUD PPX: Protonix VTE PPX: Therapeutic Lovenox Diet: Jevity 30 mL/hour Drips Versed Levophed 14 off since 01/29 Lines Left IJ CVC-01/24-DC 01/31 PICC line placed on 01/31 Tracheostomy 02/06 Goals of care addressed with the patient max Spence and daughter in law Susy Handy for more than 27 minutes: Chemical code and defib status Care plan updated with the Susy Handy and max spence for more than 77 minutes bedside, regarding prognosis, current status and addressed all concerns On 01/26 discussion with patient max pSence regarding code status, change her code to chemical code Family meeting with the max Spence, addressed all concerns and explained the patient's situation and made them situation aware. Care plan updated to the max Spence about status post tracheostomy, social media developer on board for LTAC placement. Case discussed with Critical care time spent excluding procedures >93 minutes. Plan discussed with: Max My Orders My Orders Orders - HARI FRITZ RESIDENT Procedure Category Date Status Time * Homebound Teacher CONS 02/06/25 Transmitted Consult Electrocardigram EKG 02/06/25 Logged 10:51 Electrocardigram EKG 02/06/25 Logged 11:51 Complete Blood Count LAB 02/07/25 Verified 04:00 Comprehensive LAB 02/07/25 Verified Metabolic Panel 04:00 Magnesium LAB 02/07/25 Verified 04:00 Abg W/ Co-Ox RT 02/07/25 Logged 04:00 Chest Portable XY 02/07/25 Logged 04:00 Dietary Evaluation Review Comments: Pt meets criteria of Severe 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 Nutrition Recommendation 1) TF Jevity 1.2 Luis @ 30ml/hr along with Pro-stat 1 pk BID. Water flush 200ml Q6H if allowed, adjust PRN. Start @ 20ml/hr, increase 10ml/hr Q4H until goal is reached. TF @ goal volume along woth IVD5w 1/2 nS & Pro-stat provides 100% energy (1370 kcal) & 100% protein needs (70gm). Free water 581ml. 2) Consider TPN per pharmacy if pt cannot tolerate TF 3) Manuel 1 pk BID, Vit C 500mg BID, Zinc sulfate 220mg BID x 10 days, MVI w/ minerals 1 tab daily. 4) Monitor NPO status, TF tolerance, lab values, wt trend, I/O Expected Outcomes/Goals: Goal: 1) To maintain/gain weight 2) Intake to meet at least 75% estimated needs within 7 days follow up 2-3 days Interpretation of weight loss: up to 20% in 1 year Fluid Accumulation (Severe): Moderate Fluid Retention Protein Calorie Malnutrition: Severe Is there a minimum of two crit: Yes Date of Service: Feb 06, 2025 Billing Provider: CECELIA MAGUIRE MD Common Visit Codes: 21476-[id number] CARE 30-74 MIN, 63933-[id number] CARE-EACH +30MIN ANGELICA FRITZAydeMITALI RESIDENT Feb 06, 2025 17:34 CECELIA MAGUIRE MD Feb 07, 2025 12:29
[2025-02-07] VITALS (102 sets, daily range): BP systolic 75–156; BP diastolic 24–110; PULSE 68–94; RESP 10–27; TEMP 97.7–98.8; O2SAT 96–100
[2025-02-07 03:46] LABS: Hematocrit 23.9 % (36.0-46.0); Hemoglobin 8.1 g/dL (12.2-16.2); Mean Corpuscular Hemoglobin 31.2 pg (28.0-32.0); Mean Corpuscular Volume 91.7 fL (80.0-100.0); Nucleated Red Blood Cells % 0.1 %
[2025-02-07 03:52] LABS: Alanine Aminotransferase 10 U/L (7-40); Alkaline Phosphatase 101 U/L (46-116); Anion Gap 7 (5-15); BUN/Creatinine Ratio 32.6 (10.0-20.0); Blood Urea Nitrogen 14 mg/dL (9-23); Carbon Dioxide 28 mmol/L (20-31); Magnesium 1.7 mg/dL (1.6-2.6); Potassium 4.4 mmol/L (3.5-5.1); Sodium 144 mmol/L (136-145)
[2025-02-07 04:03] LABS: Albumin 2.2 g/dL (3.2-4.8); Bilirubin, Total 0.2 mg/dL (0.2-1.0); Calcium 7.4 mg/dL (8.7-10.4); Chloride 109 mmol/L (98-107); Glucose 120 mg/dL (74-106); Total Protein 3.7 g/dL (5.7-8.2)
--- NOTE | 2025-02-07 05:01 | DVH ---
CHEST RADIOGRAPH Indication: fu Technique: Single frontal view of the chest was obtained COMPARISON: XY CHEST PORTABLE on DOS: 02/06/25, XY CHEST PORTABLE on DOS: 02/06/25, XY CHEST PORTABLE o n DOS: 02/04/25, XY CHEST PORTABLE on DOS: 02/03/25, XY CHEST PORTABLE on DOS: 02/02/25 FINDINGS: Lines and Tubes: Unchanged. Lungs: Clear Pleura: No effusion. No pneumothorax. Cardiomediastinal contours: Unremarkable Bones: Unremarkable IMPRESSION: 1. No acute disease. 2. Lines and tubes unchanged.
[2025-02-07 07:43] LABS: Base Excess 3.2 mmol/L (-2.0-3.0)
--- NOTE | 2025-02-07 07:46 | ECG ---
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
--- NOTE | 2025-02-07 09:14 | DVHPN2 ---
Progress Note Date Seen: Feb 07, 2025 Medical Necessity Reason Pt with a Central, PICC or Fol: Yes The following are medically ne: Central Line, Chao Catheter Reason for chao catheter: Strict I&O Objective vital signs Vital Sign Date Time Temp Pulse Resp B/P (MAP) Pulse Ox O2 Delivery O2 Flow Rate FiO2 02/07/25 08:15 88 18 102/51 (68) 100 02/07/25 08:09 30 02/07/25 08:00 98.8 98.8 02/07/25 06:00 Mechanical Ventilator+ Total Intake and Output 02/06/25 02/06/25 02/07/25 15:00 23:00 07:00 Intake Total 255.00 ml 357.50 ml 979.25 ml Output Total 525 ml 420 ml Balance 255.00 ml -167.50 ml 559.25 ml medications Current Medications Medications Dose Ordered Sig/Agustín Route Start Time Stop Time Status Last Admin Dose Admin Midazolam HCl 50 ml @ 1 mls/hr Q24H IV 01/23/25 18:45 01/28/25 20:03 1 MLS/HR Norepinephrine Bitartrate 250 ml @ 3.75 mls/hr Q24H IV 01/23/25 22:00 02/06/25 20:54 11.25 MLS/HR Pantoprazole Sodium 40 mg DAILY IV 01/24/25 11:00 02/06/25 10:00 40 MG Piperacillin Sod/ Tazobactam Sod 100 ml @ 25 mls/hr Q8HR IV 01/24/25 14:00 02/07/25 05:34 25 MLS/HR Vancomycin HCl 0 ml @ 0 mls/hr UD IV 01/24/25 15:45 Purified Water 200 ml Q6HR GT 01/24/25 18:00 02/07/25 05:34 200 ML Levothyroxine Sodium 25 mcg QAM@0600 PO 01/25/25 06:00 02/07/25 05:34 25 MCG Albuterol 2.5 mg Q6HWA NEB 01/24/25 18:00 02/06/25 18:43 2.5 MG Ipratropium [place] 0.5 mg Q6HPRN NEB 01/24/25 18:00 02/07/25 00:23 0.5 MG Enteral Nutritional Formula 1,000 ml 30ML/HR GT 01/24/25 17:15 01/31/25 04:50 1,000 ML Fentanyl Citrate 250 ml @ 2.5 mls/hr Q24H IV 01/25/25 08:45 02/06/25 18:40 12.5 MLS/HR Vancomycin HCl 100 ml @ 200 mls/hr Q12H IV 01/28/25 18:00 02/07/25 05:24 200 MLS/HR Sodium Chloride 10 ml QSHIFT@10,22 IV 01/31/25 22:00 02/06/25 21:33 10 ML Enoxaparin Sodium 50 mg Q12HR SC 02/04/25 22:00 02/05/25 21:56 50 MG Magnesium Sulfate/ Dextrose 100 ml @ 100 mls/hr Q1HR IV 02/07/25 08:00 02/07/25 09:59 laboratory and microbiology Laboratory Tests 02/07/25 02:53 Test 02/07/25 02:53 Range/Units Serum Glucose 120 H 74-106 mg/dL Problem List/Assessment/Plan Problem List/Assessment/Plan 02/07/25tracheostomy in good position on cxr, both lungs expanded, no problems reported, will sign off, please recall if needed Plan discussed with: Patient Dietary Evaluation Review Comments: Pt meets criteria of Severe 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 Nutrition Recommendation 1) TF Jevity 1.2 Luis @ 30ml/hr along with Pro-stat 1 pk BID. Water flush 200ml Q6H if allowed, adjust PRN. Start @ 20ml/hr, increase 10ml/hr Q4H until goal is reached. TF @ goal volume along woth IVD5w 1/2 nS & Pro-stat provides 100% energy (1370 kcal) & 100% protein needs (70gm). Free water 581ml. 2) Consider TPN per pharmacy if pt cannot tolerate TF 3) Manuel 1 pk BID, Vit C 500mg BID, Zinc sulfate 220mg BID x 10 days, MVI w/ minerals 1 tab daily. 4) Monitor NPO status, TF tolerance, lab values, wt trend, I/O Expected Outcomes/Goals: Goal: 1) To maintain/gain weight 2) Intake to meet at least 75% estimated needs within 7 days follow up 2-3 days Interpretation of weight loss: up to 20% in 1 year Fluid Accumulation (Severe): Moderate Fluid Retention Protein Calorie Malnutrition: Severe Is there a minimum of two crit: Yes TRINI STEPHEN MD Feb 07, 2025 09:14
[2025-02-07] MEDS: MAGNESIUM SULFATE 1GM/100ML 100 ML IV SCH (09:28)
--- NOTE | 2025-02-07 13:50 | DVHPNRES ---
Progress Note Date Seen: Feb 07, 2025 Resident Creating Document: HARI FRITZ RESIDENT Medical Necessity Reason Pt with a Central, PICC or Fol: Yes The following are medically ne: Central Line, Chao Catheter Reason for chao catheter: Strict I&O Subjective Review of Systems Patient seen and examined at the bedside. Unable to obtain ROS due to patient's clinical status currently intubated and on mechanical ventilation. Status post day 1 tracheostomy. Possible transfer to LTAC today. Objective vital signs Vital Sign Date Time Temp Pulse Resp B/P (MAP) Pulse Ox O2 Delivery O2 Flow Rate FiO2 02/07/25 13:40 136/110 02/07/25 13:39 79 19 100 30 02/07/25 10:00 Mechanical Ventilator+ 02/07/25 08:00 98.8 98.8 Total Intake and Output 02/06/25 02/06/25 02/07/25 15:00 23:00 07:00 Intake Total 255.00 ml 357.50 ml 1031.75 ml Output Total 525 ml 420 ml Balance 255.00 ml -167.50 ml 611.75 ml medications Current Medications Medications Dose Ordered Sig/Agustín Route Start Time Stop Time Status Last Admin Dose Admin Midazolam HCl 50 ml @ 1 mls/hr Q24H IV 01/23/25 18:45 01/28/25 20:03 1 MLS/HR Norepinephrine Bitartrate 250 ml @ 3.75 mls/hr Q24H IV 01/23/25 22:00 02/06/25 20:54 11.25 MLS/HR Pantoprazole Sodium 40 mg DAILY IV 01/24/25 11:00 02/07/25 09:27 40 MG Piperacillin Sod/ Tazobactam Sod 100 ml @ 25 mls/hr Q8HR IV 01/24/25 14:00 02/07/25 13:16 25 MLS/HR Vancomycin HCl 0 ml @ 0 mls/hr UD IV 01/24/25 15:45 Purified Water 200 ml Q6HR GT 01/24/25 18:00 02/07/25 09:27 200 ML Levothyroxine Sodium 25 mcg QAM@0600 PO 01/25/25 06:00 02/07/25 05:34 25 MCG Albuterol 2.5 mg Q6HWA NEB 01/24/25 18:00 02/07/25 13:37 2.5 MG Ipratropium Aristes 0.5 mg Q6HPRN NEB 01/24/25 18:00 02/07/25 13:37 0.5 MG Enteral Nutritional Formula 1,000 ml 30ML/HR GT 01/24/25 17:15 01/31/25 04:50 1,000 ML Fentanyl Citrate 250 ml @ 2.5 mls/hr Q24H IV 01/25/25 08:45 02/06/25 18:40 12.5 MLS/HR Vancomycin HCl 100 ml @ 200 mls/hr Q12H IV 01/28/25 18:00 02/07/25 05:24 200 MLS/HR Sodium Chloride 10 ml QSHIFT@10,22 IV 01/31/25 22:00 02/07/25 09:28 10 ML Enoxaparin Sodium 50 mg Q12HR SC 02/04/25 22:00 02/07/25 09:27 50 MG Examination Pt is lying on bed, sedated General Appearance: Sedated, severely malnourished HEENT: Atraumatic, Mucous membranes moist/pink, tracheostomy tube placement. Respiratory: decraesed breath sounds mostly left side Cardiovascular: Regular rate, Normal S1, Normal S2, No murmurs Abdominal: Scaphoid, Active bowel sounds, Soft, no distention, G-tube in place Extremities: Red and edematous both upper limb improving swelling and 1 to 2+ edema in lower extremities, Skin: Decubitus ulcer on sacrum & redness on her chest, white macerated skin changes in both palms Neuro: Sedated, gag reflex intact, pupils are constricted but reactive Nurse was there as serger during examination laboratory and microbiology Laboratory Tests 02/07/25 02:53 Test 02/07/25 02:53 Range/Units Serum Glucose 120 H 74-106 mg/dL Microbiology Date/Time Source Procedure Growth Status 02/02/25 15:10 Blood Blood Culture - Preliminary NO GROWTH AFTER 72 HOURS OF INCUBATION. Resulted 01/27/25 20:00 Nose MRSA Screen - Final Methicillin Resistant S.aureus Complete 01/24/25 11:35 Voided Urine Urine Culture - Final Complete 01/23/25 18:39 Sputum Gram Stain - Final Complete 01/23/25 18:39 Respiratory Culture - Final Methicillin Resistant S.aureus Pseudomonas aeruginosa Complete Labs and/or images reviewed: Labs reviewed by me, Image(s) reviewed by me Problem List/Assessment/Plan Problem List/Assessment/Plan PROJECT MANAGEMENT INTERN # Acute on chronic metabolic encephalopathy # Acute hypoxic encephalopathy # Alzheimer's dementia -head CT showed no acute changes -currently sedated -hold or stop home medications (donepezil, memantine) until she extubated CVS # ? Septic shock likely from pneumonia # Chronic diastolic CHF # HTN # Hx of complete heart block requiring temporary transcutaneous pacing in 2022 # Anterior apical and posterior large pericardial effusion but No tamponade noted- -hold BP meds -currently on Levophed -BNP -monitor continuously -fluid resuscitation 2-3 L in ED for shock -IV antibiotics Zosyn and vanc along with the pancultures - IVF d5w 06/23 75ml/hr Dc' d 01/27 -echo showed EF 65% with moderate diastolic dysfunction and mild pericardial effusion, consulted cardiology-no intervention for now RS # septic shock likely from aspiration pneumonia # Acute hypoxic respiratory failure likely from aspiration pneumonia status post intubation 01/23 # Aspiration pneumonia # MRSA PNA # Spont. Pneumothorax s/p chest tube - Today CXR showed Lft Pneumothorax, placed pigtail catheter, repeat cxr showed improvement in pneumothorax. - ICU status - On mechanical ventilation with vent settings are 14, tidal volume 350, FiO2 30%, peep 5 - respiratory cultures, Gram-positive and Gram-negative organisms - Initial CXR showed left hemithorax opacification and sequential CXR showed improvement left lung and mild congestion in both lungs. - - Ordered rapid COVID/flu test,negative - currently on vancomycin and Zosyn - breathing treatments - initial blood cultures 1 set showing budding yeast, repeat cultures - Resp cult showed MRSA. Continue vanc, micafungin and Zosyn. Monitor. - Final blood cultures 2 sets showing staph epidermidis and respiratory cultures showing MRSA and Pseudomonas so continuing vanc and Zosyn and Discontinued micafungin and repeated cultures -01/30 -discontinued central line, ordered PICC line, placed -ordered repeat blood cultures, preliminary no growth -day 0 status post tracheostomy tube placement. GI # severe protein calorie malnutrition -BMI 15 -nutritional consult -Start Jevity through G-tube /Endo/ Metabolic # acute complicated UTI-resolving -currently on Zosyn -UA findings normal -ordered urine culture # hypernatremia likely from dehydration -monitor lab -given boluses -Dc'd D5W NS 75 mL/hour -free water 200 mL q.6 G-tube # hypothyroidism -TSH elevated -levothyroxine 25 mcg # severe hypothermia on admission due to sepsis- warming measures ID # candidemia/fungemia-resolved -repeat cultures -micafungin 100 mg b.i.d. DC'd 01/30 # Bacteremia with staph homnis -vanc and zosyn -repeat cultures, preliminary no growth Heme-Onc # thrombocytopenia-improving -monitor lab for now -hold anticoagulants # left common & superficial femoral vein nonocclusive DVT - Duplesx showe following changes - No right femoropopliteal venous thrombosis. Possible new clot forming in the right common femoral vein .Rouleaux blood flow is noted throughout the right lower extremity. - Avascular collections noted in the popliteal fossa largest. - On the left common femoral vein contains nonocclusive deep venous thrombosis. There is nonocclusive deep venous thrombosis throughout the left superficial femoral vein. The left popliteal vein and trifurcation are not visible because of bandaging. - No anticoagulanunts because thrombocytopenia -started therapeutic Lovenox -continuously monitor lab # Hx left lower extremity DVT -started therapeutic Lovenox Skin # sacral decubitus ulcer likely stage 4 -wound consult PUD PPX: Protonix VTE PPX: Therapeutic Lovenox Diet: Jevity 30 mL/hour Drips Versed Levophed 14 off since 01/29 Lines Left IJ CVC-01/24-DC 01/31 PICC line placed on 01/31 Tracheostomy 02/06 Goals of care addressed with the patient michaelle Spence and daughter in law Susy Handy for more than 27 minutes: Chemical code and defib status Care plan updated with the Susy Handy and michaelle spence for more than 77 minutes bedside, regarding prognosis, current status and addressed all concerns On 01/26 discussion with patient michaelle Spence regarding code status, change her code to chemical code Family meeting with the michaelle Spence, addressed all concerns and explained the patient's situation and made them situation aware. Care plan updated to the michaelle Spence about status post tracheostomy, nursing home social worker on board for LTAC placement. Possible transfer next 24-48 hours Case discussed with Critical care time spent excluding procedures >83 minutes. Plan discussed with: Son My Orders My Orders Orders - HARI FRITZ RESIDENT Procedure Category Date Status Time Abg W/ Co-Ox RT 02/07/25 Logged 04:00 Chest Portable XY 02/07/25 Resulted 04:00 Dietary Evaluation Review Comments: Pt meets criteria of Severe 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 Nutrition Recommendation 1) TF Jevity 1.2 Luis @ 30ml/hr along with Pro-stat 1 pk BID. Water flush 200ml Q6H if allowed, adjust PRN. Start @ 20ml/hr, increase 10ml/hr Q4H until goal is reached. TF @ goal volume along woth IVD5w 1/2 nS & Pro-stat provides 100% energy (1370 kcal) & 100% protein needs (70gm). Free water 581ml. 2) Consider TPN per pharmacy if pt cannot tolerate TF 3) Manuel 1 pk BID, Vit C 500mg BID, Zinc sulfate 220mg BID x 10 days, MVI w/ minerals 1 tab daily. 4) Monitor NPO status, TF tolerance, lab values, wt trend, I/O Expected Outcomes/Goals: Goal: 1) To maintain/gain weight 2) Intake to meet at least 75% estimated needs within 7 days follow up 2-3 days Interpretation of weight loss: up to 20% in 1 year Fluid Accumulation (Severe): Moderate Fluid Retention Protein Calorie Malnutrition: Severe Is there a minimum of two crit: Yes Date of Service: Feb 07, 2025 Billing Provider: CECELIA MAGUIRE MD Common Visit Codes: [id number] CARE 30-74 MIN, [id number] CARE-EACH +30MIN HARI FRITZ RESIDENT Feb 07, 2025 13:50 CECELIA MAGUIRE MD Feb 08, 2025 11:42
--- NOTE | 2025-02-07 13:55 | DVHDSRES ---
Discharge Summary Date of Admission Resident Creating Document: HARI KEARNS RESIDENT Jan 23, 2025 at 20:19 Date of Discharge: Feb 07, 2025 Admitting Diagnosis PNA Labs/Diagnostic Data: Laboratory Results Test 02/07/25 09:25 02/07/25 07:03 02/07/25 02:53 02/06/25 03:18 Vancomycin Level Trough 25.9 ug/mL (5-10) Blood Gas Specimen Type Arterial Blood Gas Sample Site Right radial Blood Gas Patient Temperature 37.0 Arterial Blood Date Drawn [id number] Arterial Blood pH 7.567 (7.350-7.450) Arterial Blood Partial Pressure CO2 28.3 mmHg (32.0-45.0) Arterial Blood Partial Pressure O2 110.5 mmHg (83.0-108.0) Arterial Blood HCO3 25.2 mmol/L (21.0-28.0) Arterial Blood Oxygen Saturation 97.5 % (94.0-98.0) Arterial Blood Base Excess 3.2 mmol/L (-2.0-3.0) Arterial Blood Oxyhemoglobin 96.6 % (94.0-98.0) Arterial Blood Carboxyhemoglobin 0.2 % (0.5-1.5) Arterial Blood Methemoglobin 0.7 % (0.0-1.5) Con Test Yes Blood Gas Total Hemoglobin 8.10 g/dL (12.0-16.0) Blood Gas Set Respiration Rate 16.0 Blood Gas Modality Vent - ac FiO2 % 30.0 Blood Gas Tidal Volume 350.0 Blood Gas PEEP or CPAP 5.0 Blood Gas Critical Value Read Back Yes Blood Gas Notified Whom [facility] Blood Gas Notified Time [id number] Blood Gas Notified By mejia Hood rrt White Blood Count 8.0 10^3/uL (4.4-10.8) Red Blood Count 2.61 10^6/uL (4.0-5.20) Hemoglobin 8.1 g/dL (12.2-16.2) Hematocrit 23.9 % (36.0-46.0) Mean Corpuscular Volume 91.7 fL (80.0-100.0) Mean Corpuscular Hemoglobin 31.2 pg (28.0-32.0) Mean Corpuscular Hemoglobin Concent 34.0 g/dL (32.0-36.0) Red Cell Distribution Width 16.1 % (11.8-14.3) Platelet Count 359 10^3/uL (140-450) Mean Platelet Volume 8.1 fL (6.9-10.8) Neutrophils (%) (Auto) 61.6 % (37.0-80.0) Lymphocytes (%) (Auto) 20.1 % (10.0-50.0) Monocytes (%) (Auto) 13.6 % (0.0-12.0) Eosinophils (%) (Auto) 4.1 % (0.0-7.0) Basophils (%) (Auto) 0.6 % (0.0-2.0) Neutrophils # (Auto) 4.9 10 ^3/uL (1.6-8.6) Lymphocytes # (Auto) 1.6 10 ^3/uL (0.4-5.4) Monocytes # (Auto) 1.1 10 ^3/uL (0-1.3) Eosinophils # (Auto) 0.3 10 ^3/uL (0-0.8) Basophils # (Auto) 0 10 ^3/uL (0-0.2) Nucleated Red Blood Cells 0.1 % Sodium Level 144 mmol/L (136-145) Potassium Level 4.4 mmol/L (3.5-5.1) Chloride Level 109 mmol/L (98-107) Carbon Dioxide Level 28 mmol/L (20-31) Anion Gap 7 (5-15) Blood Urea Nitrogen 14 mg/dL (9-23) Creatinine 0.43 mg/dL (0.550-1.02) Glomerular Filtration Rate Calc 98 mL/min (>90) BUN/Creatinine Ratio 32.6 (10.0-20.0) Serum Glucose 120 mg/dL (74-106) Calcium Level 7.4 mg/dL (8.7-10.4) Magnesium Level 1.7 mg/dL (1.6-2.6) Total Bilirubin 0.2 mg/dL (0.2-1.0) Aspartate Amino Transferase (AST) 20 U/L (13-40) Alanine Aminotransferase (ALT) 10 U/L (7-40) Alkaline Phosphatase 101 U/L (46-116) Total Protein 3.7 g/dL (5.7-8.2) Albumin 2.2 g/dL (3.2-4.8) Differential Total Cells Counted 100.0 (100) Neutrophils % (Manual) 40 (37.0-80.0) Band Neutrophils % (Manual) 0 Lymphocytes % (Manual) 17 (10.0-50.0) Monocytes % (Manual) 12 (0-12) Eosinophils % (Manual) 31 (0-7) Basophils % (Manual) 0 (0.0-2.0) Metamyelocytes % (manual) 0 Myelocytes % (Manual) 0 Promyelocytes % (Manual) 0 Blast Cells % (Manual) 0 Reactive Lymphocytes 0 Platelet Estimate Adequate Prothrombin Time 11.9 sec (9.3-11.8) Prothrombin Time INR 1.14 (0.9-1.15) Activated Partial Thromboplast Time 33.6 SEC (24.5-34.5) Test 02/05/25 03:10 01/25/25 02:35 01/24/25 11:42 01/24/25 08:15 Anisocytosis (manual) Slight Free Thyroxine (T4) Calculated 0.60 ng/dL (0.89-1.76) Total Triiodothyronine (TT3) 0.60 ng/mL (0.60-1.81) Random Vancomycin Level 7.0 ug/mL (5-10) Lactic Acid Level 1.6 mmol/L (0.4-2.0) Influenza Type A Antigen Negative (Negative) Influenza Type B Antigen Negative (Negative) SARS-CoV-2 Antigen (Rapid) Negative (NEGATIVE) Test 01/24/25 07:50 01/24/25 05:32 01/23/25 21:36 01/23/25 21:15 HIV (1&2) Antibody Negative (Negative) B-Type Natriuretic Peptide 113.84 pg/mL (0-100) Vitamin B12 Level 1315 pg/mL (211-911) Thyroid Stimulating Hormone (TSH) 19.90 uIU/mL (0.55-4.78) Hepatitis B Surface Antigen Negative (Negative) Hepatitis C Antibody Negative (Negative) Troponin I High Sensitivity 20 ng/L (</=34) Urine Color Light-yellow (Yellow) Urine Clarity Clear (Clear) Urine pH 5.0 (5.0-9.0) Urine Specific [place] 1.017 (1.001-1.035) Urine Protein Trace (Negative) Urine Ketones 1+ (Negative) Urine Blood 2+ /uL (Negative) Urine Nitrite Negative (Negative) Urine Bilirubin Negative (Negative) Urine Urobilinogen Normal mg/dL (Negative) Urine Leukocyte Esterase Negative /uL (Negative) Urine RBC 56 /hpf (0 - 4) Urine Microscopic WBC 2 /HPF (0-5) Urine Squamous Epithelial Cells Few /hpf (<5) Urine Bacteria None seen /hpf (None Seen) Urine Glucose Normal mg/dL (Normal) Test 01/23/25 19:29 01/23/25 18:07 Blood Gas Spontaneous Rate 14 Blood Gas Spontaneous Tidal Volume 329 Bl Gas Inspiratory/Expiratory Ratio 1:2.3 Specimen Drawn By kelley sigala Plasma/Serum Blood Alcohol 4.2 mg/dL (<10) Other Laboratory Tests 02/07/25 02:53 Brief Hx & Hospital Course: Mary Handy is an 79-year-old female with a complex medical history including Alzheimer's dementia (diagnosed 9 years ago), 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 She presented to the emergency department with acute shortness of breath and altered mental status, which was a significant deviation from her baseline. Per family, she had recently been discharged from [facility] for UTI and pneumonia and was on Augmentin and azithromycin. On the morning of admission, she was found unresponsive with pooling oral secretions and oxygen saturation in the 50s, prompting EMS activation. She was intubated upon arrival and placed on mechanical ventilation. Initial management included sedation with Versed and vasopressor support with Levophed. Her hospital course was complicated by aspiration pneumonia, MRSA and Pseudomonas respiratory infections, candidemia (resolved), and septic shock. Imaging revealed a spontaneous left pneumothorax, which was managed with a pigtail catheter, and a large pericardial effusion without tamponade. She underwent tracheostomy placement on 02/06/2025 and tolerated the procedure well. She is currently ventilated with settings: RR 16, VT 350, FiO2 30%, PEEP 5. Blood cultures initially showed staph epidermidis and budding yeast; micafungin was discontinued after resolution. Patient was multiple times bacteremic and finally negative. She remains on vancomycin and Zosyn. A PICC line was placed for long-term access. Additional complications include severe protein-calorie malnutrition (BMI 15), managed with Jevity via G-tube, acute complicated UTI (resolving), hypernatremia from dehydration, hypothyroidism (on levothyroxine), and thrombocytopenia (improving). She has a history of chronic DVT and was restarted on therapeutic Lovenox once platelet counts stabilized. Duplex imaging revealed nonocclusive DVT in the left femoral veins and possible new clot formation on the right. She also has a stage 4 sacral decubitus ulcer under wound care management. The patient is now stable to transfer, status post tracheostomy, and is appropriate for transfer to an acute care facility (LTAC) for continued ventilator weaning, infection management, nutritional support, and rehabilitation. Pt is lying on bed General Appearance: severely malnourished RR 16, VT 350, FiO2 30%, PEEP 5 HEENT: Atraumatic, Mucous membranes moist/pink, tracheostomy tube placement. Respiratory: decraesed breath sounds mostly left side Cardiovascular: Regular rate, Normal S1, Normal S2, No murmurs Abdominal: Scaphoid, Active bowel sounds, Soft, no distention, G-tube in place Extremities: Red and edematous both upper limb improving swelling and 1 to 2+ edema in lower extremities, Skin: Decubitus ulcer on sacrum & redness on her chest, white macerated skin changes in both palms Neuro: Deferred, reflexes intact Nurse was there as plate straightener during examination critical care time spent was 61 mins Operations or Procedures ECHO Conclusion MODERATE DEGREE LVH AND MODERATE DEGREE LV DIASTOLIC DYSFUNCTION LV EF SI 65% A LARGE ANTERIOR APICAL PERICARDIAL EFFUSION IS SEEN MODERATE SIZE POSTERIOR PERICARDIAL EFFUSION IS SEEN NO EVIDENCE OF PERICARDIAL TAMPONADE NORMAL VALVES NORMAL RV FUNCTION ----- Attending Phy: HARI KEARNS RESIDENT DATE OF SURGERY: 02/06/2025 PREOPERATIVE DIAGNOSIS: Ventilator-dependent respiratory failure. POSTOPERATIVE DIAGNOSIS: Ventilator-dependent respiratory failure. SURGEON: Micky Slater MD PROCEDURE: Tracheostomy. DESCRIPTION OF PROCEDURE: Under adequate anesthesia with the patient's skin prepped and draped, an anterior cervical incision was made above the preexisting scar from a previous tracheostomy. Strap muscles were divided in the midline. The tissue swept sideways. The thyroid was displaced inferiorly. The tracheal rings were incised between the 4th and 5th ring and the tracheotomy was dilated. Subsequently, the endotracheal tube was being withdrawn with the patient being ventilated by room air to minimize the likelihood of an airway fire. The size 7.5 tracheostomy tube was advanced through the tracheotomy into its final position. Upon reaching its final position, after removing the endotracheal tube, there was an immediate recapture of CO2 and returned to adequate ventilation. The tube was secured with insufflation of the cuff with 7 mL of air, 2 interrupted 2-0 Prolene sutures, and a circumferential umbilical tape. The patient remained in same, unchanged condition. At the termination of the procedure, left the operating room following an accurate needle and sponge counts. There was no family member in the waiting room and no one answered the home phone number. Chest x-ray was ordered and is pending at the time of this dictation. Micky Slater MD PF/CARLENE --------- CHEST RADIOGRAPH IMPRESSION: Left hemithorax opacification with mediastinal shift to the left and hyperexpansion of the right lung which is most likely from atelectasis. Underlying effusion / pneumonia can not be excluded. Mild right-sided pulmonary vascular congestion. -------- EXAM: CT HEAD WITHOUT CONTRAST IMPRESSION: 1. 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 2. No acute hemorrhage 3. Stable idiopathic bilateral basal ganglion calcifications unchanged from September 03, 2023. ------- Bilateral lower extremity venous duplex Impression: 1. No right femoropopliteal venous thrombosis. Possible new clot forming in the right common femoral vein .Rouleaux blood flow is noted throughout the right lower extremity. 2. Avascular collections noted in the popliteal fossa largest. 3. On the left common femoral vein contains nonocclusive deep venous thrombosis. There is nonocclusive deep venous thrombosis throughout the left superficial femoral vein. The left popliteal vein and trifurcation are not visible because of bandaging. --------- EXAM: XY CHEST PORTABLE IPRESSION: 1. Mechanical ventilation with tubes and lines as above. 2. Tiny left apical pneumothorax and left lower chest thoracostomy tube are stable. Condition at Discharge: Guarded Final Diagnosis/Problems List # Acute on chronic metabolic encephalopathy # Acute hypoxic encephalopathy # Alzheimer's dementia # ? Septic shock likely from pneumonia # Chronic diastolic CHF # HTN # Hx of complete heart block requiring temporary transcutaneous pacing in 2022 # Anterior apical and posterior large pericardial effusion but No tamponade noted- # septic shock likely from aspiration pneumonia # Acute hypoxic respiratory failure likely from aspiration pneumonia status post intubation 01/23 # Aspiration pneumonia # MRSA PNA # Spont. Pneumothorax s/p chest tube # severe protein calorie malnutrition # acute complicated UTI-resolving # hypernatremia likely from dehydration # hypothyroidism # severe hypothermia on admission due to sepsis- warming measures # candidemia/fungemia-resolved # Bacteremia with staph homnis-RESOLVED # thrombocytopenia-improving # left common & superficial femoral vein nonocclusive DVT # left lower extremity DVT # sacral decubitus ulcer likely stage 4 Discharge Disposition: Inpatient Rehab Facility Discharge Instruct/Medications Diet: See Comment Diet comment: tube feedings Activity: Bed rest Follow Up/Referral: jose manuel holbrook pcp Medications: per mar Scheduled Apixaban Base (Eliquis), 5 MG PO BID, (Reported) Apixaban Base (Eliquis), 1 TAB PO BID, (Reported) Cephalexin (Keflex Capsule), 500 MG PO TID Donepezil Hydrochloride (Donepezil Hcl), 10 MG PO HS, (Reported) Donepezil Hydrochloride (Donepezil Hcl), 1 TAB PO DAILY, (Reported) Ergocalciferol (Vitamin D 07276 Unit), 50,000 UNIT PO Q7D Famotidine (Famotidine), 20 MG PO BID Latanoprost (Latanoprost), 1 DROP EACHEYE QPM, (Reported) Levothyroxine Sodium (Levothyroxine Sodium), 25 MCG PO QAM Memantine Hydrochloride (Memantine HCl), 10 MG PO BID, (Reported) Memantine Hydrochloride (Memantine HCl), 10 TAB PO DAILY, (Reported) Risperidone (Risperidone), 1 TAB PO BID, (Reported) Risperidone (Risperidone), 1 TAB PO BID, (Reported) Scheduled PRN Acetaminophen (Acetaminophen), 650 MG PO Q6HP PRN Discharge Statement: "Patient was advised to return to the ER or call 911 if any headaches, dizziness, shortness of breath, chest pain, abdominal pain, bleeding, fevers, or worsening of medical condition. Patient was counseled about treatment plan, medications, possible side effects, patientverbalized understanding. All questions were answered to the best of my ability. This discharge took greater then 30 minutes in planning, reviewing documentation, counseling the patient, and discussing with other team members." ASSESSMENT ASSESSMENT Assessment resp failure Date of Service: Feb 07, 2025 Billing Provider: CECELIA MAGUIRE MD Common Visit Codes: [id number] CARE 30-74 MIN HARI KEARNS RESIDENT Feb 07, 2025 13:55 CECELIA MAGUIRE MD Feb 11, 2025 11:36
[2025-02-08] VITALS (92 sets, daily range): BP systolic 78–115; BP diastolic 35–69; PULSE 63–100; RESP 10–28; TEMP 97.8–99; O2SAT 95–100
[2025-02-08 03:43] LABS: Hemoglobin 7.5 g/dL (12.2-16.2); Mean Corpuscular Hemoglobin 31.5 pg (28.0-32.0); Nucleated Red Blood Cells % 0.1 %
[2025-02-08 03:47] LABS: Hematocrit 22.1 % (36.0-46.0); Mean Corpuscular Volume 92.8 fL (80.0-100.0)
[2025-02-08 03:49] LABS: Alanine Aminotransferase 11 U/L (7-40); Alkaline Phosphatase 98 U/L (46-116); Anion Gap 7 (5-15); BUN/Creatinine Ratio 34.2 (10.0-20.0); Blood Urea Nitrogen 13 mg/dL (9-23); Carbon Dioxide 29 mmol/L (20-31); Glucose 95 mg/dL (74-106); Potassium 4.0 mmol/L (3.5-5.1); Sodium 143 mmol/L (136-145)
[2025-02-08 03:55] LABS: Albumin 2.1 g/dL (3.2-4.8); Bilirubin, Total 0.2 mg/dL (0.2-1.0); Calcium 7.2 mg/dL (8.7-10.4); Chloride 107 mmol/L (98-107); Total Protein 3.8 g/dL (5.7-8.2)
--- NOTE | 2025-02-08 04:39 | DVH ---
CHEST RADIOGRAPH Indication: ventilated Technique: Single frontal view of the chest was obtained COMPARISON: XY CHEST PORTABLE on DOS: 02/07/25, XY CHEST PORTABLE on DOS: 02/06/25, XY CHEST PORTABLE o n DOS: 02/06/25, XY CHEST PORTABLE on DOS: 02/04/25, XY CHEST PORTABLE on DOS: 02/03/25 FINDINGS: Lines and Tubes: Lines and tubes unchanged. Lungs: Clear Pleura: No effusion. No pneumothorax. Cardiomediastinal contours: Unremarkable Bones: Unremarkable IMPRESSION: 1. No acute disease. 2. Lines and tubes unchanged.
[2025-02-08 06:39] LABS: Base Excess 4.9 mmol/L (-2.0-3.0)
[2025-02-08] MEDS ORDERED: VANCOMYCIN 500mg/100mL 100 ML IV SCH (12:00)
[2025-02-08] MEDS: VANCOMYCIN 500mg/100mL 100 ML IV SCH (13:00)
--- NOTE | 2025-02-08 13:15 | DVHPNRES ---
Progress Note Date Seen: Feb 08, 2025 Resident Creating Document: HARI FRITZ RESIDENT Medical Necessity Reason Pt with a Central, PICC or Fol: Yes The following are medically ne: Central Line, Chao Catheter Reason for chao catheter: Strict I&O Subjective Review of Systems Patient seen and examined at the bedside. Unable to obtain ROS due to patient's clinical status currently intubated and on mechanical ventilation. Status post day 2 tracheostomy. Possible transfer to LTAC next 24-48 hours Changes from previous H/P or p: No Changes Objective vital signs Vital Sign Date Time Temp Pulse Resp B/P (MAP) Pulse Ox O2 Delivery O2 Flow Rate FiO2 02/08/25 11:33 69 17 98/47 (64) 100 30 02/08/25 10:00 Mechanical Ventilator+ 02/08/25 09:15 99.0 99.0 Total Intake and Output 02/07/25 02/07/25 02/08/25 15:00 23:00 07:00 Intake Total 518.75 ml 547.50 ml 948.50 ml Output Total 500 ml 740 ml Balance 518.75 ml 47.50 ml 208.50 ml medications Current Medications Medications Dose Ordered Sig/Agustín Route Start Time Stop Time Status Last Admin Dose Admin Midazolam HCl 50 ml @ 1 mls/hr Q24H IV 01/23/25 18:45 01/28/25 20:03 1 MLS/HR Norepinephrine Bitartrate 250 ml @ 3.75 mls/hr Q24H IV 01/23/25 22:00 02/06/25 20:54 11.25 MLS/HR Pantoprazole Sodium 40 mg DAILY IV 01/24/25 11:00 02/08/25 10:21 40 MG Piperacillin Sod/ Tazobactam Sod 100 ml @ 25 mls/hr Q8HR IV 01/24/25 14:00 02/08/25 05:44 25 MLS/HR Vancomycin HCl 0 ml @ 0 mls/hr UD IV 01/24/25 15:45 Purified Water 200 ml Q6HR GT 01/24/25 18:00 02/08/25 05:43 200 ML Levothyroxine Sodium 25 mcg QAM@0600 PO 01/25/25 06:00 02/08/25 05:42 25 MCG Albuterol 2.5 mg Q6HWA NEB 01/24/25 18:00 02/08/25 11:33 2.5 MG Ipratropium Energy 0.5 mg Q6HPRN NEB 01/24/25 18:00 02/08/25 11:33 0.5 MG Enteral Nutritional Formula 1,000 ml 30ML/HR GT 01/24/25 17:15 02/07/25 21:47 1,000 ML Fentanyl Citrate 250 ml @ 2.5 mls/hr Q24H IV 01/25/25 08:45 02/07/25 14:51 7.5 MLS/HR Sodium Chloride 10 ml QSHIFT@10,22 IV 01/31/25 22:00 02/08/25 10:22 10 ML Enoxaparin Sodium 50 mg Q12HR SC 02/04/25 22:00 02/08/25 10:22 50 MG Vancomycin HCl 100 ml @ 200 mls/hr Q12H IV 02/08/25 12:00 UNV Vancomycin HCl 100 ml @ 200 mls/hr Q14H IV 02/08/25 13:00 UNV Examination Pt is lying on bed, General Appearance: severely malnourished, RR 16, TV 350, FiO2 30%, peep 5 HEENT: Atraumatic, Mucous membranes moist/pink, tracheostomy tube placement. 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 Septic shock likely from pneumonia # Chronic diastolic CHF # HTN # Hx of complete heart block requiring temporary transcutaneous pacing in 2022 # Anterior apical and posterior large pericardial effusion but No tamponade noted- -hold BP meds -currently on Levophed -BNP -monitor continuously -fluid resuscitation 2-3 L in ED for shock -IV antibiotics Zosyn and vanc along with the pancultures - IVF d5w 06/23 75ml/hr Dc' d 01/27 -echo showed EF 65% with moderate diastolic dysfunction and mild pericardial effusion, consulted cardiology-no intervention for now RS # septic shock likely from aspiration pneumonia # Acute hypoxic respiratory failure likely from aspiration pneumonia status post intubation 01/23 # Aspiration pneumonia # MRSA PNA # Spont. Pneumothorax s/p chest tube - Today CXR showed Lft Pneumothorax, placed pigtail catheter, repeat cxr showed improvement in pneumothorax. - ICU status - On mechanical ventilation with vent settings are 14, tidal volume 350, FiO2 30%, peep 5 - respiratory cultures, Gram-positive and Gram-negative organisms - Initial CXR showed left hemithorax opacification and sequential CXR showed improvement left lung and mild congestion in both lungs. - - Ordered rapid COVID/flu test,negative - currently on vancomycin and Zosyn - breathing treatments - initial blood cultures 1 set showing budding yeast, repeat cultures - Resp cult showed MRSA. Continue vanc, micafungin and Zosyn. Monitor. - Final blood cultures 2 sets showing staph epidermidis and respiratory cultures showing MRSA and Pseudomonas so continuing vanc and Zosyn and Discontinued micafungin and repeated cultures -01/30 -discontinued central line, ordered PICC line, placed -ordered repeat blood cultures, preliminary no growth -day 0 status post tracheostomy tube placement. GI # severe protein calorie malnutrition -BMI 15 -nutritional consult -Start Jevity through G-tube /Endo/ Metabolic # acute complicated UTI-resolving -currently on Zosyn -UA findings normal -ordered urine culture # hypernatremia likely from dehydration -monitor lab -given boluses -Dc'd D5W 1/2 NS 75 mL/hour -free water 200 mL q.6 G-tube # hypothyroidism -TSH elevated -levothyroxine 25 mcg # severe hypothermia on admission due to sepsis- warming measures ID # candidemia/fungemia-resolved -repeat cultures -micafungin 100 mg b.i.d. DC'd 01/30 # Bacteremia with staph homnis -vanc and zosyn -repeat cultures, preliminary no growth Heme-Onc # thrombocytopenia-improving -monitor lab for now -hold anticoagulants # left common & superficial femoral vein nonocclusive DVT - Duplesx showe following changes - No right femoropopliteal venous thrombosis. Possible new clot forming in the right common femoral vein .Rouleaux blood flow is noted throughout the right lower extremity. - Avascular collections noted in the popliteal fossa largest. - On the left common femoral vein contains nonocclusive deep venous thrombosis. There is nonocclusive deep venous thrombosis throughout the left superficial femoral vein. The left popliteal vein and trifurcation are not visible because of bandaging. - No anticoagulanunts because thrombocytopenia -started therapeutic Lovenox -continuously monitor lab # Hx left lower extremity DVT -started therapeutic Lovenox Skin # sacral decubitus ulcer likely stage 4 -wound consult PUD PPX: Protonix VTE PPX: Therapeutic Lovenox Diet: Jevity 30 mL/hour Drips Versed Levophed 14 off since 01/29 Lines Left IJ CVC-01/24-DC 01/31 PICC line placed on 01/31 Tracheostomy 02/06 Goals of care addressed with the patient michaelle Spence and daughter in law Susy Handy for more than 27 minutes: Chemical code and defib status Care plan updated with the Susy Hanyd and michaelle spence for more than 77 minutes bedside, regarding prognosis, current status and addressed all concerns On 01/26 discussion with patient michaelle Spence regarding code status, change her code to chemical code Family meeting with the michaelle Spence, addressed all concerns and explained the patient's situation and made them situation aware. Care plan updated to the michaelle Spence about status post tracheostomy, psychiatric social worker supervisor on board for LTAC placement. Possible transfer next 24-48 hours Case discussed with Critical care time spent excluding procedures >83 minutes. Plan discussed with: Son My Orders My Orders Orders - HARI FRITZ RESIDENT Procedure Category Date Status Time Abg W/ Co-Ox RT 02/08/25 Logged 06:00 Imaging Transfer ORDERS 02/08/25 Transmitted Request 11:13 Dietary Evaluation Review Comments: Pt meets criteria of Severe 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 Nutrition Recommendation 1) TF Jevity 1.2 Luis @ 30ml/hr along with Pro-stat 1 pk BID. Water flush 200ml Q6H if allowed, adjust PRN. Start @ 20ml/hr, increase 10ml/hr Q4H until goal is reached. TF @ goal volume along woth IVD5w 1/2 nS & Pro-stat provides 100% energy (1370 kcal) & 100% protein needs (70gm). Free water 581ml. 2) Consider TPN per pharmacy if pt cannot tolerate TF 3) Manuel 1 pk BID, Vit C 500mg BID, Zinc sulfate 220mg BID x 10 days, MVI w/ minerals 1 tab daily. 4) Monitor NPO status, TF tolerance, lab values, wt trend, I/O Expected Outcomes/Goals: Goal: 1) To maintain/gain weight 2) Intake to meet at least 75% estimated needs within 7 days follow up 2-3 days Interpretation of weight loss: up to 20% in 1 year Fluid Accumulation (Severe): Moderate Fluid Retention Protein Calorie Malnutrition: Severe Is there a minimum of two crit: Yes Date of Service: Feb 08, 2025 Billing Provider: CECELIA MAGUIRE MD Common Visit Codes: 24090-[id number] CARE 30-74 MIN, [id number] CARE-EACH +30MIN HARI FRITZ RESIDENT Feb 08, 2025 13:15 CECELIA MAGUIRE MD Feb 11, 2025 11:39
== END 2025-02-08 20:26 | DRG 4 ==
LOC: ER 17:21 → EDUNIT# 17:21 → EDBD 17:21 → OVERFLOW 20:19 → ICU WEST 01-24 22:25
PROVIDERS: ADMIT Internal Medicine; ATTEND Internal Medicine
PROC: 5A1955Z Respiratory Ventilation, Greater than 96 Consecutive Hours (ICD-10-PCS; 2025-01-23)
PROC: 0BH17EZ Insertion of Endotracheal Airway into Trachea, Via Natural or Artificial Opening (ICD-10-PCS; 2025-01-23)
PROC: 02HV33Z Insertion of Infusion Device into Superior Vena Cava, Percutaneous Approach (ICD-10-PCS; 2025-01-23)
PROC: 0W9B30Z Drainage of Left Pleural Cavity with Drainage Device, Percutaneous Approach (ICD-10-PCS; 2025-01-26)
PROC: 02HV33Z Insertion of Infusion Device into Superior Vena Cava, Percutaneous Approach (ICD-10-PCS; 2025-01-31)
PROC: B548ZZA Ultrasonography of Superior Vena Cava, Guidance (ICD-10-PCS; 2025-01-31)
PROC: 0B110F4 Bypass Trachea to Cutaneous with Tracheostomy Device, Open Approach (ICD-10-PCS; principal; 2025-02-06 09:30)
DX: A41.52 Sepsis due to Pseudomonas (principal); L89.154 Pressure ulcer of sacral region, stage 4; G93.41 Metabolic encephalopathy; R65.21 Severe sepsis with septic shock; J69.0 Pneumonitis due to inhalation of food and vomit; J96.01 Acute respiratory failure with hypoxia; J15.1 Pneumonia due to Pseudomonas; J15.212 Pneumonia due to Methicillin resistant Staphylococcus aureus; E43 Unspecified severe protein-calorie malnutrition; E87.0 Hyperosmolality and hypernatremia; I50.32 Chronic diastolic (congestive) heart failure; J93.83 Other pneumothorax; R64 Cachexia; N39.0 Urinary tract infection, site not specified; I31.39 Other pericardial effusion (noninflammatory); Z68.1 Body mass index [BMI] 19.9 or less, adult; Z99.11 Dependence on respirator [ventilator] status; G93.1 Anoxic brain damage, not elsewhere classified; B49 Unspecified mycosis; G30.9 Alzheimer's disease, unspecified; F02.80 Dementia in other diseases classified elsewhere, unspecified severity, without behavioral disturbance, psychotic disturbance, mood disturbance, and anxiety; E03.9 Hypothyroidism, unspecified; D69.6 Thrombocytopenia, unspecified; I11.0 Hypertensive heart disease with heart failure; E86.0 Dehydration; Z79.2 Long term (current) use of antibiotics; Z79.899 Other long term (current) drug therapy; Z95.0 Presence of cardiac pacemaker; Z79.01 Long term (current) use of anticoagulants; I69.391 Dysphagia following cerebral infarction; Z86.718 Personal history of other venous thrombosis and embolism
CPT/HCPCS: 31500; 32551; 36415; 36556; 36569; 36600; 70450; 71045; 76937; 80048; 80053; 80202; 80320; 81001; 82565; 82607; 82805; 83605; 83735; 83880; 84132; 84439; 84443; 84480; 84484; 85007; 85025; 85027; 85610; 85730; 86703; 86803; 86850; 86900; 86901; 87040; 87070; 87077; 87081; 87086; 87186; 87205; 87340; 87426; 87804; 93005; 93306; 93970; 94002; 94003; 94640; 96361; 96365; 96375; 99152; 99291; 99292; G0378; J2248; J2250; J2470; J2543; J3480